=== PATIENT | female | born 1940 | race Caucasian/White ===

== ENCOUNTER 2018-05-17 20:31 | Outpatient (REF) | payer MEDICARE, MEDICAID, SELFPAY ==
[2018-05-17 22:55] LABS: Anion Gap 5.1 mmol/L (3-11); BUN 60 mg/dL (7-18); CO2 25.9 mmol/L (21.0-32.0); CREATININE 1.79 mg/dL (0.55-1.02); Calcium 8.5 mg/dL (8.5-10.1); Chloride 103 mmol/L (98-107); Estimated GFR 27.32 (mL/min/1.73m2); Glucose 255 mg/dL (70-100); Magnesium 1.8 mg/dL (1.8-2.4); NT-proBNP 283 pg/mL; Potassium 4.8 mmol/L (3.5-5.1); Sodium 134 mmol/L (136-145); TSH (W/Ref FT4) 53.73 uIU/mL (0.358-3.74)
[2018-05-17 23:05] LABS: Hemoglobin A1C 9.7 % (4.5-6.2)
[2018-05-17 23:10] LABS: HCT 35.6 % (36.0-46.0)
[2018-05-18] LABS: FREE T4 0.49 ng/dL (0.76-1.46)
== END 2018-05-17 20:51 ==
LOC: NCHCN 20:31
PROVIDERS: PCP Family Medicine; Visit Provider Nurse Practitioner Adult Health
DX: D50.0 Iron deficiency anemia secondary to blood loss (chronic) (principal); E11.9 Type 2 diabetes mellitus without complications; E83.42 Hypomagnesemia; E87.5 Hyperkalemia; I50.9 Heart failure, unspecified; E83.40 Disorders of magnesium metabolism, unspecified; I50.32 Chronic diastolic (congestive) heart failure; E03.9 Hypothyroidism, unspecified
CPT/HCPCS: 80048; 83036; 83735; 83880; 84439; 84443; 85014; 85018

== ENCOUNTER 2018-08-06 18:13 | Inpatient (IN) | payer MEDICARE, MEDICAID, SELFPAY ==
[2018-08-06] VITALS (25 sets, daily range): BP systolic 130–143; BP diastolic 65–71; PULSE 54–72; RESP 14–18; TEMP 36.3–36.9; O2SAT 93–99
--- NOTE | 2018-08-06 18:32 | DI.RAD_ITS ---
SYMPTOMS/DIAGNOSIS: WEAKNESS, BILATERAL KNEE PAIN AP AND LATERAL CHEST: The exam was performed in a semi-erect position. The AP view was quite limited due to technique and patient body habitus. There is stable cardiomegaly. The lung bases are not well seen on the AP view. There is mild right upper lobe linear atelectasis. No acute infiltrate or effusion is seen. There is no gross evidence of pulmonary edema. IMPRESSION: Limited exam. No acute abnormality. LEFT KNEE: The exam is limited by the patient's body habitus. There is narrowing of the medial femorotibial joint space. The bones appear osteoporotic. No fracture is visible. Severe degenerative changes at the patellofemoral joint are also present. IMPRESSION: Limited exam due to the patient's body habitus. If there is further concern of a fracture, CT could be performed. RIGHT KNEE: The exam is limited by the patient's body habitus. There are severe degenerative changes of the medial femorotibial joint and patellofemoral joint. There is no gross evidence of fracture or joint effusion. IMPRESSION: Severe degenerative changes. No gross evidence of an acute abnormality.
--- NOTE | 2018-08-06 18:44 | W.ED.GENAD ---
Discharge Plan Disposition Patient Disposition: [facility] INPATIENT Condition: Stable Discharge Details Chief Complaint: GenMedical Clinical Impression: UTI (urinary tract infection), Osteoarthritis of knees, bilateral, Generalized weakness Reason For Visit: UTI,GENERALIZED WEAKNESS,INABILITY TO AMBULATE Admit Date/Time: 08/08/18 12:20 Admit Provider: Tino Smith Attending Provider: Tino Smith Primary Care Provider: Brendan Mcintyre ED Provider: Stefan Sidhu Discharge Data Discharge Date/Time-TO BE ENTERED AT DEPARTURE: 08/06/18 23:02 Medical Decision Making Patient presenting to the emergency department for chief complaint of generalized weakness to lower extremities. She states throughout the day today it has been more difficult for her to walk with her walker and she continually feels like her legs are going to give out on her. Subjectively patient does smell of urine and has bilateral knee tenderness otherwise no other acute findings are noted. No specific neurological findings are noted. Concern for possible urinary tract infection or electrolyte abnormality noted in previous history of issues with magnesium. Plan to check labs, urinalysis, and chest Xray. Patient given some acetaminophen for knee pain. Review of labs show no significant leukocytosis, decreased GFR which seems close to baseline for patient, urinalysis that shows mild leukocyte esterase and moderate WBCs, and otherwise nondiagnostic findings. Review of chest x-ray showed moderate cardiomegaly a list stable moderate vascular congestion and atelectasis similar to previous study. There is concern for possible UTI causing generalized weakness so plan to give patient Rocephin, and nightly medications of gabapentin to see if patient is able to ambulate after receiving her normal nightly medication. senior staff consultant informed me after receiving medications the patient was not able to weight-bear with multiple personnel providing assistance so I do not feel the patient is able to be safely discharged home for outpatient treatment of urinary tract infection. Called and spoke with hospitalist who agreed to admit patient for generalized weakness and UTI. Patient was in agreement with this plan. Hospitalist agreed to admit patient. Lab Data Lab results reviewed: Yes I reviewed the patient's lab results. ECG Data Prior ECG tracings: available for review Interpretation: EKG reviewed with Dr. Weiss and shows sinus rhythm with a rate of 70, overall nondiagnostic and no significant change from previous EKG noted. HPI General Mode of arrival: EMS. Date/Time Provider Initiated Documentation: 08/06/18 18:17. Limitations to Documentation: no limitations. Information obtained by: patient, EMS and RN notes reviewed. History of Present Illness 78 year old F presents to the emergency department with the chief complaint of Weakness to lower legs, with intensity rated at 3. Quality is described as aching, and is localized to the lower extremity (Bilateral knee). Patient reports no radiation. Patient started experiencing this day(s) (1) and it has been constant. No relieving factors improve symptom(s), Movement worsens symptoms . Patient notes no other symptoms.. Patient did receive the following treatments prior to arrival, none Related Data Home Medications Medication Instructions Recorded Confirmed aspirin [Aspir-81] 81 mg PO DAILY tab 12/19/12 11/19/17 multivitamin [Daily Multi-Vitamin] 1 ea PO DAILY #90 03/01/16 08/06/18 nystatin 0 gm TOPICAL BID jar 01/13/17 11/19/17 pen needle, diabetic [BD #1 box 10/04/17 Ultra-Fine Skylar Pen Needle] levetiracetam [Keppra] 500 mg PO BID #60 tab-cap 10/10/17 amlodipine 2.5 mg PO DAILY #30 tab-cap 10/17/17 08/06/18 ranitidine HCl 150 mg PO BID #60 tab-cap 10/17/17 sucralfate 1 g PO QID PRN #120 tab 10/17/17 08/06/18 magnesium oxide 400 mg PO BID #60 tab 10/24/17 08/06/18 pen needle, diabetic [Pen Needle] #1 box 11/03/17 Mouthwash [Biotene Mouthwash] 5 ml MUCOUS MEMBRANE AC btl 11/29/17 acetaminophen [Tylenol] 650 mg PO Q6H PRN PRN #0 tab 11/29/17 08/06/18 insulin aspart U-100 [Novolog 0 units SUB-Q 0800,1200,1700 pen 11/29/17 08/06/18 Flexpen U-100 Insulin] cyanocobalamin (vitamin B-12) 1,000 mcg PO DAILY #100 tab 01/16/18 08/06/18 [Vitamin B-12] ferrous sulfate 325 mg PO BID #60 tab 01/16/18 08/06/18 pravastatin 40 mg PO DAILY #90 tab 01/16/18 08/06/18 torsemide 20 mg PO DAILY #30 tab 01/16/18 08/06/18 blood-glucose meter [Onetouch #1 kit 01/23/18 Ultra2] lancets [Bd Ultra-Fine] #60 ea 01/23/18 nystatin [Nyamyc] 2 gm TOPICAL BID #60 gm 02/21/18 gabapentin 400 mg capsule 400 mg PO TID #270 cap 05/19/18 08/06/18 levothyroxine 200 mcg tablet 200 mcg PO DAILY #90 tab 05/19/18 08/06/18 insulin detemir (U-100) 100 48 unit SC QPM #15 ml 07/12/18 08/06/18 unit/mL (3 mL) subcutaneous pen pramipexole 0.5 mg tablet 0.5 mg PO BID 90 Days #180 tab-cap 07/17/18 08/06/18 tramadol 50 mg tablet 25 - 50 mg PO BID PRN #60 tab 07/26/18 08/06/18 Previous Rx's Medication Instructions Recorded nystatin 0 gm TOPICAL BID jar 01/13/17 pen needle, diabetic [BD #1 box 10/04/17 Ultra-Fine Skylar Pen Needle] levetiracetam [Keppra] 500 mg PO BID #60 tab-cap 10/10/17 amlodipine 2.5 mg PO DAILY #30 tab-cap 10/17/17 ranitidine HCl 150 mg PO BID #60 tab-cap 10/17/17 magnesium oxide 400 mg PO BID #60 tab 10/24/17 pen needle, diabetic [Pen Needle] #1 box 11/03/17 Mouthwash [Biotene Mouthwash] 5 ml MUCOUS MEMBRANE AC btl 11/29/17 acetaminophen [Tylenol] 650 mg PO Q6H PRN PRN #0 tab 11/29/17 insulin aspart U-100 [Novolog 0 units SUB-Q 0800,1200,1700 pen 11/29/17 Flexpen U-100 Insulin] cyanocobalamin (vitamin B-12) 1,000 mcg PO DAILY #100 tab 01/16/18 [Vitamin B-12] ferrous sulfate 325 mg PO BID #60 tab 01/16/18 pravastatin 40 mg PO DAILY #90 tab 01/16/18 torsemide 20 mg PO DAILY #30 tab 01/16/18 blood-glucose meter [Onetouch #1 kit 01/23/18 Ultra2] lancets [Bd Ultra-Fine] #60 ea 01/23/18 nystatin [Nyamyc] 2 gm TOPICAL BID #60 gm 02/21/18 gabapentin 400 mg capsule 400 mg PO TID #270 cap 05/19/18 levothyroxine 200 mcg tablet 200 mcg PO DAILY #90 tab 05/19/18 insulin detemir (U-100) 100 48 unit SC QPM #15 ml 07/12/18 unit/mL (3 mL) subcutaneous pen pramipexole 0.5 mg tablet 0.5 mg PO BID 90 Days #180 tab-cap 07/17/18 tramadol 50 mg tablet 25 - 50 mg PO BID PRN #60 tab 07/26/18 Allergies Allergy/AdvReac Type Severity Reaction Status Date / Time lisinopril AdvReac Hyperkalemi Unverified 08/06/18 19:21 a General Stated Complaint: GenMedical LANA: 3 Review of Systems Constitutional Denies chills, Denies fever(s) and Denies malaise ENT Denies vertigo and Denies dizziness Cardiovascular Denies chest pain, Denies syncope, Denies irregular heart rhythm and Denies dyspnea Respiratory Denies cough and Denies dyspnea Gastrointestinal Denies diarrhea, Denies nausea and Denies vomiting Musculoskeletal Reports as per HPI, Reports abnormal gait (generalized weakness lower legs), Denies numbness and Denies tingling Neurologic Reports abnormal gait (generalized weakness lower legs), Denies vertigo, Denies dizziness, Denies syncope, Denies numbness and Denies tingling [facility], [facility] Medical History Microalbuminuria (Acute 07/11/15) Vitamin B12 deficiency (Chronic 04/09/16) Primary localized osteoarthrosis of left lower leg (Chronic 09/21/11) Palliative care patient (Chronic 10/26/17) Other hyperlipidemia (Chronic 09/21/11) Iron deficiency anemia due to chronic blood loss (Chronic 09/21/11) Herpes zoster without complication (Resolved 07/22/17) Generalized anxiety disorder (Chronic 09/21/11) Essential hypertension (Chronic 09/21/11) 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) Chronic diastolic heart failure (Chronic 01/16/18) Poorly controlled type 2 diabetes mellitus (Chronic) Morbid obesity with BMI of 70 and over, adult (Chronic) Social History adopted: No caregiver/support person: Yes foster care: No household members: children housing: house lives independently: No number of children: 4 half-way: No current occupational status: retired pets and animals: Yes leisure activities: other Hx Recent Travel: No diet: diabetic well-balanced diet: about half the time eating out: rarely or never reads food labels: sometimes Smoking/Tobacco Use Status: Never passive smoking exposure: Yes Surgical History Extraction of cataract (11/14/11) Exam Const General: cooperative, healthy appearing and no acute distress Orientation: alert, awake and oriented x3 Resp Effort & Inspection: normal respiratory effort and able to speak in complete sentences Auscultation: clear to auscultation bilaterally Cardio Rate: regular rate Rhythm: regular rhythm Heart Sounds: S1 normal, S2 normal, no click, no gallops, no murmurs and no rubs Neuro General: alert, awake, oriented x3, moves all extremities, no focal motor deficits and unable to assess gait Cognition: normal cognition Speech: speech normal Extrem Right lower extremity: knee Details: normal to inspection, tenderness (Diffuse) and swelling; no ecchymosis, no deformity and no unusual warmth and lower leg Details: non-pitting edema Details: 3+; no erythema, no tenderness, no ecchymosis and no unusual warmth Left lower extremity: knee Details: tenderness (Diffuse); no swelling, no ecchymosis and no deformity and lower leg Details: non-pitting edema Details: 3+; no tenderness, no ecchymosis and no deformity Course Vital Signs Temperature 36.4 C L 08/06/18 18:16 Pulse 72 08/06/18 18:16 Respiratory Rate 14 08/06/18 18:16 Blood Pressure 141/69 H 08/06/18 18:16 Pulse Oximetry 99 08/06/18 18:16 Temperature 36.4 C L 08/06/18 18:16 Temperature Source Temporal Artery Scan 08/06/18 18:16 Pulse 72 08/06/18 18:16 Respiratory Rate 14 08/06/18 18:16 Blood Pressure 141/69 H 08/06/18 18:16 Blood Pressure Position Sitting 08/06/18 18:16 Pulse Oximetry 99 08/06/18 18:16 Oxygen Delivery Method Nasal Cannula 08/06/18 18:16 Pain Level 5 08/06/18 18:16
--- NOTE | 2018-08-06 18:56 | ED.GENADUL_ITS ---
Discharge Plan Disposition Patient Disposition: [facility] INPATIENT Condition: Stable Discharge Details Chief Complaint: GenMedical Clinical Impression: UTI (urinary tract infection), Osteoarthritis of knees, bilateral, Generalized weakness Reason For Visit: UTI,GENERALIZED WEAKNESS,INABILITY TO AMBULATE Admit Date/Time: 08/08/18 12:20 Admit Provider: Tino Smith Attending Provider: Tino Smith Primary Care Provider: Brendan Mcintyre ED Provider: Stefan Sidhu Discharge Data Discharge Date/Time-TO BE ENTERED AT DEPARTURE: 08/06/18 23:02 Medical Decision Making Patient presenting to the emergency department for chief complaint of generalized weakness to lower extremities. She states throughout the day today it has been more difficult for her to walk with her walker and she continually feels like her legs are going to give out on her. Subjectively patient does smell of urine and has bilateral knee tenderness otherwise no other acute findings are noted. No specific neurological findings are noted. Concern for possible urinary tract infection or electrolyte abnormality noted in previous history of issues with magnesium. Plan to check labs, urinalysis, and chest Xray. Patient given some acetaminophen for knee pain. Review of labs show no significant leukocytosis, decreased GFR which seems close to baseline for patient, urinalysis that shows mild leukocyte esterase and moderate WBCs, and otherwise nondiagnostic findings. Review of chest x-ray showed moderate cardiomegaly a list stable moderate vascular congestion and atelectasis similar to previous study. There is concern for possible UTI causing generalized weakness so plan to give patient Rocephin, and nightly medications of gabapentin to see if patient is able to ambulate after receiving her normal nightly medication. staff registered nurse informed me after receiving medications the patient was not able to weight-bear with multiple personnel providing assistance so I do not feel the patient is able to be safely discharged home for outpatient treatment of urinary tract infection. Called and spoke with hospitalist who agreed to admit patient for generalized weakness and UTI. Patient was in agreement with this plan. Hospitalist agreed to admit patient. Lab Data Lab results reviewed: Yes I reviewed the patient's lab results. ECG Data Prior ECG tracings: available for review Interpretation: EKG reviewed with Dr. Weiss and shows sinus rhythm with a rate of 70, overall nondiagnostic and no significant change from previous EKG noted. HPI General Mode of arrival: EMS . Date/Time Provider Initiated Documentation: 08/06/18 18:17 . Limitations to Documentation: no limitations . Information obtained by: patient, EMS and RN notes reviewed . History of Present Illness 78 year old F presents to the emergency department with the chief complaint of Weakness to lower legs, with intensity rated at 3. Quality is described as aching, and is localized to the lower extremity (Bilateral knee). Patient reports no radiation. Patient started experiencing this day(s) (1) and it has been constant. No relieving factors improve symptom(s), Movement worsens symptoms . Patient notes no other symptoms.. Patient did receive the following treatments prior to arrival, none Related Data Home Medications Medication Instructions Recorded Confirmed aspirin [Aspir-81] 81 mg PO DAILY tab 12/19/12 11/19/17 multivitamin [Daily Multi-Vitamin] 1 ea PO DAILY #90 03/01/16 08/06/18 nystatin 0 gm TOPICAL BID jar 01/13/17 11/19/17 pen needle, diabetic [BD #1 box 10/04/17 Ultra-Fine Skylar Pen Needle] levetiracetam [Keppra] 500 mg PO BID #60 tab-cap 10/10/17 amlodipine 2.5 mg PO DAILY #30 tab-cap 10/17/17 08/06/18 ranitidine HCl 150 mg PO BID #60 tab-cap 10/17/17 sucralfate 1 g PO QID PRN #120 tab 10/17/17 08/06/18 magnesium oxide 400 mg PO BID #60 tab 10/24/17 08/06/18 pen needle, diabetic [Pen Needle] #1 box 11/03/17 Mouthwash [Biotene Mouthwash] 5 ml MUCOUS MEMBRANE AC btl 11/29/17 acetaminophen [Tylenol] 650 mg PO Q6H PRN PRN #0 tab 11/29/17 08/06/18 insulin aspart U-100 [Novolog 0 units SUB-Q 0800,1200,1700 pen 11/29/17 Flexpen U-100 Insulin] cyanocobalamin (vitamin B-12) 1,000 mcg PO DAILY #100 tab 01/16/18 08/06/18 [Vitamin B-12] ferrous sulfate 325 mg PO BID #60 tab 01/16/18 08/06/18 pravastatin 40 mg PO DAILY #90 tab 01/16/18 08/06/18 torsemide 20 mg PO DAILY #30 tab 01/16/18 08/06/18 blood-glucose meter [Onetouch #1 kit 01/23/18 Ultra2] lancets [Bd Ultra-Fine] #60 ea 01/23/18 nystatin [Nyamyc] 2 gm TOPICAL BID #60 gm 02/21/18 gabapentin 400 mg capsule 400 mg PO TID #270 cap 05/19/18 08/06/18 levothyroxine 200 mcg tablet 200 mcg PO DAILY #90 tab 05/19/18 08/06/18 insulin detemir (U-100) 100 48 unit SC QPM #15 ml 07/12/18 08/06/18 unit/mL (3 mL) subcutaneous pen pramipexole 0.5 mg tablet 0.5 mg PO BID 90 Days #180 tab-cap 07/17/18 08/06/18 tramadol 50 mg tablet 25 - 50 mg PO BID PRN #60 tab 07/26/18 08/06/18 Previous Rx's Medication Instructions Recorded nystatin 0 gm TOPICAL BID jar 01/13/17 pen needle, diabetic [BD #1 box 10/04/17 Ultra-Fine Skylar Pen Needle] levetiracetam [Keppra] 500 mg PO BID #60 tab-cap 10/10/17 amlodipine 2.5 mg PO DAILY #30 tab-cap 10/17/17 ranitidine HCl 150 mg PO BID #60 tab-cap 10/17/17 magnesium oxide 400 mg PO BID #60 tab 10/24/17 pen needle, diabetic [Pen Needle] #1 box 11/03/17 Mouthwash [Biotene Mouthwash] 5 ml MUCOUS MEMBRANE AC btl 11/29/17 acetaminophen [Tylenol] 650 mg PO Q6H PRN PRN #0 tab 11/29/17 insulin aspart U-100 [Novolog 0 units SUB-Q 0800,1200,1700 pen 11/29/17 Flexpen U-100 Insulin] cyanocobalamin (vitamin B-12) 1,000 mcg PO DAILY #100 tab 01/16/18 [Vitamin B-12] ferrous sulfate 325 mg PO BID #60 tab 01/16/18 pravastatin 40 mg PO DAILY #90 tab 01/16/18 torsemide 20 mg PO DAILY #30 tab 01/16/18 blood-glucose meter [Onetouch #1 kit 01/23/18 Ultra2] lancets [Bd Ultra-Fine] #60 ea 01/23/18 nystatin [Nyamyc] 2 gm TOPICAL BID #60 gm 02/21/18 gabapentin 400 mg capsule 400 mg PO TID #270 cap 05/19/18 levothyroxine 200 mcg tablet 200 mcg PO DAILY #90 tab 05/19/18 insulin detemir (U-100) 100 48 unit SC QPM #15 ml 07/12/18 unit/mL (3 mL) subcutaneous pen pramipexole 0.5 mg tablet 0.5 mg PO BID 90 Days #180 tab-cap 07/17/18 tramadol 50 mg tablet 25 - 50 mg PO BID PRN #60 tab 07/26/18 Allergies Allergy/AdvReac Type Severity Reaction Status Date / Time lisinopril AdvReac Hyperkalemi Unverified 08/06/18 19:21 a General Stated Complaint: GenMedical LANA: 3 Review of Systems Constitutional Denies chills, Denies fever(s) and Denies malaise ENT Denies vertigo and Denies dizziness Cardiovascular Denies chest pain, Denies syncope, Denies irregular heart rhythm and Denies dyspnea Respiratory Denies cough and Denies dyspnea Gastrointestinal Denies diarrhea, Denies nausea and Denies vomiting Musculoskeletal Reports as per HPI, Reports abnormal gait (generalized weakness lower legs), Denies numbness and Denies tingling Neurologic Reports abnormal gait (generalized weakness lower legs), Denies vertigo, Denies dizziness, Denies syncope, Denies numbness and Denies tingling [facility] Medical History Microalbuminuria (Acute 07/11/15) Vitamin B12 deficiency (Chronic 04/09/16) Primary localized osteoarthrosis of left lower leg (Chronic 09/21/11) Palliative care patient (Chronic 10/26/17) Other hyperlipidemia (Chronic 09/21/11) Iron deficiency anemia due to chronic blood loss (Chronic 09/21/11) Herpes zoster without complication (Resolved 07/22/17) Generalized anxiety disorder (Chronic 09/21/11) Essential hypertension (Chronic 09/21/11) 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) Chronic diastolic heart failure (Chronic 01/16/18) Poorly controlled type 2 diabetes mellitus (Chronic) Morbid obesity with BMI of 70 and over, adult (Chronic) Social History adopted: No caregiver/support person: Yes foster care: No household members: children housing: house lives independently: No number of children: 4 longterm: No current occupational status: retired pets and animals: Yes leisure activities: other Hx Recent Travel: No diet: diabetic well-balanced diet: about half the time eating out: rarely or never reads food labels: sometimes Smoking/Tobacco Use Status: Never passive smoking exposure: Yes Surgical History Extraction of cataract (11/14/11) Exam Const General: cooperative, healthy appearing and no acute distress Orientation: alert, awake and oriented x3 Resp Effort & Inspection: normal respiratory effort and able to speak in complete sentences Auscultation: clear to auscultation bilaterally Cardio Rate: regular rate Rhythm: regular rhythm Heart Sounds: S1 normal, S2 normal, no click, no gallops, no murmurs and no rubs Neuro General: alert, awake, oriented x3, moves all extremities, no focal motor deficits and unable to assess gait Cognition: normal cognition Speech: speech normal Extrem Right lower extremity: knee Details: normal to inspection, tenderness (Diffuse) and swelling; no ecchymosis, no deformity and no unusual warmth and lower leg Details: non-pitting edema Details: 3+; no erythema, no tenderness, no ecchymosis and no unusual warmth Left lower extremity: knee Details: tenderness (Diffuse); no swelling, no ecchymosis and no deformity and lower leg Details: non-pitting edema Details: 3+ ; no tenderness, no ecchymosis and no deformity Course Vital Signs Temperature 36.4 C L 08/06/18 18:16 Pulse 72 08/06/18 18:16 Respiratory Rate 14 08/06/18 18:16 Blood Pressure 141/69 H 08/06/18 18:16 Pulse Oximetry 99 08/06/18 18:16 Temperature 36.4 C L 08/06/18 18:16 Temperature Source Temporal Artery Scan 08/06/18 18:16 Pulse 72 08/06/18 18:16 Respiratory Rate 14 08/06/18 18:16 Blood Pressure 141/69 H 08/06/18 18:16 Blood Pressure Position Sitting 08/06/18 18:16 Pulse Oximetry 99 08/06/18 18:16 Oxygen Delivery Method Nasal Cannula 08/06/18 18:16 Pain Level 5 08/06/18 18:16
[2018-08-06 19:15] LABS: Bilirubin Negative (Negative); Blood Negative (Negative); Clarity Sl Cloudy; Glucose Negative (Negative); Ketones Negative (Negative); Leukocyte Esterase Trace (Negative); Nitrite Negative (Negative); Specific Gravity 1.015 (1.005-1.025); Urobilinogen 0.2 EU/dL (Up TO 0.2); pH 5.5 (5-8)
[2018-08-06] MEDS: Acetaminophen 325 MG TAB 650 MG PO (19:20)
[2018-08-06 19:26] LABS: Bacteria Many HPF (Negative); C & S Indicated? Yes; Casts Negative LPF (Negative); Crystals Moderate Amorphous HPF (Negative); Epithelial Cells Negative HPF (Negative); Mucus Negative (Negative); Other Cells Negative (Negative); RBC Negative (0-2)
[2018-08-06 19:47] LABS: ALT 12 U/L (12-78); AST 4 U/L (15-37); Alkaline Phosphatase 107 U/L (46-116); Anion Gap 7.7 mmol/L (3-11); BUN 53 mg/dL (7-18); Bilirubin, Total 0.3 mg/dL (0.2-1.0); CO2 27.3 mmol/L (21.0-32.0); CREATININE 2.07 mg/dL (0.55-1.02); Calcium 8.6 mg/dL (8.5-10.1); Chloride 103 mmol/L (98-107); Estimated GFR 23.04 (mL/min/1.73m2); Glucose 208 mg/dL (70-100); Potassium 4.7 mmol/L (3.5-5.1); Sodium 138 mmol/L (136-145); Total Protein 7.1 g/dL (6.4-8.2)
[2018-08-06 19:50] LABS: Abs Immature Grans 0.02 k/cumm (0.0-0.09); Absolute Basophil Count 0.04 k/cumm (0.0-0.2); Absolute Eosinophil Count 0.17 k/cumm (0.0-0.7); Absolute Monocyte Count 0.61 k/cumm (0.11-0.7); Absolute Neutrophil Count 7.39 k/cumm (1.2-6.7); Basophils % 0.4; Eosinophils % 1.8; HCT 37.5 % (36.0-46.0); HGB 11.8 g/dL (12.0-15.5); Immature Grans % 0.2; Lymphocytes % 10.8; Mean Corp. HGB Concentration 31.5 g/dL (32.0-36.0); Mean Corpuscular Hemoglobin 29.7 pg (27.0-33.0); Mean Corpuscular Volume 94.5 fL (80-95); Monocytes % 6.6; Neutrophils % 80.2; Platelet Count 246 x1000/uL (130-400); RBC 3.97 m/cumm (4.00-5.20); White Blood Cell Count 9.23 k/cumm (4.4-10.8)
[2018-08-06 19:59] LABS: Magnesium 2.1 mg/dL (1.8-2.4)
--- NOTE | 2018-08-06 20:02 | DI.VRAD_ITS ---
EXAM: XR Chest, 2 Views EXAM DATE/TIME: 08/06/2018 7:39 PM CLINICAL HISTORY: 78 years old, female; Signs and symptoms; Other: Weakness TECHNIQUE: XR of the chest, 2 views. COMPARISON: [place] CHEST ONE VIEW IN RAD DEPT 11/19/2017 6:51 AM FINDINGS: Lungs: Low lung volumes. Moderate cardiomegaly with stable moderate vascular congestion, probable very hilar interstitial edema. Subsegmental atelectasis in the midlung zones similar to the previous study. No juancarlos airspace consolidation. Pleural space: No significant effusion. No pneumothorax. Heart/Mediastinum: Cardiomegaly is stable. Bones/joints: No acute fracture. IMPRESSION: 1. Moderate cardiomegaly with stable moderate vascular congestion, probable very hilar interstitial edema. 2. Subsegmental atelectasis in the midlung zones similar to the previous study. Dictated and Authenticated by: Kaela Martinez MD. Ordering:GUMARO DEXTER MD
[2018-08-06 20:07] LABS: Troponin I 0.02 ng/mL (0.00-0.06)
[2018-08-06] MEDS: Sucralfate 1 GM TAB PO (20:24)
[2018-08-06] MEDS: Gabapentin 400 MG CAP PO (20:55)
--- NOTE | 2018-08-06 21:31 | DI.VRAD_ITS ---
EXAM: XR Left Knee, 3 Views EXAM DATE/TIME: 08/06/2018 8:55 PM CLINICAL HISTORY: 78 years old, female; Pain; Knee; Left; Patient HX: Pain. Unable to move leg - best views. Possible. PT morbidly obese TECHNIQUE: XR Left knee 3 views. COMPARISON: CR LEFT KNEE 3 VIEW COMPLETE 01/14/2016 9:44 AM FINDINGS: Bones/joints: No acute fracture or subluxation. Progression of severe medial, moderate lateral and severe patellofemoral compartment degenerative changes. The medial joint space appears nearly completely obliterated, worsened since the previous study. Extensive hypertrophic changes throughout the knee. Soft tissues: No gross effusion. Vasculature: Atherosclerosis. IMPRESSION: 1. No acute bony pathology. 2. Progression of severe medial, moderate lateral and severe patellofemoral compartment degenerative changes. Dictated and Authenticated by: Kaela Martinez MD. Ordering:GUMARO DEXTER MD
--- NOTE | 2018-08-06 21:32 | DI.VRAD_ITS ---
EXAM: XR Right Knee, 3 Views EXAM DATE/TIME: 08/06/2018 8:55 PM CLINICAL HISTORY: 78 years old, female; Pain; Knee; Right; Patient HX: Pain. Unable to move leg, best views possible - PT obese TECHNIQUE: XR Right knee 3 views. COMPARISON: No relevant prior studies available. FINDINGS: Bones/joints: No acute fracture or subluxation. Severe medial, moderate lateral and severe patellofemoral degenerative changes. Medial joint space appears narrowed. Probably some narrowing of the lateral joint space. No significant joint effusion. Soft tissues: No gross effusion. IMPRESSION: No acute bony pathology. Degenerative changes. Dictated and Authenticated by: Kaela Martinez MD. Ordering:GUMARO DEXTER MD
--- NOTE | 2018-08-06 22:01 | NUR.NOTE ---
Addendum entered by Marivel Vines 08/06/18 22:07: pt unable to stand with 2 person assist and walker. Extremely weak. Provider aware. Original Note: Nursing Note: pt resting comfortably in bed.
[2018-08-06] MEDS: Enoxaparin 30 MG/0.3 ML SYR SC (23:48)
--- NOTE | 2018-08-07 00:15 | W.PM.HP.N ---
Date of service: 08/07/18 Time of Service: 00:16 Assessment and Plan (1) Prerenal azotemia: Current visit: Yes Status: Acute Gentle IV fluid hydration overnight with a recheck of her BMP in the morning. Hold torsemide for now (2) Dehydration: Current visit: Yes Status: Acute As above (3) UTI (urinary tract infection): Current visit: Yes Status: Acute Continue Rocephin 1 g IV every 24 hours pending urinary culture results (4) Tinea cruris: Current visit: Yes Status: Acute Begin topical ketoconazole (5) Poorly controlled type 2 diabetes mellitus: Current visit: No Status: Chronic Continue current dose of Levemir and add moderate dose NovoLog sliding scale as well as mealtime coverage of carbohydrates with NovoLog at a 1-10 ratio (6) Generalized weakness: Current visit: Yes Status: Acute consult w/ P.T. to evaluate and treat, assess ambulatory status and to treat patient to try to improve ambulation/transfers, independent ADL performance History of Present Illness Chief Complaint: inability to walk Narrative: 78-year-old female with a past medical history of poorly controlled type 2 diabetes mellitus complicated by stage IV chronic renal insufficiency, essential hypertension, osteoarthritis of the knees, chronic anemia, hypothyroidism, morbid obesity, chronic congestive heart failure with preserved left ventricular ejection fraction presents to the emergency department with acute inability to ambulate beginning this morning. She normally gets out of bed with the help of a walker and can usually ambulate from her bedroom to the bathroom approximately 40 feet. Today she required the assistance of her daughter who lives with her just to get out of bed to a bedside commode. Patient's had chronic symptoms of orthostatic dizziness but denies any chest pain or acute dyspnea. She denies any fever or chills and has had no nausea or vomiting or diarrhea. Workup in the emergency room showed acute on chronic renal failure as well as evidence of a UTI. According the Stefan Sidhu N.P., she was unable to ambulate in the emergency room even with the assistance of three people and a walker. She was treated in the ER w/ Rocephin for her UTI and she was given Tylenol and her evening dose of gabapentin. She is admitted as an observation patient for treatment of her UTI and for treatment of dehydration and for P.T. evaluation and treatment of her generalized weakness and inability to ambulate. Review of Systems Constitutional Denies chills, Denies fever(s), Reports frequent falls and Reports weakness Eyes Reports system reviewed and no additional complaints, except as docu ENT Reports system reviewed and no additional complaints, except as docu Cardiovascular Reports system reviewed and no additional complaints, except as docu, Denies chest pain at rest, Denies chest pain with activity, Denies syncope, Reports lightheadedness and Reports dyspnea on exertion Respiratory Reports system reviewed and no additional complaints, except as docu, Denies chest congestion, Denies cough and Reports dyspnea on exertion Genitourinary Denies dysuria Musculoskeletal Denies back pain, Reports arthralgias, Reports numbness and Reports tingling Comments: Paresthesias in her legs and feet left being worse than the right Neurologic Reports system reviewed and no additional complaints, except as docu, Denies syncope, Reports frequent falls, Reports numbness, Reports tingling and Reports weakness Psychiatric Reports system reviewed and no additional complaints, except as docu Endocrine Reports system reviewed and no additional complaints, except as docu [facility] Medical History Microalbuminuria (Acute 07/11/15) Vitamin B12 deficiency (Chronic 04/09/16) Primary localized osteoarthrosis of left lower leg (Chronic 09/21/11) Palliative care patient (Chronic 10/26/17) Other hyperlipidemia (Chronic 09/21/11) Iron deficiency anemia due to chronic blood loss (Chronic 09/21/11) Herpes zoster without complication (Resolved 07/22/17) Generalized anxiety disorder (Chronic 09/21/11) Essential hypertension (Chronic 09/21/11) 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) Chronic diastolic heart failure (Chronic 01/16/18) Poorly controlled type 2 diabetes mellitus (Chronic) Morbid obesity with BMI of 70 and over, adult (Chronic) Social History adopted: No caregiver/support person: Yes foster care: No household members: children housing: house lives independently: No number of children: 4 shelter: No current occupational status: retired pets and animals: Yes leisure activities: other Hx Recent Travel: No diet: diabetic well-balanced diet: about half the time eating out: rarely or never reads food labels: sometimes Smoking/Tobacco Use Status: Never passive smoking exposure: Yes Surgical History Extraction of cataract (11/14/11) Meds Home Medications Medication Instructions Recorded Confirmed Type aspirin [Aspir-81] 81 mg PO DAILY tab 12/19/12 11/19/17 History multivitamin [Daily Multi-Vitamin] 1 ea PO DAILY #90 03/01/16 08/06/18 History nystatin 0 gm TOPICAL BID jar 01/13/17 11/19/17 Rx pen needle, diabetic [BD #1 box 10/04/17 Rx Ultra-Fine Skylar Pen Needle] levetiracetam [Keppra] 500 mg PO BID #60 tab-cap 10/10/17 Rx amlodipine 2.5 mg PO DAILY #30 tab-cap 10/17/17 08/06/18 Rx ranitidine HCl 150 mg PO BID #60 tab-cap 10/17/17 Rx sucralfate 1 g PO QID PRN #120 tab 10/17/17 08/06/18 History magnesium oxide 400 mg PO BID #60 tab 10/24/17 08/06/18 Rx pen needle, diabetic [Pen Needle] #1 box 11/03/17 Rx Mouthwash [Biotene Mouthwash] 5 ml MUCOUS MEMBRANE AC btl 11/29/17 Rx acetaminophen [Tylenol] 650 mg PO Q6H PRN PRN #0 tab 11/29/17 08/06/18 Rx insulin aspart U-100 [Novolog 0 units SUB-Q 0800,1200,1700 pen 11/29/17 08/06/18 Rx Flexpen U-100 Insulin] Hospital Bed ea MISCELLANEOUS ONCE #1 12/28/17 Clinic cyanocobalamin (vitamin B-12) 1,000 mcg PO DAILY #100 tab 01/16/18 08/06/18 Rx [Vitamin B-12] ferrous sulfate 325 mg PO BID #60 tab 01/16/18 08/06/18 Rx pravastatin 40 mg PO DAILY #90 tab 01/16/18 08/06/18 Rx torsemide 20 mg PO DAILY #30 tab 01/16/18 08/06/18 Rx Onetouch Ultra Test Strips 1 ea MISCELLANEOUS BID #60 strip 01/23/18 Clinic blood-glucose meter [Onetouch #1 kit 01/23/18 Rx Ultra2] lancets [Bd Ultra-Fine] #60 ea 01/23/18 Rx nystatin [Nyamyc] 2 gm TOPICAL BID #60 gm 02/21/18 Rx gabapentin 400 mg capsule 400 mg PO TID #270 cap 05/19/18 08/06/18 Rx levothyroxine 200 mcg tablet 200 mcg PO DAILY #90 tab 05/19/18 08/06/18 Rx insulin detemir (U-100) 100 48 unit SC QPM #15 ml 07/12/18 08/06/18 Rx unit/mL (3 mL) subcutaneous pen pramipexole 0.5 mg tablet 0.5 mg PO BID 90 Days #180 tab-cap 07/17/18 08/06/18 Rx tramadol 50 mg tablet 25 - 50 mg PO BID PRN #60 tab 07/26/18 08/06/18 Rx Allergies Allergy/AdvReac Type Severity Reaction Status Date / Time lisinopril AdvReac Hyperkalemi Unverified 08/06/18 19:21 a Exam Const General: cooperative and no acute distress Nutritional Appearance: obese morbidly obese Orientation: alert, awake and oriented x3 HENMT Head: normal to inspection, no palpable skull fracture, normocephalic and atraumatic General nose exam: external nose normal and nares normal Face and sinus: normal facial exam Mouth: moist mucous membranes abnormal (Dry mucous membranes) Eyes General: appearance normal, both eyes and all related structures Visual Frias: normal visual frias by confrontation Alignment and Position: alignment normal Periorbital: periorbital findings normal Eyelids: eyelids normal Conjunctivae: conjunctivae normal Sclera: sclerae normal Cornea: corneas normal Pupils: PERRL and normal by confrontation EOM: EOM intact bilaterally Neck Neck: normal visual inspection, full ROM, no lymphadenopathy, trachea midline and supple Carotids: normal carotid upstroke Lymphatic: no lymphadenopathy noted Resp Effort & Inspection: normal respiratory effort and able to speak in complete sentences Auscultation: clear to auscultation bilaterally Cardio Jugular venous pressure: no JVD Palpation: normal PMI Rate: regular rate Rhythm: regular rhythm Heart Sounds: S1 normal, S2 normal, normal, physiologic split S2, no gallops, no murmurs and no rubs Bruits: no abdominal aortic bruits, no carotid bruits and no renal bruits Pulses: normal peripheral pulses GI Inspection: large pannus and obesity Palpation: soft, no guarding and nontender Percussion: normal to percussion Auscultation: normal bowel sounds Skin Rashes: rashes noted (Tinea cruris bilaterally) groin and other (Stasis dermatitis over both pretibial surfaces) Neuro General: alert, awake and oriented x3 Cranial Nerves: CN's II-XI intact bilaterally Cognition: normal cognition Speech: speech normal Motor: strength abnormal (Decreased strength with right and left hip flexion and abduction however normal dorsiflexion plantarflexion of the right and left foot.) Sensory Exam: other (Sensory exam grossly intact to light touch in both lower extremities. Two-point discrimination was not tested and monofilament was not tested) Plantar Reflexes: Downgoing: bilateral Pupils: Normal pupillary reactivity/response: bilateral and Pinpoint: bilateral Extrem General: no clubbing, cyanosis or edema and no calf tenderness Psych Appearance: disheveled Mental Status: mental status grossly normal Speech and Movement: speech and movement normal Mood: congruent mood Affect: normal affect Attitude: cooperative Thought Process: normal Thought Content: normal Insight: insight good Judgment: judgment good Results Labs : 08/06/18 19:25 08/07/18 06:22 Laboratory Results - last 24 hr 08/06/18 08/06/18 08/06/18 19:10 19:25 19:25 WBC 9.23 RBC 3.97 L Hgb 11.8 L Hct 37.5 MCV 94.5 MCH 29.7 MCHC 31.5 L RDW 13.0 Plt Count 246 MPV 10.0 Immature Gran % 0.2 Neutrophils % 80.2 Lymphocytes % 10.8 Monocytes % 6.6 Eosinophils % 1.8 Basophils % 0.4 Absolute Neutrophils 7.39 H Absolute Lymphocytes 1.00 L Absolute Monocytes 0.61 Absolute Eosinophils 0.17 Absolute Basophils 0.04 Sodium 138 Potassium 4.7 Chloride 103 Carbon Dioxide 27.3 Anion Gap 7.7 BUN 53 H Creatinine 2.07 H Estimated GFR/1.73 m2 23.04 Glucose 208 H Calcium 8.6 Magnesium Total Bilirubin 0.3 AST 4 L ALT 12 Alkaline Phosphatase 107 Troponin I Total Protein 7.1 Albumin 3.0 L Urine Color Yellow Urine Clarity Sl cloudy Urine pH 5.5 Ur Specific [place] 1.015 Urine Protein 100 H Urine Ketones Negative Urine Blood Negative Urine Nitrite Negative Urine Bilirubin Negative Urine Urobilinogen 0.2 Ur Leukocyte Esterase Trace H Urine RBC Negative Urine WBC 10-20 Ur Epithelial Cells Negative Urine Crystals Moderate amorphous Urine Bacteria Many Urine Casts Negative Urine Mucus Negative Urine Other Negative Ur Culture Indicated? Yes Urine Glucose Negative 08/06/18 08/06/18 19:25 19:25 WBC RBC Hgb Hct MCV MCH MCHC RDW Plt Count MPV Immature Gran % Neutrophils % Lymphocytes % Monocytes % Eosinophils % Basophils % Absolute Neutrophils Absolute Lymphocytes Absolute Monocytes Absolute Eosinophils Absolute Basophils Sodium Potassium Chloride Carbon Dioxide Anion Gap BUN Creatinine Estimated GFR/1.73 m2 Glucose Calcium Magnesium 2.1 Total Bilirubin AST ALT Alkaline Phosphatase Troponin I 0.02 Total Protein Albumin Urine Color Urine Clarity Urine pH Ur Specific [place] Urine Protein Urine Ketones Urine Blood Urine Nitrite Urine Bilirubin Urine Urobilinogen Ur Leukocyte Esterase Urine RBC Urine WBC Ur Epithelial Cells Urine Crystals Urine Bacteria Urine Casts Urine Mucus Urine Other Ur Culture Indicated? Urine Glucose Last Vital Signs Temp 36.3 C L 08/06/18 23:23 Pulse 62 08/06/18 23:23 Resp 18 08/06/18 23:23 BP 143/71 H 08/06/18 23:23 Pulse Ox 97 08/06/18 23:23
[2018-08-07] MEDS: Lactated Ringers 1,000 ML 80 ML IV (01:39)
[2018-08-07] MEDS: Levothyroxine 100 MCG TAB 200 MCG PO (06:04)
[2018-08-07 07:40] VITALS: BP 102/64; PULSE 57; RESP 20; TEMP 36.4; O2SAT 95; O2SAT 98
[2018-08-07 07:43] LABS: Anion Gap 6.3 mmol/L (3-11); BUN 53 mg/dL (7-18); CO2 26.7 mmol/L (21.0-32.0); CREATININE 2.05 mg/dL (0.55-1.02); Calcium 8.4 mg/dL (8.5-10.1); Chloride 106 mmol/L (98-107); Glucose 117 mg/dL (70-100); Potassium 4.3 mmol/L (3.5-5.1); Sodium 139 mmol/L (136-145)
[2018-08-07 07:54] LABS: Hemoglobin A1C 10.3 % (4.5-6.2)
[2018-08-07] MEDS: amLODIPine 2.5 MG TAB PO (08:16)
[2018-08-07] MEDS: Pramipexole 0.5 MG TAB PO ×2 (08:16→20:37)
--- NOTE | 2018-08-07 08:16 | PDOC.CMIN ---
- If Service Date Differs Date of service: 08/07/18 Time of Service: 08:16 Care Management Initial Assess REASON FOR HOSPITALIZATION:: UTI, generalized weakness, inability to ambulate. PAST MEDICAL HISTORY/PAST SURGICAL HISTORY:: Chronic diastolic heart failure, magnesium metabolism, essential hypertension, anxiety, herpes zoster, microalbuminuria, morbid obesity, hyperlipidemia, diabetes type II, osteoarthritis left leg. Surgical hx: bilateral cataract. PREVIOUS FUNCTIONAL STATUS/SOCIAL/FAMILY SUPPORTS:: Bijal resides in [facility] with her daughter, Erin, who is her primary direct care staffer. She has a son, Doug, who resides nearby and is additionally supportive. Bijal spent several weeks at [facility] H& seven months ago and had home health services (RN/PT/OT) at that time. Bijal's home health services have since ceased. She requires assistance with her ADLs; she can reportedly dress independently and use the bathroom. Bijal utilizes a walker and wheel chair (most often) at home for ambulation. According to her daughter, Bijal is homebound as she, Erin, can not transport her. CURRENT FUNCTIONAL STATUS:: Bijal is sitting in her chair with her son, Doug, and daughter, Erin, at bedside when visits this morning. She is engaged in conversation and is talkative. Bijal reports that she is feeling ok but continues to feel week. Bijal was admitted with a UTI and is being medically managed for such and her diminished level of mobility. Bijal and her family would like the hospital to get her back to her baseline with mobility and then have her return home. Bijal is here on observation status so will not have a qualifying stay should she require a short term rehab stay at a SNF. Bijal and her family understand this and would like her to return home with services if possible following her discharge from [facility]. ADVANCE DIRECTIVES:: On file at [facility]. Health Care Agent: Erin Medley. . Has patient been provided with information about the portal?: Yes Did the patient sign up for the portal?: No CODE STATUS:: Full Code INSURANCE COVERAGE / FINANCIAL ISSUES:: Medicaid, Medicare. CURRENT HOME/COMMUNITY SERVICES/EQUIPMENT:: No current home or community services. Bijal refused offer of referrals to [facility], [facility], etc. Bijal uses a wheel chair and walker for ambulation. PRIMARY CARE PHYSICIAN:: Brendan Mcintyre DO. POTENTIAL DISCHARGE NEEDS:: Follow up appointment with PCP. Home health services (PT/OT(?). PATIENT/FAMILY EDUCATION NEEDS:: Discharge education, any limitations, and follow up plan of care. Ask Me Three discussion. ANTICIPATED BARRIERS TO DISCHARGE:: No anticipated barriers to discharge. TRANSPORTATION:: Bijal will transport home via private vehicle with her daughter, Erin. PLAN:: Bijal will discharge home when medically ready per MD. Anticipate patient will discharge with no services and follow up with PCP. CM will continue to offer support to patient and care team regarding discharge planning and disposition.
[2018-08-07] MEDS: Pravastatin 40 MG TAB PO (08:17)
[2018-08-07] MEDS: Multivitamin TAB 1 TAB PO (08:17)
[2018-08-07] MEDS: Ferrous Sulfate 325 MG TAB PO ×2 (08:17→20:37)
[2018-08-07] MEDS: Gabapentin 400 MG CAP PO ×3 (08:17→20:37)
[2018-08-07] MEDS: Cyanocobalamin 500 MCG TAB 1000 MCG PO (08:17)
[2018-08-07] MEDS: Magnesium Oxide 400 MG TAB PO ×2 (08:17→20:37)
[2018-08-07] MEDS: Insulin Aspart 300 UNITS/3 ML PEN SC ×5 (08:23→17:20)
--- NOTE | 2018-08-07 08:24 | INITIAL_ITS ---
- If Service Date Differs Date of service: 08/07/18 Time of Service: 08:16 Care Management Initial Assess REASON FOR HOSPITALIZATION:: UTI, generalized weakness, inability to ambulate. PAST MEDICAL HISTORY/PAST SURGICAL HISTORY:: Chronic diastolic heart failure, magnesium metabolism, essential hypertension, anxiety, herpes zoster, microalbuminuria, morbid obesity, hyperlipidemia, diabetes type II, osteoarthritis left leg. Surgical hx: bilateral cataract. PREVIOUS FUNCTIONAL STATUS/SOCIAL/FAMILY SUPPORTS:: Bijal resides in [facility] with her daughter, Erin, who is her primary home health care physician. She has a son , Doug, who resides nearby and is additionally supportive. Bijal spent several weeks at [facility] H& seven months ago and had home health services (RN/PT/ OT) at that time. Bijal's home health services have since ceased. She requires assistance with her ADLs; she can reportedly dress independently and use the bathroom. Bijal utilizes a walker and wheel chair (most often) at home for ambulation. According to her daughter, Bijal is homebound as she, Erin, can not transport her. CURRENT FUNCTIONAL STATUS:: Bijal is sitting in her chair with her son, Doug, and daughter, Erin, at bedside when visits this morning. She is engaged in conversation and is talkative. Bijal reports that she is feeling ok but continues to feel week. Bijal was admitted with a UTI and is being medically managed for such and her diminished level of mobility. Bijal and her family would like the hospital to get her back to her baseline with mobility and then have her return home. Bijal is here on observation status so will not have a qualifying stay should she require a short term rehab stay at a SNF. Bijal and her family understand this and would like her to return home with services if possible following her discharge from [facility]. ADVANCE DIRECTIVES:: On file at [facility]. Health Care Agent: Erin Medley. . Has patient been provided with information about the portal?: Yes Did the patient sign up for the portal?: No CODE STATUS:: Full Code INSURANCE COVERAGE / FINANCIAL ISSUES:: Medicaid, Medicare. CURRENT HOME/COMMUNITY SERVICES/EQUIPMENT:: No current home or community services. Bijal refused offer of referrals to [facility], [facility], etc. Bijal uses a wheel chair and walker for ambulation. PRIMARY CARE PHYSICIAN:: Brendan Mcintyre DO. POTENTIAL DISCHARGE NEEDS:: Follow up appointment with PCP. Home health services (PT/OT(?). PATIENT/FAMILY EDUCATION NEEDS:: Discharge education, any limitations, and follow up plan of care. Ask Me Three discussion. ANTICIPATED BARRIERS TO DISCHARGE:: No anticipated barriers to discharge. TRANSPORTATION:: Bijal will transport home via private vehicle with her daughter, Erin. PLAN:: Bijal will discharge home when medically ready per MD. Anticipate patient will discharge with no services and follow up with PCP. CM will continue to offer support to patient and care team regarding discharge planning and disposition.
[2018-08-07] MEDS: traMADol 50 MG TAB PO ×2 (08:31→20:37)
--- NOTE | 2018-08-07 09:23 | IN_ITS ---
Date of service: 08/07/18 Time of Service: 08:50 PT Notes Inpatient Physical Therapy Evaluation Date: 08/07/18 Referring Doctor: Dr. Tino Smith PT Orders: PT CONSULT: evaluate and treat for generalized weakness and inability to ambulate Precautions: fall, standard Patient Profile/Admitting Diagnosis: Patient admitted from ED after presenting due to weakness and inability to ambulate. She was found to have UTI and was admitted for medical management and due to level of immobility. PMHX: morbid obesity, osteoarthritis bilateral knees, chronic anemia, anxiety, depression, congestive heart failure, diabetes mellitus type II, restless leg syndrome, chronic pain, chronic kidney disease, erosive esophagitis, hyperlipidemia, hypothyroidism, hypertension, hyperkalemia, bilateral cataract extraction, hysterectomy, tubal ligation, gastroesophageal reflux disease, sleep apnea, B12 and magnesium deficiency Social History/Home Situation: Lives with daughter who assists with care, ramp to enter. Baseline mobility gait 20-30ft with PUW, assist with ADLS. [facility] Equipment owned/DME: Hospital bed, PUW, wheelchair, grab bars around toilet and shower, home 02 Subjective: Bijal states that she's having a great deal of pain in her legs from lying with them out straight. She is anxious to get up walking and be able to go home. Objective: General Observation: Morbidly obese female resting in bed. She has an IV in RUE , 1L supplemental O2. Mental Status: A&Ox3 Pain: bilateral knee pain Vital Signs: Resting BP 94/58, HR 63, SaO2 96% on 1L ROM: Right Upper Extremity: Shoulder flexion actively allows 90 degrees; AAROM allows 160 degrees. Left Upper Extremity: Shoulder flexion 160 degrees. Right Lower Extremity: Knee motion functionally allows 0-90 degrees Left Lower Extremity: Knee motion functionally allows 0-90 degrees Strength: Right Upper Extremity: Shoulder flexion 3-/5, biceps 3/5, triceps 4-/5 Left Upper Extremity: Shoulder flexion 3-/5, biceps 3/5, triceps 4-/5 Right Lower Extremity: Quads 3/5; functionally requires 75% assist for SLR. Ankle DF 3/5 Left Lower Extremity: Quads 3/5; functionally requires 75% assist for SLR. Ankle DF 3/5 Bed Mobility/Transfers: supine->sit: max A x 2 sit->stand: mod A x 2 stand->sit: mod A x 2 bed->chair: modAx2, WW Gait: unable to functionally ambulate. Patient performs stand-step transfer to chair with mod Ax2 and WW. Balance: Static Sitting: fair Dynamic Sitting: fair Static Standing: poor Dynamic Standing: poor Special Tests: Mobility Limitations Standardized Measure [facility] AM-PAC 6 clicks Basic Mobility Inpatient Short Form: Raw Score: 11 Standardized Score: 33.86 CMS Score: 73% CMS Modifier: CL Informed Consent/Education: Patient instructed in purpose of PT consult and plan of care. Assessment: Patient is a 78 year old female referred to physical therapy services with the diagnosis of decreased mobility related to acute UTI. Patient presents with clinical signs and symptoms consistent with diagnosis, as demonstrated by the following impairment level findings: 1. Decreased UE strength 2. Decreased LE strengh 3. Decreased activity tolerance 4. morbid obesity Impairments are contributing to the following functional limitations: 1. Unable to transfer independently 2. Unable to get in/out of bed independently 3. Unable to ambulate household distances 4. Unable to statically stand for meal prep/ self-care activities [facility] score 73% deficit Patient is assessed as a High [id number] complexity based on the following: History: 78 year old female admitted for weakness due to acute UTI, complicated by morbid obesity, baseline level of deconditioning, multiple medical comorbidities, including poorly controlled DM Examination: functional limitations as noted above Presentation: unstable Decision Making: high complexity Goals: Goals X1 week 1. Supine-Sit : min A 2. Sit-Supine : min A 3. Sit-Stand : min A 4. Stand-Sit : min A 5. Bed-Chair : min A with WW 6. Chair-Bed : min A with WW 7. Gait : min A with WW x 25' Plan of Care/Treatment Plan: 1-2x/day, 7 days/week x 1 week. Plan of care has been reviewed with the [employer] providing the service under Physical Therapy direction. Initiate Physical Therapy intervention for strengthening, bed mobility, transfers, gait, stairs, balance training, use of assistive device. DISCHARGE RECOMMENDATIONS: home versus SNF, depending on progression as she stabilizes medically TREATMENT CODE/TIME: 30 minutes (23244) G Codes in the area mobility of walking and moving around: current status [id number] CL; projected status GP [id number]. Discharge status (if discharging) GP [id number] CL.
[2018-08-07 12:10] VITALS: O2SAT 87
--- NOTE | 2018-08-07 13:28 | PGE_ITS ---
Date of Service Date of service: 08/07/18 Time of Service: 13:26 Assessment and Plan (1) Prerenal azotemia: Current visit: Yes Status: Acute Continue IVFs, and continue to hold torsemide. This morning's creatinine appears unchanged from last night. Avoid nephrotoxins, renally dose medications when appropriate, and monitor renal function closely. (2) Dehydration: Current visit: Yes Status: Acute As above (3) UTI (urinary tract infection): Current visit: Yes Status: Acute Continue Ceftriaxone, currently Day #2, and monitor urine and blood cultures. (4) Tinea cruris: Current visit: Yes Status: Acute Continue topical ketoconazole (5) Poorly controlled type 2 diabetes mellitus: Current visit: No Status: Chronic Continue current dose of Levemir. Also on moderate dose NovoLog sliding scale as well as mealtime coverage of carbohydrates with NovoLog at a 1-10 ratio. Maintain on ADA diet (6) Chronic diastolic heart failure: Current visit: Yes Status: Chronic With preserved LVEF. Holding Torsemide in setting of dehydration. (7) 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 diabetes mellitus: Current visit: Yes Status: Chronic With superimposed JUAN as above. (8) Hypothyroidism: Current visit: Yes Status: Chronic Continue replacement therapy. (9) DVT prophylaxis: Current visit: No Status: Acute SC Lovenox, renally dosed. Subjective Interval history since last seen: 78-year-old woman with a past medical history of poorly controlled type 2 diabetes mellitus complicated by stage IV chronic renal insufficiency, essential hypertension, osteoarthritis of the knees, chronic anemia, hypothyroidism, morbid obesity, and CHF with a preserved LVEF, admitted from [facility] emergency department on 08/06 with a diagnosis of weakness secondary to a UTI. Mrs. Zapata reported an acute inability to ambulate beginning on the morning of admission. She normally gets out of bed with the help of a walker and can usually ambulate from her bedroom to the bathroom which is approximately 40 feet. On the day of her presentation to the hospital she apparently required the assistance of her daughter who lives with her in order to get out of bed to a bedside commode. Workup in the emergency room showed acute on chronic renal failure as well as evidence of a UTI. She was also unable to ambulate in the emergency room even with the assistance of three people and a walker. She was treated in the ER w/ Toddephin for her UTI and she was given Tylenol and her evening dose of gabapentin. She was referred for admission for treatment of her UTI, as well as for treatment of dehydration and P.T. evaluation for her weakness with inability to ambulate. This morning Mrs. Zapata reports marginal improvement in her symptoms. No overnight events were reported. She remains afebrile. Exam Narrative Exam Narrative: General: Patient appears comfortable, sitting out of bed in chair, AAOX3, NAD. Morbidly obese. Neck: Supple CV: Regular, nontachycardic, S1S2. 3/6 LLSB murmur appreciated. Pulmonary: Clear to auscultation bilaterally, no crackles, wheezing, or rhonchi Abdomen: + Bowel Sounds, soft, nontender, nondistended. Obese in contour. Vascular: Bilateral nonpitting lower extremity edema with hyperpigmentation of the skin noted Objective Objective Clinical Data: Abnormal lab results 08/06/18 08/06/18 08/06/18 Range/Units 19:10 19:25 19:25 RBC 3.97 L (4.00-5.20) m/cumm Hgb 11.8 L (12.0-15.5) g/dL MCHC 31.5 L (32.0-36.0) g/dL Absolute Neutrophils 7.39 H (1.2-6.7) k/cumm Absolute Lymphocytes 1.00 L (1.2-3.4) k/cumm BUN 53 H (7-18) mg/dL Creatinine 2.07 H (0.55-1.02) mg/dL Glucose 208 H (70-100) mg/dL Hemoglobin A1c (4.5-6.2) % Calcium (8.5-10.1) mg/dL AST 4 L (15-37) U/L Albumin 3.0 L (3.4-5.0) g/dL Urine Protein 100 H (Negative) mg/dL Ur Leukocyte Esterase Trace H (Negative) 08/07/18 08/07/18 Range/Units 06:22 06:22 RBC (4.00-5.20) m/cumm Hgb (12.0-15.5) g/dL MCHC (32.0-36.0) g/dL Absolute Neutrophils (1.2-6.7) k/cumm Absolute Lymphocytes (1.2-3.4) k/cumm BUN 53 H (7-18) mg/dL Creatinine 2.05 H (0.55-1.02) mg/dL Glucose 117 H D (70-100) mg/dL Hemoglobin A1c 10.3 H (4.5-6.2) % Calcium 8.4 L (8.5-10.1) mg/dL AST (15-37) U/L Albumin (3.4-5.0) g/dL Urine Protein (Negative) mg/dL Ur Leukocyte Esterase (Negative) Vital Signs Temperature 36.4 C L 08/07/18 07:40 Temperature Source Tympanic 08/07/18 07:40 Pulse 57 L 08/07/18 07:40 Pulse Rhythm Regular 08/07/18 08:10 Pulse 56 L 08/06/18 22:50 Respiratory Rate 20 08/07/18 07:40 Respiratory Effort 08/07/18 08:10 Respiratory Depth Normal 08/07/18 08:10 Respiratory Pattern Normal 08/07/18 08:10 Blood Pressure 102/64 08/07/18 07:40 Blood Pressure Position Sitting 08/06/18 18:16 Pulse Oximetry 95 08/07/18 07:40 Oxygen Delivery Method Nasal Cannula 08/07/18 07:40 Oxygen Flow Rate 1 08/07/18 07:40 Pain Level 9 08/07/18 08:31 Comment 08/06/18 22:30 Intake & Output 08/06/18 08/07/18 08/07/18 23:59 11:59 23:59 Intake Total 510 / 510 250 / 250 Output Total 650 / 650 Balance -640 / -640 510 / 510 250 / 250 Weight 151.7 kg 151.5 kg Intake: IV Oral 500 / 500 250 / 250 Output: Urine 650 / 650 Other: Urine Color Pale Urine Appearance Clear Comment pt changed by ED staff and CC Kim. Paitent was changed and reposhitioned. Voiding Methods Incontinent Diaper Incontinent Laboratory Results WBC 9.23 k/cumm (4.4-10.8) 08/06/18 19:25 RBC 3.97 m/cumm (4.00-5.20) L 08/06/18 19:25 Hgb 11.8 g/dL (12.0-15.5) L 08/06/18 19:25 Hct 37.5 % (36.0-46.0) 08/06/18 19:25 MCV 94.5 fL (80-95) 08/06/18 19:25 MCH 29.7 pg (27.0-33.0) 08/06/18 19:25 MCHC 31.5 g/dL (32.0-36.0) L 08/06/18 19:25 RDW 13.0 % (11.7-14.6) 08/06/18 19:25 Plt Count 246 x1000/uL (130-400) 08/06/18 19:25 MPV 10.0 fL (8.0-11.0) 08/06/18: Immature Gran % 0.2 08/06/18 19:25 Neutrophils % 80.2 08/06/18 19:25 Lymphocytes % 10.8 08/06/18 19:25 Monocytes % 6.6 08/06/18 19: Eosinophils % 1.8 08/06/18 19: Basophils % 0.4 08/06/18 19:25 Absolute Neutrophils 7.39 k/cumm (1.2-6.7) H 08/06/18 19:25 Absolute Lymphocytes 1.00 k/cumm (1.2-3.4) L 08/06/18 19:25 Absolute Monocytes 0.61 k/cumm (0.11-0.7) 08/06/18 19:25 Absolute Eosinophils 0.17 k/cumm (0.0-0.7) 08/06/18 19:25 Absolute Basophils 0.04 k/cumm (0.0-0.2) 08/06/18 19:25 Sodium 139 mmol/L (136-145) 08/07/18 06:22 Potassium 4.3 mmol/L (3.5-5.1) 08/07/18 06:22 Chloride 106 mmol/L (98-107) 08/07/18 06:22 Carbon Dioxide 26.7 mmol/L (21.0-32.0) 08/07/18 06:22 Anion Gap 6.3 mmol/L (3-11) 08/07/18 06:22 BUN 53 mg/dL (7-18) H 08/07/18 06:22 Creatinine 2.05 mg/dL (0.55-1.02) H 08/07/18 06:22 Estimated GFR/1.73 m2 23.30 (mL/min/1.73m2) 08/07/18 06:22 Glucose 117 mg/dL (70-100) H D 08/07/18 06:22 Hemoglobin A1c 10.3 % (4.5-6.2) H 08/07/18 06:22 Calcium 8.4 mg/dL (8.5-10.1) L 08/07/18 06:22 Magnesium 2.1 mg/dL (1.8-2.4) 08/06/18 19:25 Total Bilirubin 0.3 mg/dL (0.2-1.0) 08/06/18 19:25 AST 4 U/L (15-37) L 08/06/18 19:25 ALT 12 U/L (12-78) 08/06/18 19:25 Alkaline Phosphatase 107 U/L (46-116) 08/06/18 19:25 Troponin I 0.02 ng/mL (0.00-0.06) 08/06/18 19:25 Total Protein 7.1 g/dL (6.4-8.2) 08/06/18 19:25 Albumin 3.0 g/dL (3.4-5.0) L 08/06/18 19:25 Urine Color Yellow (Yellow) 08/06/18 19:10 Urine Clarity Sl cloudy 08/06/18 19:10 Urine pH 5.5 (5-8) 08/06/18 19:10 Ur Specific [place] 1.015 (1.005-1.025) 08/06/18 19:10 Urine Protein 100 mg/dL (Negative) H 08/06/18 19:10 Urine Ketones Negative mg/dL (Negative) 08/06/18 19:10 Urine Blood Negative (Negative) 08/06/18 19:10 Urine Nitrite Negative (Negative) 08/06/18 19:10 Urine Bilirubin Negative (Negative) 08/06/18 19:10 Urine Urobilinogen 0.2 EU/dL (Up TO 0.2) 08/06/18 19:10 Ur Leukocyte Esterase Trace (Negative) H 08/06/18 19:10 Urine RBC Negative (0-2) 11/25/18 19:10 Urine WBC 10-20 HPF (0-5) 08/06/18 19:10 Ur Epithelial Cells Negative HPF (Negative) 08/06/18 19:10 Urine Crystals Moderate amorphous HPF (Negative) 08/06/18 19:10 Urine Bacteria Many HPF (Negative) 08/06/18 19:10 Urine Casts Negative LPF (Negative) 08/06/18 19:10 Urine Mucus Negative (Negative) 08/06/18 19:10 Urine Other Negative (Negative) 08/06/18 19:10 Ur Culture Indicated? Yes 08/06/18 19:10 Urine Glucose Negative mg/dL (Negative) 08/06/18 19:10
[2018-08-07] MEDS: Acetaminophen 325 MG TAB 650 MG PO ×2 (14:13→20:37)
--- NOTE | 2018-08-07 15:18 | CHAPLAIN ---
Bijal and I remembered each other from her previous admissions. She said she is feeling better than yesterday and is comfortable. I will continue to visit.
--- NOTE | 2018-08-07 15:56 | PTTR_ITS ---
Date of service: 08/07/18 Time of Service: 02:35 PT Notes Inpatient Physical Therapy Treatment Note Date: 08/07/18 PRECAUTIONS:fall, standard SUBJECTIVE: Maryjane states that her knees are extremely painful in bed, but feel better when she's up in the chair. She is very anxious to return home, and states that she's happy to work with PT today. OBJECTIVE: PAIN: severe knee pain, left>right BED MOBILITY/TRANSFERS Supine-sit: mod A x 2 Sit-stand: mod A x 2 Stand-sit: mod A x 2 Bed-Chair: mod A x 2 with WW GAIT Assistive Device: WW Weight bearing: AT Assist: mod A x 2 Distance: 4' Deviation: cues for WW management. Marked crepitus in bilat knees with ambulation. VITALS: Resting SaO2 on 1L supplemental O2 is 98%. She remains at 98% in seated position with removal of O2. Post-transfer, SaO2 drops to 90%. Patient was returned to 1L via nasal cannula at that time. BP was 167/54. THEREX: Patient was instructed in seated exercise program. She requires assistance to RUE for all overhead activities. She was instructed in chair exercises to complete between PT sessions (LAQ, ankle pumps and seated hip AB/AD ), and demonstrated good independence with these activities. ASSESSMENT: Tolerated minor progression in walking distance today, although with significant LE weakness and bilat knee pain. She's very anxious to return home, and willing to work with PT to do so. Unfortunately, she continues to require significant assistance for even short distance ambulation due to her levels of pain and weakness. PLAN: Continue PT intervention to maximize safety and mobility. TREATMENT CODE/TIME: 35 minutes (FRANSISCO,RUBINA)
[2018-08-07 16:14] VITALS: BP 144/78; PULSE 73; RESP 20; TEMP 36.6; O2SAT 98
[2018-08-07] MEDS: Normal Saline Flush 10 ML SYR IVP (20:39)
[2018-08-07] MEDS: Enoxaparin 30 MG/0.3 ML SYR SC (21:32)
[2018-08-07 22:07] VITALS: O2SAT 98
[2018-08-07 23:53] VITALS: BP 102/61; PULSE 62; RESP 20; TEMP 36.4; O2SAT 94
[2018-08-08] MEDS: Levothyroxine 100 MCG TAB 200 MCG PO (06:25)
[2018-08-08 07:17] VITALS: BP 153/79; PULSE 66; RESP 19; TEMP 36.2; O2SAT 96
[2018-08-08 07:25] VITALS: O2SAT 94
[2018-08-08 07:26] LABS: Abs Immature Grans 0.01 k/cumm (0.0-0.09); Absolute Basophil Count 0.05 k/cumm (0.0-0.2); Absolute Eosinophil Count 0.32 k/cumm (0.0-0.7); Absolute Lymphocyte Count 1.33 k/cumm (1.2-3.4); Absolute Monocyte Count 0.41 k/cumm (0.11-0.7); Absolute Neutrophil Count 3.36 k/cumm (1.2-6.7); Basophils % 0.9; Eosinophils % 5.8; HCT 34.5 % (36.0-46.0); HGB 10.6 g/dL (12.0-15.5); Immature Grans % 0.2; Lymphocytes % 24.3; Mean Corp. HGB Concentration 30.7 g/dL (32.0-36.0); Mean Corpuscular Hemoglobin 29.7 pg (27.0-33.0); Mean Corpuscular Volume 96.6 fL (80-95); Monocytes % 7.5; Neutrophils % 61.3; Platelet Count 234 x1000/uL (130-400); RBC 3.57 m/cumm (4.00-5.20); White Blood Cell Count 5.48 k/cumm (4.4-10.8)
[2018-08-08 07:33] LABS: Anion Gap 7.4 mmol/L (3-11); BUN 55 mg/dL (7-18); CO2 26.6 mmol/L (21.0-32.0); CREATININE 2.03 mg/dL (0.55-1.02); Calcium 8.8 mg/dL (8.5-10.1); Chloride 106 mmol/L (98-107); Estimated GFR 23.56 (mL/min/1.73m2); Glucose 97 mg/dL (70-100); Potassium 4.8 mmol/L (3.5-5.1); Sodium 140 mmol/L (136-145)
[2018-08-08] MEDS: Pramipexole 0.5 MG TAB PO ×2 (08:35→19:50)
[2018-08-08] MEDS: Multivitamin TAB 1 TAB PO (08:36)
[2018-08-08] MEDS: Magnesium Oxide 400 MG TAB PO ×2 (08:36→19:50)
[2018-08-08] MEDS: Pravastatin 40 MG TAB PO (08:36)
[2018-08-08] MEDS: Ferrous Sulfate 325 MG TAB PO ×2 (08:36→19:50)
[2018-08-08] MEDS: Gabapentin 400 MG CAP PO ×3 (08:36→19:51)
[2018-08-08] MEDS: amLODIPine 2.5 MG TAB PO (08:36)
[2018-08-08] MEDS: Cyanocobalamin 500 MCG TAB 1000 MCG PO (08:36)
[2018-08-08 08:37] VITALS: TEMP 36.2
[2018-08-08] MEDS: traMADol 50 MG TAB PO ×2 (08:37→19:51)
[2018-08-08] MEDS: Normal Saline Flush 10 ML SYR IVP ×2 (08:37→17:41)
[2018-08-08] MEDS: Insulin Aspart 300 UNITS/3 ML PEN SC ×3 (08:38→17:47)
--- NOTE | 2018-08-08 08:38 | DI.US_ITS ---
SYMPTOMS/DIAGNOSIS: ACUTE KIDNEY INJURY, URINARY TACT INFECTION RENAL ULTRASOUND: Both kidneys show increased parenchymal echogenicity relative to the liver, consistent with medical renal disease. Several small cysts are noted bilaterally. There is a small hypoechoic focus at the upper pole of the right kidney, which could represent a small stone versus vascular calcification or artifact. The kidneys are normal in size and show normal parenchymal thickness. The prevoid bladder volume measures 66 cc. The patient could not void. The ureteral jets were not visualized. No mass or perinephric collections are seen. A cyst is incidentally noted in the right lobe of the liver. This was seen on previous CT in 2015. IMPRESSION: Normal-sized kidneys with increased parenchymal echogenicity, consistent with medical renal disease. There is no evidence of obstruction.
--- NOTE | 2018-08-08 11:14 | PDOC.CMPRO ---
- If Service Date Differs Date of service: 08/08/18 Time of Service: 11:14 Care Management Progress Note S/O: Bijal is sitting in her chair when CM visits this morning. She is engaged in conversation, makes good eye contact, and is talkative. Bijal reports that she is feeling better and has less pain in her legs when they are not elevated. MD has ordered a post-void bladder scan for Bijal and she continues to need supplemental O2 and IV antibiotics. A: 78 year old female admitted with a UTI, generalized weakness and inability to ambulate. P: Bijal will discharge home when medically ready per MD. Anticipate patient will discharge with new home health services and follow up with his PCP. Bijal will transport via private vehicle with her daughter, Erin. CM will continue to offer support to patient, family, and care team regarding discharge planning and disposition.
--- NOTE | 2018-08-08 11:44 | PT.INTREAT ---
Date of service: 08/08/18 Time of Service: 11:44 PT Notes Inpatient Physical Therapy Treatment Note Date: 08/08/18 PRECAUTIONS: Fall SUBJECTIVE: Maryjane states that she is having significant pain in her knees and would like to sit up in the chair. OBJECTIVE: PAIN: See subjective portion of this note. BED MOBILITY/TRANSFERS Supine-sit: Min A x2 Sit-stand: Min A Stand-sit: CGA Bed-Chair: CGA GAIT Assistive Device: FWW Weight bearing: WBAT Assist: CGA Distance: 3' Deviation: C/o dizziness THEREX: Patient completed a upper extremity and lower extremity strengthening program, in a seated position, as per flow sheet. Patient was able to tolerate a slight progression in her program, modifications made 2 repetitions are noted on flow sheet. ASSESSMENT: Patient tolerated session with c/o dizziness with gait training. She was able to tolerate a progression in her ther ex today. She would benefit from continued gait and transfer training as well as strengthening for improved mobility. PLAN: Continue with PT's POC TREATMENT CODE/TIME: 25 minutes; TA/TP
--- NOTE | 2018-08-08 12:16 | PHARADMIT ---
Addendum entered by Sravani Rodriguez 08/09/18 16:30: Pharmacy Note Subjective probable discharge in 1-2 days Objective vs ok, FS 116, Scr improving Assessment transitioned from Iv ceftriaxone to PO cipro, day #4 abx, Plan Original Note: Admission Pharmacy Clinical Review UTI, Generalized weakness, inability to ambulate Code Status Full Code Current Weight Wgt-151.5 kg Renally Cleared and Narrow Therapeutic Index Meds CrCl~ 18.2 mL/min Meds-OK QTc Value / Action Taken QTc-449 NA BP Control, Fever BP- 153/79 TMax- 36.3C Electrolytes reviewed Na-140 K+4.8 DVT Prophylaxis Lovenox 30mg Opiate Usage / Scheduled Bowel Regimen Ordered Yes Yes Plt/SCr for Heparin / Enoxaparin Plts-34 SCr-2.03 INR for Warfarin na H/H stable, WBC/Bands H&H- 10.6/34.5 WBC- 5.48 Antibiotic appropriateness Rocephin. Cultures and Sensitivities Lothr-B-yaly pansensitive Surgical ABX d/c within 24 hr na DM control / Insulin Dosing BG- 97 HgA1c- 10.3% Aspart, Detemir Heart Failure (Check EF%) (AJAY's, B-Block, Diuretics) Norvasc, IV to PO Switch No Home Meds Reviewed Yes Home Meds Not Ordered Torsemide, Biotene, Keppra, MagOx, Nystatin Pwdr, Comments
--- NOTE | 2018-08-08 14:27 | PGE_ITS ---
Date of Service Date of service: 08/08/18 Time of Service: 14:10 Assessment and Plan (1) Prerenal azotemia: Current visit: Yes Status: Acute She received one bag of Lactated ringers without improvement in her creatinine. Her torsemide remains on hold. Will give another bag of LR overnight and reassess renal function in the morning. (2) Dehydration: Current visit: Yes Status: Acute As above. (3) UTI (urinary tract infection): Current visit: Yes Status: Acute Currently on Ceftriaxone day #3. Post-void residual zero. Renal ultrasound pending. Plan to transition to oral antibiotics as the culture results revealed pansensitive E-coli. (4) Tinea cruris: Current visit: Yes Status: Acute Continue Ketoconzaole. (5) Poorly controlled type 2 diabetes mellitus: Current visit: No Status: Chronic Hgb A1c 10.3. Blood sugars in the low 100s. Continue current dose of Levemir. Also on moderate dose NovoLog sliding scale as well as mealtime coverage of carbohydrates with NovoLog at a 1-10 ratio. Maintain on ADA diet (6) Chronic diastolic heart failure: Current visit: Yes Status: Chronic With preserved LVEF. Continue to hold Torsemide in setting of dehydration. (7) 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 diabetes mellitus: Current visit: Yes Status: Chronic With superimposed JUAN as above. (8) DVT prophylaxis: Current visit: No Status: Acute Renally dosed subcutaneous lovenox. (9) Discharge planning issues: Current visit: No Status: Acute She is a full code. She lives at home with her daughter who cares for her. She will likely be able to return home. She will need ongoing PT and OT. Subjective Interval history since last seen: 78-year-old woman with a past medical history of poorly controlled type 2 diabetes mellitus complicated by stage IV chronic renal insufficiency, essential hypertension, osteoarthritis of the knees, chronic anemia, hypothyroidism, morbid obesity, and CHF with a preserved LVEF, admitted from [facility] emergency department on 08/06 with a diagnosis of weakness secondary to a UTI. She reported an acute inability to ambulate beginning on the morning of admission. Workup in the emergency room showed acute on chronic renal failure as well as evidence of a UTI. She was started on Ceftriaxone for her UTI. She was referred for admission for treatment of her UTI, as well as for treatment of dehydration and P.T. evaluation for her weakness with inability to ambulate. She notes that she has been experiencing bilateral leg pain, this is her biggest complaint. She is requesting more frequent pain medication for her leg pain. She did not sleep well last night due to pain. She has been working with PT, she feels that she is getting stronger. Her urine grew pansensitive e-coli. She denies dysuria, hematuria, frequency, urgency, or any other urinary complaints. She denies chest pain/pressure, palpitations, shortness of breath, coughing, wheezing. She is eating and drinking well, no abdominal pain, nausea, or vomiting. Her torsemide has been on hold in the setting of acute kidney injury, her kidney function does not appear to be improving. She had a renal ultrasound earlier today, the report is pending. She had a post-void bladder scan which revealed no residual. Exam Narrative Exam Narrative: General: She appears comfortable, sitting up in the chair. She is alert and oriented x3, in no acute distress. Morbidly obese. Neck: Supple CV: Regular, nontachycardic, normal S1 and S2. 2/6 murmur appreciated at the LSB. Pulmonary: Respirations even and unlabored. Lung sounds are clear to auscultation bilaterally, no rales, wheezing, or rhonchi Abdomen: normoactive bowel sounds throughout. Abdomen is soft, nontender, nondistended. Extremities: Bilateral nonpitting lower extremity edema with hyperpigmentation of the skin noted, pedal pulses palpable. Objective Objective Clinical Data: Abnormal lab results 08/08/18 08/08/18 Range/Units 06:35 06:35 RBC 3.57 L (4.00-5.20) m/cumm Hgb 10.6 L (12.0-15.5) g/dL Hct 34.5 L (36.0-46.0) % MCV 96.6 H (80-95) fL MCHC 30.7 L (32.0-36.0) g/dL BUN 55 H (7-18) mg/dL Creatinine 2.03 H (0.55-1.02) mg/dL Vital Signs Temperature 36.2 C L 08/08/18 08:37 Temperature Source Tympanic 08/08/18 07:17 Pulse 66 08/08/18 07:17 Pulse Rhythm Regular 08/08/18 08:15 Pulse 56 L 08/06/18 22:50 Respiratory Rate 19 08/08/18 07:17 Respiratory Effort 08/08/18 08:15 Respiratory Depth Normal 08/08/18 08:15 Respiratory Pattern Normal 08/08/18 08:15 Blood Pressure 153/79 H 08/08/18 07:17 Blood Pressure Position Sitting 08/06/18 18:16 Pulse Oximetry 96 08/08/18 07:17 Oxygen Delivery Method Nasal Cannula 08/08/18 07:17 Oxygen Flow Rate 1 08/08/18 07:17 Pain Level 2 08/08/18 08:37 Comment 08/06/18 22:30 Intake & Output 08/07/18 08/08/18 08/08/18 23:59 11:59 23:59 Intake Total 1560 / 1560 460 / 460 480 / 480 Output Total 1450 / 1450 Balance 1560 / 1560 -990 / -990 480 / 480 Intake: IV 1070 / 1070 Oral 490 / 490 460 / 460 480 / 480 Output: Urine 1450 / 1450 Other: Urine Color Yellow Pale Yellow Urine Appearance Clear Clear Urine Odor None Normal Comment passed urine into the commode. voided large amount mixed w stool. See PVR=zero. Stool Size Large Stool Characteristics Formed Hard Brown Voiding Methods Bedside Commode Bedside Commode Laboratory Results WBC 5.48 k/cumm (4.4-10.8) 08/08/18 06:35 RBC 3.57 m/cumm (4.00-5.20) L 08/08/18 06:35 Hgb 10.6 g/dL (12.0-15.5) L 08/08/18 06:35 Hct 34.5 % (36.0-46.0) L 08/08/18 06:35 MCV 96.6 fL (80-95) H 08/08/18 06:35 MCH 29.7 pg (27.0-33.0) 08/08/18 06:35 MCHC 30.7 g/dL (32.0-36.0) L 08/08/18 06:35 RDW 13.0 % (11.7-14.6) 08/08/18 06:35 Plt Count 234 x1000/uL (130-400) 08/08/18 06:35 MPV 10.0 fL (8.0-11.0) 08/08/18 06:35 Immature Gran % 0.2 08/08/18 06:35 Neutrophils % 61.3 08/08/18 06:35 Lymphocytes % 24.3 08/08/18 06:35 Monocytes % 7.5 08/08/18 06:35 Eosinophils % 5.8 08/08/18 06:35 Basophils % 0.9 08/08/18 06:35 Absolute Neutrophils 3.36 k/cumm (1.2-6.7) 08/08/18 06:35 Absolute Lymphocytes 1.33 k/cumm (1.2-3.4) 08/08/18 06:35 Absolute Monocytes 0.41 k/cumm (0.11-0.7) 08/08/18 06:35 Absolute Eosinophils 0.32 k/cumm (0.0-0.7) 08/08/18 06:35 Absolute Basophils 0.05 k/cumm (0.0-0.2) 08/08/18 06:35 Sodium 140 mmol/L (136-145) 08/08/18 06:35 Potassium 4.8 mmol/L (3.5-5.1) 08/08/18 06:35 Chloride 106 mmol/L (98-107) 08/08/18 06:35 Carbon Dioxide 26.6 mmol/L (21.0-32.0) 08/08/18 06:35 Anion Gap 7.4 mmol/L (3-11) 08/08/18 06:35 BUN 55 mg/dL (7-18) H 08/08/18 06:35 Creatinine 2.03 mg/dL (0.55-1.02) H 08/08/18 06:35 Estimated GFR/1.73 m2 23.56 (mL/min/1.73m2) 08/08/18 06:35 Glucose 97 mg/dL (70-100) 08/08/18 06:35 Hemoglobin A1c 10.3 % (4.5-6.2) H 08/07/18 06:22 Calcium 8.8 mg/dL (8.5-10.1) 08/08/18 06:35 Magnesium 2.1 mg/dL (1.8-2.4) 08/06/18 19:25 Total Bilirubin 0.3 mg/dL (0.2-1.0) 08/06/18 19:25 AST 4 U/L (15-37) L 08/06/18 19:25 ALT 12 U/L (12-78) 08/06/18 19:25 Alkaline Phosphatase 107 U/L (46-116) 08/06/18 19:25 Troponin I 0.02 ng/mL (0.00-0.06) 08/06/18 19:25 Total Protein 7.1 g/dL (6.4-8.2) 08/06/18 19:25 Albumin 3.0 g/dL (3.4-5.0) L 08/06/18 19:25 Urine Color Yellow (Yellow) 08/06/18 19:10 Urine Clarity Sl cloudy 08/06/18 19:10 Urine pH 5.5 (5-8) 08/06/18 19:10 Ur Specific [place] 1.015 (1.005-1.025) 08/06/18 19:10 Urine Protein 100 mg/dL (Negative) H 08/06/18 19:10 Urine Ketones Negative mg/dL (Negative) 08/06/18 19:10 Urine Blood Negative (Negative) 08/06/18 19:10 Urine Nitrite Negative (Negative) 08/06/18 19:10 Urine Bilirubin Negative (Negative) 08/06/18 19:10 Urine Urobilinogen 0.2 EU/dL (Up TO 0.2) 08/06/18 19:10 Ur Leukocyte Esterase Trace (Negative) H 08/06/18 19:10 Urine RBC Negative (0-2) 08/06/18 19:10 Urine WBC 10-20 HPF (0-5) 08/06/18 19:10 Ur Epithelial Cells Negative HPF (Negative) 08/06/18 19:10 Urine Crystals Moderate amorphous HPF (Negative) 08/06/18 19:10 Urine Bacteria Many HPF (Negative) 08/06/18 19:10 Urine Casts Negative LPF (Negative) 08/06/18 19:10 Urine Mucus Negative (Negative) 08/06/18 19:10 Urine Other Negative (Negative) 08/06/18 19:10 Ur Culture Indicated? Yes 08/06/18 19:10 Urine Glucose Negative mg/dL (Negative) 08/06/18 19:10
--- NOTE | 2018-08-08 15:21 | NT_ITS ---
Date of service: 08/08/18 Time of Service: 15:20 PT Notes 08/08/18 Defer PT this afternoon due to extreme fatigue and not feeling well. Pt already back in bed. See her 2x tomorrow if tolerated. Chandrika Tapia, [employer] MACHINE OPERATOR
[2018-08-08 15:45] VITALS: BP 125/71; PULSE 55; RESP 18; TEMP 35.7; O2SAT 95
[2018-08-08] MEDS: Lactated Ringers 1,000 ML 80 ML IV (17:41)
[2018-08-08] MEDS: Ciprofloxacin 500 MG TAB PO (19:50)
[2018-08-08] MEDS: Enoxaparin 30 MG/0.3 ML SYR SC (21:30)
[2018-08-09] VITALS: BP 115/72; PULSE 64; RESP 16; TEMP 36.3; O2SAT 95
[2018-08-09] MEDS: Lactated Ringers 1,000 ML 80 ML IV (06:31)
[2018-08-09] MEDS: Levothyroxine 100 MCG TAB 200 MCG PO (06:31)
[2018-08-09 07:29] LABS: Anion Gap 8.2 mmol/L (3-11); BUN 54 mg/dL (7-18); CO2 25.8 mmol/L (21.0-32.0); Calcium 8.7 mg/dL (8.5-10.1); Chloride 104 mmol/L (98-107); Estimated GFR 27.07 (mL/min/1.73m2); Glucose 111 mg/dL (70-100); Potassium 5.1 mmol/L (3.5-5.1); Sodium 138 mmol/L (136-145)
[2018-08-09 07:35] VITALS: O2SAT 93
[2018-08-09 07:40] VITALS: BP 155/90; PULSE 60; RESP 20; TEMP 36.7; O2SAT 93
[2018-08-09] MEDS: Ferrous Sulfate 325 MG TAB PO ×2 (08:27→20:40)
[2018-08-09] MEDS: Pramipexole 0.5 MG TAB PO ×2 (08:27→20:40)
[2018-08-09] MEDS: Normal Saline Flush 10 ML SYR IVP ×2 (08:27→17:43)
[2018-08-09] MEDS: amLODIPine 2.5 MG TAB PO (08:27)
[2018-08-09] MEDS: Cyanocobalamin 500 MCG TAB 1000 MCG PO (08:27)
[2018-08-09] MEDS: Ciprofloxacin 500 MG TAB PO ×2 (08:27→20:40)
[2018-08-09] MEDS: Magnesium Oxide 400 MG TAB PO ×2 (08:28→20:40)
[2018-08-09] MEDS: traMADol 50 MG TAB PO ×2 (08:28→20:40)
[2018-08-09] MEDS: Pravastatin 40 MG TAB PO (08:28)
[2018-08-09] MEDS: Docusate Sodium 100 MG CAP PO (08:28)
[2018-08-09] MEDS: Multivitamin TAB 1 TAB PO (08:28)
[2018-08-09] MEDS: Gabapentin 400 MG CAP PO ×3 (08:28→20:40)
[2018-08-09] MEDS: Insulin Aspart 300 UNITS/3 ML PEN SC ×3 (08:30→17:21)
--- NOTE | 2018-08-09 11:00 | PT.INTREAT ---
Date of service: 08/09/18 Time of Service: 11:00 PT Notes Inpatient Physical Therapy Treatment Note Date: 08/09/18 PRECAUTIONS: Fall SUBJECTIVE: Maryjane reports that she has been performing her exercises independently this morning. OBJECTIVE: PAIN: No c/o pain BED MOBILITY/TRANSFERS Sit-stand: Min A (performed x3) Stand-sit: CGA (performed x3) GAIT Assistive Device: FWW Weight bearing: WBAT Assist: CGA x2 Distance: 5' + 3'x2 Deviation: Feels weak, fatigues easily. THEREX: Patient completed several LE strengthening exercises in a seated position, as per flow sheet. TOILETING: Patient toileted with total assist. ASSESSMENT: Patient tolerated session well with c/o increased fatigue and feeling weak in B LEs with gait training. Patient would benefit from continued gait and transfer training as well as strengthening for improved mobility. PLAN: Continue with PT's POC TREATMENT CODE/TIME: 25 minutes; [id number]
--- NOTE | 2018-08-09 12:07 | PGE_ITS ---
Date of Service Date of service: 08/09/18 Time of Service: 12:07 Assessment and Plan (1) Prerenal azotemia: Current visit: Yes Status: Acute Renal ultrasound yesterday revealed normal-sized kidneys with increased parenchymal echogenicity, consistent with medical renal disease. Her post-void residuals have been less than 10. She transitioned from IV ceftriaxone to oral Cipro yesterday. She received Lactated ringers overnight with improvement in her creatinine, which is approaching her baseline. Her torsemide remains on hold. Will continue IV fluids overnight and reassess renal function in the morning. (2) Dehydration: Current visit: Yes Status: Acute As above. (3) UTI (urinary tract infection): Current visit: Yes Status: Acute Currently day #4 of antibiotics. She transitioned to oral Cipro yesterday. Urine culture revealed pansensitive E-coli. IV fluids as above, BMP in the morning. (4) Tinea cruris: Current visit: Yes Status: Acute Continue Ketoconzaole. (5) Poorly controlled type 2 diabetes mellitus: Current visit: No Status: Chronic Hgb A1c 10.3. Blood sugars in the low 100s. Continue current dose of Levemir. Also on moderate dose NovoLog sliding scale as well as mealtime coverage of carbohydrates with NovoLog at a 1-10 ratio. Maintain on ADA diet (6) Chronic diastolic heart failure: Current visit: Yes Status: Chronic With preserved LVEF. Continue to hold Torsemide in setting of dehydration. IV fluids as above. (7) 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 diabetes mellitus: Current visit: Yes Status: Chronic With superimposed JUAN as above. (8) DVT prophylaxis: Current visit: No Status: Acute Renally dosed subcutaneous lovenox. (9) Discharge planning issues: Current visit: No Status: Acute She is a full code. She lives at home with her daughter who cares for her. She will likely be able to return home. She will need ongoing PT and OT. Subjective Interval history since last seen: 78-year-old woman with a past medical history of poorly controlled type 2 diabetes mellitus complicated by stage IV chronic renal insufficiency, essential hypertension, osteoarthritis of the knees, chronic anemia, hypothyroidism, morbid obesity, and CHF with a preserved LVEF, admitted from [facility] emergency department on 08/06 with a diagnosis of weakness secondary to a UTI. She reported an acute inability to ambulate beginning on the morning of admission. Workup in the emergency room showed acute on chronic renal failure as well as evidence of a UTI. She was started on Ceftriaxone for her UTI. She was referred for admission for treatment of her UTI, as well as for treatment of dehydration and P.T. evaluation for her weakness with inability to ambulate. She reports improvement in her leg pain, she slept well last night, she denies any urinary symptoms, no dysuria, hematuria, frequency or urgency. She has been working with PT, she feels that she is gaining strength. She denies chest pain/ pressure, palpitations, shortness of breath, coughing, wheezing. She is eating and drinking well, no abdominal pain, nausea, or vomiting. She had a bowel movement today. Her torsemide remains on hold, she received IV fluids overnight with improvement in her creatinine. Renal ultrasound yesterday revealed normal-sized kidneys with increased parenchymal echogenicity, consistent with medical renal disease. No evidence of obstruction. Her post-void residuals have been less than 10. She transitioned from IV ceftriaxone to oral Cipro yesterday. Exam Narrative Exam Narrative: General: She appears comfortable, sitting up in the chair. She is alert and oriented x3, in no acute distress. Morbidly obese. She makes good eye contact. HEENT: normocephalic, atraumatic. Mucous membranes moist. Neck: Supple CV: Regular, nontachycardic, normal S1 and S2. Pulmonary: Respirations even and unlabored. Lung sounds are clear to auscultation bilaterally, no rales, wheezing, or rhonchi. Abdomen: normoactive bowel sounds throughout. Abdomen is soft, nontender, nondistended. Extremities: Bilateral nonpitting lower extremity edema with hyperpigmentation of the skin noted, pedal pulses palpable. Objective Objective Clinical Data: Abnormal lab results 08/09/18 Range/Units 06:50 BUN 54 H (7-18) mg/dL Creatinine 1.80 H (0.55-1.02) mg/dL Glucose 111 H (70-100) mg/dL Vital Signs Temperature 36.7 C 08/09/18 07:40 Temperature Source Tympanic 08/09/18 07:40 Pulse 60 08/09/18 07:40 Pulse Rhythm Regular 08/09/18 08:10 Pulse 56 L 08/06/18 22:50 Respiratory Rate 20 08/09/18 07:40 Respiratory Effort 08/09/18 08:10 Respiratory Depth Normal 08/09/18 08:10 Respiratory Pattern Normal 08/09/18 08:10 Blood Pressure 155/90 H 08/09/18 07:40 Blood Pressure Position Sitting 08/06/18 18:16 Pulse Oximetry 93 L 08/09/18 07:40 Oxygen Delivery Method Room Air 08/09/18 07:40 Oxygen Flow Rate 0 08/09/18 07:40 Pain Level 8 08/09/18 08:28 Comment 08/09/18 00:00 Intake & Output 08/08/18 08/09/18 08/09/18 23:59 11:59 23:59 Intake Total 740 / 740 1828.667 / 1828.667 Output Total 850 / 850 625 / 625 Balance -110 / -110 1203.667 / 1203.667 Intake: IV 1138.667 / 1138.667 Oral 720 / 720 690 / 690 Output: Urine 850 / 850 625 / 625 Other: Urine Color Yellow Yellow Urine Appearance Clear Clear Urine Odor Normal Normal Comment voided large amount mixed w stool. See PVR=zero. bit of urine also on brandi pad. Stool Size Large Stool Characteristics Formed Hard Brown Voiding Methods Bedside Commode Bedside Commode Laboratory Results WBC 5.48 k/cumm (4.4-10.8) 08/08/18 06:35 RBC 3.57 m/cumm (4.00-5.20) L 08/08/18 06:35 Hgb 10.6 g/dL (12.0-15.5) L 08/08/18 06:35 Hct 34.5 % (36.0-46.0) L 08/08/18 06:35 MCV 96.6 fL (80-95) H 08/08/18 06:35 MCH 29.7 pg (27.0-33.0) 08/08/18 06:35 MCHC 30.7 g/dL (32.0-36.0) L 08/08/18 06:35 RDW 13.0 % (11.7-14.6) 08/08/18 06:35 Plt Count 234 x1000/uL (130-400) 08/08/18 06:35 MPV 10.0 fL (8.0-11.0) 08/08/18 06:35 Immature Gran % 0.2 08/08/18 06:35 Neutrophils % 61.3 08/08/18 06:35 Lymphocytes % 24.3 08/08/18 06:35 Monocytes % 7.5 08/08/18 06:35 Eosinophils % 5.8 08/08/18 06:35 Basophils % 0.9 08/08/18 06:35 Absolute Neutrophils 3.36 k/cumm (1.2-6.7) 08/08/18 06:35 Absolute Lymphocytes 1.33 k/cumm (1.2-3.4) 08/08/18 06:35 Absolute Monocytes 0.41 k/cumm (0.11-0.7) 08/08/18 06:35 Absolute Eosinophils 0.32 k/cumm (0.0-0.7) 08/08/18 06:35 Absolute Basophils 0.05 k/cumm (0.0-0.2) 08/08/18 06:35 Sodium 138 mmol/L (136-145) 08/09/18 06:50 Potassium 5.1 mmol/L (3.5-5.1) 08/09/18 06:50 Chloride 104 mmol/L (98-107) 08/09/18 06:50 Carbon Dioxide 25.8 mmol/L (21.0-32.0) 08/09/18 06:50 Anion Gap 8.2 mmol/L (3-11) 08/09/18 06:50 BUN 54 mg/dL (7-18) H 08/09/18 06:50 Creatinine 1.80 mg/dL (0.55-1.02) H 08/09/18 06:50 Estimated GFR/1.73 m2 27.07 (mL/min/1.73m2) 08/09/18 06:50 Glucose 111 mg/dL (70-100) H 08/09/18 06:50 Hemoglobin A1c 10.3 % (4.5-6.2) H 08/07/18 06:22 Calcium 8.7 mg/dL (8.5-10.1) 08/09/18 06:50 Magnesium 2.1 mg/dL (1.8-2.4) 08/06/18 19:25 Total Bilirubin 0.3 mg/dL (0.2-1.0) 08/06/18 19:25 AST 4 U/L (15-37) L 08/06/18 19:25 ALT 12 U/L (12-78) 08/06/18 19:25 Alkaline Phosphatase 107 U/L (46-116) 08/06/18 19:25 Troponin I 0.02 ng/mL (0.00-0.06) 08/06/18 19:25 Total Protein 7.1 g/dL (6.4-8.2) 08/06/18 19:25 Albumin 3.0 g/dL (3.4-5.0) L 08/06/18 19:25 Urine Color Yellow (Yellow) 08/06/18 19:10 Urine Clarity Sl cloudy 08/06/18 19:10 Urine pH 5.5 (5-8) 08/06/18 19:10 Ur Specific Novinger 1.015 (1.005-1.025) 08/06/18 19:10 Urine Protein 100 mg/dL (Negative) H 08/06/18 19:10 Urine Ketones Negative mg/dL (Negative) 08/06/18 19:10 Urine Blood Negative (Negative) 08/06/18 19:10 Urine Nitrite Negative (Negative) 08/06/18 19:10 Urine Bilirubin Negative (Negative) 08/06/18 19:10 Urine Urobilinogen 0.2 EU/dL (Up TO 0.2) 08/06/18 19:10 Ur Leukocyte Esterase Trace (Negative) H 08/06/18 19:10 Urine RBC Negative (0-2) 08/06/18 19:10 Urine WBC 10-20 HPF (0-5) 08/06/18 19:10 Ur Epithelial Cells Negative HPF (Negative) 08/06/18 19:10 Urine Crystals Moderate amorphous HPF (Negative) 08/06/18 19:10 Urine Bacteria Many HPF (Negative) 08/06/18 19:10 Urine Casts Negative LPF (Negative) 08/06/18 19:10 Urine Mucus Negative (Negative) 08/06/18 19:10 Urine Other Negative (Negative) 08/06/18 19:10 Ur Culture Indicated? Yes 08/06/18 19:10 Urine Glucose Negative mg/dL (Negative) 08/06/18 19:10
--- NOTE | 2018-08-09 12:20 | PDOC.CMPRO ---
- If Service Date Differs Date of service: 08/09/18 Time of Service: 12:21 Care Management Progress Note S/O: Bijal is sitting in her chair when CM visits this morning. She is engaged in conversation and is talkative. Bijal reports that she is feeling better and has less pain in her legs than in prior days. She does report pain in her knees but feels much improved. She has been working 2/day with PT and reports that she has been doing exercises in her room on her own as well. A: 78 year old female admitted with a UTI, generalized weakness and inability to ambulate. P: Bijal will discharge home when medically ready per MD. Anticipate patient will discharge with new home health services (PT/OT/RN(?) and follow up with her PCP. Bijal will transport via [facility] w/c van. CM will continue to offer support to patient, family, and care team regarding discharge planning and disposition.
--- NOTE | 2018-08-09 12:59 | PT.INTREAT ---
Date of service: 08/09/18 Time of Service: 12:59 PT Notes Inpatient Physical Therapy Treatment Note Date: 08/09/18 PRECAUTIONS: Fall SUBJECTIVE: Maryjane states that she is tired. She would like to get back into bed after lunch, as she has been sitting up all morning. OBJECTIVE: PAIN: No c/o pain BED MOBILITY/TRANSFERS Sit-stand: CGA Stand-sit: CGA GAIT Assistive Device: FWW Weight bearing: WBAT Assist: CGA Distance: 3'x2 THEREX: Patient completed an UE and LE strengthening program, as per flow sheet. She was able to tolerate a slight progression in her program today, modifications made to reps are noted on flow sheet. TOILETING: Patient toileted with assist. ASSESSMENT: Patient tolerated session well without complaint. She was able to tolerate a progression in ther ex program this afternoon, and was able to demonstrate sit<>stand transfers with CGA only. Patient would benefit from continued gait and transfer training as well as strengthening for improved mobility and activty tolerance. PLAN: Continue with PT's POC TREATMENT CODE/TIME: 25 minutes; TA/TP
--- NOTE | 2018-08-09 13:39 | DM INPTCON_ITS ---
DESCRIPTION/ASSESSMENT: Appreciate diabetes consult for Bijal Zapata who is hospitalized with azotemia and renal impairment with GFR 27. BMI 59 A1c 10.3 this month. Bijal manages diabetes with 48u Detemir and here has a 1 unit covers 10grams carbohydrate and moderate insulin correction. Blood sugars 106-211, mostly less than 180mg/dl. At home she takes the same basal insulin with an insulin correction only. Met with Bijal who states she has been having difficulty with her glucometer. She states it often takes 5 strips to get a reading. She states she eats about the same as here, but blood sugars are generally higher at home confirmed by A1c. She is motivated to keep her blood sugars down. INTERVENTION: Discussed glucose testing and I agree to follow up as an outpatient for glucometer support and diabetes management in general. No suggested intervention at this time. PLAN: Will follow blood sugars and f/u with Bijal at home.
[2018-08-09 14:15] VITALS: O2SAT 93
[2018-08-09 15:52] VITALS: BP 143/71; PULSE 63; RESP 18; TEMP 35.4; O2SAT 98
[2018-08-09 16:00] VITALS: O2SAT 93
[2018-08-09] MEDS: Enoxaparin 30 MG/0.3 ML SYR SC (21:39)
[2018-08-10 00:40] VITALS: BP 172/86; PULSE 67; RESP 20; TEMP 36.2; O2SAT 94
[2018-08-10 00:50] VITALS: BP 125/68; PULSE 71
[2018-08-10] MEDS: Acetaminophen 325 MG TAB 650 MG PO (00:56)
[2018-08-10] MEDS: Normal Saline Flush 10 ML SYR IVP (02:49)
[2018-08-10] MEDS: Lactated Ringers 1,000 ML 75 ML IV (02:49)
[2018-08-10] MEDS: Levothyroxine 100 MCG TAB 200 MCG PO (06:47)
[2018-08-10 07:21] LABS: HCT 34.1 % (36.0-46.0); HGB 10.7 g/dL (12.0-15.5); Mean Corp. HGB Concentration 31.4 g/dL (32.0-36.0); Mean Corpuscular Hemoglobin 30.3 pg (27.0-33.0); Mean Corpuscular Volume 96.6 fL (80-95); Mean Platelet Volume 9.9 fL (8.0-11.0); Platelet Count 217 x1000/uL (130-400); RBC 3.53 m/cumm (4.00-5.20); White Blood Cell Count 4.74 k/cumm (4.4-10.8)
[2018-08-10 07:34] LABS: Anion Gap 6.4 mmol/L (3-11); BUN 49 mg/dL (7-18); CO2 26.6 mmol/L (21.0-32.0); CREATININE 1.63 mg/dL (0.55-1.02); Calcium 8.7 mg/dL (8.5-10.1); Chloride 105 mmol/L (98-107); Estimated GFR 30.36 (mL/min/1.73m2); Glucose 126 mg/dL (70-100); Potassium 5.2 mmol/L (3.5-5.1); Sodium 138 mmol/L (136-145)
[2018-08-10 07:40] VITALS: O2SAT 88
[2018-08-10 07:41] VITALS: O2SAT 96
[2018-08-10] MEDS: traMADol 50 MG TAB PO (08:34)
[2018-08-10] MEDS: Multivitamin TAB 1 TAB PO (08:34)
[2018-08-10] MEDS: Magnesium Oxide 400 MG TAB PO (08:34)
[2018-08-10] MEDS: Ciprofloxacin 500 MG TAB PO (08:34)
[2018-08-10] MEDS: Gabapentin 400 MG CAP PO ×2 (08:35→13:52)
[2018-08-10] MEDS: Docusate Sodium 100 MG CAP PO (08:35)
[2018-08-10] MEDS: Pravastatin 40 MG TAB PO (08:35)
[2018-08-10] MEDS: Pramipexole 0.5 MG TAB PO (08:35)
[2018-08-10] MEDS: Cyanocobalamin 500 MCG TAB 1000 MCG PO (08:35)
[2018-08-10] MEDS: amLODIPine 2.5 MG TAB PO (08:35)
[2018-08-10] MEDS: Ferrous Sulfate 325 MG TAB PO (08:35)
[2018-08-10] MEDS: Insulin Aspart 300 UNITS/3 ML PEN SC ×2 (08:36→12:56)
[2018-08-10 09:20] VITALS: BP 181/79; PULSE 71; RESP 17; TEMP 36; O2SAT 96
--- NOTE | 2018-08-10 09:29 | PT.INTREAT ---
Date of service: 08/10/18 Time of Service: 09:29 PT Notes Inpatient Physical Therapy Treatment Note Date: 08/10/18 PRECAUTIONS: Fall SUBJECTIVE: Maryjane states that she is feeling much better today, and stronger today. OBJECTIVE: PAIN: No c/o pain BED MOBILITY/TRANSFERS Supine-sit: Min A Sit-stand: CGA Stand-sit: CGA Bed-Chair: CGA GAIT Assistive Device: FWW Weight bearing: WBAT Assist: CGA Distance: 10' THEREX: Patient completed a seated UE and LE strengthening program, as per flow sheet. She tolerated a progression in her program, modifications made to reps are noted on flow sheet. ASSESSMENT: Patient tolerated session well, without complaint. She appeared more confident and comfortable to gait training this morning, progressing her gait distance. She was able to tolerate a progression in her ther ex program today. Patient would benefit from continued gait and transfer training as well as strengthening for improved mobility. PLAN: Continued with PT's POC TREATMENT CODE/TIME: 25 minutes; TA/TP
[2018-08-10] MEDS: Torsemide 20 MG TAB PO (10:32)
--- NOTE | 2018-08-10 11:33 | PDOC.CMDIS ---
Care Management Discharge Reason for Hospitalization: UTI, generalized weakness, inability to ambulate.
--- NOTE | 2018-08-10 11:34 | W.PM.DS.N ---
Date of service: 08/10/18 Time of Service: 11:35 DS: Diagnosis Discharge Diagnosis (1) Prerenal azotemia: Status: Acute (2) Dehydration: Status: Acute (3) UTI (urinary tract infection): Status: Acute (4) Tinea cruris: Status: Acute (5) Poorly controlled type 2 diabetes mellitus: Status: Chronic (6) Chronic diastolic heart failure: Status: Chronic (7) 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 diabetes mellitus: Status: Chronic Discharge Plan Disposition Patient Disposition: HOME W/HOME HEALTH SERVICE Condition: Stable Discharge Details Reason For Visit: UTI,GENERALIZED WEAKNESS,INABILITY TO AMBULATE Admit Date/Time: 08/08/18 12:20 Admit Provider: Tino Smith Attending Provider: Tino Smith Primary Care Provider: Brendan Mcintyre [facility] Hospital Course: Bijal Zapata is an 78-year-old woman with a past medical history of poorly controlled type 2 diabetes mellitus complicated by stage IV chronic renal insufficiency, essential hypertension, osteoarthritis of the knees, chronic anemia, hypothyroidism, morbid obesity, and CHF with a preserved LVEF, admitted from [facility] emergency department on 08/06 with a diagnosis of weakness secondary to a UTI. She reported an acute inability to ambulate beginning on the morning of admission. Workup in the emergency room showed acute on chronic renal failure as well as evidence of a UTI. She was started on Ceftriaxone for her UTI. She was referred for admission for treatment of her UTI, as well as for treatment of dehydration and PT evaluation for her weakness with inability to ambulate. She had a renal ultrasound that revealed normal-sized kidneys with increased parenchymal echogenicity, consistent with medical renal disease. Her post-void residuals were been less than 10. Her urine culture grew pansensitive E-coli. Her antibiotics were changed from IV ceftriaxone to oral ciprofloxacin. Her Torsemide was placed on hold and she was given IV fluids with improvement in her kidney function. Her acute kidney injury resolved by the day of discharge, her creatinine was back to her baseline and her torsemide was restarted. Her weakness improved. She worked with PT and did markedly better with ambulation by the day of discharge. She has poorly controlled diabetes, her Hgb A1c was 10.3. Her blood sugars were in the low 100s with her home dose of Detemir and short acting mealtime and sliding scale coverage. She will be discharged home on both long acting per home regimen and short acting aspart per moderate sliding scale. She will need continued monitoring of blood sugars. She would benefit from outpatient follow up for glucometer support and diabetes management as recommended by the starting sheet tank operator, Myranda Monet. She is discharged home with new home health PT/OT/RN. She lives with her daughter who cares for her. She will complete a full course of antibiotics. She will follow up with her PCP as scheduled. Home Meds and New Rx's Prescriptions: New ciprofloxacin HCl 500 mg Tablet 500 mg PO BID Qty: 5 RF: 0 ketoconazole 2 % Cream Topical BID Qty: 0 RF: 0 Continue aspirin [Aspir-81] 81 MG tablet,delayed release (DR/EC) 81 mg PO DAILY RF: 0 multivitamin [Daily Multi-Vitamin] 1 EACH tablet 1 ea PO DAILY Qty: 90 RF: 3 pen needle, diabetic [BD Ultra-Fine Skylar Pen Needle] 1 EACH needle 1 ea Miscellaneous HS 999 Days Qty: 1 RF: 6 levetiracetam [Keppra] 500 MG tablet 500 mg PO BID Qty: 60 RF: 11 sucralfate 1 GM tablet 1 g PO QID PRNQty: 120 RF: 11 amlodipine 2.5 MG tablet 2.5 mg PO DAILY Qty: 30 RF: 11 ranitidine HCl 150 MG tablet 150 mg PO BID Qty: 60 RF: 11 magnesium oxide 400 MG tablet 400 mg PO BID Qty: 60 RF: 11 pen needle, diabetic [Pen Needle] 1 EACH needle 1 ea Miscellaneous QID 50 Days Qty: 1 RF: 11 Hospital Bed EACH Miscellaneous ONCE Qty: 1 RF: 0 torsemide 20 MG tablet 20 mg PO DAILY Qty: 30 RF: 11 pravastatin 40 MG tablet 40 mg PO DAILY Qty: 90 RF: 3 cyanocobalamin (vitamin B-12) [Vitamin B-12] 500 MCG tablet 1,000 mcg PO DAILY Qty: 100 RF: 3 ferrous sulfate 325 MG tablet 325 mg PO BID Qty: 60 RF: 6 blood-glucose meter [OneTouch Ultra2] 1 EACH kit 1 ea Miscellaneous ONCE Qty: 1 RF: 0 lancets [BD Ultra Fine Lancets] 1 EACH misc 1 ea Miscellaneous BID Qty: 60 RF: 11 ONETOUCH ULTRA TEST STRIPS 1 EACH strip 1 ea Miscellaneous BID Qty: 60 RF: 11 nystatin [Nyamyc] 60 GM powder 2 gm Topical BID Qty: 60 RF: 3 gabapentin 400 mg capsule 400 mg PO TID Qty: 270 RF: 3 levothyroxine 200 mcg tablet 200 mcg PO DAILY Qty: 90 RF: 3 insulin detemir U-100 [Levemir FlexTouch U-100 Insuln] 100 unit/mL (3 mL) insulin pen 48 unit SC QPM Qty: 15 RF: 3 pramipexole 0.5 mg tablet 0.5 mg PO BID 90 Days Qty: 180 RF: 3 tramadol 50 mg tablet 25 - 50 mg PO BID PRN Qty: 60 RF: 0 nystatin 60 GM powder Topical BID RF: 0 insulin aspart U-100 [Novolog Flexpen U-100 Insulin] 300 UNITS/3 ML insulin pen Sub-Q 0800,1200,1700 RF: 0 Mouthwash [Biotene Mouthwash] 59 ML Btl 5 ml Mucous Membrane AC RF: 0 acetaminophen [Tylenol] 325 MG tablet 650 mg PO Q6H PRN PRNQty: 0 RF: 0 Discharge Instructions Instructions: Acute Kidney Injury (DC), Urinary Tract Infection in Women (DC) Additional Instructions: Take your antibiotics as directed until they are gone. Take your other medications as usual. Continue to monitor your blood sugar before meals and cover with insulin per sliding scale. You will need to have labs drawn on Tuesday08/14/18. Home health will visit you at home for PT, OT and nursing. Continue to drink plenty of fluids. Follow up with your PCP as scheduled. Stand Alone Forms: Nursing Discharge Form Referrals: Brendan Mcintyre DO [Primary Care Provider] - Activity:: Activity as Tolerated Equipment/Supplies:: No Equipment Needed Diet:: Carb Counting Discharge Orders Discharge Orders: Discharge Order (Routine); Ordered 08/10/18 Ordered By: Nelida Kumar Other Ambulatory Orders: Basic Metabolic Panel (Routine) Timeframe: [id number] Location: Determined by Patient Ordered By: Nelida Kumar Exam Narrative Exam Narrative: General: She appears comfortable, sitting up in the chair. She is alert and oriented x3, in no acute distress. Morbidly obese. She makes good eye contact. HEENT: normocephalic, atraumatic. Mucous membranes moist. Neck: Supple CV: Regular, nontachycardic, normal S1 and S2. Pulmonary: Respirations even and unlabored. Lung sounds are clear to auscultation bilaterally, no rales, wheezing, or rhonchi. Abdomen: normoactive bowel sounds throughout. Abdomen is soft, nontender, nondistended. Extremities: Bilateral nonpitting lower extremity edema with hyperpigmentation of the skin noted, pedal pulses palpable. DS: Data Vitals/I&O Vitals and I&O: Vital Signs Temperature 36.0 C L 08/10/18 09:20 Temperature Source Tympanic 08/10/18 09:20 Pulse 71 08/10/18 09:20 Pulse Rhythm Regular 08/10/18 08:20 Pulse 56 L 08/06/18 22:50 Respiratory Rate 17 08/10/18 09:20 Respiratory Effort Non-Labored 08/10/18 08:20 Respiratory Depth Normal 08/10/18 08:20 Respiratory Pattern Normal 08/10/18 08:20 Blood Pressure 181/79 H 08/10/18 09:20 Blood Pressure Position Sitting 08/06/18 18:16 Pulse Oximetry 96 08/10/18 09:20 Oxygen Delivery Method Room Air 08/10/18 09:20 Oxygen Flow Rate 0 08/10/18 09:20 Pain Level 1 08/09/18 09:28 Comment 08/10/18 00:50 Intake & Output 08/09/18 08/09/18 08/10/18 11:59 23:59 11:59 Intake Total 1828.667 / 1828.667 490 / 490 300 / 300 Output Total 1425 / 1425 1000 / 1000 1600 / 1600 Balance 403.667 / 403.667 -510 / -510 -1300 / -1300 Weight 155.2 kg Intake: IV 1138.667 / 1138.667 10 Oral 690 / 690 480 / 480 300 / 300 Output: Urine 1425 / 1425 1000 / 1000 1600 / 1600 Other: Urine Color Yellow Yellow Yellow Urine Appearance Clear Clear Clear Urine Odor Normal Normal Normal Comment bit of urine also on brandi pad. Stool Occult Blood Negative Stool Size Moderate Moderate Stool Characteristics Soft Formed Formed Hard Black Green Voiding Methods Bedside Commode Bedside Commode Bedside Commode Completed studies during hospitalization [Text1]: 08/06/18: AP AND LATERAL CHEST: The exam was performed in a semi-erect position. The AP view was quite limited due to technique and patient body habitus. There is stable cardiomegaly. The lung bases are not well seen on the AP view. There is mild right upper lobe linear atelectasis. No acute infiltrate or effusion is seen. There is no gross evidence of pulmonary edema. IMPRESSION: Limited exam. No acute abnormality. LEFT KNEE: The exam is limited by the patient's body habitus. There is narrowing of the medial femorotibial joint space. The bones appear osteoporotic. No fracture is visible. Severe degenerative changes at the patellofemoral joint are also present. IMPRESSION: Limited exam due to the patient's body habitus. If there is further concern of a fracture, CT could be performed. RIGHT KNEE: The exam is limited by the patient's body habitus. There are severe degenerative changes of the medial femorotibial joint and patellofemoral joint. There is no gross evidence of fracture or joint effusion. IMPRESSION: Severe degenerative changes. No gross evidence of an acute abnormality. 08/08/18 RENAL ULTRASOUND: Both kidneys show increased parenchymal echogenicity relative to the liver, consistent with medical renal disease. Several small cysts are noted bilaterally. There is a small hypoechoic focus at the upper pole of the right kidney, which could represent a small stone versus vascular calcification or artifact. The kidneys are normal in size and show normal parenchymal thickness. The prevoid bladder volume measures 66 cc. The patient could not void. The ureteral jets were not visualized. No mass or perinephric collections are seen. A cyst is incidentally noted in the right lobe of the liver. This was seen on previous CT in 2015. IMPRESSION: Normal-sized kidneys with increased parenchymal echogenicity, consistent with medical renal disease. There is no evidence of obstruction Labs on day of discharge: Labs from last 24 hours 08/10/18 08/10/18 06:38 06:38 WBC 4.74 RBC 3.53 L Hgb 10.7 L Hct 34.1 L MCV 96.6 H MCH 30.3 MCHC 31.4 L RDW 13.0 Plt Count 217 MPV 9.9 Sodium 138 Potassium 5.2 H Chloride 105 Carbon Dioxide 26.6 Anion Gap 6.4 BUN 49 H Creatinine 1.63 H Estimated GFR/1.73 m2 30.36 Glucose 126 H Calcium 8.7 PFSH Medical History Microalbuminuria (Acute 07/11/15) Vitamin B12 deficiency (Chronic 04/09/16) Primary localized osteoarthrosis of left lower leg (Chronic 09/21/11) Palliative care patient (Chronic 10/26/17) Other hyperlipidemia (Chronic 09/21/11) Iron deficiency anemia due to chronic blood loss (Chronic 09/21/11) Herpes zoster without complication (Resolved 07/22/17) Generalized anxiety disorder (Chronic 09/21/11) Essential hypertension (Chronic 09/21/11) 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) Chronic diastolic heart failure (Chronic 01/16/18) Poorly controlled type 2 diabetes mellitus (Chronic) Morbid obesity with BMI of 70 and over, adult (Chronic) Social History adopted: No caregiver/support person: Yes foster care: No household members: children housing: house lives independently: No number of children: 4 prison: No current occupational status: retired pets and animals: Yes leisure activities: other Hx Recent Travel: No diet: diabetic well-balanced diet: about half the time eating out: rarely or never reads food labels: sometimes Smoking/Tobacco Use Status: Never passive smoking exposure: Yes Surgical History Extraction of cataract (11/14/11)
--- NOTE | 2018-08-10 11:47 | PT.INTREAT ---
Date of service: 08/10/18 Time of Service: 11:47 PT Notes Inpatient Physical Therapy Treatment Note Date: 08/10/19 PRECAUTIONS:Fall SUBJECTIVE: Maryjane stating that she is tired, as she has been sitting up in the chair since before breakfast this morning. OBJECTIVE: PAIN: No c/o pain BED MOBILITY/TRANSFERS Sit-supine: Mod A Sit-stand: CGA Stand-sit: CGA Chair-bed: SBA GAIT Assistive Device: FWW Weight bearing: WBAT Assist: SBA Distance: 3' + 10' TOILETING: Patient toileted with assist. ASSESSMENT: Patient tolerated session well without complaint. She tolerated gait training well without c/o LE weakness. She demonstrates a slow steady pace. She requires Mod A for [id number] transfer, although reportedly has a routine at home that allows her to do it independently. PLAN: Continue with PT's POC TREATMENT CODE/TIME: 15 minutes; TA
--- NOTE | 2018-08-10 11:52 | PTTR_ITS ---
Date of service: 08/10/18 Time of Service: 11:47 PT Notes Inpatient Physical Therapy Treatment Note Date: 08/10/19 PRECAUTIONS:Fall SUBJECTIVE: Maryjane stating that she is tired, as she has been sitting up in the chair since before breakfast this morning. OBJECTIVE: PAIN: No c/o pain BED MOBILITY/TRANSFERS Sit-supine: Mod A Sit-stand: CGA Stand-sit: CGA Chair-bed: SBA GAIT Assistive Device: FWW Weight bearing: WBAT Assist: SBA Distance: 3' + 10' TOILETING: Patient toileted with assist. ASSESSMENT: Patient tolerated session well without complaint. She tolerated gait training well without c/o LE weakness. She demonstrates a slow steady pace. She requires Mod A for [id number] transfer, although reportedly has a routine at home that allows her to do it independently. PLAN: Continue with PT's POC TREATMENT CODE/TIME: 15 minutes; TA
--- NOTE | 2018-08-10 12:22 | PDOC.HHF2F ---
1. Encounter Date and Reason I certify that MARLENE JACOBS was seen by Nelida Kumar on 08/10/18 and that I had a [id number]-[id number]-[id number] encounter with this patient that meets the physician face to face encounter requirements. 2. Clinical Findings Supporting Skilled Need and Homebound Status I certify that home health services are medically necessary, include either intermittent [facility] and/or physical/speech therapy, and that this patient is homebound in that absences from the home require considerable and taxing effort and are infrequent or of short duration, or are attributable to the need to receive medical care. [X] (a) Attached documentation from encounter provides clinical findings supporting skilled need and homebound status (including what assistance patient requires to leave the home). The encounter with the patient was in whole, or in part, for the following medical condition, which is the primary reason for home health care: UTI,GENERALIZED WEAKNESS,INABILITY TO AMBULATE Assisted: Needed to monitor medical conditions, instruct on daily weights, monitor fluid status, medication management, diabetes education and monitoring. Please draw BMP on 08/14/18, results to PCP. Physical Therapy: Needed for continued strengthening, bed mobility, transfers, gait, stairs, balance training, use of assistive device. OT: Needed for evaluation of home setting and make recommendations as needed. Speech Therapy: Homebound: Unable to leave home without assistance. 3. Certification and Authentication I certify that I composed the above information based on my clinical judgement relating to this patient's medical condition and, if applicable, clinical findings communicated to me by the NPP or inpatient physician who performed the Home Health Referral. All further orders will be obtained through ____Dr. Mcintyre (Community Based Physician - PCP)
--- NOTE | 2018-08-10 12:27 | HHF2F_ITS ---
1. Encounter Date and Reason I certify that MARLENE JACOBS was seen by Nelida Kumar on 08/10/18 and that I had a [id number] encounter with this patient that meets the physician face to face encounter requirements. 2. Clinical Findings Supporting Skilled Need and Homebound Status I certify that home health services are medically necessary, include either intermittent [facility] and/or physical/speech therapy, and that this patient is homebound in that absences from the home require considerable and taxing effort and are infrequent or of short duration, or are attributable to the need to receive medical care. [X] (a) Attached documentation from encounter provides clinical findings supporting skilled need and homebound status (including what assistance patient requires to leave the home). The encounter with the patient was in whole, or in part, for the following medical condition, which is the primary reason for home health care: UTI,GENERALIZED WEAKNESS,INABILITY TO AMBULATE Mcc: Needed to monitor medical conditions, instruct on daily weights , monitor fluid status, medication management, diabetes education and monitoring. Please draw BMP on 08/14/18, results to PCP. Physical Therapy: Needed for continued strengthening, bed mobility, transfers, gait, stairs, balance training, use of assistive device. OT: Needed for evaluation of home setting and make recommendations as needed. Speech Therapy: Homebound: Unable to leave home without assistance. 3. Certification and Authentication I certify that I composed the above information based on my clinical judgement relating to this patient's medical condition and, if applicable, clinical findings communicated to me by the NPP or inpatient physician who performed the Home Health Referral. All further orders will be obtained through ____Dr. Mcintyre ( Community Based Physician - PCP)
--- NOTE | 2018-08-10 12:29 | PDOC.CMDIS ---
- If Service Date Differs Date of service: 08/10/18 Time of Service: 12:29 Care Management Discharge Reason for Hospitalization: UTI, generalized weakness, inability to ambulate. Discharge Plan: Bijal will discharge home when medically ready per MD. Anticipate patient will discharge with new home health services (PT/OT/RN) and follow up with her PCP. Bijal will transport via [facility] wheel chair van at 1400. Patient/Family Education Needs: Discharge education, any limitations, and follow up plan of care. Ask Me Three discussion. Services Needed at Discharge: Home Health Care Services (PT/OT/RN [facility]. ), Occupational Therapy, Physical Therapy
--- NOTE | 2018-08-10 12:42 | PT.DS ---
Date of service 08/10/18 Time of Service 12:42 PT Notes Inpatient Physical Therapy Discharge Summary Date: 08/10/18 Dates of Service: 08/07/18-08/10/18 SUBJECTIVE: NT OBJECTIVE: 08/07/18-08/10/18 BED MOBILITY/TRANSFERS: Supine-sit : minAx1 Sit-supine : modAx1 Sit-stand : CGA with FWW Stand-sit : CGA Bed-Chair : SBA with FWW Chair-bed : SBA with FWW GAIT: SBA with FWW 10ft BALANCE: Static sitting: normal Dynamic sitting: normal Static standing: fair Dynamic standing: poor ASSESSMENT: Pt was seen for 7 PT visits. Progressed from maxAx2 bed transfers to minAx1, from modAx2 standing trasnfers to CGA, from modAx2 bed to chair transfers to CGA with FWW, from modAx2 with FWW 3ft gait to SBA with FWW 10ft. Pt is being discharged to home today, continued home PT recommended for strengthening and progressive mobility training. GOALS Goals X1 week 1. Supine-Sit : min A 2. Sit-Supine : min A 3. Sit-Stand : min A 4. Stand-Sit : min A 5. Bed-Chair : min A with WW 6. Chair-Bed : min A with WW 7. Gait : min A with WW x 25' Pt met goals # 1, 3, 4, 5, 6 DISCHARGE RECOMMENDATIONS: home with home PT G Codes in the area mobility of walking and moving around: projected status GP [id number]. Discharge status (if discharging) GP [id number] TAINA. Mabel Perez PT
== END 2018-08-10 14:06 | disposition home health service (06) | DRG 690 ==
LOC: ER 22:50 → MS 08-07 07:43
PROVIDERS: Nurse Practitioner; Admitting Provider Internal Medicine; Emergency Provider Nurse Practitioner Family; PCP Family Medicine; Visit Provider Internal Medicine
DX: I13.0 Hypertensive heart and chronic kidney disease with heart failure and stage 1 through stage 4 chronic kidney disease, or unspecified chronic kidney disease; N39.0 Urinary tract infection, site not specified; I50.32 Chronic diastolic (congestive) heart failure; N18.4 Chronic kidney disease, stage 4 (severe); Z68.44 Body mass index [BMI] 60.0-69.9, adult; N17.9 Acute kidney failure, unspecified; E86.0 Dehydration; R53.1 Weakness; R39.2 Extrarenal uremia; B35.6 Tinea cruris; E11.65 Type 2 diabetes mellitus with hyperglycemia; E11.22 Type 2 diabetes mellitus with diabetic chronic kidney disease; E03.9 Hypothyroidism, unspecified; E66.01 Morbid (severe) obesity due to excess calories; B96.20 Unspecified Escherichia coli [E. coli] as the cause of diseases classified elsewhere; Z79.4 Long term (current) use of insulin; M17.0 Bilateral primary osteoarthritis of knee; Z71.3 Dietary counseling and surveillance
CPT/HCPCS: 36415; 51701; 73562; 76770; 80048; 80053; 85027; 87077; 93005; 96365; 97110; 97163; 97530; 99219; 99232; 99233; 99239; 99285; 71046; 81003; 81015; 83036; 83735; 84484; 85025; 87086; 87186; 93010; 99226; 99284; G0378; G8978; J0696; J1650; J3490

== ENCOUNTER 2018-08-14 07:46 | Observation (INO) | payer MEDICARE, MEDICAID, SELFPAY ==
[2018-08-14] VITALS (7 sets, daily range): BP systolic 132–183; BP diastolic 63–94; PULSE 59–97; RESP 16–22; TEMP 36.3–37.2; O2SAT 93–100
--- NOTE | 2018-08-14 08:08 | W.ED.GENAD ---
Discharge Plan Discharge Details Chief Complaint: Orthopedic Reason For Visit: AMBULATORY DYSFUNCTION, LLE PAIN Admit Date/Time: 08/14/18 11:54 Admit Provider: Alley Naidu Attending Provider: Alley Naidu Primary Care Provider: Brendan Mcintyre ED Provider: Loretta Bernabe Discharge Data Discharge Date/Time-TO BE ENTERED AT DEPARTURE: 08/14/18 12:58 Medical Decision Making Bijal Zapata an 78-year-old woman with history of insulin dependent diabetes, chronic kidney disease, heart failure, morbid obesity, hyperlipidemia apnea, hypertension presenting to the emergency department with left leg pain worse over the past week, but apparently chronic for 3 years. Patient is acutely nontoxic appearing on exam. There is mild erythema over bilateral anterior lower legs with some chronic skin changes. Patient ranging bilateral hips and knees equally. Knee is nontender to palpation. There is tenderness palpation over the anterior and posterior lower leg. Exam/history not consistent with septic joint, sepsis, hip pathology, CVA. Low suspicion for cellulitis given skin changes appear symmetric, also chronicity of symptoms. Concern for DVT versus possible acute bony pathology versus other. Plan for ultrasound, x-rays, screening labs. X-rays and ultrasound negative for acute process. Labs nondiagnostic. Patient reporting that she is unable to walk secondary to the pain. She typically walks from bed to the bathroom, although she tried to use a commode last night next to the bed and had difficulty secondary to pain. Unclear etiology of pain at this time, will hold on antibiotics. Plan for admission for further eval and treatment, possible outpt placement given her nonambulatory status and chronicity of pain. Clinical impression: Leg pain Disposition: [facility] inpatient Medical Records Medical records reviewed: Yes I reviewed the patient's medical records. Imaging Data Radiologic Study: Attestation: I personally reviewed and interpreted this imaging study as follows: Radiologist's impression: LEFT LOWER EXTREMITY ULTRASOUND: The common femoral, proximal and mid femoral veins and the popliteal vein show normal compression, augmentation and color flow. The distal femoral vein was not well visualized, but color flow, compression and augmentation are seen both proximally and distally. There is a 3.3 x 2.1 x 0.5 cm fluid collection in the popliteal fossa, most suggestive of a Thompson's cyst. The study is technically limited due to the patient's body habitus. IMPRESSION: 1. Limited examination due to the patient's body habitus. 2. No definite evidence of a left lower extremity deep venous thrombus. 3. 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 The findings were discussed with the Emergency Department on the date of the examination. LEFT KNEE AND LEFT TIB-FIB: Multiple views were obtained. The study is limited due to patient's body habitus. No definite acute fracture or dislocation is seen. Marked degenerative changes are seen in the knee with tri compartment joint space narrowing and spurring present. No radiopaque foreign bodies are seen in the soft tissues. IMPRESSION: 1. No acute fracture or dislocation. 2. Limited examination due to patient body habitus. 3. Severe osteoarthritis of the left knee. Lab Data Lab results reviewed: Yes I reviewed the patient's lab results. HPI General Mode of arrival: EMS. Date/Time Provider Initiated Documentation: 08/14/18 08:08. Limitations to Documentation: no limitations. Information obtained by: patient, RN notes reviewed and old records reviewed. HPI Narrative: Bijal Zapata is an 78-year-old woman with history of chronic kidney disease, CHF, morbid obesity, insulin-dependent diabetes, obstructive sleep apnea, hypertension, hyperlipidemia, hypothyroidism presenting to the emergency department with left leg pain. Patient reports that she was admitted here recently, discharge a few days ago. Record review shows the patient was discharged 08/10 from this hospital for UTI, acute on chronic renal failure. Patient now presenting to emergency department with left leg pain, stating that her left leg has been hurting her for several weeks. She reports that she has been in physical therapy in the past for bilateral leg pain, but this seems much worse. No inciting event that she can recall. Patient reports that pain has been unchanged over time. She reports that she is not sure if she was admitted here for left leg pain during her last admission for pain control, because her leg was hurting the same then as it is now. She denies any other pain. She denies fevers, cough, shortness of breath, rash, tingling. She does report that the left leg feels somewhat numb. She reports weakness in both legs that has been ongoing and is unchanged. She uses a walker and also a wheelchair at times for mobility. Has been eating and drinking normally. Related Data Home Medications Medication Instructions Recorded Confirmed aspirin [Aspir-81] 81 mg PO DAILY tab 12/19/12 08/14/18 multivitamin [Daily Multi-Vitamin] 1 ea PO DAILY #90 03/01/16 08/14/18 nystatin 0 gm TOPICAL BID jar 01/13/17 08/14/18 pen needle, diabetic [BD #1 box 10/04/17 Ultra-Fine Skylar Pen Needle] levetiracetam [Keppra] 500 mg PO BID #60 tab-cap 10/10/17 08/14/18 amlodipine 2.5 mg PO DAILY #30 tab-cap 10/17/17 08/14/18 ranitidine HCl 150 mg PO BID #60 tab-cap 10/17/17 08/14/18 sucralfate 1 g PO QID PRN #120 tab 10/17/17 08/14/18 magnesium oxide 400 mg PO BID #60 tab 10/24/17 08/14/18 pen needle, diabetic [Pen Needle] #1 box 11/03/17 Mouthwash [Biotene Mouthwash] 5 ml MUCOUS MEMBRANE AC btl 11/29/17 08/14/18 acetaminophen [Tylenol] 650 mg PO Q6H PRN PRN #0 tab 11/29/17 08/14/18 insulin aspart U-100 [Novolog 0 units SUB-Q 0800,1200,1700 pen 11/29/17 08/14/18 Flexpen U-100 Insulin] cyanocobalamin (vitamin B-12) 1,000 mcg PO DAILY #100 tab 01/16/18 08/14/18 [Vitamin B-12] ferrous sulfate 325 mg PO BID #60 tab 01/16/18 08/14/18 pravastatin 40 mg PO DAILY #90 tab 01/16/18 08/14/18 torsemide 20 mg PO DAILY #30 tab 01/16/18 08/14/18 blood-glucose meter [OneTouch #1 kit 01/23/18 Ultra2] lancets [BD Ultra Fine Lancets] #60 ea 01/23/18 nystatin [Nyamyc] 2 gm TOPICAL BID #60 gm 02/21/18 08/14/18 gabapentin 400 mg capsule 400 mg PO TID #270 cap 05/19/18 08/14/18 levothyroxine 200 mcg tablet 200 mcg PO DAILY #90 tab 05/19/18 08/14/18 insulin detemir (U-100) 100 48 unit SC QPM #15 ml 07/12/18 08/14/18 unit/mL (3 mL) subcutaneous pen pramipexole 0.5 mg tablet 0.5 mg PO BID 90 Days #180 tab-cap 07/17/18 08/14/18 tramadol 50 mg tablet 25 - 50 mg PO BID PRN #60 tab 07/26/18 08/14/18 ciprofloxacin HCl 500 mg PO BID #5 tab 08/10/18 08/14/18 ketoconazole 0 g TOPICAL BID #0 g 08/10/18 08/14/18 Previous Rx's Medication Instructions Recorded nystatin 0 gm TOPICAL BID jar 01/13/17 pen needle, diabetic [BD #1 box 10/04/17 Ultra-Fine Skylar Pen Needle] levetiracetam [Keppra] 500 mg PO BID #60 tab-cap 10/10/17 amlodipine 2.5 mg PO DAILY #30 tab-cap 10/17/17 ranitidine HCl 150 mg PO BID #60 tab-cap 10/17/17 magnesium oxide 400 mg PO BID #60 tab 10/24/17 pen needle, diabetic [Pen Needle] #1 box 11/03/17 Mouthwash [Biotene Mouthwash] 5 ml MUCOUS MEMBRANE AC btl 11/29/17 acetaminophen [Tylenol] 650 mg PO Q6H PRN PRN #0 tab 11/29/17 insulin aspart U-100 [Novolog 0 units SUB-Q 0800,1200,1700 pen 11/29/17 Flexpen U-100 Insulin] cyanocobalamin (vitamin B-12) 1,000 mcg PO DAILY #100 tab 01/16/18 [Vitamin B-12] ferrous sulfate 325 mg PO BID #60 tab 01/16/18 pravastatin 40 mg PO DAILY #90 tab 01/16/18 torsemide 20 mg PO DAILY #30 tab 01/16/18 blood-glucose meter [OneTouch #1 kit 01/23/18 Ultra2] lancets [BD Ultra Fine Lancets] #60 ea 01/23/18 nystatin [Nyamyc] 2 gm TOPICAL BID #60 gm 02/21/18 gabapentin 400 mg capsule 400 mg PO TID #270 cap 05/19/18 levothyroxine 200 mcg tablet 200 mcg PO DAILY #90 tab 05/19/18 insulin detemir (U-100) 100 48 unit SC QPM #15 ml 07/12/18 unit/mL (3 mL) subcutaneous pen pramipexole 0.5 mg tablet 0.5 mg PO BID 90 Days #180 tab-cap 07/17/18 tramadol 50 mg tablet 25 - 50 mg PO BID PRN #60 tab 07/26/18 ciprofloxacin HCl 500 mg PO BID #5 tab 08/10/18 ketoconazole 0 g TOPICAL BID #0 g 08/10/18 Allergies Allergy/AdvReac Type Severity Reaction Status Date / Time lisinopril AdvReac Hyperkalemi Unverified 08/14/18 07:53 a General Stated Complaint: Orthopedic LANA: 4 Review of Systems Review of Systems Constitutional: denies fevers Eyes: denies eye pain ENT: denies facial pain, dental pain, sore throat Cardiovascular: denies chest pain, edema Respiratory: denies SOB, cough GI: denies abdominal pain, vomiting, diarrhea : denies flank pain MSK: denies back pain, neck pain, reports left knee and lower leg pain Skin: denies rash Neuro: denies headaches, lightheadedness, weakness PFSH Extraction of cataract (11/14/11) Social History adopted: No caregiver/support person: Yes foster care: No household members: children housing: house lives independently: No number of children: 4 penitentiary: No current occupational status: retired pets and animals: Yes leisure activities: other Hx Recent Travel: No diet: diabetic well-balanced diet: about half the time eating out: rarely or never reads food labels: sometimes Smoking/Tobacco Use Status: Never passive smoking exposure: Yes Exam Narrative Exam Narrative: Constitutional: [id number], pleasant, conversing normally, morbidly obese HENT: head atraumatic, normocephalic normal inspection, mucous membranes moist Eyes: conjunctiva normal, sclera normal, pupils 3mm b/l Neck: no stridor, normal ROM, trachea midline Chest: normal inspection Resp: normal work of breathing, LCTAB Cardio: normal rate, normal rhythm, no murmur appreciated. GI: abdomen soft, non-tender, non-distended Back: normal inspection, no rash Skin: warm, dry, normal color, mild erythema and chronic skin changes bilateral anterior lower leg Neuro: alert, not altered, grossly non-focal, normal tone, patient moving bilateral legs equally Ext: Significant amount of adipose tissue bilateral lower legs. No apparent edema. Left anterior lower leg tender to palpation with light touch. Mild posterior calf tenderness on the left. Left knee nontender to palpation. Left hip nontender to palpation. DP pulses intact and symmetric Psych: normal mood, normal affect, normal behavior Course Vital Signs Temperature 37.1 C 08/14/18 07:46 Pulse 64 08/14/18 07:46 Respiratory Rate 22 08/14/18 07:46 Blood Pressure 183/94 H 08/14/18 07:46 Pulse Oximetry 94 L 08/14/18 07:46 Temperature 37.1 C 08/14/18 07:46 Temperature Source Temporal Artery Scan 08/14/18 07:46 Pulse 64 08/14/18 07:46 Respiratory Rate 22 08/14/18 07:46 Respiratory Effort Non-Labored 08/14/18 07:51 Blood Pressure 183/94 H 08/14/18 07:46 Pulse Oximetry 94 L 08/14/18 07:46 Oxygen Delivery Method Room Air 08/14/18 07:46 Oxygen Flow Rate 0 08/14/18 07:46 Pain Level 10 08/14/18 07:46
[2018-08-14] MEDS: traMADol 50 MG TAB PO ×2 (08:39→17:12)
[2018-08-14 09:23] LABS: Abs Immature Grans 0.02 k/cumm (0.0-0.09); Absolute Basophil Count 0.04 k/cumm (0.0-0.2); Absolute Eosinophil Count 0.31 k/cumm (0.0-0.7); Absolute Monocyte Count 0.59 k/cumm (0.11-0.7); Absolute Neutrophil Count 4.92 k/cumm (1.2-6.7); Basophils % 0.6; Eosinophils % 4.4; HCT 35.9 % (36.0-46.0); HGB 11.2 g/dL (12.0-15.5); Immature Grans % 0.3; Lymphocytes % 15.8; Mean Corp. HGB Concentration 31.2 g/dL (32.0-36.0); Mean Corpuscular Hemoglobin 29.9 pg (27.0-33.0); Mean Corpuscular Volume 95.7 fL (80-95); Mean Platelet Volume 9.7 fL (8.0-11.0); Monocytes % 8.5; Neutrophils % 70.4; Platelet Count 262 x1000/uL (130-400); RBC 3.75 m/cumm (4.00-5.20); White Blood Cell Count 6.98 k/cumm (4.4-10.8)
--- NOTE | 2018-08-14 09:23 | DI.US_ITS ---
SYMPTOMS/DIAGNOSIS: LEFT LEG PAIN LEFT LOWER EXTREMITY ULTRASOUND: The common femoral, proximal and mid femoral veins and the popliteal vein show normal compression, augmentation and color flow. The distal femoral vein was not well visualized, but color flow, compression and augmentation are seen both proximally and distally. There is a 3.3 x 2.1 x 0.5 cm fluid collection in the popliteal fossa, most suggestive of a Thompson's cyst. The study is technically limited due to the patient's body habitus. IMPRESSION: 1. Limited examination due to the patient's body habitus. 2. No definite evidence of a left lower extremity deep venous thrombus. 3. 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 The findings were discussed with the Emergency Department on the date of the examination.
[2018-08-14 09:35] LABS: ALT 19 U/L (12-78); AST 17 U/L (15-37); Alkaline Phosphatase 86 U/L (46-116); Anion Gap 7.5 mmol/L (3-11); BUN 33 mg/dL (7-18); Bilirubin, Total 0.3 mg/dL (0.2-1.0); C-Reactive Protein 0.97 mg/dL (0.0-0.3); CO2 28.5 mmol/L (21.0-32.0); CREATININE 1.46 mg/dL (0.55-1.02); Calcium 8.9 mg/dL (8.5-10.1); Chloride 105 mmol/L (98-107); Estimated GFR 34.47 (mL/min/1.73m2); Glucose 167 mg/dL (70-100); Potassium 4.7 mmol/L (3.5-5.1); Sodium 141 mmol/L (136-145); Total Protein 6.6 g/dL (6.4-8.2)
[2018-08-14 09:57] LABS: ESR 50 MM/HR (0-30)
--- NOTE | 2018-08-14 10:23 | DI.RAD_ITS ---
SYMPTOM/DIAGNOSIS: LT KNEE AND LEG PAIN LEFT KNEE AND LEFT TIB-FIB: Multiple views were obtained. The study is limited due to patient's body habitus. No definite acute fracture or dislocation is seen. Marked degenerative changes are seen in the knee with tri compartment joint space narrowing and spurring present. No radiopaque foreign bodies are seen in the soft tissues. IMPRESSION: 1. No acute fracture or dislocation. 2. Limited examination due to patient body habitus. 3. Severe osteoarthritis of the left knee.
--- NOTE | 2018-08-14 11:50 | NUR.NOTE ---
MD Bernabe is at the bedside.
--- NOTE | 2018-08-14 16:41 | W.PM.HP.N ---
Date of service: 08/14/18 Time of Service: 16:42 Assessment and Plan (1) Left leg pain: Current visit: Yes Status: Acute Likely due to neuropathy, by description. At this time, already seems to be resolving. The patient is already on gabapentin, which we could titrate up if needed. She is also on B12. Will have the patient work with PT/OT and assess mobility. Will increase frequency of ultram for pain control; continue gabapentin. (2) Ambulatory dysfunction: Current visit: Yes Status: Acute PT/OT consulted. (3) Generalized weakness: Current visit: No Status: Acute PT/OT consult. Repeat UA to document clearance of UTI. (4) Hypothyroidism: Current visit: No Status: Chronic Continue home dose of synthroid. Check TSH. (5) Primary localized osteoarthrosis of left lower leg: Current visit: No Status: Chronic Read discussion of LLE pain above, though I feel that the current pain is more likely neuropathic. (6) Insulin dependent diabetes mellitus: Current visit: Yes Status: Chronic Continue home doses of basal bolus insulin with a sliding scale. (7) Chronic diastolic heart failure: Current visit: No Status: Chronic Euvolemic - continue home torsemide. (8) 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 diabetes mellitus: Current visit: No Status: Chronic Creatinine better than baseline today. No change in tx. (9) Obstructive sleep apnea: Current visit: No Status: Chronic Does not use CPAP/BiPAP. (10) DVT prophylaxis: Current visit: Yes Status: Acute As patient has a history of chronic blood loss and her expected hospitalization is less than 48 hours, I feel it is safe to hold off on chemical DVT ppx for now. (11) Discharge planning issues: Current visit: Yes Status: Acute PT/OT consulted. Depending on patient's ability to ambulate, rehab may have to be considered. 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 She also had numbness, and the pain was so severe she could not get out of bed. Now the pain is already much better and numbness is gone. Review of Systems Review of Systems 12 systems reviewed. Pertinent positives and negatives are as per HPI. 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) Diabetes mellitus type 2 in nonobese (Chronic 03/12/98) Chronic diastolic heart failure (Chronic 01/16/18) 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) Obstructive sleep apnea (Chronic) Poorly controlled type 2 diabetes mellitus (Chronic) Morbid obesity with BMI of 70 and over, adult (Chronic) H/O: hysterectomy (Chronic) Extraction of cataract (11/14/11) History of colonoscopy (Chronic) History of esophagogastroduodenoscopy (EGD) (Chronic) H/O oral surgery (Resolved) Medical History Hypothyroidism (Chronic) Microalbuminuria (Chronic 07/11/15) Vitamin B12 deficiency (Chronic 04/09/16) Primary localized osteoarthrosis of left lower leg (Chronic 09/21/11) Palliative care patient (Chronic 10/26/17) Other hyperlipidemia (Chronic 09/21/11) Iron deficiency anemia due to chronic blood loss (Chronic 09/21/11) Herpes zoster without complication (Resolved 07/22/17) Generalized anxiety disorder (Chronic 09/21/11) Essential hypertension (Chronic 09/21/11) 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) Diabetes mellitus type 2 in nonobese (Chronic 03/12/98) Chronic diastolic heart failure (Chronic 01/16/18) 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) Obstructive sleep apnea (Chronic) Poorly controlled type 2 diabetes mellitus (Chronic) Morbid obesity with BMI of 70 and over, adult (Chronic) H/O: hysterectomy (Chronic) Social History adopted: No caregiver/support person: Yes foster care: No household members: children housing: house lives independently: No number of children: 4 jail: No current occupational status: retired pets and animals: Yes leisure activities: other Hx Recent Travel: No diet: diabetic well-balanced diet: about half the time eating out: rarely or never reads food labels: sometimes Smoking/Tobacco Use Status: Never passive smoking exposure: Yes Surgical History Extraction of cataract (11/14/11) History of colonoscopy (Chronic) History of esophagogastroduodenoscopy (EGD) (Chronic) H/O oral surgery (Resolved) Social History adopted: No caregiver/support person: Yes foster care: No household members: children housing: house lives independently: No number of children: 4 jail: No current occupational status: retired pets and animals: Yes leisure activities: other Hx Recent Travel: No diet: diabetic well-balanced diet: about half the time eating out: rarely or never reads food labels: sometimes Smoking/Tobacco Use Status: Never passive smoking exposure: Yes Meds Home Medications Medication Instructions Recorded Confirmed Type aspirin [Aspir-81] 81 mg PO DAILY tab 12/19/12 08/14/18 History multivitamin [Daily Multi-Vitamin] 1 ea PO DAILY #90 03/01/16 08/14/18 History nystatin 0 gm TOPICAL BID jar 01/13/17 08/14/18 Rx pen needle, diabetic [BD #1 box 10/04/17 Rx Ultra-Fine Skylar Pen Needle] levetiracetam [Keppra] 500 mg PO BID #60 tab-cap 10/10/17 08/14/18 Rx amlodipine 2.5 mg PO DAILY #30 tab-cap 10/17/17 08/14/18 Rx ranitidine HCl 150 mg PO BID #60 tab-cap 10/17/17 08/14/18 Rx sucralfate 1 g PO QID PRN #120 tab 10/17/17 08/14/18 History magnesium oxide 400 mg PO BID #60 tab 10/24/17 08/14/18 Rx pen needle, diabetic [Pen Needle] #1 box 11/03/17 Rx Mouthwash [Biotene Mouthwash] 5 ml MUCOUS MEMBRANE AC btl 11/29/17 08/14/18 Rx acetaminophen [Tylenol] 650 mg PO Q6H PRN PRN #0 tab 11/29/17 08/14/18 Rx insulin aspart U-100 [Novolog 0 units SUB-Q 0800,1200,1700 pen 11/29/17 08/14/18 Rx Flexpen U-100 Insulin] Hospital Bed ea MISCELLANEOUS ONCE #1 12/28/17 Clinic cyanocobalamin (vitamin B-12) 1,000 mcg PO DAILY #100 tab 01/16/18 08/14/18 Rx [Vitamin B-12] ferrous sulfate 325 mg PO BID #60 tab 01/16/18 08/14/18 Rx pravastatin 40 mg PO DAILY #90 tab 01/16/18 08/14/18 Rx torsemide 20 mg PO DAILY #30 tab 01/16/18 08/14/18 Rx Onetouch Ultra Test Strips 1 ea MISCELLANEOUS TID #90 strip 01/23/18 08/14/18 Clinic blood-glucose meter [OneTouch #1 kit 01/23/18 Rx Ultra2] lancets [BD Ultra Fine Lancets] #60 ea 01/23/18 Rx nystatin [Nyamyc] 2 gm TOPICAL BID #60 gm 02/21/18 08/14/18 Rx gabapentin 400 mg capsule 400 mg PO TID #270 cap 05/19/18 08/14/18 Rx levothyroxine 200 mcg tablet 200 mcg PO DAILY #90 tab 05/19/18 08/14/18 Rx insulin detemir (U-100) 100 48 unit SC QPM #15 ml 07/12/18 08/14/18 Rx unit/mL (3 mL) subcutaneous pen pramipexole 0.5 mg tablet 0.5 mg PO BID 90 Days #180 tab-cap 07/17/18 08/14/18 Rx tramadol 50 mg tablet 25 - 50 mg PO BID PRN #60 tab 07/26/18 08/14/18 Rx ciprofloxacin HCl 500 mg PO BID #5 tab 08/10/18 08/14/18 Rx ketoconazole 0 g TOPICAL BID #0 g 08/10/18 08/14/18 Rx Allergies Allergy/AdvReac Type Severity Reaction Status Date / Time lisinopril AdvReac Hyperkalemi Unverified 08/14/18 07:53 a Exam Narrative Exam Narrative: General: Very pleasant obese female, laying comfortably in bed, not in acute distress Neurological: A&Ox3, no focal deficits, able to feel me touch her LLE Psychiatric: Appropriate speech pattern and content Skin: very mild erythema in bilateral lower legs, which is chronic and does not look cellulitis HEENT: EOMI, moist mucuous membranes with whitish discoloration of the tongue (chronic, per patient). No JVD. Hirsutism. Cardiovascular: RRR, no m/r/g Lungs: Clear diminished breath sounds B Gastrointestinal: obese abdomen, nontender, nondistended Extremities: BLE lymphedema; mild edema in B feet/ankles; feet warm and well perfused. +1 pedal pulses bilaterally. Results Labs : 08/14/18 09:05 08/14/18 09:05 Laboratory Results - last 24 hr 08/14/18 08/14/18 08/14/18 09:05 09:05 09:05 WBC 6.98 RBC 3.75 L Hgb 11.2 L Hct 35.9 L MCV 95.7 H MCH 29.9 MCHC 31.2 L RDW 13.0 Plt Count 262 MPV 9.7 Immature Gran % 0.3 Neutrophils % 70.4 Lymphocytes % 15.8 Monocytes % 8.5 Eosinophils % 4.4 Basophils % 0.6 Absolute Neutrophils 4.92 Absolute Lymphocytes 1.10 L Absolute Monocytes 0.59 Absolute Eosinophils 0.31 Absolute Basophils 0.04 ESR 50 H Sodium 141 Potassium 4.7 Chloride 105 Carbon Dioxide 28.5 Anion Gap 7.5 BUN 33 H Creatinine 1.46 H Estimated GFR/1.73 m2 34.47 Glucose 167 H Calcium 8.9 Magnesium 2.0 Total Bilirubin 0.3 AST 17 ALT 19 Alkaline Phosphatase 86 C-Reactive Protein 0.97 H Total Protein 6.6 Albumin 3.0 L US venous LLE: 1. Limited examination due to the patient's body habitus. 2. No definite evidence of a left lower extremity deep venous thrombus. 3. 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 XR L knee: No acute fracture or dislocation. 2. Limited examination due to patient body habitus. 3. Severe osteoarthritis of the left knee. XR L tib/fib: 1. No acute fracture or dislocation. 2. Limited examination due to patient body habitus. 3. Severe osteoarthritis of the left knee. Last Vital Signs Temp 36.8 C 08/14/18 15:36 Pulse 61 08/14/18 15:36 Resp 20 08/14/18 15:36 BP 132/63 08/14/18 15:36 Pulse Ox 97 08/14/18 15:36
[2018-08-14] MEDS: Acetaminophen 325 MG TAB 650 MG PO (17:12)
[2018-08-14] MEDS: Insulin Aspart 300 UNITS/3 ML PEN SC (17:47)
[2018-08-14] MEDS: Insulin Aspart 300 UNITS/3 ML PEN 15 UNITS SC (17:47)
[2018-08-14] MEDS: Nystatin POWDER 60 GM JAR TP (20:17)
[2018-08-14] MEDS: Gabapentin 400 MG CAP PO (20:17)
[2018-08-14] MEDS: Ferrous Sulfate 325 MG TAB PO (20:18)
[2018-08-14] MEDS: oxyCODONE 5 mg/Acetaminophen 325 mg TAB 1 TAB PO (20:18)
[2018-08-14] MEDS: Pravastatin 40 MG TAB PO (20:18)
[2018-08-14] MEDS: Pramipexole 0.5 MG TAB PO (20:19)
[2018-08-14] MEDS: Magnesium Oxide 400 MG TAB PO (21:24)
[2018-08-14] MEDS: Sucralfate 1 GM TAB PO (21:25)
[2018-08-14 22:07] LABS: Bilirubin Negative (Negative); Blood Negative (Negative); Clarity Clear; Glucose Negative (Negative); Ketones Negative (Negative); Leukocyte Esterase Negative (Negative); Nitrite Negative (Negative); Specific Gravity 1.025 (1.005-1.025); Urobilinogen 0.2 EU/dL (Up TO 0.2); pH 5.5 (5-8)
[2018-08-14 22:31] LABS: Bacteria Negative HPF (Negative); C & S Indicated? No; Casts Negative LPF (Negative); Crystals Negative HPF (Negative); Epithelial Cells Moderate HPF (Negative); Mucus Negative (Negative); Other Cells Negative (Negative); RBC Negative (0-2)
[2018-08-15] MEDS: Acetaminophen 325 MG TAB 650 MG PO ×3 (00:06→14:11)
[2018-08-15] MEDS: traMADol 50 MG TAB PO ×3 (00:06→14:11)
[2018-08-15 03:50] VITALS: BP 140/68; PULSE 70; RESP 20; TEMP 36.4; O2SAT 97
[2018-08-15] MEDS: Levothyroxine 200 MCG TAB PO (06:30)
[2018-08-15 06:44] LABS: Abs Immature Grans 0.02 k/cumm (0.0-0.09); Absolute Basophil Count 0.05 k/cumm (0.0-0.2); Absolute Eosinophil Count 0.36 k/cumm (0.0-0.7); Absolute Lymphocyte Count 1.12 k/cumm (1.2-3.4); Absolute Monocyte Count 0.54 k/cumm (0.11-0.7); Absolute Neutrophil Count 3.18 k/cumm (1.2-6.7); Basophils % 0.9; Eosinophils % 6.8; HCT 35.5 % (36.0-46.0); Immature Grans % 0.4; Lymphocytes % 21.3; Mean Corpuscular Hemoglobin 30.6 pg (27.0-33.0); Mean Corpuscular Volume 98.9 fL (80-95); Mean Platelet Volume 9.6 fL (8.0-11.0); Monocytes % 10.2; Neutrophils % 60.4; Platelet Count 236 x1000/uL (130-400); RBC 3.59 m/cumm (4.00-5.20); White Blood Cell Count 5.27 k/cumm (4.4-10.8)
[2018-08-15 06:52] LABS: Anion Gap 5.6 mmol/L (3-11); BUN 34 mg/dL (7-18); CO2 29.4 mmol/L (21.0-32.0); Calcium 8.5 mg/dL (8.5-10.1); Chloride 106 mmol/L (98-107); Estimated GFR 28.92 (mL/min/1.73m2); Glucose 124 mg/dL (70-100); Potassium 4.9 mmol/L (3.5-5.1); Sodium 141 mmol/L (136-145)
[2018-08-15 07:09] LABS: C-Reactive Protein 1.19 mg/dL (0.0-0.3); TSH (W/Ref FT4) 7.66 uIU/mL (0.358-3.74)
[2018-08-15 07:26] LABS: FREE T4 0.95 ng/dL (0.76-1.46)
--- NOTE | 2018-08-15 07:37 | PDOC.CMIN ---
- If Service Date Differs Date of service: 08/15/18 Time of Service: 07:37 Care Management Initial Assess REASON FOR HOSPITALIZATION:: Ambulatory dysfunction, LLE pain. PAST MEDICAL HISTORY/PAST SURGICAL HISTORY:: Chronic diastolic heart failure, magnesium metabolism, essential hypertension, anxiety, herpes zoster, microalbuminuria, morbid obesity, hyperlipidemia, hypothyroidism, diabetes type II, osteoarthritis left leg, depression, anemia, GERD, CHF, SERAFIN. Surgical hx: bilateral cataract, oral surgery (resection of tongue lesion, colonoscopy, EGD). PREVIOUS FUNCTIONAL STATUS/SOCIAL/FAMILY SUPPORTS:: Bijal resides in [facility] with her daughter, Erin, who is her primary personal care home administrator. She has a son, Doug, who resides nearby and is additionally supportive. Bijal spent several weeks at [facility] seven months ago and had an admission at [facility] on 08/07 for UTI, generalized weakness, and inability to walk. Bijal was discharged from [facility] with home health services (PT/OT/RN). She requires assistance with her ADLs; she can reportedly dress independently and use the bathroom. Bijal utilizes a walker and wheel chair (most often) at home for ambulation. CURRENT FUNCTIONAL STATUS:: Bijal is sitting in her chair with her son, Doug at bedside when CM visits. She is engaged in conversation and is talkative. Bijal has been talking with Doug and NEMESIO Krause regarding short term rehab following discharge from [facility]. Bijal agrees that she could benefit from a rehab stay and requests that a referral be sent to [facility]. Referral sent; Bijal apparently owes money for her last stay there so not likely she will have a bed available to her. FRANCE spoke with daughter, Erin, who reports she will take care of the bill today. FRANCE will follow up with &R tomorrow. FRANCE phoned son, Doug and spoke with his , Rosalba, about other referrals. Daughter Erin requested that a referral be sent to the [facility]. Bijal reported that the SCDs she wore last evening helped with her pain a great deal. CM provided Bijal with information for purchasing machine; [employer] has multiple options as do other sites. ADVANCE DIRECTIVES:: On file at [facility]. Health Care Agents: Oksana Shannon, Doug Zapata. Has patient been provided with information about the portal?: Yes Did the patient sign up for the portal?: No CODE STATUS:: Full Code INSURANCE COVERAGE / FINANCIAL ISSUES:: Medicaid, Medicare. CURRENT HOME/COMMUNITY SERVICES/EQUIPMENT:: Wheel chair and walker for ambulation. PRIMARY CARE PHYSICIAN:: Brendan Mcintyre DO. POTENTIAL DISCHARGE NEEDS:: Follow up appointment with PCP. Short-term SNF placement vs. HH Services (RN/PT/OT). PATIENT/FAMILY EDUCATION NEEDS:: Discharge education, any limitations, and follow up plan of care. Ask Me Three discussion. ANTICIPATED BARRIERS TO DISCHARGE:: No anticipated barriers to discharge. TRANSPORTATION:: Transportation to be determined; anticipate with family or via [facility] w/c van. PLAN:: Bijal will discharge when medically ready per MD. Anticipate patient will discharge to SNF for s/t rehab vs. home with HH services (PT/OT/RN) and follow up with PCP. CM will continue to offer support to patient and care team regarding discharge planning and disposition.
[2018-08-15 07:45] VITALS: BP 142/75; PULSE 60; RESP 17; TEMP 36.5; O2SAT 96
[2018-08-15] MEDS: Gabapentin 400 MG CAP PO ×3 (08:06→19:51)
[2018-08-15] MEDS: Ferrous Sulfate 325 MG TAB PO ×2 (08:06→19:51)
[2018-08-15] MEDS: amLODIPine 2.5 MG TAB PO (08:06)
[2018-08-15] MEDS: Multivitamin TAB 1 TAB PO (08:06)
[2018-08-15] MEDS: Aspirin E.C. 81 MG TABEC PO (08:06)
[2018-08-15] MEDS: Pramipexole 0.5 MG TAB PO ×2 (08:07→19:51)
[2018-08-15] MEDS: Torsemide 20 MG TAB PO (08:07)
[2018-08-15] MEDS: Insulin Aspart 300 UNITS/3 ML PEN 15 UNITS SC (08:07)
[2018-08-15] MEDS: Cyanocobalamin 500 MCG TAB 1000 MCG PO (08:07)
[2018-08-15] MEDS: Nystatin POWDER 60 GM JAR TP ×2 (08:12→19:51)
[2018-08-15] MEDS: Magnesium Oxide 400 MG TAB PO ×2 (09:52→20:58)
--- NOTE | 2018-08-15 09:54 | OT.INIE ---
Occupational Therapy Notes Inpatient Occupational Therapy Evaluation Date: 08/15/18 Referring Doctor:Alley Naidu MD OT Orders: Eval and Treat PATIENT PROFILE/ADMITTING DIAGNOSIS: Pt is a 78 year old female who came to the ER on 08/14/18 for increased (L) leg pain. She was seen for OT consult for assessment of ADL routine and functional activities. Past Medical History: morbid obesity, osteoarthritis bilateral knees, chronic anemia, anxiety, depression, congestive heart failure, diabetes mellitus type II, restless leg syndrome, chronic pain, chronic kidney disease, erosive esophagitis, hyperlipidemia, hypothyroidism, hypertension, hyperkalemia, bilateral cataract extraction, hysterectomy, tubal ligation, gastroesophageal reflux disease, sleep apnea, B12 and magnesium deficiency Social History/Home Situation: Pt report that she lives in a private home with her daughter. She reports that she has one step to enter with no railings. She states that her baseline ADLs are (I) with dressing UE, eating, toileting. Her daughter assists with cooking, grocery shopping, bathing routine, dressing LE. Equipment owned/DME: Hospital bed, wheelchair, grab bars around toilet and shower, home oxygen, bedside commode SUBJECTIVE: Pt was sitting in chair when OT arrived. She reports that she is agreeable to OT session. OBJECTIVE: General Observation: Pt is obese sitting in chair, pleasant and responds appropriately when answering questions. Mental Status: A&Ox3 Pain: c/o pain in (L) leg. Pt is unable to quantify pain. ROM: RUE AROM ~80*, AAROM 150* L UE AROM~90*, AAROM 160* STRENGTH: RUE Cierra flexion 3-/5, elbow 4/5, appointment coordinator 4/5 LUE cierra flexion 3-/5, elbow 4/5, appointment coordinator 4/5 SENSATION: Pt intact to light touch and sensation through (B) UE. FUNCTIONAL MOBILITY/ADLS: Sit-Stand Mod (A) x2 Stand-sit CGA BATHING Sitting in chair which pt reports is her baseline. Bathing UE (I), max (A) for back (pts baseline), min (A) for washing under abdomen skin (pt reports this is baseline and her daughter does this) Bathing LE (I) except for feet which was max (A) (pt's baseline). DRESSING Dressing UE (I) donning and doffing her dress which she reports is all she wears and rotates them for each day. Dressing LE Max (A) for donning and doffing socks. Pt reports that this is her baseline. Denies education for sock aid stating that she has tried this before and it didn't work for her. GROOMING Pt denies brushing teeth stating that she only performs this at night. She denies brushing hair. TOILETING NT. Pt reports that she has a bedside commode at home where she urinates and a toilet where she performs bowel movements. EATING (I) able to perform food to mouth movements and open and close packaging. BALANCE: Static sitting Normal Dynamic Sitting Normal Static Standing Fair SPECIAL TESTS: Daily Activity Limitations Standardized Measure [facility] AM PAC ?6 clicks? Daily Activity Inpatient Short Form: Raw score: 20 Standardized score: 42.03 CMS score: 38.32% CMS modifier: CJ INFORMED CONSENT/EDUCATION: Pt instructed in purpose of OT Consult and plan of care. ASSESSMENT: Patient is a 78-year-old female referred to occupational therapy services with diagnosis of increased (L) leg pain which she was seen in the ER on 08/14/18 in setting of morbid obesity, osteoarthritis bilateral knees, chronic anemia, anxiety, depression, congestive heart failure, diabetes mellitus type II, restless leg syndrome, chronic pain, chronic kidney disease, erosive esophagitis, hyperlipidemia, hypothyroidism, hypertension, hyperkalemia, bilateral cataract extraction, hysterectomy, tubal ligation, gastroesophageal reflux disease, sleep apnea, B12 and magnesium deficiency. Pt was recently admitted to [facility] with a discharge date of 08/10/18. Pt is functioning at her baseline ADLs per pt report and assessment noted as above. OT would recommend that pt return home when medically cleared with Home Health OT consult. Due to pt performing her ADLs at baseline OT will d/c pt from skilled OT services. AMPAC score 20, CMS score 38.32% Patient is assessed as a Moderate 64156 complexity based on the following: History: See Above Examination: See Above Presentation: Evolving Decision Making: AMPAC score 20, CMS score 38.32% GOALS N/A PLAN OF CARE/TREATMENT PLAN: OT consult only. DISCHARGE RECOMMENDATIONS Home when medically cleared with OT Home Health Pt has all DME. TREATMENT TIME/MINUTES/CODES 55 min IE, Self carex3 (08:30) G Codes in the area of self- : washing oneself, toileting, dressing, eating and drinking, current status GO [id number] CJ projected status GO [id number]. Discharge status GO [id number]. Based on AMPAC score 20, CMS score 38.32%. Latha Clay OTR/L
--- NOTE | 2018-08-15 09:57 | PT.INIE ---
Date of service: 08/15/18 Time of Service: 10:00 PT Notes Date: 08/15/18 Referring Doctor: Alley Naidu P.T Orders: PT CONSULT: evaluate/treat Precautions: fall, standard Patient Profile/Admitting Diagnosis: Patient admitted from ED with non specific leg pain. PMHX: morbid obesity, osteoarthritis bilateral knees, chronic anemia, anxiety, depression, congestive heart failure, diabetes mellitus type II, restless leg syndrome, chronic pain, chronic kidney disease, erosive esophagitis, hyperlipidemia, hypothyroidism, hypertension, hyperkalemia, bilateral cataract extraction, hysterectomy, tubal ligation, gastroesophageal reflux disease, sleep apnea, B12 and magnesium deficiency Social History/Home Situation: Lives with daughter who assists with care, ramp to enter. Baseline mobility gait 20-30ft with PUW, assist with ADLS. Equipment owned/DME: Hospital bed, PUW, wheelchair, grab bars around toilet and shower, home 02 Subjective: Pt sitting in chair, states her leg pain is better after using SCD's last night, asking if there is an SCD machine she can take home with her, I think that would really help me. Pt states she does not want to go to a rehab facility and wants to return home with home PT. Objective: Mental Status: A&Ox3 Pain: bilateral knee pain with weight bearing Bed Mobility/Transfers: Sit-stand from recliner: CGA with FWW Recliner to commode: CGA with FWW Commode to bed: CGA with FWW Sit-supine: Claudia for legs into bed, pt usually puts her legs on her wheelchair at home to lift her legs into bed at home, pt does have a hospital bed at home Gait: CGA with FWW 3ft in room. Pt moves slowly with flexed posture, cues provided to improve trunk extension and utilize upper body support for gait to unload LE's. Pt reports knee pain with gait mobility, this was present on previous admissions as well and resolves with unloading LEs indicating it is most likely her osteoarthritis causing the pain, she has no knee pain in supine positions. Therex: pt has home exercise program she was issued at prior admission and instructed to perform independently. Balance: Static Sitting: normal Dynamic Sitting: normal Static Standing: fair Dynamic Standing: fair Special Tests: Mobility Limitations Standardized Measure [facility]-PAC 6 clicks Basic Mobility Inpatient Short Form: Raw Score: 17 Standardized Score: 42.13 CMS Score: 50.57% CMS Modifier: CK Informed Consent/Education: Patient instructed in purpose of PT consult and plan of care. Assessment: Patient is a 78 year old female referred to physical therapy services with non specific leg pain. Upon assessment it appears leg pain has improved since admission with use of SCD's overnight, indicating her leg pain is muscular in nature that can be resolved with compression/massage type devices, rest and elevation. Patient presents with obesity and overall deconditioning at baseline, combined with bilateral knee osteoarthritis making it difficult for her to move her body and lift her legs into and out of bed. She is able to perform transfers and perform gait mobility with CGA/SBA, requiring FWW for assist and stability due to decreased static and dynamic standing balance and increased time to complete tasks due to OA pain and obesity, deconditioning. Pt appears at same level of function she was when discharged on prior admission. She would benefit from a stay in a rehab facility for strengthening and progressive mobility training, however she insists on returning to home setting in care of her daughter and would prefer home PT services. Impairment level [facility] CMS Score: 50.57% Patient is assessed as a High 32908 complexity based on the following: History: see above Examination: functional limitations as noted above Presentation: stable Decision Making: [facility] CMS Score: 50.57% Goals: Goals X1 week 1. Supine-Sit : SBA 2. Sit-Supine : min A 3. Sit-Stand : SBA with FWW 4. Stand-Sit : SBA with FWW 5. Bed-Chair : SBA with FWW 6. Chair-Bed : SBA with FWW 7. Gait : SBA with FWW x 25' Plan of Care/Treatment Plan: 1-2x/day, 7 days/week x 1 week. Plan of care has been reviewed with the REMOTE SENSING TECHNICIAN providing the service under Physical Therapy direction. Initiate Physical Therapy intervention for strengthening, bed mobility, transfers, gait, stairs, balance training, use of assistive device. DISCHARGE RECOMMENDATIONS: Home with home PT, pt refusing SNF. Has all DME TREATMENT CODE/TIME: 25 minutes IE 10:00am G Codes in the area mobility of walking and moving around: current status [id number] CK; projected status GP [id number]. Discharge status (if discharging) GP G8980 CK based on [facility] scores Mabel Perez PT.
--- NOTE | 2018-08-15 10:04 | IN_ITS ---
Date of service: 08/15/18 Time of Service: 10:00 PT Notes Date: 08/15/18 Referring Doctor: Alley Naidu P.T Orders: PT CONSULT: evaluate/treat Precautions: fall, standard Patient Profile/Admitting Diagnosis: Patient admitted from ED with non specific leg pain. PMHX: morbid obesity, osteoarthritis bilateral knees, chronic anemia, anxiety, depression, congestive heart failure, diabetes mellitus type II, restless leg syndrome, chronic pain, chronic kidney disease, erosive esophagitis, hyperlipidemia, hypothyroidism, hypertension, hyperkalemia, bilateral cataract extraction, hysterectomy, tubal ligation, gastroesophageal reflux disease, sleep apnea, B12 and magnesium deficiency Social History/Home Situation: Lives with daughter who assists with care, ramp to enter. Baseline mobility gait 20-30ft with PUW, assist with ADLS. Equipment owned/DME: Hospital bed, PUW, wheelchair, grab bars around toilet and shower, home 02 Subjective: Pt sitting in chair, states her leg pain is better after using SCD' s last night, asking if there is an SCD machine she can take home with her, I think that would really help me. Pt states she does not want to go to a rehab facility and wants to return home with home PT. Objective: Mental Status: A&Ox3 Pain: bilateral knee pain with weight bearing Bed Mobility/Transfers: Sit-stand from recliner: CGA with FWW Recliner to commode: CGA with FWW Commode to bed: CGA with FWW Sit-supine: Claudia for legs into bed, pt usually puts her legs on her wheelchair at home to lift her legs into bed at home, pt does have a hospital bed at home Gait: CGA with FWW 3ft in room. Pt moves slowly with flexed posture, cues provided to improve trunk extension and utilize upper body support for gait to unload LE's. Pt reports knee pain with gait mobility, this was present on previous admissions as well and resolves with unloading LEs indicating it is most likely her osteoarthritis causing the pain, she has no knee pain in supine positions. Therex: pt has home exercise program she was issued at prior admission and instructed to perform independently. Balance: Static Sitting: normal Dynamic Sitting: normal Static Standing: fair Dynamic Standing: fair Special Tests: Mobility Limitations Standardized Measure [facility]-PAC 6 clicks Basic Mobility Inpatient Short Form: Raw Score: 17 Standardized Score: 42.13 CMS Score: 50.57% CMS Modifier: CK Informed Consent/Education: Patient instructed in purpose of PT consult and plan of care. Assessment: Patient is a 78 year old female referred to physical therapy services with non specific leg pain. Upon assessment it appears leg pain has improved since admission with use of SCD's overnight, indicating her leg pain is muscular in nature that can be resolved with compression/massage type devices , rest and elevation. Patient presents with obesity and overall deconditioning at baseline, combined with bilateral knee osteoarthritis making it difficult for her to move her body and lift her legs into and out of bed. She is able to perform transfers and perform gait mobility with CGA/SBA, requiring FWW for assist and stability due to decreased static and dynamic standing balance and increased time to complete tasks due to OA pain and obesity, deconditioning. Pt appears at same level of function she was when discharged on prior admission. She would benefit from a stay in a rehab facility for strengthening and progressive mobility training, however she insists on returning to home setting in care of her daughter and would prefer home PT services. Impairment level [facility] CMS Score: 50.57% Patient is assessed as a High [id number] complexity based on the following: History: see above Examination: functional limitations as noted above Presentation: stable Decision Making: [facility] CMS Score: 50.57% Goals: Goals X1 week 1. Supine-Sit : SBA 2. Sit-Supine : min A 3. Sit-Stand : SBA with FWW 4. Stand-Sit : SBA with FWW 5. Bed-Chair : SBA with FWW 6. Chair-Bed : SBA with FWW 7. Gait : SBA with FWW x 25' Plan of Care/Treatment Plan: 1-2x/day, 7 days/week x 1 week. Plan of care has been reviewed with the ACID ETCH OPERATOR providing the service under Physical Therapy direction. Initiate Physical Therapy intervention for strengthening, bed mobility, transfers, gait, stairs, balance training, use of assistive device. DISCHARGE RECOMMENDATIONS: Home with home PT, pt refusing SNF. Has all DME TREATMENT CODE/TIME: 25 minutes IE 10:00am G Codes in the area mobility of walking and moving around: current status [id number] CK; projected status GP [id number]. Discharge status (if discharging) GP [id number] CK based on [facility] scores Mable Perez PT.
--- NOTE | 2018-08-15 11:02 | INITIAL_ITS ---
- If Service Date Differs Date of service: 08/15/18 Time of Service: 07:37 Care Management Initial Assess REASON FOR HOSPITALIZATION:: Ambulatory dysfunction, LLE pain. PAST MEDICAL HISTORY/PAST SURGICAL HISTORY:: Chronic diastolic heart failure, magnesium metabolism, essential hypertension, anxiety, herpes zoster, microalbuminuria, morbid obesity, hyperlipidemia, hypothyroidism, diabetes type II, osteoarthritis left leg, depression, anemia, GERD, CHF, SERAFIN. Surgical hx: bilateral cataract, oral surgery (resection of tongue lesion, colonoscopy, EGD). PREVIOUS FUNCTIONAL STATUS/SOCIAL/FAMILY SUPPORTS:: Bijal resides in [facility] with her daughter, Erin, who is her primary health care liaison. She has a son , Doug, who resides nearby and is additionally supportive. Bijal spent several weeks at [facility] seven months ago and had an admission at [facility] on for UTI, generalized weakness, and inability to walk. Bijal was discharged from [facility] with home health services (PT/OT/RN). She requires assistance with her ADLs; she can reportedly dress independently and use the bathroom. Bijal utilizes a walker and wheel chair (most often) at home for ambulation. CURRENT FUNCTIONAL STATUS:: Bijal is sitting in her chair with her son, Doug at bedside when CM visits. She is engaged in conversation and is talkative. Bijal has been talking with Doug and NEMESIO Krause regarding short term rehab following discharge from [facility]. Bijal agrees that she could benefit from a rehab stay and requests that a referral be sent to [facility]. Referral sent; Bijal apparently owes money for her last stay there so not likely she will have a bed available to her. [place] spoke with daughter, Erin, who reports she will take care of the bill today. [place]ANCE will follow up with [facility] tomorrow. [place] phoned son, Doug and spoke with his , Rosalba, about other referrals. Daughter Erin requested that a referral be sent to the [facility]. Bijal reported that the SCDs she wore last evening helped with her pain a great deal. CM provided Bijal with information for purchasing machine; [employer] has multiple options as do other sites. ADVANCE DIRECTIVES:: On file at [facility]. Health Care Agents: Oksana Shannon, Doug Zapata. Has patient been provided with information about the portal?: Yes Did the patient sign up for the portal?: No CODE STATUS:: Full Code INSURANCE COVERAGE / FINANCIAL ISSUES:: Medicaid, Medicare. CURRENT HOME/COMMUNITY SERVICES/EQUIPMENT:: Wheel chair and walker for ambulation. PRIMARY CARE PHYSICIAN:: Brendan Mcintyre DO. POTENTIAL DISCHARGE NEEDS:: Follow up appointment with PCP. Short-term SNF placement vs. HH Services (RN/PT/OT). PATIENT/FAMILY EDUCATION NEEDS:: Discharge education, any limitations, and follow up plan of care. Ask Me Three discussion. ANTICIPATED BARRIERS TO DISCHARGE:: No anticipated barriers to discharge. TRANSPORTATION:: Transportation to be determined; anticipate with family or via [facility] w/c van. PLAN:: Bijal will discharge when medically ready per MD. Anticipate patient will discharge to SNF for s/t rehab vs. home with HH services (PT/OT/RN) and follow up with PCP. CM will continue to offer support to patient and care team regarding discharge planning and disposition.
--- NOTE | 2018-08-15 11:34 | PT.INTREAT ---
Date of service: 08/15/18 Time of Service: 11:34 PT Notes Inpatient Physical Therapy Treatment Note Date: 08/15/18 PRECAUTIONS: Fall precautions SUBJECTIVE: Pt visiting with son in room, agreeable to get out of bed to chair. OBJECTIVE: PAIN: reports no pain in leg at this time after resting in bed for last hour. my leg doesn't hurt right now. BED MOBILITY/TRANSFERS Supine-sit: HOB 30 degrees, independent Sit-stand: SBA with FWW Stand-sit: SBA Bed-Chair: SBA with FWW GAIT Assistive Device: FWW Weight bearing: as tolerated Assist: SBA Distance: 3ft in room Deviation: slow step to gait bed to chair, pt did not require assist for mobility. Pt positioned in recliner chair with legs on foot stool for support. ASSESSMENT: Pt mobilizing well with SBA assistance and use of FWW, pt with anxiety regarding her pain, crying during session, difficulty focusing on task due to emotional state even though she states she reports not having pain during this session. Pt's anxiety appears to be limiting her ability to see what she is capable of, son stating mom you are moving better than you have in a long time!, he is pleased with her mobility. PLAN: Progress transfers Progress gait TREATMENT CODE/TIME: 15min TAx1 11:30 Mabel Perez PT
[2018-08-15 11:35] VITALS: BP 166/69; PULSE 70; RESP 20; TEMP 36.7; O2SAT 95
--- NOTE | 2018-08-15 15:19 | CHAPLAIN ---
Bijal and I know each other from her previous admissions. She said her daughter, who cares for Bijal, is ill, so when Bijal had pain for a long period of time she decided to come to [facility] because her daughter wasn't able to help her. Bijal has massage stockings placed on her legs last night and said that it took care of her pain. She said she is hoping to go to [facility] to get stronger before going home, but if that's not possible she said she can have PT come into her house. Wherever she goes, she hopes to be able to have the massage stockings. Someone gave her the information about ordering them online.
[2018-08-15 15:52] VITALS: BP 119/74; PULSE 63; RESP 18; TEMP 36.6; O2SAT 97
--- NOTE | 2018-08-15 16:23 | W.PM.PROGNOT ---
Date of Service Date of service: 08/15/18 Time of Service: 12:30 Assessment and Plan (1) Left leg pain: Current visit: Yes Status: Acute Improved. Continue Gabapentin and PRN Tramadol. Continue PT. (2) Ambulatory dysfunction: Current visit: Yes Status: Acute Continue PT. She is agreeable to Rehab at a custodial facility, referrals have been sent by Care Management. (3) Insulin dependent diabetes mellitus: Current visit: Yes Status: Chronic Her blood sugars have been low-normal. Decrease scheduled aspart insulin dose to 10 units. Continue long acting insulin and ADA diet. Continue to monitor blood sugars AC and HS. (4) Hypothyroidism: Current visit: No Status: Chronic Her TSH was elevated at 7.66, Free T4 was normal. Continue Levothyroxine. (5) Chronic diastolic heart failure: Current visit: No Status: Chronic She appears euvolemic. Her creatinine is at baseline. Continue torsemide at home dose. (6) 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 diabetes mellitus: Current visit: No Status: Chronic As above, creatinine at baseline. (7) DVT prophylaxis: Current visit: Yes Status: Acute Hold chemical DVT prophylaxis in the setting of chronic blood loss and expected hospitalization of less than 48 hours. Encourage oral hydration and ambulation. (8) Discharge planning issues: Current visit: Yes Status: Acute She is a FULL CODE. She will likely benefit from a rehab stay at a custodial facility. Care management is working on the referral process. This case was discussed with Dr. Naidu who is in agreement. Subjective Interval history since last seen: Ms Zapata is an 78 year old female with PMHx of recently treated UTI, recently treated at [facility] (discharged on 08/10), as well as insulin dependent diabetes mellitus type 2 with likely neuropathy, restless leg syndrome, arthritis of Bilateral knees who was admitted on observation for worsening LLE pain and ambulatory dysfunction. By the time she was admitted to the floor, the pain was markedly better. Today, she denies any pain in her legs. She reports that her leg pain worsens when she is laying in bed, however, she had SCD's on last night and felt that they helped her pain tremendously. She would like an SCD machine for home. Bijal recognizes that she is somewhat deconditioned and that she would benefit from a rehab stay at a custodial facility prior to returning home and she is agreeable to this. She denies any other concerns, no chest pain/pressure, palpitations, shortness of breath, coughing, wheezing, abdominal pain, nausea, vomiting, diarrhea. Exam Narrative Exam Narrative: General: Very pleasant, obese female, sitting up in the chair with feet on stool, in no acute distress Neurological: Alert and oriented x3, no focal deficits, sensation intact in BLE's, speech clear and articulate. Skin: mild erythema to BLE's, appears to be chronic skin changes, nothing that resembles active cellulitis. HEENT: Pupils equal and round, EOMI, moist mucuous membranes. Neck: No JVD. Cardiovascular: Regular rate and rhythm, no murmur, click, gallop or rub. Lungs: Respirations even and unlabored, lung sounds clear throughout. Gastrointestinal: obese abdomen, nontender on palpation, nondistended Extremities: BLE lymphedema; mild non-pitting edema in Bilateral feet/ankles; feet warm and well perfused. +1 pedal pulses bilaterally. Objective Objective Clinical Data: Abnormal lab results 08/14/18 08/15/18 08/15/18 Range/Units 20:25 06:15 06:15 RBC (4.00-5.20) m/cumm Hgb (12.0-15.5) g/dL Hct (36.0-46.0) % MCV (80-95) fL MCHC (32.0-36.0) g/dL Absolute Lymphocytes (1.2-3.4) k/cumm BUN 34 H (7-18) mg/dL Creatinine 1.70 H (0.55-1.02) mg/dL Glucose 124 H (70-100) mg/dL C-Reactive Protein 1.19 H (0.0-0.3) mg/dL TSH 7.66 H (0.358-3.74) uIU/mL Urine Protein >=300 H (Negative) mg/dL 08/15/18 Range/Units 06:15 RBC 3.59 L (4.00-5.20) m/cumm Hgb 11.0 L (12.0-15.5) g/dL Hct 35.5 L (36.0-46.0) % MCV 98.9 H D (80-95) fL MCHC 31.0 L (32.0-36.0) g/dL Absolute Lymphocytes 1.12 L (1.2-3.4) k/cumm BUN (7-18) mg/dL Creatinine (0.55-1.02) mg/dL Glucose (70-100) mg/dL C-Reactive Protein (0.0-0.3) mg/dL TSH (0.358-3.74) uIU/mL Urine Protein (Negative) mg/dL Vital Signs Temperature 36.6 C 08/15/18 15:52 Temperature Source Tympanic 08/15/18 15:52 Pulse 63 08/15/18 15:52 Pulse Rhythm Regular 08/15/18 08:05 Respiratory Rate 18 08/15/18 15:52 Respiratory Effort Non-Labored 08/15/18 08:05 Respiratory Depth Normal 08/15/18 08:05 Respiratory Pattern Normal 08/15/18 08:05 Blood Pressure 119/74 08/15/18 15:52 Pulse Oximetry 97 08/15/18 15:52 Oxygen Delivery Method Nasal Cannula 08/15/18 15:52 Oxygen Flow Rate 1 08/15/18 15:52 Pain Level 3 08/15/18 15:52 Intake & Output 08/14/18 08/15/18 08/15/18 23:59 11:59 23:59 Intake Total 240 / 240 300 / 300 240 / 240 Output Total 500 / 500 850 / 850 Balance -260 / -260 -550 / -550 240 / 240 Weight 150.5 kg Intake: Oral 240 / 240 300 / 300 240 / 240 Output: Urine 500 / 500 850 / 850 Other: Urine Color Straw Yellow Yellow Urine Appearance Clear Clear Clear Urine Odor Normal None Strong Voiding Methods Bedside Commode Bedside Commode Bedside Commode Laboratory Results WBC 5.27 k/cumm (4.4-10.8) 08/15/18 06:15 RBC 3.59 m/cumm (4.00-5.20) L 08/15/18 06:15 Hgb 11.0 g/dL (12.0-15.5) L 08/15/18 06:15 Hct 35.5 % (36.0-46.0) L 08/15/18 06:15 MCV 98.9 fL (80-95) H D 08/15/18 06:15 MCH 30.6 pg (27.0-33.0) 08/15/18 06:15 MCHC 31.0 g/dL (32.0-36.0) L 08/15/18 06:15 RDW 13.0 % (11.7-14.6) 08/15/18 06:15 Plt Count 236 x1000/uL (130-400) 08/15/18 06:15 MPV 9.6 fL (8.0-11.0) 08/15/18 06:15 Immature Gran % 0.4 08/15/18 06:15 Neutrophils % 60.4 08/15/18 06:15 Lymphocytes % 21.3 08/15/18 06:15 Monocytes % 10.2 08/15/18 06:15 Eosinophils % 6.8 08/15/18 06:15 Basophils % 0.9 08/15/18 06:15 Absolute Neutrophils 3.18 k/cumm (1.2-6.7) 08/15/18 06:15 Absolute Lymphocytes 1.12 k/cumm (1.2-3.4) L 08/15/18 06:15 Absolute Monocytes 0.54 k/cumm (0.11-0.7) 08/15/18 06:15 Absolute Eosinophils 0.36 k/cumm (0.0-0.7) 08/15/18 06:15 Absolute Basophils 0.05 k/cumm (0.0-0.2) 08/15/18 06:15 ESR 50 MM/HR (0-30) H 08/14/18 09:05 Sodium 141 mmol/L (136-145) 08/15/18 06:15 Potassium 4.9 mmol/L (3.5-5.1) 08/15/18 06:15 Chloride 106 mmol/L (98-107) 08/15/18 06:15 Carbon Dioxide 29.4 mmol/L (21.0-32.0) 08/15/18 06:15 Anion Gap 5.6 mmol/L (3-11) 08/15/18 06:15 BUN 34 mg/dL (7-18) H 08/15/18 06:15 Creatinine 1.70 mg/dL (0.55-1.02) H 08/15/18 06:15 Estimated GFR/1.73 m2 28.92 (mL/min/1.73m2) 08/15/18 06:15 Glucose 124 mg/dL (70-100) H 08/15/18 06:15 Calcium 8.5 mg/dL (8.5-10.1) 08/15/18 06:15 Magnesium 2.0 mg/dL (1.8-2.4) 08/15/18 06:15 Total Bilirubin 0.3 mg/dL (0.2-1.0) 08/14/18 09:05 AST 17 U/L (15-37) 08/14/18 09:05 ALT 19 U/L (12-78) 08/14/18 09:05 Alkaline Phosphatase 86 U/L (46-116) 08/14/18 09:05 C-Reactive Protein 1.19 mg/dL (0.0-0.3) H 08/15/18 06:15 Total Protein 6.6 g/dL (6.4-8.2) 08/14/18 09:05 Albumin 3.0 g/dL (3.4-5.0) L 08/14/18 09:05 TSH 7.66 uIU/mL (0.358-3.74) H 08/15/18 06:15 Free T4 0.95 ng/dL (0.76-1.46) 08/15/18 06:15 Urine Color Yellow (Yellow) 08/14/18 20:25 Urine Clarity Clear 08/14/18 20:25 Urine pH 5.5 (5-8) 08/14/18 20:25 Ur Specific [place] 1.025 (1.005-1.025) 08/14/18 20:25 Urine Protein >=300 mg/dL (Negative) H 08/14/18 20:25 Urine Ketones Negative mg/dL (Negative) 08/14/18 20:25 Urine Blood Negative (Negative) 08/14/18 20:25 Urine Nitrite Negative (Negative) 08/14/18 20:25 Urine Bilirubin Negative (Negative) 08/14/18 20:25 Urine Urobilinogen 0.2 EU/dL (Up TO 0.2) 08/14/18 20:25 Ur Leukocyte Esterase Negative (Negative) 08/14/18 20:25 Urine RBC Negative (0-2) 08/14/18 20:25 Urine WBC 3-5 HPF (0-5) 08/14/18 20:25 Ur Epithelial Cells Moderate HPF (Negative) 08/14/18 20:25 Urine Crystals Negative HPF (Negative) 08/14/18 20:25 Urine Bacteria Negative HPF (Negative) 08/14/18 20:25 Urine Casts Negative LPF (Negative) 08/14/18 20:25 Urine Mucus Negative (Negative) 08/14/18 20:25 Urine Other Negative (Negative) 08/14/18 20:25 Ur Culture Indicated? No 08/14/18 20:25 Urine Glucose Negative mg/dL (Negative) 08/14/18 20:25
--- NOTE | 2018-08-15 16:28 | PHARADMIT ---
Admission Pharmacy Clinical Review AMBULATORY DYSFUNCTION, LLE PAIN Code Status Full Code Current Weight Wgt- 150.5 kg Renally Cleared and Narrow Therapeutic Index Meds CrCl~20.8 mL/min Meds-OK QTc Value / Action Taken QTc-449 na BP Control, Fever BP- 119/74 Tmax- 37C Electrolytes reviewed Na- 141 K+4.9 Mag-2.0 DVT Prophylaxis ASA, TEDS, SCDs Opiate Usage / Scheduled Bowel Regimen Ordered Yes Yes Plt/SCr for Heparin / Enoxaparin Plts-236 SCr-1.70 INR for Warfarin NA H/H stable, WBC/Bands H&H- 11.0/35.5 WBC- 5.27 Antibiotic appropriateness none Cultures and Sensitivities none Surgical ABX d/c within 24 hr NA DM control / Insulin Dosing BG- 124 Aspart, Detemir, Heart Failure (Check EF%) (AJAY's, B-Block, Diuretics) Norvasc, Torsemide, IV to PO Switch No Home Meds Reviewed Yes Home Meds Not Ordered Cipro, Ketoconazole Comments
--- NOTE | 2018-08-15 16:31 | PGE_ITS ---
Date of Service Date of service: 08/15/18 Time of Service: 12:30 Assessment and Plan (1) Left leg pain: Current visit: Yes Status: Acute Improved. Continue Gabapentin and PRN Tramadol. Continue PT. (2) Ambulatory dysfunction: Current visit: Yes Status: Acute Continue PT. She is agreeable to Rehab at a correction facility, referrals have been sent by Care Management. (3) Insulin dependent diabetes mellitus: Current visit: Yes Status: Chronic Her blood sugars have been low-normal. Decrease scheduled aspart insulin dose to 10 units. Continue long acting insulin and ADA diet. Continue to monitor blood sugars AC and HS. (4) Hypothyroidism: Current visit: No Status: Chronic Her TSH was elevated at 7.66, Free T4 was normal. Continue Levothyroxine. (5) Chronic diastolic heart failure: Current visit: No Status: Chronic She appears euvolemic. Her creatinine is at baseline. Continue torsemide at home dose. (6) 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 diabetes mellitus: Current visit: No Status: Chronic As above, creatinine at baseline. (7) DVT prophylaxis: Current visit: Yes Status: Acute Hold chemical DVT prophylaxis in the setting of chronic blood loss and expected hospitalization of less than 48 hours. Encourage oral hydration and ambulation. (8) Discharge planning issues: Current visit: Yes Status: Acute She is a FULL CODE. She will likely benefit from a rehab stay at a correction facility. Care management is working on the referral process. This case was discussed with Dr. Naidu who is in agreement. 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 By the time she was admitted to the floor, the pain was markedly better. Today, she denies any pain in her legs. She reports that her leg pain worsens when she is laying in bed, however, she had SCD's on last night and felt that they helped her pain tremendously. She would like an SCD machine for home. Bijal recognizes that she is somewhat deconditioned and that she would benefit from a rehab stay at a correction facility prior to returning home and she is agreeable to this. She denies any other concerns, no chest pain/ pressure, palpitations, shortness of breath, coughing, wheezing, abdominal pain , nausea, vomiting, diarrhea. Exam Narrative Exam Narrative: General: Very pleasant, obese female, sitting up in the chair with feet on stool, in no acute distress Neurological: Alert and oriented x3, no focal deficits, sensation intact in BLE 's, speech clear and articulate. Skin: mild erythema to BLE's, appears to be chronic skin changes, nothing that resembles active cellulitis. HEENT: Pupils equal and round, EOMI, moist mucuous membranes. Neck: No JVD. Cardiovascular: Regular rate and rhythm, no murmur, click, gallop or rub. Lungs: Respirations even and unlabored, lung sounds clear throughout. Gastrointestinal: obese abdomen, nontender on palpation, nondistended Extremities: BLE lymphedema; mild non-pitting edema in Bilateral feet/ankles; feet warm and well perfused. +1 pedal pulses bilaterally. Objective Objective Clinical Data: Abnormal lab results 08/14/18 08/15/18 08/15/18 Range/Units 20:25 06:15 06:15 RBC (4.00-5.20) m/cumm Hgb (12.0-15.5) g/dL Hct (36.0-46.0) % MCV (80-95) fL MCHC (32.0-36.0) g/dL Absolute Lymphocytes (1.2-3.4) k/cumm BUN 34 H (7-18) mg/dL Creatinine 1.70 H (0.55-1.02) mg/dL Glucose 124 H (70-100) mg/dL C-Reactive Protein 1.19 H (0.0-0.3) mg/dL TSH 7.66 H (0.358-3.74) uIU/mL Urine Protein >=300 H (Negative) mg/dL 08/15/18 Range/Units 06:15 RBC 3.59 L (4.00-5.20) m/cumm Hgb 11.0 L (12.0-15.5) g/dL Hct 35.5 L (36.0-46.0) % MCV 98.9 H D (80-95) fL MCHC 31.0 L (32.0-36.0) g/dL Absolute Lymphocytes 1.12 L (1.2-3.4) k/cumm BUN (7-18) mg/dL Creatinine (0.55-1.02) mg/dL Glucose (70-100) mg/dL C-Reactive Protein (0.0-0.3) mg/dL TSH (0.358-3.74) uIU/mL Urine Protein (Negative) mg/dL Vital Signs Temperature 36.6 C 08/15/18 15:52 Temperature Source Tympanic 08/15/18 15:52 Pulse 63 08/15/18 15:52 Pulse Rhythm Regular 08/15/18 08:05 Respiratory Rate 18 08/15/18 15:52 Respiratory Effort Non-Labored 08/15/18 08:05 Respiratory Depth Normal 08/15/18 08:05 Respiratory Pattern Normal 08/15/18 08:05 Blood Pressure 119/74 08/15/18 15:52 Pulse Oximetry 97 08/15/18 15:52 Oxygen Delivery Method Nasal Cannula 08/15/18 15:52 Oxygen Flow Rate 1 08/15/18 15:52 Pain Level 3 08/15/18 15:52 Intake & Output 08/14/18 08/15/18 08/15/18 23:59 11:59 23:59 Intake Total 240 / 240 300 / 300 240 / 240 Output Total 500 / 500 850 / 850 Balance -260 / -260 -550 / -550 240 / 240 Weight 150.5 kg Intake: Oral 240 / 240 300 / 300 240 / 240 Output: Urine 500 / 500 850 / 850 Other: Urine Color Straw Yellow Yellow Urine Appearance Clear Clear Clear Urine Odor Normal None Strong Voiding Methods Bedside Commode Bedside Commode Bedside Commode Laboratory Results WBC 5.27 k/cumm (4.4-10.8) 08/15/18 06:15 RBC 3.59 m/cumm (4.00-5.20) L 08/15/18 06:15 Hgb 11.0 g/dL (12.0-15.5) L 08/15/18 06:15 Hct 35.5 % (36.0-46.0) L 08/15/18 06:15 MCV 98.9 fL (80-95) H D 08/15/18 06:15 MCH 30.6 pg (27.0-33.0) 08/15/18 06:15 MCHC 31.0 g/dL (32.0-36.0) L 08/15/18 06:15 RDW 13.0 % (11.7-14.6) 08/15/18 06:15 Plt Count 236 x1000/uL (130-400) 08/15/18 06:15 MPV 9.6 fL (8.0-11.0) 08/15/18 06:15 Immature Gran % 0.4 08/15/18 06:15 Neutrophils % 60.4 08/15/18 06:15 Lymphocytes % 21.3 08/15/18 06:15 Monocytes % 10.2 08/15/18 06:15 Eosinophils % 6.8 08/15/18 06:15 Basophils % 0.9 08/15/18 06:15 Absolute Neutrophils 3.18 k/cumm (1.2-6.7) 08/15/18 06:15 Absolute Lymphocytes 1.12 k/cumm (1.2-3.4) L 08/15/18 06:15 Absolute Monocytes 0.54 k/cumm (0.11-0.7) 08/15/18 06:15 Absolute Eosinophils 0.36 k/cumm (0.0-0.7) 08/15/18 06:15 Absolute Basophils 0.05 k/cumm (0.0-0.2) 08/15/18 06:15 ESR 50 MM/HR (0-30) H 08/14/18 09:05 Sodium 141 mmol/L (136-145) 08/15/18 06:15 Potassium 4.9 mmol/L (3.5-5.1) 08/15/18 06:15 Chloride 106 mmol/L (98-107) 08/15/18 06:15 Carbon Dioxide 29.4 mmol/L (21.0-32.0) 08/15/18 06:15 Anion Gap 5.6 mmol/L (3-11) 08/15/18 06:15 BUN 34 mg/dL (7-18) H 08/15/18 06:15 Creatinine 1.70 mg/dL (0.55-1.02) H 08/15/18 06:15 Estimated GFR/1.73 m2 28.92 (mL/min/1.73m2) 08/15/18 06:15 Glucose 124 mg/dL (70-100) H 08/15/18 06:15 Calcium 8.5 mg/dL (8.5-10.1) 08/15/18 06:15 Magnesium 2.0 mg/dL (1.8-2.4) 08/15/18 06:15 Total Bilirubin 0.3 mg/dL (0.2-1.0) 08/14/18 09:05 AST 17 U/L (15-37) 08/14/18 09:05 ALT 19 U/L (12-78) 08/14/18 09:05 Alkaline Phosphatase 86 U/L (46-116) 08/14/18 09:05 C-Reactive Protein 1.19 mg/dL (0.0-0.3) H 08/15/18 06:15 Total Protein 6.6 g/dL (6.4-8.2) 08/14/18 09:05 Albumin 3.0 g/dL (3.4-5.0) L 08/14/18 09:05 TSH 7.66 uIU/mL (0.358-3.74) H 08/15/18 06:15 Free T4 0.95 ng/dL (0.76-1.46) 08/15/18 06:15 Urine Color Yellow (Yellow) 08/14/18 20:25 Urine Clarity Clear 08/14/18 20:25 Urine pH 5.5 (5-8) 08/14/18 20:25 Ur Specific Harris 1.025 (1.005-1.025) 08/14/18 20:25 Urine Protein >=300 mg/dL (Negative) H 08/14/18 20:25 Urine Ketones Negative mg/dL (Negative) 08/14/18 20:25 Urine Blood Negative (Negative) 08/14/18 20:25 Urine Nitrite Negative (Negative) 08/14/18 20:25 Urine Bilirubin Negative (Negative) 08/14/18 20:25 Urine Urobilinogen 0.2 EU/dL (Up TO 0.2) 08/14/18 20:25 Ur Leukocyte Esterase Negative (Negative) 08/14/18 20:25 Urine RBC Negative (0-2) 08/14/18 20:25 Urine WBC 3-5 HPF (0-5) 08/14/18 20:25 Ur Epithelial Cells Moderate HPF (Negative) 08/14/18 20:25 Urine Crystals Negative HPF (Negative) 08/14/18 20:25 Urine Bacteria Negative HPF (Negative) 08/14/18 20:25 Urine Casts Negative LPF (Negative) 08/14/18 20:25 Urine Mucus Negative (Negative) 08/14/18 20:25 Urine Other Negative (Negative) 08/14/18 20:25 Ur Culture Indicated? No 08/14/18 20:25 Urine Glucose Negative mg/dL (Negative) 08/14/18 20:25
[2018-08-15] MEDS: Insulin Aspart 300 UNITS/3 ML PEN 10 UNITS SC (17:02)
[2018-08-15] MEDS: Pravastatin 40 MG TAB PO (19:51)
[2018-08-15 20:08] VITALS: BP 112/68; PULSE 62; RESP 19; TEMP 36.8; O2SAT 94
[2018-08-16 02:42] VITALS: BP 144/86; PULSE 77; RESP 20; TEMP 36.5; O2SAT 96
[2018-08-16] MEDS: Acetaminophen 325 MG TAB 650 MG PO ×2 (03:00→11:22)
[2018-08-16] MEDS: traMADol 50 MG TAB PO ×2 (03:00→11:23)
[2018-08-16] MEDS: Levothyroxine 200 MCG TAB PO (05:46)
[2018-08-16] MEDS: oxyCODONE 5 mg/Acetaminophen 325 mg TAB 1 TAB PO (05:46)
[2018-08-16 07:15] VITALS: BP 139/81; PULSE 72; RESP 18; TEMP 37.1; O2SAT 94
[2018-08-16 07:45] VITALS: O2SAT 95
[2018-08-16] MEDS: Insulin Aspart 300 UNITS/3 ML PEN 10 UNITS SC ×2 (08:14→11:58)
[2018-08-16] MEDS: Multivitamin TAB 1 TAB PO (08:16)
[2018-08-16] MEDS: amLODIPine 2.5 MG TAB PO (08:16)
[2018-08-16] MEDS: Torsemide 20 MG TAB PO (08:16)
[2018-08-16] MEDS: Pramipexole 0.5 MG TAB PO (08:16)
[2018-08-16] MEDS: Cyanocobalamin 500 MCG TAB 1000 MCG PO (08:17)
[2018-08-16] MEDS: Gabapentin 400 MG CAP PO ×2 (08:17→13:39)
[2018-08-16] MEDS: Ferrous Sulfate 325 MG TAB PO (08:17)
[2018-08-16] MEDS: Aspirin E.C. 81 MG TABEC PO (08:17)
[2018-08-16] MEDS: Nystatin POWDER 60 GM JAR TP (08:19)
--- NOTE | 2018-08-16 09:34 | PDOC.CMPRO ---
- If Service Date Differs Date of service: 08/16/18 Time of Service: 09:34 Care Management Progress Note S/O: Bijal is sitting in her recliner when CM visits this morning. She reports that she is feeling better though did have an episode of lots of pain overnight but is feeling better at present. Maryjane feels that the SCDs help with her pain. CM reviewed the plan for short term placement at a SNF following discharge from [facility], likely today. Maryjane informed the CM that she did not want to go to a SNF (even though she had agreed to placement yesterday) and that she just wanted to go home and spend time with her daughter, Erin. Maryjane lives with Erin and feels that Erin provides good care to her and wants her to come home. CM reiterated with Maryjane that PT/OT/RN home health services can be reinstated for her at discharge, but PT through home health is only a couple of days a week as opposed to BID at a SNF. Maryjane states that she understands this but still wants to go home. A: 78 year old female admitted for ambulatory dysfunction and LLE pain. P: Bijal will discharge when medically ready per MD. Anticipate patient will discharge home with PT/OT/RN vs. s/t rehab at a SNF. Maryjane will transport via RCT van at discharge. CM will continue to offer support to patient, family, and care team regarding discharge planning and disposition.
--- NOTE | 2018-08-16 09:44 | CMPROGNOTE_ITS ---
- If Service Date Differs Date of service: 08/16/18 Time of Service: 09:34 Care Management Progress Note S/O: Bijal is sitting in her recliner when CM visits this morning. She reports that she is feeling better though did have an episode of lots of pain overnight but is feeling better at present. Maryjane feels that the SCDs help with her pain. CM reviewed the plan for short term placement at a SNF following discharge from [facility], likely today. Maryjane informed the CM that she did not want to go to a SNF (even though she had agreed to placement yesterday) and that she just wanted to go home and spend time with her daughter, Erin. Maryjane lives with Erin and feels that Erin provides good care to her and wants her to come home. CM reiterated with Maryjane that PT/OT/RN home health services can be reinstated for her at discharge, but PT through home health is only a couple of days a week as opposed to BID at a SNF. Maryjane states that she understands this but still wants to go home. A: 78 year old female admitted for ambulatory dysfunction and LLE pain. P: Bijal will discharge when medically ready per MD. Anticipate patient will discharge home with PT/OT/RN vs. s/t rehab at a SNF. Maryjane will transport via RCT van at discharge. CM will continue to offer support to patient, family, and care team regarding discharge planning and disposition.
[2018-08-16] MEDS: Magnesium Oxide 400 MG TAB PO (09:55)
--- NOTE | 2018-08-16 10:48 | PDOC.CMDIS ---
- If Service Date Differs Date of service: 08/16/18 Time of Service: 10:48 LACE Index Scoring Tool - Questions: Length of Stay (in days): 3 Acuity (Admit via E.D.?): Yes Comorbidities: Diabetes w/o Complication, Chronic Pulmonary Disease, Liver or Renal Disease E.D. Visits: 2 - Answers: Total Score: 13 Risk of Readmission: High Risk Care Management Discharge Reason for Hospitalization: Ambulatory dysfunction, LLE pain. Discharge Plan: Bijal will discharge when medically ready per MD. Anticipate patient will discharge to H&R at 1300 on 08/16. Bijal will transport via RCT w/c van. Patient/Family Education Needs: Discharge education, any limitations, and follow up plan of care. Ask Me Three discussion. Services Needed at Discharge: Senior Living Facility ([facility]. )
--- NOTE | 2018-08-16 10:53 | DSE_ITS ---
Date of service: 08/16/18 Time of Service: 10:51 DS: Diagnosis Discharge Diagnosis (1) Left leg pain: Status: Acute (2) Ambulatory dysfunction: Status: Acute (3) Insulin dependent diabetes mellitus: Status: Chronic (4) Hypothyroidism: Status: Chronic (5) Chronic diastolic heart failure: Status: Chronic (6) 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 diabetes mellitus: Status: Chronic Discharge Plan Disposition Patient Disposition: SNF (LEVEL 1) [facility] Condition: Improving Discharge Details Reason For Visit: AMBULATORY DYSFUNCTION, LLE PAIN Admit Date/Time: 08/14/18 11:54 Admit Provider: Alley Naidu Attending Provider: Alley Naidu Primary Care Provider: Brendan Mcintyre [facility] Course Hospital Course: Bijal Zapata is an 78 year old female with a past medical history of poorly controlled type 2 diabetes mellitus complicated by stage IV chronic renal insufficiency, and likely neuropathy, restless leg syndrome, essential hypertension, osteoarthritis of the knees, chronic anemia, hypothyroidism, morbid obesity, and CHF with a preserved LVEF, who was recently treated UTI, recently treated at [facility] (discharged on 08/10). At the time of her previous admission, it was recommended that she have short-term rehab prior to discharge home, however, she insisted on discharge home. She presented back to the ED on 08/14/18 with reports of worsening LLE pain and ambulatory dysfunction that began the night prior to her arrival. The pain was so severe that she could not get out of bed. 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 Left knee and left tib-fib X-ray made note of severe osteoarthritis of the Left knee, no acute fracture or dislocation was identified. Urinalysis was not suspicious for infection. Her labs revealed baseline creatinine. Her blood sugar was well controlled while she was a patient. By the time she was admitted to the floor her pain was already markedly better. Her blood sugars remained in an acceptable range on her chronic long acting insulin as well as scheduled meal-time doses of short acting in addition to the aspart sliding scale. She will be discharged on the current regimen. She worked with Physical Therapy, PT notes that she would benefit from a stay in a rehab facility for strengthening and progressive mobility training. The patient and her son are in agreement with a short-term rehab stay. She is discharged today to [facility] where she will continue to work with PT and OT on strengthening prior to returning home. Home Meds and New Rx's Prescriptions: New polyethylene glycol 3350 17 gram Powder In Packet 17 g PO DAILY PRN PRN (Reason: Constipation) Qty: 0 RF: 0 insulin aspart U-100 [Novolog Flexpen U-100 Insulin] 100 unit/mL Insulin Pen subcut 0800,1200,1700 Qty: 0 RF: 0 Continue aspirin [Aspir-81] 81 MG tablet,delayed release (DR/EC) 81 mg PO DAILY RF: 0 multivitamin [Daily Multi-Vitamin] 1 EACH tablet 1 ea PO DAILY Qty: 90 RF: 3 pen needle, diabetic [BD Ultra-Fine Skylar Pen Needle] 1 EACH needle 1 ea Miscellaneous HS 999 Days Qty: 1 RF: 6 levetiracetam [Keppra] 500 MG tablet 500 mg PO BID Qty: 60 RF: 11 sucralfate 1 GM tablet 1 g PO QID PRNQty: 120 RF: 11 amlodipine 2.5 MG tablet 2.5 mg PO DAILY Qty: 30 RF: 11 ranitidine HCl 150 MG tablet 150 mg PO BID Qty: 60 RF: 11 magnesium oxide 400 MG tablet 400 mg PO BID Qty: 60 RF: 11 pen needle, diabetic [Pen Needle] 1 EACH needle 1 ea Miscellaneous QID 50 Days Qty: 1 RF: 11 Hospital Bed EACH Miscellaneous ONCE Qty: 1 RF: 0 torsemide 20 MG tablet 20 mg PO DAILY Qty: 30 RF: 11 pravastatin 40 MG tablet 40 mg PO DAILY Qty: 90 RF: 3 cyanocobalamin (vitamin B-12) [Vitamin B-12] 500 MCG tablet 1,000 mcg PO DAILY Qty: 100 RF: 3 ferrous sulfate 325 MG tablet 325 mg PO BID Qty: 60 RF: 6 blood-glucose meter [OneTouch Ultra2] 1 EACH kit 1 ea Miscellaneous ONCE Qty: 1 RF: 0 lancets [BD Ultra Fine Lancets] 1 EACH misc 1 ea Miscellaneous BID Qty: 60 RF: 11 ONETOUCH ULTRA TEST STRIPS 1 EACH strip 1 ea Miscellaneous TID Qty: 90 RF: 11 nystatin [Nyamyc] 60 GM powder 2 gm Topical BID Qty: 60 RF: 3 gabapentin 400 mg capsule 400 mg PO TID Qty: 270 RF: 3 levothyroxine 200 mcg tablet 200 mcg PO DAILY Qty: 90 RF: 3 insulin detemir U-100 [Levemir FlexTouch U-100 Insuln] 100 unit/mL (3 mL) insulin pen 48 unit SC QPM Qty: 15 RF: 3 pramipexole 0.5 mg tablet 0.5 mg PO BID 90 Days Qty: 180 RF: 3 ketoconazole 2 % Cream Topical BID Qty: 0 RF: 0 nystatin 60 GM powder Topical BID RF: 0 Mouthwash [Biotene Mouthwash] 59 ML Btl 5 ml Mucous Membrane AC RF: 0 acetaminophen [Tylenol] 325 MG tablet 650 mg PO Q6H PRN PRNQty: 0 RF: 0 Changed tramadol 50 mg tablet 25 - 50 mg PO TID PRN PRNQty: 60 RF: 0 insulin aspart U-100 [Novolog Flexpen U-100 Insulin] 300 UNITS/3 ML insulin pen 10 unit Sub-Q 0800,1200,1700 Qty: 0 RF: 0 Discontinued ciprofloxacin HCl 500 mg Tablet 500 mg PO BID Qty: 5 RF: 0 Discharge Instructions Instructions: Fall Prevention for Older Adults (GEN) Stand Alone Forms: Nursing Discharge Form Referrals: Brendan Mcintyre DO [Primary Care Provider] - 08/21/18 9:00 am Activity:: Activity as Tolerated Equipment/Supplies:: No Equipment Needed Diet:: Carb Counting Exam Narrative Exam Narrative: General: Very pleasant, obese female, resting in bed, in no acute distress Neurological: Alert and oriented x3, no focal deficits, sensation intact in BLE 's, speech clear and articulate. Skin: mild erythema to BLE's, appears to be chronic skin changes, nothing that resembles active cellulitis. HEENT: Pupils equal and round, EOMI, moist mucuous membranes. Neck: No JVD. Cardiovascular: Regular rate and rhythm, no murmur, click, gallop or rub. Lungs: Respirations even and unlabored, lung sounds clear throughout. Gastrointestinal: obese abdomen, nontender on palpation, nondistended Extremities: BLE lymphedema; mild non-pitting edema in Bilateral feet/ankles; feet warm and well perfused. +1 pedal pulses bilaterally. DS: Data Vitals/I&O Vitals and I&O: Vital Signs Temperature 37.1 C 08/16/18 07:15 Temperature Source Tympanic 08/16/18 07:15 Pulse 72 08/16/18 07:15 Pulse Rhythm Regular 08/16/18 08:15 Respiratory Rate 18 08/16/18 07:15 Respiratory Effort Non-Labored 08/16/18 08:15 Respiratory Depth Normal 08/16/18 08:15 Respiratory Pattern Normal 08/16/18 08:15 Blood Pressure 139/81 08/16/18 07:15 Pulse Oximetry 94 L 08/16/18 07:15 Oxygen Delivery Method Nasal Cannula 08/16/18 07:15 Oxygen Flow Rate 2 08/16/18 07:15 Pain Level 0 08/16/18 07:15 Intake & Output 08/15/18 08/15/18 08/16/18 11:59 23:59 11:59 Intake Total 300 / 300 720 / 720 560 / 560 Output Total 850 / 850 300 / 300 600 / 600 Balance -550 / -550 420 / 420 -40 / -40 Intake: Oral 300 / 300 720 / 720 560 / 560 Output: Urine 850 / 850 300 / 300 600 / 600 Other: Urine Color Yellow Yellow Yellow Urine Appearance Clear Clear Clear Urine Odor None Strong None Voiding Methods Bedside Commode Bedside Commode Bedside Commode Completed studies during hospitalization [Text1]: 08/14/18: LEFT LOWER EXTREMITY ULTRASOUND: The common femoral, proximal and mid femoral veins and the popliteal vein show normal compression, augmentation and color flow. The distal femoral vein was not well visualized, but color flow, compression and augmentation are seen both proximally and distally. There is a 3.3 x 2.1 x 0.5 cm fluid collection in the popliteal fossa, most suggestive of a Thompson's cyst. The study is technically limited due to the patient's body habitus. IMPRESSION: 1. Limited examination due to the patient's body habitus. 2. No definite evidence of a left lower extremity deep venous thrombus. 3. 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 The study is limited due to patient's body habitus. No definite acute fracture or dislocation is seen. Marked degenerative changes are seen in the knee with tri compartment joint space narrowing and spurring present. No radiopaque foreign bodies are seen in the soft tissues. IMPRESSION: 1. No acute fracture or dislocation. 2. Limited examination due to patient body habitus. 3. Severe osteoarthritis of the left knee. 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) Diabetes mellitus type 2 in nonobese (Chronic 03/12/98) Chronic diastolic heart failure (Chronic 01/16/18) 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) Obstructive sleep apnea (Chronic) Poorly controlled type 2 diabetes mellitus (Chronic) Morbid obesity with BMI of 70 and over, adult (Chronic) H/O: hysterectomy (Chronic) Extraction of cataract (11/14/11) History of colonoscopy (Chronic) History of esophagogastroduodenoscopy (EGD) (Chronic) H/O oral surgery (Resolved) Medical History Hypothyroidism (Chronic) Microalbuminuria (Chronic 07/11/15) Vitamin B12 deficiency (Chronic 04/09/16) Primary localized osteoarthrosis of left lower leg (Chronic 09/21/11) Palliative care patient (Chronic 10/26/17) Other hyperlipidemia (Chronic 09/21/11) Iron deficiency anemia due to chronic blood loss (Chronic 09/21/11) Herpes zoster without complication (Resolved 07/22/17) Generalized anxiety disorder (Chronic 09/21/11) Essential hypertension (Chronic 09/21/11) 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) Diabetes mellitus type 2 in nonobese (Chronic 03/12/98) Chronic diastolic heart failure (Chronic 01/16/18) 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) Obstructive sleep apnea (Chronic) Poorly controlled type 2 diabetes mellitus (Chronic) Morbid obesity with BMI of 70 and over, adult (Chronic) H/O: hysterectomy (Chronic) Social History adopted: No caregiver/support person: Yes foster care: No household members: children housing: house lives independently: No number of children: 4 senior care: No current occupational status: retired pets and animals: Yes leisure activities: other Hx Recent Travel: No diet: diabetic well-balanced diet: about half the time eating out: rarely or never reads food labels: sometimes Smoking/Tobacco Use Status: Never passive smoking exposure: Yes Surgical History Extraction of cataract (11/14/11) History of colonoscopy (Chronic) History of esophagogastroduodenoscopy (EGD) (Chronic) H/O oral surgery (Resolved) Social History adopted: No caregiver/support person: Yes foster care: No household members: children housing: house lives independently: No number of children: 4 senior care: No current occupational status: retired pets and animals: Yes leisure activities: other Hx Recent Travel: No diet: diabetic well-balanced diet: about half the time eating out: rarely or never reads food labels: sometimes Smoking/Tobacco Use Status: Never passive smoking exposure: Yes
--- NOTE | 2018-08-16 10:56 | CMDISCH_ITS ---
- If Service Date Differs Date of service: 08/16/18 Time of Service: 10:48 LACE Index Scoring Tool - Questions: Length of Stay (in days): 3 Acuity (Admit via E.D.?): Yes Comorbidities: Diabetes w/o Complication, Chronic Pulmonary Disease, Liver or Renal Disease E.D. Visits: 2 - Answers: Total Score: 13 Risk of Readmission: High Risk Care Management Discharge Reason for Hospitalization: Ambulatory dysfunction, LLE pain. Discharge Plan: Bijal will discharge when medically ready per MD. Anticipate patient will discharge to H&R at 1300 on 08/16. Bijal will transport via RCT w/ c van. Patient/Family Education Needs: Discharge education, any limitations, and follow up plan of care. Ask Me Three discussion. Services Needed at Discharge: Correction Facility ([facility] )
--- NOTE | 2018-08-16 11:05 | PT.INTREAT ---
Date of service: 08/16/18 Time of Service: 11:05 PT Notes Inpatient Physical Therapy Treatment Note Date: 08/16/18 PRECAUTIONS: Fall SUBJECTIVE: Maryjane states that she is feeling pretty good, and is not experiencing any leg pain currently. OBJECTIVE: PAIN: No c/o pain BED MOBILITY/TRANSFERS Sit-stand: SBA (performed x2) Stand-sit: SBA (performed x2) GAIT Assistive Device: FWW Weight bearing: WBAT Assist: SBA Distance: 20' x2 Deviation: Seated rest x1, due to fatigue THEREX: Patient completed LAQ and punch up exercises, but is otherwise performing UE and LE strengthening program independently at this time. ASSESSMENT: Patient tolerated session well without complaint of pain. She was able to tolerate a progression in gait distance with FWW support and SBA only. Patient would benefit from continued gait and trans vanessa training for improved mobility and gait duration tolerance. PLAN: Continue with PT's POC TREATMENT CODE/TIME: 25 minutes; TAx2
--- NOTE | 2018-08-16 11:29 | PT.INDS ---
Date of service: 08/16/18 Time of Service: 11:29 PT Notes Inpatient Physical Therapy Discharge Summary Date: 08/16/18 Dates of Service: 08/15/18-08/16/18 SUBJECTIVE: NT OBJECTIVE: 08/15/18-08/16/18 Bed Mobility/Transfers: supine-sit: independent Sit-stand SBA with FWW Stand-sit: SBA Sit-supine: Claudia for legs Gait: SBA with FWW 20ftx2 Therex: pt has home exercise program she was issued at prior admission and instructed to perform independently. Balance: Static Sitting: normal Dynamic Sitting: normal Static Standing: fair Dynamic Standing: fair Assessment: Patient is a 78 year old female referred to physical therapy services with non specific leg pain. Upon assessment it appears leg pain has improved since admission with use of SCD's overnight, indicating her leg pain is muscular in nature that can be resolved with compression/massage type devices, rest and elevation. Patient was seen for 3 PT visits. Progressed from CGA standing transfers to SBA, from CGA gait with FWW 3ft to SBA gait with FWW 20ftx2. Pt is being transferred to residential care facility today for continued rehab. Goals: Goals X1 week 1. Supine-Sit : SBA 2. Sit-Supine : min A 3. Sit-Stand : SBA with FWW 4. Stand-Sit : SBA with FWW 5. Bed-Chair : SBA with FWW 6. Chair-Bed : SBA with FWW 7. Gait : SBA with FWW x 25' Pt met goals # 2, 3, 4, 6, 7 DISCHARGE RECOMMENDATIONS: [facility] G Codes in the area mobility of walking and moving around; projected status GP [id number]. Discharge status (if discharging) CHRISTINA Perez PT..
--- NOTE | 2018-08-16 11:33 | INDS_ITS ---
Date of service: 08/16/18 Time of Service: 11:29 PT Notes Inpatient Physical Therapy Discharge Summary Date: 08/16/18 Dates of Service: 08/15/18-08/16/18 SUBJECTIVE: NT OBJECTIVE: 08/15/18-08/16/18 Bed Mobility/Transfers: supine-sit: independent Sit-stand SBA with FWW Stand-sit: SBA Sit-supine: Claudia for legs Gait: SBA with FWW 20ftx2 Therex: pt has home exercise program she was issued at prior admission and instructed to perform independently. Balance: Static Sitting: normal Dynamic Sitting: normal Static Standing: fair Dynamic Standing: fair Assessment: Patient is a 78 year old female referred to physical therapy services with non specific leg pain. Upon assessment it appears leg pain has improved since admission with use of SCD's overnight, indicating her leg pain is muscular in nature that can be resolved with compression/massage type devices , rest and elevation. Patient was seen for 3 PT visits. Progressed from CGA standing transfers to SBA , from CGA gait with FWW 3ft to SBA gait with FWW 20ftx2. Pt is being [facility] today for continued rehab. Goals: Goals X1 week 1. Supine-Sit : SBA 2. Sit-Supine : min A 3. Sit-Stand : SBA with FWW 4. Stand-Sit : SBA with FWW 5. Bed-Chair : SBA with FWW 6. Chair-Bed : SBA with FWW 7. Gait : SBA with FWW x 25' Pt met goals # 2, 3, 4, 6, 7 DISCHARGE RECOMMENDATIONS: [facility] G Codes in the area mobility of walking and moving around; projected status GP [id number]. Discharge status (if discharging) CHRISTINA Perez PT..
[2018-08-16 11:40] VITALS: BP 137/64; PULSE 67; RESP 17; TEMP 36.5; O2SAT 95
== END 2018-08-16 13:41 | disposition skilled nursing facility (03) ==
LOC: ER 12:46 → MS 13:01
PROVIDERS: Admitting Provider Internal Medicine; Emergency Provider Student in an Organized Health Care Education/Training Program; PCP Family Medicine; Visit Provider Internal Medicine
DX: R26.2 Difficulty in walking, not elsewhere classified (principal); M79.605 Pain in left leg; R53.1 Weakness; E11.22 Type 2 diabetes mellitus with diabetic chronic kidney disease; E03.9 Hypothyroidism, unspecified; I50.32 Chronic diastolic (congestive) heart failure; N18.4 Chronic kidney disease, stage 4 (severe); G25.81 Restless legs syndrome; I12.9 Hypertensive chronic kidney disease with stage 1 through stage 4 chronic kidney disease, or unspecified chronic kidney disease; E66.01 Morbid (severe) obesity due to excess calories; Z68.44 Body mass index [BMI] 60.0-69.9, adult; Z79.4 Long term (current) use of insulin; D64.9 Anemia, unspecified; M17.12 Unilateral primary osteoarthritis, left knee
CPT/HCPCS: 36415; 73562; 80048; 80053; 85652; 97163; 97166; 97530; 99220; 99225; 99239; 99285; 73590; 81003; 81015; 83735; 84439; 84443; 85025; 86140; 93971; 99284; G0378; G8978; J3490

== ENCOUNTER 2018-09-30 22:01 | Inpatient (IN) | payer MEDICARE, MEDICAID, SELFPAY ==
[2018-09-30 22:04] VITALS: BP 108/58; PULSE 81; RESP 20; TEMP 36.8; O2SAT 96
--- NOTE | 2018-09-30 22:09 | DI.RAD_ITS ---
SYMPTOM/DIAGNOSIS: FELL, RT KNEE PAIN RIGHT KNEE: Four views. The study is limited due to patient body habitus. No acute fracture or dislocation is seen. Marked osteoarthritic changes are seen in the knee with marked joint space narrowing and brandi-articular spurring involving all three joint compartments. The soft tissues are grossly unremarkable. IMPRESSION: No acute abnormality.
--- NOTE | 2018-09-30 22:10 | W.ED.GENAD ---
Discharge Plan Disposition Patient Disposition: [facility] INPATIENT Condition: Stable Discharge Details Chief Complaint: Orthopedic Clinical Impression: Osteoarthritis of knees, bilateral, Morbid obesity with BMI of 70 and over, adult, Poorly controlled type 2 diabetes mellitus, Acute dehydration Reason For Visit: LINK Primary Care Provider: Yvonne Staples ED Provider: Miguel Weiss Home Meds and New Rx's Prescriptions: No Action paroxetine HCl 20 mg tablet 20 mg PO DAILY Qty: 90 RF: 3 aspirin [Aspir-81] 81 MG tablet,delayed release (DR/EC) 81 mg PO DAILY RF: 0 multivitamin [Daily Multi-Vitamin] 1 EACH tablet 1 ea PO DAILY Qty: 90 RF: 3 pen needle, diabetic [BD Ultra-Fine Skylar Pen Needle] 1 EACH needle 1 ea Miscellaneous HS 999 Days Qty: 1 RF: 6 levetiracetam [Keppra] 500 MG tablet 500 mg PO BID Qty: 60 RF: 11 sucralfate 1 GM tablet 1 g PO QID PRNQty: 120 RF: 11 amlodipine 2.5 MG tablet 2.5 mg PO DAILY Qty: 30 RF: 11 ranitidine HCl 150 MG tablet 150 mg PO BID Qty: 60 RF: 11 magnesium oxide 400 MG tablet 400 mg PO BID Qty: 60 RF: 11 pen needle, diabetic [Pen Needle] 1 EACH needle 1 ea Miscellaneous QID 50 Days Qty: 1 RF: 11 Hospital Bed EACH Miscellaneous ONCE Qty: 1 RF: 0 torsemide 20 MG tablet 20 mg PO DAILY Qty: 30 RF: 11 pravastatin 40 MG tablet 40 mg PO DAILY Qty: 90 RF: 3 cyanocobalamin (vitamin B-12) [Vitamin B-12] 500 MCG tablet 1,000 mcg PO DAILY Qty: 100 RF: 3 ferrous sulfate 325 MG tablet 325 mg PO BID Qty: 60 RF: 6 blood-glucose meter [Roomtaguch Ultra2] 1 EACH kit 1 ea Miscellaneous ONCE Qty: 1 RF: 0 lancets [BD Ultra Fine Lancets] 1 EACH misc 1 ea Miscellaneous BID Qty: 60 RF: 11 Immune System TherapeuticsUCH ULTRA TEST STRIPS 1 EACH strip 1 ea Miscellaneous TID Qty: 90 RF: 11 gabapentin 400 mg capsule 400 mg PO TID Qty: 270 RF: 3 levothyroxine 200 mcg tablet 200 mcg PO DAILY Qty: 90 RF: 3 Levemir FlexTouch U-100 Insuln 100 unit/mL (3 mL) insulin pen 48 unit SC QPM Qty: 15 RF: 3 pramipexole 0.5 mg tablet 0.5 mg PO BID 90 Days Qty: 180 RF: 3 tramadol 50 mg tablet 50 mg PO Q8H PRN (Reason: pain) Qty: 90 RF: 0 ketoconazole 2 % Cream Topical BID Qty: 0 RF: 0 polyethylene glycol 3350 17 gram Powder In Packet 17 g PO DAILY PRN PRN (Reason: Constipation) Qty: 0 RF: 0 Novolog Flexpen U-100 Insulin 300 UNITS/3 ML insulin pen 10 unit Sub-Q 0800,1200,1700 Qty: 0 RF: 0 Mouthwash [Biotene Mouthwash] 59 ML Btl 5 ml Mucous Membrane AC RF: 0 acetaminophen [Tylenol] 325 MG tablet 650 mg PO Q6H PRN PRNQty: 0 RF: 0 Medical Decision Making 78-year-old female presents from home via EMS after slip and fall with contusion to flex right anterior knee while transferring. She does have a history of ambulatory dysfunction and is on palliative care at home where she lives with her daughter. She arrives with unremarkable vital signs, mild anterior knee tenderness. She was somewhat short of breath at home but does have chronic oxygen dependence and now feels improved and saturating normally on supplemental oxygen at baseline. Referred for XRay which reveals moderate to severe joint space narrowing, most prominent in the medial compartment. Marked degenerative change of the patellofemoral joint. No acute fracture. Labs reveal mild dehydration with a BUN of 44, creatinine 2.0 both of which are elevated over her recent baseline. CBC unremarkable Pt has a history of ambulatory dysfunction and recently was admitted to [facility] and rehab. She is currently unable to transfer with 2 person assist and wheeled walker due to pain in the knee. This is somewhat similar to previous admissions for knee pain and ambulatory dysfunction. Will mildly hydrate with normal saline. Discussed with Dr Diaz and patient to be admitted. Lab Data Lab results reviewed: Yes I reviewed the patient's lab results. Laboratory Results - last 24 hr 09/30/18 09/30/18 22:50 22:50 WBC 9.07 RBC 3.76 L Hgb 11.2 L Hct 34.6 L MCV 92.0 MCH 29.8 MCHC 32.4 RDW 13.3 Plt Count 243 MPV 10.3 Immature Gran % 0.7 Neutrophils % 83.9 Lymphocytes % 7.3 Monocytes % 5.8 Eosinophils % 2.1 Basophils % 0.2 Absolute Neutrophils 7.61 H Absolute Lymphocytes 0.66 L Absolute Monocytes 0.53 Absolute Eosinophils 0.19 Absolute Basophils 0.02 Sodium 140 Potassium 3.8 Chloride 106 Carbon Dioxide 21.3 Anion Gap 12.7 H BUN 44 H Creatinine 2.09 H Estimated GFR/1.73 m2 22.79 Glucose 277 H Calcium 8.6 Total Bilirubin 0.1 L AST 13 L ALT 19 Alkaline Phosphatase 104 Total Protein 6.1 L Albumin 2.9 L HPI General Mode of arrival: EMS. Date/Time Provider Initiated Documentation: 09/30/18 22:39. Limitations to Documentation: no limitations. Information obtained by: patient and EMS. History of Present Illness described as moderate, Quality is described as aching, and is localized to the right and lower extremity. Patient reports no radiation. Patient started experiencing this minute(s) and it has been constant. No relieving factors improve symptom(s), No exacerbating factors reported . Patient notes denies weakness. Patient did receive the following treatments prior to arrival, none Related Data Home Medications Medication Instructions Recorded Confirmed aspirin [Aspir-81] 81 mg PO DAILY tab 12/19/12 09/30/18 multivitamin [Daily Multi-Vitamin] 1 ea PO DAILY #90 03/01/16 09/30/18 pen needle, diabetic [BD #1 box 10/04/17 09/30/18 Ultra-Fine Skylar Pen Needle] levetiracetam [Keppra] 500 mg PO BID #60 tab-cap 10/10/17 09/30/18 amlodipine 2.5 mg PO DAILY #30 tab-cap 10/17/17 09/30/18 ranitidine HCl 150 mg PO BID #60 tab-cap 10/17/17 09/30/18 sucralfate 1 g PO QID PRN #120 tab 10/17/17 09/30/18 magnesium oxide 400 mg PO BID #60 tab 10/24/17 09/30/18 pen needle, diabetic [Pen Needle] #1 box 11/03/17 09/30/18 Mouthwash [Biotene Mouthwash] 5 ml MUCOUS MEMBRANE AC btl 11/29/17 09/25/18 acetaminophen [Tylenol] 650 mg PO Q6H PRN PRN #0 tab 11/29/17 09/30/18 cyanocobalamin (vitamin B-12) 1,000 mcg PO DAILY #100 tab 01/16/18 09/30/18 [Vitamin B-12] ferrous sulfate 325 mg PO BID #60 tab 01/16/18 09/30/18 pravastatin 40 mg PO DAILY #90 tab 01/16/18 09/30/18 torsemide 20 mg PO DAILY #30 tab 01/16/18 09/30/18 blood-glucose meter [CrossLoopTouch #1 kit 01/23/18 09/30/18 Ultra2] lancets [BD Ultra Fine Lancets] #60 ea 01/23/18 09/30/18 gabapentin 400 mg capsule 400 mg PO TID #270 cap 05/19/18 09/30/18 levothyroxine 200 mcg tablet 200 mcg PO DAILY #90 tab 05/19/18 09/30/18 insulin detemir (U-100) 100 48 unit SC QPM #15 ml 07/12/18 09/30/18 unit/mL (3 mL) subcutaneous pen pramipexole 0.5 mg tablet 0.5 mg PO BID 90 Days #180 tab-cap 07/17/18 09/30/18 ketoconazole 0 g TOPICAL BID #0 g 08/10/18 09/30/18 Novolog Flexpen U-100 Insulin 10 unit SUB-Q 0800,1200,1700 #0 pen 08/16/18 09/30/18 polyethylene glycol 3350 17 g PO DAILY PRN PRN #0 ea 08/16/18 09/30/18 tramadol 50 mg tablet 50 mg PO Q8H PRN #90 tab 09/08/18 09/30/18 paroxetine 20 mg tablet 20 mg PO DAILY #90 tab 09/25/18 09/30/18 Previous Rx's Medication Instructions Recorded pen needle, diabetic [BD #1 box 10/04/17 Ultra-Fine Skylar Pen Needle] levetiracetam [Keppra] 500 mg PO BID #60 tab-cap 10/10/17 amlodipine 2.5 mg PO DAILY #30 tab-cap 10/17/17 ranitidine HCl 150 mg PO BID #60 tab-cap 02/05/18 magnesium oxide 400 mg PO BID #60 tab 10/24/17 pen needle, diabetic [Pen Needle] #1 box 11/03/17 Mouthwash [Biotene Mouthwash] 5 ml MUCOUS MEMBRANE AC btl 11/29/17 acetaminophen [Tylenol] 650 mg PO Q6H PRN PRN #0 tab 11/29/17 cyanocobalamin (vitamin B-12) 1,000 mcg PO DAILY #100 tab 01/16/18 [Vitamin B-12] ferrous sulfate 325 mg PO BID #60 tab 01/16/18 pravastatin 40 mg PO DAILY #90 tab 01/16/18 torsemide 20 mg PO DAILY #30 tab 01/16/18 blood-glucose meter [OneTouch #1 kit 01/23/18 Ultra2] lancets [BD Ultra Fine Lancets] #60 ea 01/23/18 gabapentin 400 mg capsule 400 mg PO TID #270 cap 05/19/18 levothyroxine 200 mcg tablet 200 mcg PO DAILY #90 tab 05/19/18 insulin detemir (U-100) 100 48 unit SC QPM #15 ml 07/12/18 unit/mL (3 mL) subcutaneous pen pramipexole 0.5 mg tablet 0.5 mg PO BID 90 Days #180 tab-cap 07/17/18 ketoconazole 0 g TOPICAL BID #0 g 08/10/18 Novolog Flexpen U-100 Insulin 10 unit SUB-Q 0800,1200,1700 #0 pen 08/16/18 polyethylene glycol 3350 17 g PO DAILY PRN PRN #0 ea 08/16/18 tramadol 50 mg tablet 50 mg PO Q8H PRN #90 tab 09/08/18 paroxetine 20 mg tablet 20 mg PO DAILY #90 tab 09/25/18 Allergies Allergy/AdvReac Type Severity Reaction Status Date / Time lisinopril AdvReac Hyperkalemi Unverified 09/30/18 22:07 a General Stated Complaint: Orthopedic LANA: 3 Review of Systems Review of Systems Positive loose stool, some malaise over days time.6 systems reviewed and otherwise negative [facility] Medical History Left leg pain (Acute) Insulin dependent diabetes mellitus (Chronic) Ambulatory dysfunction (Chronic) Hypothyroidism (Chronic) Microalbuminuria (Chronic 07/11/15) Vitamin B12 deficiency (Chronic 04/09/16) Primary localized osteoarthrosis of left lower leg (Chronic 09/21/11) Palliative care patient (Chronic 10/26/17) Other hyperlipidemia (Chronic 09/21/11) Iron deficiency anemia due to chronic blood loss (Chronic 09/21/11) Herpes zoster without complication (Resolved 07/22/17) Generalized anxiety disorder (Chronic 09/21/11) 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) Diabetes mellitus type 2 in nonobese (Chronic 03/12/98) Chronic diastolic heart failure (Chronic 01/16/18) 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) Obstructive sleep apnea (Chronic) 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 (Chronic) Hypoxemia (Chronic) Poorly controlled type 2 diabetes mellitus (Chronic) Morbid obesity with BMI of 70 and over, adult (Chronic) Depression (Chronic) H/O: hysterectomy (Chronic) Surgical History Extraction of cataract (11/14/11) History of colonoscopy (Chronic) History of esophagogastroduodenoscopy (EGD) (Chronic) H/O oral surgery (Resolved) Social History adopted: No caregiver/support person: Yes foster care: No household members: children housing: house lives independently: No number of children: 4 long term: No current occupational status: retired pets and animals: Yes leisure activities: other Hx Recent Travel: No diet: diabetic well-balanced diet: about half the time eating out: rarely or never reads food labels: sometimes Smoking/Tobacco Use Status: Never passive smoking exposure: Yes additional social history: Marital Status: (Hernan suddenly 03/06/2001) 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 Exam Narrative Exam Narrative: GEN: awake, alert, oriented 3. Pleasant, well groomed, interactive. HEAD: Normocephalic, atraumatic ENT: Mucous membranes moist, oropharynx unremarkable, External ear exam unremarkable EYES: PERRL, EOMI NECK: Full ROM, no JESUS, no menigismus CHEST/RESP: Nontender, clear to auscultation bilateral, no wheeze/rhonchi/rales CARDIOVASCULAR: RRR, no murmur, rub lonny. 2+ Rad pulse bilateral ABDOMEN: Soft, nontender, no mass. +Bowel sounds EXT: Able to lift both legs off the bed. Tender at the right anterior knee. No tenderness with movement of the hips. Symmetric 2-3+ edema, no rash Neuro: Grossly normal neurologic exam, conversant, interactive. Psych: Speech fluent, thoughts congruent, affect normal Course Vital Signs Temperature 36.8 C 09/30/18 22:04 Pulse 81 09/30/18 22:04 Respiratory Rate 20 09/30/18 22:04 Blood Pressure 108/58 L 09/30/18 22:04 Pulse Oximetry 96 09/30/18 22:04 Temperature 36.8 C 09/30/18 22:04 Temperature Source Temporal Artery Scan 09/30/18 22:04 Pulse 81 09/30/18 22:04 Respiratory Rate 20 09/30/18 22:04 Respiratory Effort Non-Labored 09/30/18 22:04 Blood Pressure 108/58 L 09/30/18 22:04 Blood Pressure Position Sitting 09/30/18 22:04 Pulse Oximetry 96 09/30/18 22:04 Oxygen Delivery Method Nasal Cannula 09/30/18 22:04 Oxygen Flow Rate 3 09/30/18 22:04
--- NOTE | 2018-09-30 22:40 | DI.VRAD_ITS ---
EXAM: XR Right Knee, 3 Views EXAM DATE/TIME: 09/30/2018 10:10 PM CLINICAL HISTORY: 78 years old, female; Injury or trauma; Fall; Initial encounter; Blunt trauma; Knee; Right; Patient HX: Fall, r knee pain anterior TECHNIQUE: XR Right knee 3 views. COMPARISON: CR XR knee RT 3V AP,lat,alexandria 08/06/2018 8:31 PM FINDINGS: Bones/joints: Moderate to severe joint space narrowing, most prominent in the medial compartment. Marked degenerative change of the patellofemoral joint. Osteopenia. Soft tissues: Non-contributory. IMPRESSION: No acute findings. Dictated and Authenticated by: Brendan Meade MD. Ordering:JUANI Rivera MD
[2018-09-30 23:06] LABS: Abs Immature Grans 0.06 k/cumm (0.0-0.09); Absolute Basophil Count 0.02 k/cumm (0.0-0.2); Absolute Eosinophil Count 0.19 k/cumm (0.0-0.7); Absolute Lymphocyte Count 0.66 k/cumm (1.2-3.4); Absolute Monocyte Count 0.53 k/cumm (0.11-0.7); Absolute Neutrophil Count 7.61 k/cumm (1.2-6.7); Basophils % 0.2; Eosinophils % 2.1; HCT 34.6 % (36.0-46.0); HGB 11.2 g/dL (12.0-15.5); Immature Grans % 0.7; Lymphocytes % 7.3; Mean Corp. HGB Concentration 32.4 g/dL (32.0-36.0); Mean Corpuscular Hemoglobin 29.8 pg (27.0-33.0); Mean Platelet Volume 10.3 fL (8.0-11.0); Monocytes % 5.8; Neutrophils % 83.9; Platelet Count 243 x1000/uL (130-400); RBC 3.76 m/cumm (4.00-5.20); RBC Distribution Width 13.3 % (11.7-14.6); White Blood Cell Count 9.07 k/cumm (4.4-10.8)
[2018-09-30 23:21] LABS: ALT 19 U/L (12-78); AST 13 U/L (15-37); Albumin 2.9 g/dL (3.4-5.0); Alkaline Phosphatase 104 U/L (46-116); Anion Gap 12.7 mmol/L (3-11); BUN 44 mg/dL (7-18); Bilirubin, Total 0.1 mg/dL (0.2-1.0); CO2 21.3 mmol/L (21.0-32.0); CREATININE 2.09 mg/dL (0.55-1.02); Calcium 8.6 mg/dL (8.5-10.1); Chloride 106 mmol/L (98-107); Estimated GFR 22.79 (mL/min/1.73m2); Glucose 277 mg/dL (70-100); Potassium 3.8 mmol/L (3.5-5.1); Sodium 140 mmol/L (136-145); Total Protein 6.1 g/dL (6.4-8.2)
[2018-09-30] MEDS: Normal Saline Flush 10 ML SYR IVP (23:52)
[2018-09-30] MEDS: Normal Saline 1,000 ML 75 ML IV (23:52)
[2018-10-01 01:04] VITALS: BP 159/54; PULSE 63; RESP 22; TEMP 36.9; O2SAT 98
[2018-10-01 01:09] LABS: Bilirubin Negative (Negative); Blood Negative (Negative); Clarity Sl Cloudy; Glucose Negative (Negative); Ketones Negative (Negative); Leukocyte Esterase Negative (Negative); Nitrite Negative (Negative); Urobilinogen 0.2 EU/dL (Up TO 0.2); pH 5.5 (5-8)
[2018-10-01 01:15] LABS: Bacteria Moderate HPF (Negative); C & S Indicated? No/Sq. Contamination; Casts Negative LPF (Negative); Crystals Negative HPF (Negative); Epithelial Cells Many HPF (Negative); Mucus Negative (Negative); RBC 0-2 (0-2)
[2018-10-01 01:19] VITALS: BP 159/54; PULSE 63; RESP 22; TEMP 36.9; O2SAT 98
--- NOTE | 2018-10-01 01:19 | NUR.NOTE ---
Nursing Note: Attempted to stand patient to assess weight bearing status. Patient required extensive assist to sit on side of bed and unable to weight bear, extreme difficulty attempting to try to stand from sitting position. C/o pain in R knee from fall earlier this evening and it is evident that patient is very frightened about falling and appears fearful with the transfer. Attempted with 2 RN's and MD but unsuccessful. States usually at home she uses a wheelchair at home and is able to take a couple steps from doorway of bathroom to toilet and back.
--- NOTE | 2018-10-01 01:20 | HPE_ITS ---
Date of service: 10/01/18 Time of Service: 01:08 Assessment and Plan (1) Right knee pain: Current visit: Yes Status: Acute Acute injury on what is certainly a chronic problem of osteoarthritis of her knee. No evidence of fracture on x-ray. Symptom treatment with acetaminophen, tramadol and I am increasing the frequency to every 6 hours from her home schedule of every 8 hours) home visit notes suggest this was in the plans anyway). PT consultation. (2) Osteoarthritis of knees, bilateral: Current visit: Yes Status: Chronic Management as above. She has chronic pain in the left lower extremity for which gabapentin had been prescribed and up titrated. Continue current outpa tient dose. (3) Ambulatory dysfunction: Current visit: Yes Status: Chronic Chronic problem, had been independent, by her report, with transfers and using her walker. We will have to see how well she does with this new injury in terms of her ability to transfer to determine whether or not it will be safe to return home with home health services or if she will require readmission to [facility] and rehab (which she is not opposed to if it is necessary). (4) Insulin dependent diabetes mellitus: Current visit: Yes Status: Chronic Home glucose is running high. She has been trying to cut back on calorie intake. We will continue 48 units of detemir, moderate sensitivity meal associated short acting insulin and adjust doses depending upon blood sugar results. I will also check her hemoglobin A1c. (5) Hypothyroidism: Current visit: Yes Status: Chronic Her admission last month had elevated TSH but normal free T4. Recheck TSH and free T4. Her polypharmacy makes it possible that medication absorption may be variable. At this point no change in dose pending TSH and free T4. (6) Chronic diastolic heart failure: Current visit: Yes Status: Chronic This appears to be compensated with current medications. No change in diuretic dose. Amlodipine on hold because of low blood pressure. (7) Acute kidney injury superimposed on chronic kidney disease: Current visit: Yes Status: Acute History does not suggest any acute GI fluid loss, oral intake by history seems to be adequate and yet appears with a prerenal picture on labs. Will IV hydrate gently overnight, recheck labs in the morning and likely can discontinue IV fluids at that point. (8) Depression: Current visit: Yes Status: Chronic Paroxetine recently restarted based on outpatient note. Continue current meds. (9) Restless leg syndrome: Current visit: Yes Status: Chronic Reports good response to pramipexole which she takes at 5 AM and 5 PM, will continue that schedule. (10) Essential hypertension: Current visit: Yes Status: Chronic Blood pressure here is soft. Hold amlodipine. (11) GERD (gastroesophageal reflux disease): Current visit: Yes Status: Chronic She reports best response to Carafate taken after meals. Unclear if ranitidine essential but I am not making any changes to her outpatient dose at this point. (12) Obstructive sleep apnea: Current visit: No Status: Chronic Absolutely no desire to consider CPAP. Continue oxygen at home flow rate of 2 L/min. (13) Hypoxemia: Current visit: No Status: Chronic Suspect due to hypoventilation/obesity syndrome. Continue outpatient 2 L/min flow rate. (14) Anemia, chronic renal failure: Current visit: No Status: Chronic Hemoglobin hematocrit at baseline. Unclear if iron is of any benefit. Recheck iron levels. (15) DVT prophylaxis: Current visit: Yes Status: Acute Lovenox renally dosed for DVT prophylaxis. History of Present Illness Chief Complaint: Right knee pain status post hyperflexion injury Narrative: Mrs. Zapata is an 78-year-old woman residing at home with her daughter who presented to the emergency room by ambulance because of a mechanical fall at home resulting in hyperflexion of her right knee, pain in the knee and inability to get up by herself. She has a history of morbid obesity, poorly controlled type 2 diabetes, chronic kidney disease and neuropathy, restless leg syndrome, hypertension, osteoarthritis of the knees, chronic anemia, hypothyroidism, morbid obesity and suspected obstructive sleep apnea with no desire for treatment, diastolic dysfunction. She was hospitalized here in early August 2018 for increasing pain in her left leg attributed to worsening neuropathy and for which gabapentin dose was uptitrated. She went to [facility] and rehab where she improved sufficiently to be discharged back to home on September 08. This afternoon she was ambulating with her walker to get to her wheelchair when her right leg gave out. She does not recall having pain before this but did when she fell to the ground, hardwood floor, hyperflexing her right knee. She was unable to get up and ambulance was called and required assistance of 2 people to get her up from the floor. She reports she had significant increase in right knee pain with attempted weightbearing at home. She denies feeling lightheaded, dizzy, having any chest pain or palpitations nausea vomiting d iaphoresis or focal weakness. She has had no recent fevers. She denies any increased or decreased frequency of urination and no dysuria. There has been no recent change in appetite, no vomiting or diarrhea. She does have somewhat loose stools despite her 3 times daily dosing of tramadol for her chronic pains. In the emergency room she did not have any right knee pain at rest but did with passive or active extension of the right knee. There is no obvious effusion although exam difficult because of her leg size. X-ray did not show any fracture but does show advanced tricompartmental osteoarthritis of the knee. She was also found to have an increase in BUN and creatinine above her baseline. She is being admitted for pain management, PT evaluation and IV hydration. Review of Systems Review of Systems No recent fevers. No cough or wheeze. No anginal chest pains or pleuritic chest pain. No abdominal pain. Chronic sensitivity and some increased discomfort left lower extremity adequately controlled, by her report, on her outpatient medications. No focal weakness. No headache. All systems reviewed & are unremarkable except as noted in HPI and below PFSH Medical History Left leg pain (Acute) Insulin dependent diabetes mellitus (Chronic) Ambulatory dysfunction (Chronic) Hypothyroidism (Chronic) Microalbuminuria (Chronic 07/11/15) Vitamin B12 deficiency (Chronic 04/09/16) Primary localized osteoarthrosis of left lower leg (Chronic 09/21/11) Palliative care patient (Chronic 10/26/17) Other hyperlipidemia (Chronic 09/21/11) Iron deficiency anemia due to chronic blood loss (Chronic 09/21/11) Herpes zoster without complication (Resolved 07/22/17) Generalized anxiety disorder (Chronic 09/21/11) 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) Diabetes mellitus type 2 in nonobese (Chronic 03/12/98) Chronic diastolic heart failure (Chronic 01/16/18) 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) Obstructive sleep apnea (Chronic) 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 (Chronic) Hypoxemia (Chronic) Poorly controlled type 2 diabetes mellitus (Chronic) Morbid obesity with BMI of 70 and over, adult (Chronic) Depression (Chronic) H/O: hysterectomy (Chronic) Surgical History Extraction of cataract (11/14/11) History of colonoscopy (Chronic) History of esophagogastroduodenoscopy (EGD) (Chronic) H/O oral surgery (Resolved) Social History adopted: No caregiver/support person: Yes foster care: No household members: children housing: house lives independently: No number of children: 4 shelter: No current occupational status: retired pets and animals: Yes leisure activities: other Hx Recent Travel: No diet: diabetic well-balanced diet: about half the time eating out: rarely or never reads food labels: sometimes Smoking/Tobacco Use Status: Never passive smoking exposure: Yes additional social history: Marital Status: (Hernan suddenly 03/06/2001) 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 Meds Home Medications Medication Instructions Recorded Confirmed Type aspirin [Aspir-81] 81 mg PO DAILY tab 12/19/12 09/30/18 History multivitamin [Daily Multi-Vitamin] 1 ea PO DAILY #90 03/01/16 09/30/18 History pen needle, diabetic [BD #1 box 10/04/17 09/30/18 Rx Ultra-Fine Skylar Pen Needle] levetiracetam [Keppra] 500 mg PO BID #60 tab-cap 10/10/17 09/30/18 Rx amlodipine 2.5 mg PO DAILY #30 tab-cap 10/17/17 09/30/18 Rx ranitidine HCl 150 mg PO BID #60 tab-cap 10/17/17 09/30/18 Rx sucralfate 1 g PO QID PRN #120 tab 10/17/17 09/30/18 History magnesium oxide 400 mg PO BID #60 tab 10/24/17 09/30/18 Rx pen needle, diabetic [Pen Needle] #1 box 11/03/17 09/30/18 Rx Mouthwash [Biotene Mouthwash] 5 ml MUCOUS MEMBRANE AC btl 11/29/17 09/25/18 Rx acetaminophen [Tylenol] 650 mg PO Q6H PRN PRN #0 tab 11/29/17 09/30/18 Rx Hospital Bed ea MISCELLANEOUS ONCE #1 12/28/17 09/25/18 Clinic cyanocobalamin (vitamin B-12) 1,000 mcg PO DAILY #100 tab 01/16/18 09/30/18 Rx [Vitamin B-12] ferrous sulfate 325 mg PO BID #60 tab 01/16/18 09/30/18 Rx pravastatin 40 mg PO DAILY #90 tab 01/16/18 09/30/18 Rx torsemide 20 mg PO DAILY #30 tab 01/16/18 09/30/18 Rx Onetouch Ultra Test Strips 1 ea MISCELLANEOUS TID #90 strip 01/23/18 09/25/18 Clinic blood-glucose meter [OneTouch #1 kit 01/23/18 09/30/18 Rx Ultra2] lancets [BD Ultra Fine Lancets] #60 ea 01/23/18 09/30/18 Rx gabapentin 400 mg capsule 400 mg PO TID #270 cap 05/19/18 09/30/18 Rx levothyroxine 200 mcg tablet 200 mcg PO DAILY #90 tab 05/19/18 09/30/18 Rx insulin detemir (U-100) 100 48 unit SC QPM #15 ml 07/12/18 09/30/18 Rx unit/mL (3 mL) subcutaneous pen pramipexole 0.5 mg tablet 0.5 mg PO BID 90 Days #180 tab-cap 07/17/18 09/30/18 Rx ketoconazole 0 g TOPICAL BID #0 g 08/10/18 09/30/18 Rx Novolog Flexpen U-100 Insulin 10 unit SUB-Q 0800,1200,1700 #0 pen 08/16/18 09/30/18 Rx polyethylene glycol 3350 17 g PO DAILY PRN PRN #0 ea 08/16/18 09/30/18 Rx tramadol 50 mg tablet 50 mg PO Q8H PRN #90 tab 09/08/18 09/30/18 Rx paroxetine 20 mg tablet 20 mg PO DAILY #90 tab 09/25/18 09/30/18 Rx Allergies Allergy/AdvReac Type Severity Reaction Status Date / Time lisinopril AdvReac Hyperkalemi Unverified 09/30/18 22:07 a Exam Narrative Exam Narrative: Obese elderly woman awake alert able to give coherent history in good detail. No evidence of facial asymmetry. Extraocular movements are normal. Pupils 2 mm equal and reactive. No oral lesions, fair dentition. Cannot see neck veins because of neck size. Lungs clear in all frias. Mostly regular heart rhythm, occasional ectopic beat. No S3-S4 or murmur. Abdomen is obese no tenderness. Cannot appreciate any organomegaly given obesity. and rectal exams were not done. Extremity exam with very large legs, no bruising over the right knee, slightly dry skin but no abrasion. Cannot tell if there is an effusion. She does not have joint line tenderness but has some symmetric tenderness to palpation about 10 cm below the knee on the anterior shins. She can cautiously flex right knee to about 90 degrees, pain with attempted passive or active full extension. She does not have pain with internal or external rotation of her right hip. There is no pitting edema at the ankles with 2+ pulses in both feet. Skin is a little dry and faintly erythematous just above the ankles bilaterally with no open ulcers. No DTRs at the knees or ankles 1+ at the elbows. She does move all extremities and has antigravity power in the right and left lower legs. I did not attempt to have her sit up or walk. X-ray of the right knee shows advanced tricompartmental degenerative changes Results Labs : 09/30/18 22:50 09/30/18 22:50 Laboratory Results - last 24 hr 09/30/18 09/30/18 22:50 22:50 WBC 9.07 RBC 3.76 L Hgb 11.2 L Hct 34.6 L MCV 92.0 MCH 29.8 MCHC 32.4 RDW 13.3 Plt Count 243 MPV 10.3 Immature Gran % 0.7 Neutrophils % 83.9 Lymphocytes % 7.3 Monocytes % 5.8 Eosinophils % 2.1 Basophils % 0.2 Absolute Neutrophils 7.61 H Absolute Lymphocytes 0.66 L Absolute Monocytes 0.53 Absolute Eosinophils 0.19 Absolute Basophils 0.02 Sodium 140 Potassium 3.8 Chloride 106 Carbon Dioxide 21.3 Anion Gap 12.7 H BUN 44 H Creatinine 2.09 H Estimated GFR/1.73 m2 22.79 Glucose 277 H Calcium 8.6 Total Bilirubin 0.1 L AST 13 L ALT 19 Alkaline Phosphatase 104 Total Protein 6.1 L Albumin 2.9 L Last Vital Signs Temp 36.8 C 09/30/18 22:04 Pulse 81 09/30/18 22:04 Resp 20 09/30/18 22:04 BP 108/58 L 09/30/18 22:04 Pulse Ox 96 09/30/18 22:04
[2018-10-01 01:43] VITALS: BP 102/63; PULSE 64; RESP 16; TEMP 36; O2SAT 99
[2018-10-01] MEDS: Normal Saline Flush 10 ML SYR IVP (01:51)
[2018-10-01] MEDS: Normal Saline 1,000 ML 75 ML IV (01:51)
[2018-10-01] MEDS: Pramipexole 0.5 MG TAB PO ×2 (05:47→17:14)
[2018-10-01] MEDS: Levothyroxine 100 MCG TAB 200 MCG PO (05:47)
[2018-10-01] MEDS: Enoxaparin 30 MG/0.3 ML SYR SC (05:48)
[2018-10-01] MEDS: Acetaminophen 325 MG TAB 650 MG PO (05:50)
[2018-10-01 07:44] LABS: Platelet Count 222 x1000/uL (130-400)
[2018-10-01 08:04] LABS: Iron 37 ug/dL (50-175); Total Iron Binding Capacity 197 ug/dL (250-450); Transferrin Sat 19 % (15-50)
[2018-10-01 08:05] VITALS: BP 110/67; PULSE 57; RESP 20; TEMP 36.3; O2SAT 97
[2018-10-01 08:11] LABS: Hemoglobin A1C 8.9 % (4.5-6.2)
[2018-10-01 08:14] LABS: Anion Gap 8.5 mmol/L (3-11); BUN 41 mg/dL (7-18); CO2 24.5 mmol/L (21.0-32.0); CREATININE 1.83 mg/dL (0.55-1.02); Calcium 8.4 mg/dL (8.5-10.1); Chloride 110 mmol/L (98-107); Estimated GFR 26.56 (mL/min/1.73m2); Sodium 143 mmol/L (136-145); TSH (W/Ref FT4) 2.02 uIU/mL (0.358-3.74)
[2018-10-01 08:22] LABS: Glucose 164 mg/dL (70-100)
[2018-10-01] MEDS: Insulin Aspart 300 UNITS/3 ML PEN SC ×3 (08:34→17:12)
[2018-10-01] MEDS: Aspirin E.C. 81 MG TABEC PO (08:35)
[2018-10-01] MEDS: Magnesium Oxide 400 MG TAB PO ×2 (08:35→20:28)
[2018-10-01] MEDS: PARoxetine 20 MG TAB PO (08:35)
[2018-10-01] MEDS: Pravastatin 40 MG TAB PO (08:35)
[2018-10-01] MEDS: Cyanocobalamin 500 MCG TAB 1000 MCG PO (08:35)
[2018-10-01] MEDS: Torsemide 20 MG TAB PO (08:35)
[2018-10-01] MEDS: Ferrous Sulfate 325 MG TAB PO ×2 (08:35→20:29)
[2018-10-01] MEDS: Gabapentin 400 MG CAP PO ×3 (08:35→20:28)
[2018-10-01] MEDS: Multivitamin TAB 1 TAB PO (08:35)
[2018-10-01] MEDS: traMADol 50 MG TAB PO ×2 (08:40→20:32)
--- NOTE | 2018-10-01 11:23 | IN_ITS ---
Date of service: 10/01/18 Time of Service: 09:35 PT Notes Date: 10/01/18 Referring Doctor: Dr. Joe Hardy Orders: PT CONSULT: Osteoarthritis, hyperflexion injury right knee, general debility, assess and treat for safe transfers, independent ambulation goal Precautions: fall, standard Patient Profile/Admitting Diagnosis: Patient admitted from ED after a fall at home, resulting in a hyperflexion injury of the right knee. X-rays in the emergency room showed no acute changes although severe underlying DJD. PMHX: morbid obesity, osteoarthritis bilateral knees, chronic anemia, anxiety, depression, congestive heart failure, diabetes mellitus type II, restless leg syndrome, chronic pain, chronic kidney disease, erosive esophagitis, hyperlipidemia, hypothyroidism, hypertension, hyperkalemia, bilateral cataract extraction, hysterectomy, tubal ligation, gastroesophageal reflux disease, sleep apnea, B12 and magnesium deficiency Social History/Home Situation: Lives with daughter who assists with care, ramp to enter. Baseline mobility gait ~10ft with standard walker, assist with ADLS. Patient reports that she had a recent hospitalization in August, after which she stayed for approximately 2 weeks at [facility] and rehab. She returned home . Equipment owned/DME: Hospital bed, standard walker, wheelchair, grab bars around toilet and shower, home 02 Subjective: Patient resting in bed at initiation of session. She states that she is having continued pain in her right knee, which bothers her primarily when she tries to straighten out. She states that after her fall, she was unable to walk at home. She is very concerned that she may have to stay at [facility] and rehab again, and she greatly desires to return directly home from her acute care stay. Objective: Mental Status: A&Ox3 Pain: Right knee, 6/10 Bed Mobility/Transfers: Supine to sit: Mod assist Sit to supine: Moderate assist of 2 Sit-stand : mod A And a sit: Mod assist Bed to chair: Unable Gait: Patient tolerate static standing for 30 seconds x3 repetitions, with bilateral upper port to wheeled walker and mod assist of 1. She is able to attempt weight shifting and slide her right foot laterally with a great deal of effort, although is unable to take any formal steps. Therex: Patient was instructed in both supine and seated lower extremity exercises, as noted on flowsheet. She is encouraged to complete straight leg raises and quad sets independently between PT sessions, which she is agreeable to. Balance: Static Sitting: Fair Dynamic Sitting: Fair Static Standing: poor Dynamic Standing: unable Special Tests: Mobility Limitations Standardized Measure [facility] AM-PAC 6 clicks Basic Mobility Inpatient Short Form: Raw Score: 10 Standardized Score: 32.29 CMS Score: 76.75% CMS Modifier: CL Informed Consent/Education: Patient instructed in purpose of PT consult and plan of care. Assessment: Patient is a 78 year old female referred to physical therapy services with right knee pain status post fall at home, in the presence of severe right knee osteoarthritis and limited mobility at baseline. Patient has a complicated medical history, including morbid obesity and poorly controlled diabetes, with multiple hospitalizations in the past few years. On evaluation today, patient is unable to demonstrate assisted transfers or ambulation, and requires significant assistance for bed mobility. She requires skilled PT intervention to maximize mobility and independence, although I suspect she will require a short-term rehab stay prior to return to independent living. Impairment level [facility] CMS Score: 76.75% Patient is assessed as moderate (80364)complexity based on the following: History: 78-year-old female admitted with acute knee pain after fall at home. She has mobility deficits at baseline, and has complicated medical history including uncontrolled diabetes, morbid obesity and multiple hospitalizations. Examination: functional limitations as noted above Presentation: evolving Decision Making: [facility] CMS Score: 76.75% Goals: Goals X1 week 1. Supine-Sit : SBA 2. Sit-Supine : min A 3. Sit-Stand : SBA with FWW 4. Stand-Sit : SBA with FWW 5. Bed-Chair : SBA with FWW 6. Chair-Bed : SBA with FWW 7. Gait : SBA with FWW x 10' Plan of Care/Treatment Plan: 1-2x/day, 7 days/week x 1 week. Plan of care has been reviewed with the APPRAISER AUDITOR providing the service under Physical Therapy direction. Initiate Physical Therapy intervention for strengthening, bed mobility, transfers, gait, stairs, balance training, use of assistive device. DISCHARGE RECOMMENDATIONS: Will likely require brief rehab stay prior to return home with assistance from daughter TREATMENT CODE/TIME: 30 minutes ([id number], [id number]) G Codes in the area mobility of walking and moving around: current status [id number] CL; projected status GP [id number]. Discharge status (if discharging) GP [id number] CL based on [facility] scores
--- NOTE | 2018-10-01 13:03 | PHARADMIT ---
Addendum entered by Rosalina Mendieta 10/03/18 16:16: Pharmacy Note Subjective Objective BP-169/82 HR-51 other VS okay SCr-1.89(down) BG-308 K+5.1(up) Assessment insulin detemir dose increased from 48 to 60 units HS amlodipine restarted yesterday, miralax changed from daily PRN to BID scheduled depomedrol knee injection in both knees yesterday Plan continue to watch VS, labs and for med changes Original Note: Admission Pharmacy Clinical Review right knee pain,mechanical fall,acute on chronic kidney injury Code Status DNI Current Weight 146.1 kg Renally Cleared and Narrow Therapeutic Index Meds crcl ~20ml/min QTc Value / Action Taken na BP Control, Fever 110/67 afebrile Electrolytes reviewed ok DVT Prophylaxis enoxaparin Opiate Usage / Scheduled Bowel Regimen Ordered na/PRN Plt/SCr for Heparin / Enoxaparin 222/1.83 INR for Warfarin na H/H stable, WBC/Bands 11.2/34.6 wbc 9.07 Antibiotic appropriateness na Cultures and Sensitivities na Surgical ABX d/c within 24 hr na DM control / Insulin Dosing insulin aspart and glargine, FS 150 Heart Failure (Check EF%) (AJAY's, B-Block, Diuretics) torsemide, amlodipine(on hold) IV to PO Switch Meds PO Home Meds Reviewed Home Meds Not Ordered amlodipine 2.5 mg PO DAILY #30 tab-cap 10/17/17 [Rx Confirmed 09/30/18] Mouthwash [Biotene Mouthwash] 5 ml MUCOUS MEMBRANE AC ketoconazole 0 g TOPICAL BID #0 g 08/10/18 [Rx Confirmed 09/30/18] Comments
[2018-10-01 15:58] VITALS: BP 142/71; PULSE 59; RESP 22; TEMP 37; O2SAT 98
--- NOTE | 2018-10-01 19:50 | W.PM.PROGNOT ---
Date of Service Date of service: 10/01/18 Time of Service: 16:50 Subjective Interval history since last seen: Patient worked with PT today, but still unable to bear weight. She complains of 5-6/10 pain in her R knee. She will be getting an orthopedic consult tomorrow. Meanwhile, we will work on pain control. Objective Objective Clinical Data: Abnormal lab results 09/30/18 09/30/18 10/01/18 Range/Units 22:50 22:50 01:05 RBC 3.76 L (4.00-5.20) m/cumm Hgb 11.2 L (12.0-15.5) g/dL Hct 34.6 L (36.0-46.0) % Absolute Neutrophils 7.61 H (1.2-6.7) k/cumm Absolute Lymphocytes 0.66 L (1.2-3.4) k/cumm Chloride (98-107) mmol/L Anion Gap 12.7 H (3-11) mmol/L BUN 44 H (7-18) mg/dL Creatinine 2.09 H (0.55-1.02) mg/dL Glucose 277 H (70-100) mg/dL Hemoglobin A1c (4.5-6.2) % Calcium (8.5-10.1) mg/dL Iron (50-175) ug/dL TIBC (250-450) ug/dL Total Bilirubin 0.1 L (0.2-1.0) mg/dL AST 13 L (15-37) U/L Total Protein 6.1 L (6.4-8.2) g/dL Albumin 2.9 L (3.4-5.0) g/dL Urine Protein >=300 H (Negative) mg/dL 10/01/18 10/01/18 10/01/18 Range/Units 07:20 07:20 07:20 RBC (4.00-5.20) m/cumm Hgb (12.0-15.5) g/dL Hct (36.0-46.0) % Absolute Neutrophils (1.2-6.7) k/cumm Absolute Lymphocytes (1.2-3.4) k/cumm Chloride 110 H (98-107) mmol/L Anion Gap (3-11) mmol/L BUN 41 H (7-18) mg/dL Creatinine 1.83 H (0.55-1.02) mg/dL Glucose 164 H D (70-100) mg/dL Hemoglobin A1c 8.9 H (4.5-6.2) % Calcium 8.4 L (8.5-10.1) mg/dL Iron 37 L (50-175) ug/dL TIBC 197 L (250-450) ug/dL Total Bilirubin (0.2-1.0) mg/dL AST (15-37) U/L Total Protein (6.4-8.2) g/dL Albumin (3.4-5.0) g/dL Urine Protein (Negative) mg/dL Vital Signs Temperature 37.0 C 10/01/18 15:58 Temperature Source Tympanic 10/01/18 15:58 Pulse 59 L 10/01/18 15:58 Pulse Rhythm Regular 10/01/18 09:11 Respiratory Rate 22 10/01/18 15:58 Respiratory Effort 10/01/18 09:11 Respiratory Depth Normal 10/01/18 09:11 Respiratory Pattern Normal 10/01/18 09:11 Blood Pressure 142/71 H 10/01/18 15:58 Blood Pressure Position Sitting 09/30/18 22:04 Pulse Oximetry 98 10/01/18 15:58 Oxygen Delivery Method Nasal Cannula 10/01/18 15:58 Oxygen Flow Rate 3 10/01/18 15:58 Pain Level 2 10/01/18 09:40 Intake & Output 09/30/18 10/01/18 10/01/18 23:59 11:59 23:59 Intake Total 2211.25 / 2701.25 490 / 2701.25 Output Total 300 / 500 200 / 500 Balance 1911.25 / 2201.25 290 / 2201.25 Weight 146.1 kg 146.1 kg Intake: IV 1851.25 / 185.25 Oral 360 / 850 490 / 850 Output: Urine 300 / 500 200 / 500 Other: Urine Color Yellow Urine Appearance Clear Clear Voiding Methods Bedpan Laboratory Results WBC 9.07 k/cumm (4.4-10.8) 09/30/18 22:50 RBC 3.76 m/cumm (4.00-5.20) L 09/30/18 22:50 Hgb 11.2 g/dL (12.0-15.5) L 09/30/18 22:50 Hct 34.6 % (36.0-46.0) L 09/30/18 22:50 MCV 92.0 fL (80-95) 09/30/18 22:50 MCH 29.8 pg (27.0-33.0) 09/30/18 22:50 MCHC 32.4 g/dL (32.0-36.0) 09/30/18 22:50 RDW 13.3 % (11.7-14.6) 09/30/18 22:50 Plt Count 222 x1000/uL (130-400) 10/01/18 07:20 MPV 10.3 fL (8.0-11.0) 09/30/18 22:50 Immature Gran % 0.7 09/30/18 22:50 Neutrophils % 83.9 09/30/18 22:50 Lymphocytes % 7.3 09/30/18 22:50 Monocytes % 5.8 09/30/18 22:50 Eosinophils % 2.1 09/30/18 22:50 Basophils % 0.2 09/30/18 22:50 Absolute Neutrophils 7.61 k/cumm (1.2-6.7) H 09/30/18 22:50 Absolute Lymphocytes 0.66 k/cumm (1.2-3.4) L 09/30/18 22:50 Absolute Monocytes 0.53 k/cumm (0.11-0.7) 09/30/18 22:50 Absolute Eosinophils 0.19 k/cumm (0.0-0.7) 09/30/18 22:50 Absolute Basophils 0.02 k/cumm (0.0-0.2) 09/30/18 22:50 Sodium 143 mmol/L (136-145) 10/01/18 07:20 Potassium 4.0 mmol/L (3.5-5.1) 10/01/18 07:20 Chloride 110 mmol/L (98-107) H 10/01/18 07:20 Carbon Dioxide 24.5 mmol/L (21.0-32.0) 10/01/18 07:20 Anion Gap 8.5 mmol/L (3-11) 10/01/18 07:20 BUN 41 mg/dL (7-18) H 10/01/18 07:20 Creatinine 1.83 mg/dL (0.55-1.02) H 10/01/18 07:20 Estimated GFR/1.73 m2 26.56 (mL/min/1.73m2) 10/01/18 07:20 Glucose 164 mg/dL (70-100) H D 10/01/18 07:20 Hemoglobin A1c 8.9 % (4.5-6.2) H 10/01/18 07:20 Calcium 8.4 mg/dL (8.5-10.1) L 10/01/18 07:20 Iron 37 ug/dL (50-175) L 10/01/18 07:20 TIBC 197 ug/dL (250-450) L 10/01/18 07:20 Transferrin % Sat 19 % (15-50) 10/01/18 07:20 Total Bilirubin 0.1 mg/dL (0.2-1.0) L 09/30/18 22:50 AST 13 U/L (15-37) L 09/30/18 22:50 ALT 19 U/L (12-78) 09/30/18 22:50 Alkaline Phosphatase 104 U/L (46-116) 09/30/18 22:50 Total Protein 6.1 g/dL (6.4-8.2) L 09/30/18 22:50 Albumin 2.9 g/dL (3.4-5.0) L 09/30/18 22:50 TSH 2.02 uIU/mL (0.358-3.74) 10/01/18 07:20 Urine Color Yellow (Yellow) 10/01/18 01:05 Urine Clarity Sl cloudy 10/01/18 01:05 Urine pH 5.5 (5-8) 10/01/18 01:05 Ur Specific [place] 1.020 (1.005-1.025) 10/01/18 01:05 Urine Protein >=300 mg/dL (Negative) H 10/01/18 01:05 Urine Ketones Negative mg/dL (Negative) 10/01/18 01:05 Urine Blood Negative (Negative) 10/01/18 01:05 Urine Nitrite Negative (Negative) 10/01/18 01:05 Urine Bilirubin Negative (Negative) 10/01/18 01:05 Urine Urobilinogen 0.2 EU/dL (Up TO 0.2) 10/01/18 01:05 Ur Leukocyte Esterase Negative (Negative) 10/01/18 01:05 Urine RBC 0-2 (0-2) 10/01/18 01:05 Urine WBC 3-5 HPF (0-5) 10/01/18 01:05 Ur Epithelial Cells Many HPF (Negative) 10/01/18 01:05 Urine Crystals Negative HPF (Negative) 10/01/18 01:05 Urine Bacteria Moderate HPF (Negative) 10/01/18 01:05 Urine Casts Negative LPF (Negative) 10/01/18 01:05 Urine Mucus Negative (Negative) 10/01/18 01:05 Ur Culture Indicated? No/sq. contamination 10/01/18 01:05 Urine Glucose Negative mg/dL (Negative) 10/01/18 01:05
[2018-10-01] MEDS: Lidocaine 5% Patch 1 PATCH TP (20:28)
[2018-10-01 21:05] VITALS: BP 121/66; PULSE 66; RESP 20; TEMP 36.4; O2SAT 98
[2018-10-02 02:19] VITALS: BP 144/69; PULSE 73; RESP 20; TEMP 36.5; O2SAT 95
[2018-10-02] MEDS: Levothyroxine 100 MCG TAB 200 MCG PO (05:30)
[2018-10-02] MEDS: Enoxaparin 30 MG/0.3 ML SYR SC (05:30)
[2018-10-02] MEDS: Pramipexole 0.5 MG TAB PO ×2 (05:31→17:08)
[2018-10-02 07:26] LABS: Abs Immature Grans 0.05 k/cumm (0.0-0.09); Absolute Basophil Count 0.02 k/cumm (0.0-0.2); Absolute Lymphocyte Count 1.23 k/cumm (1.2-3.4); Absolute Monocyte Count 0.51 k/cumm (0.11-0.7); Absolute Neutrophil Count 4.27 k/cumm (1.2-6.7); Basophils % 0.3; Eosinophils % 4.7; HCT 33.4 % (36.0-46.0); HGB 10.5 g/dL (12.0-15.5); Immature Grans % 0.8; Lymphocytes % 19.3; Mean Corp. HGB Concentration 31.4 g/dL (32.0-36.0); Mean Corpuscular Hemoglobin 29.5 pg (27.0-33.0); Mean Corpuscular Volume 93.8 fL (80-95); Mean Platelet Volume 10.2 fL (8.0-11.0); Neutrophils % 66.9; Platelet Count 216 x1000/uL (130-400); RBC 3.56 m/cumm (4.00-5.20); RBC Distribution Width 13.6 % (11.7-14.6); White Blood Cell Count 6.38 k/cumm (4.4-10.8)
[2018-10-02 07:41] LABS: Anion Gap 7.5 mmol/L (3-11); BUN 42 mg/dL (7-18); CO2 24.5 mmol/L (21.0-32.0); CREATININE 1.99 mg/dL (0.55-1.02); Calcium 8.5 mg/dL (8.5-10.1); Chloride 109 mmol/L (98-107); Estimated GFR 24.11 (mL/min/1.73m2); Glucose 125 mg/dL (70-100); Magnesium 1.9 mg/dL (1.8-2.4); Sodium 141 mmol/L (136-145)
[2018-10-02 08:47] VITALS: BP 152/72; PULSE 51; RESP 20; TEMP 36; O2SAT 97
[2018-10-02] MEDS: Aspirin E.C. 81 MG TABEC PO (09:02)
[2018-10-02] MEDS: Cyanocobalamin 500 MCG TAB 1000 MCG PO (09:03)
[2018-10-02] MEDS: Magnesium Oxide 400 MG TAB PO ×2 (09:03→21:00)
[2018-10-02] MEDS: Ferrous Sulfate 325 MG TAB PO ×2 (09:03→21:01)
[2018-10-02] MEDS: Gabapentin 400 MG CAP PO ×3 (09:03→21:01)
[2018-10-02] MEDS: Patch Removal 1 EACH TP (09:03)
[2018-10-02] MEDS: Multivitamin TAB 1 TAB PO (09:03)
[2018-10-02] MEDS: Torsemide 20 MG TAB PO (09:03)
[2018-10-02] MEDS: Pravastatin 40 MG TAB PO (09:03)
[2018-10-02] MEDS: PARoxetine 20 MG TAB PO (09:03)
[2018-10-02 09:35] VITALS: O2SAT 93
--- NOTE | 2018-10-02 11:59 | W.ORTHOCONSU ---
Date of service: 10/02/18 Time of Service: 12:00 History of Present Illness Chief Complaint: bilateral knee pain, right greater than left Narrative: Patient reports acute right knee pain while getting back into a chair. No specific history of trauma or fall. She is failed to improve from this injury. She has been at the hospital several days for pain control and physical therapy. Radiographs were unremarkable other than showing end-stage osteoarthritis of both knees [facility] Medical History Acute kidney injury superimposed on chronic kidney disease (Acute) Left leg pain (Acute) Insulin dependent diabetes mellitus (Chronic) Ambulatory dysfunction (Chronic) Hypothyroidism (Chronic) Microalbuminuria (Chronic 07/11/15) Vitamin B12 deficiency (Chronic 04/09/16) Primary localized osteoarthrosis of left lower leg (Chronic 09/21/11) Palliative care patient (Chronic 10/26/17) Other hyperlipidemia (Chronic 09/21/11) Iron deficiency anemia due to chronic blood loss (Chronic 09/21/11) Herpes zoster without complication (Resolved 07/22/17) Generalized anxiety disorder (Chronic 09/21/11) 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) Diabetes mellitus type 2 in nonobese (Chronic 03/12/98) Chronic diastolic heart failure (Chronic 01/16/18) 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) Obstructive sleep apnea (Chronic) 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 (Chronic) Hypoxemia (Chronic) Poorly controlled type 2 diabetes mellitus (Chronic) Morbid obesity with BMI of 70 and over, adult (Chronic) Depression (Chronic) Osteoarthritis of knees, bilateral (Chronic) H/O: hysterectomy (Chronic) Surgical History Extraction of cataract (11/14/11) History of colonoscopy (Chronic) History of esophagogastroduodenoscopy (EGD) (Chronic) H/O oral surgery (Resolved) Social History adopted: No caregiver/support person: Yes foster care: No household members: children housing: house lives independently: No number of children: 4 half-way: No current occupational status: retired pets and animals: Yes leisure activities: other Hx Recent Travel: No diet: diabetic well-balanced diet: about half the time eating out: rarely or never reads food labels: sometimes Smoking/Tobacco Use Status: Never passive smoking exposure: Yes additional social history: Marital Status: (Hernan suddenly 03/06/2001) 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 Exam Extrem Other: No obvious effusion of either knee with a BMI 70 is impossible to tell whether or not she does have any swelling. It is difficult even to be able to find her kneecaps. Moving her right knee from flexion to extension causes her pain but there is no gross instability. Results Last Vital Signs Temp 96.8 F L 10/02/18 08:47 Pulse 51 L 10/02/18 08:47 Resp 20 10/02/18 08:47 BP 152/72 H 10/02/18 08:47 Pulse Ox 97 10/02/18 08:47 Labs : 10/02/18 06:52 10/02/18 06:52 Laboratory Results - last 24 hr 10/02/18 10/02/18 06:52 06:52 WBC 6.38 RBC 3.56 L Hgb 10.5 L Hct 33.4 L MCV 93.8 MCH 29.5 MCHC 31.4 L RDW 13.6 Plt Count 216 MPV 10.2 Immature Gran % 0.8 Neutrophils % 66.9 Lymphocytes % 19.3 Monocytes % 8.0 Eosinophils % 4.7 Basophils % 0.3 Absolute Neutrophils 4.27 Absolute Lymphocytes 1.23 Absolute Monocytes 0.51 Absolute Eosinophils 0.30 Absolute Basophils 0.02 Sodium 141 Potassium 4.0 Chloride 109 H Carbon Dioxide 24.5 Anion Gap 7.5 BUN 42 H Creatinine 1.99 H Estimated GFR/1.73 m2 24.11 Glucose 125 H Calcium 8.5 Magnesium 1.9 Procedures Joint Aspiration/Injection Joint Asp./Inject. 1: Joint aspirated: knee Skin prep: other Local anesthesia used: lidocaine 1% Amount of anesthesia used (ml): 10 Needle size used: 22G Total fluid obtained (ml): 0 Medication injected, if any: Methylprednisolone Amount of medication injected (ml): 80 Patient tolerated procedure: well Complications: none Additional comments: Both knees are injected with 80 mg of Depo-Medrol and 5 cc of 0.5% Marcaine.
[2018-10-02] MEDS: Insulin Aspart 300 UNITS/3 ML PEN SC ×2 (12:02→17:08)
--- NOTE | 2018-10-02 12:12 | PGE_ITS ---
Documented by User: Yvonne Villa NP 10/02/18 12:36 Date of Service Date of service: 10/02/18 Time of Service: 12:19 Assessment and Plan (1) Right arm pain: Start date: 10/02/18 Start time: 12:00 Current visit: Yes Status: Acute C/o right arm pain worsening in last 24 hours. shoulder Xray ordered to r/o fx, lidoderm patch for pain and ice for pain. (2) Right arm weakness: Start date: 10/02/18 Start time: 12:01 Current visit: Yes Status: Chronic Chronic with worsening pain (3) Obstructive sleep apnea: Start date: 10/02/18 Start time: 12:01 Current visit: No Status: Chronic wears only 2 L oxygen at HS and does not want any CPAP or BIPAP. (4) Right knee pain: Start date: 10/02/18 Start time: 12:03 Current visit: Yes Status: Acute knee pain after fall, xray was negative for injury, ice to the knee improves pain and lidoderm patch for comfort. PT to work with patient, recommends rehab. (5) Osteoarthritis of knees, bilateral: Start date: 10/02/18 Start time: 12:05 Current visit: Yes Status: Chronic Gabapentin for chronic lower extremity pain, treat sx with tylenol, tramadol q 6 hours. Continue working with PT (6) Insulin dependent diabetes mellitus: Start date: 10/02/18 Start time: 12:06 Current visit: Yes Status: Chronic BGL this am 125 continue, insulin regimen and AC, HS bgl. (7) Hypothyroidism: Start date: 10/02/18 Start time: 12:07 Current visit: Yes Status: Chronic TSH level last month elevated, this visit 2.02, will continue on current home dose. (8) Acute kidney injury superimposed on chronic kidney disease: Start date: 10/02/18 Start time: 12:09 Current visit: Yes Status: Acute BUN creatinine at baseline when compared to previous labs, pt appears to be hydrated, IVF dcd at this time. Will continue to monitor daily labs. (9) Restless leg syndrome: Start date: 10/02/18 Start time: 12:10 Current visit: Yes Status: Chronic takes pramipexole BID with good results (10) Essential hypertension: Start date: 01/21/19 Start time: 12:11 Current visit: Yes Status: Chronic BP has been in 140-150's systolicaly will restart amlodipine and continue to monitor. (11) GERD (gastroesophageal reflux disease): Start date: 10/02/18 Start time: 12:15 Current visit: Yes Status: Chronic carafate taken after meals and zantac for home meds. will continue home meds. (12) Hypoxemia: Start date: 10/02/18 Start time: 12:17 Current visit: No Status: Chronic chronic, suspect due to hypoventilation from obesity, continue with 2 l oxygen (13) Anemia, chronic renal failure: Start date: 10/02/18 Start time: 12:15 Current visit: No Status: Chronic H&H at baseline, continue with iron supplement (14) DVT prophylaxis: Start date: 10/02/18 Start time: 12:16 Current visit: Yes Status: Acute enoxaprin, OOB with PT Subjective Patient reports: still having pain Interval history since last seen: Chief Complaint: Right knee pain status post hyperflexion injury Narrative: Mrs. Zapata is an 78-year-old woman residing at home with her daughter who presented to the emergency room 10/01/2018 by ambulance because of a mechanical fall at home resulting in hyperflexion of her right knee, pain in the knee and inability to get up by herself. She has a history of morbid obesity, poorly controlled type 2 diabetes, chronic kidney disease and neuropathy, restless leg syndrome, hypertension, osteoarthritis of the knees, chronic anemia, hypothyroidism, morbid obesity and suspected obstructive sleep apnea with no desire for treatment, diastolic dysfunction. She was hospitalized here in early August 2018 for increasing pain in her left leg attributed to worsening neuropathy and for which gabapentin dose was uptitrated. She went to [facility] and rehab where she improved sufficiently to be discharged back to home on September 08. Yesterday she was ambulating with her walker to get to her wheelchair when her right leg gave out. She does not recall having pain before this but did when she fell to the ground, hardwood floor, hyperflexing her right knee. She was unable to get up and ambulance was called and required assistance of 2 people to get her up from the floor. She reports she had significant increase in right knee pain with attempted weightbearing at home. She denies feeling lightheaded, dizzy, having any chest pain or palpitations nausea vomiting diaphoresis or focal weakness. She has had no recent fevers. She denies any increased or decreased frequency of urination and no dysuria. There has been no recent change in appetite, no vomiting or diarrhea. She does have somewhat loose stools despite her 3 times daily dosing of tramadol for her chronic pains. Today she c/o pain to her right upper arm with less use. Exam reveals unable to raise above shoulder level and straighten out but when asked if this is new patient states no, yet complains of not having same ROM before fall. I ordered an xray of right shoulder to r/o any fx. Lidoderm to arm for pain as well and ICE, left knee pain was relieved by ICE, stating that it is feeling better. She appears comfortable sitting up in a chair. Worked with PT/OT and they feel she could benefit from rehab for strength, I agree with this and the patient does as well. Will work with CM to set up rehab. Exam Const General: cooperative and no acute distress Nutritional Appearance: obese morbidly obese Orientation: alert, awake and oriented x3 HENMT Head: normal to inspection General nose exam: external nose normal Face and sinus: normal facial exam Mouth: oral mucosae normal Eyes General: appearance normal, both eyes and all related structures Eyelids: eyelids normal Conjunctivae: conjunctivae normal Neck Neck: normal visual inspection Thyroid: thyroid normal Lymphatic: no lymphadenopathy noted and no lymphedema noted Chest Chest: normal inspection of the chest Resp Effort & Inspection: normal respiratory effort Auscultation: clear to auscultation bilaterally Percussion: percussion normal Cardio Jugular venous pressure: no JVD Rhythm: regular rhythm Heart Sounds: S1 normal and S2 normal GI Palpation: soft Other: Abdomen is obese no tenderness. Cannot appreciate any organomegaly given obesity. Back/Spine/Pelvis Back: no CVA tenderness Skin General skin exam: no rashes or lesions noted Rashes: no rashes Wounds: no wounds Neuro General: alert, awake and oriented x3 Cognition: normal cognition Speech: speech normal Extrem Other: Extremity exam with very large legs, no bruising over the right knee, slightly dry skin but no abrasion Psych Appearance: grossly normal Affect: normal affect Documented by User: Alley Naidu MD 10/02/18 19:48
--- NOTE | 2018-10-02 12:13 | PT.INTREAT ---
Date of service: 10/02/18 Time of Service: 12:14 PT Notes Inpatient Physical Therapy Treatment Note [facility] Date: 10/02/18 PRECAUTIONS: Fall, WBAT SUBJECTIVE: Maryjane states that she is having significant pain in her right knee with standing and weight bearing OBJECTIVE: PAIN: Patient complains of right knee pain with standing and weight bearing BED MOBILITY/TRANSFERS Sit-stand: Mod A Stand-sit: CGA GAIT Assistive Device: FWW Weight bearing: WBAT Assist: Mod A in a.m.; Min A in p.m. Distance: Static standing times 30 seconds in a.m.; 5 sidesteps x2 in p.m. Deviation: Pain THEREX: Patient completed a lower extremity and resisted upper extremity strengthening program, as per flow sheet. Patient requires assist with right upper extremity exercises, due to right shoulder weakness. ASSESSMENT: Patient tolerated sessions with complaints of increased pain in right knee with standing and weight bearing. Patient would benefit from continued transfer and gait training as well as strengthening for improved mobility as well as for improved activity tolerance. PLAN: Continue with PTs POC TREATMENT CODE/TIME: Session 1: 30 minutes (9711 0 x 1, 9753 0 x 1) Session 2: 30 minutes (9711 0 x 1, 9753 0 x 1)
--- NOTE | 2018-10-02 13:12 | DI.RAD_ITS ---
SYMPTOMS/DIAGNOSIS: TRAUMA, WORSENING PAIN AFTER FALL RIGHT SHOULDER: Multiple views. No acute fracture or dislocation is seen. There are moderate degenerative changes seen at the acromioclavicular joint. There does appear to be superior subluxation of the humeral head with narrowing of the acromiohumeral interval. This may reflect chronic rotator cuff tear. The bones appear osteopenic. The soft tissues are unremarkable. IMPRESSION: 1. No acute fracture or dislocation. 2. Osteoarthritis of the right shoulder.
[2018-10-02] MEDS: traMADol 50 MG TAB PO (13:25)
[2018-10-02] MEDS: amLODIPine 2.5 MG TAB PO (13:26)
[2018-10-02] MEDS: methylPREDNISolone ACETATE 80 MG/ML VIAL 160 MG IJ (13:29)
--- NOTE | 2018-10-02 14:20 | OT.INIE ---
Occupational Therapy Notes Date:10/02/18 Referring Doctor:lAley Naidu MD OT Orders: Eval and Treat PATIENT PROFILE/ADMITTING DIAGNOSIS: Pt is a 78 year old female who ED after a fall at home, resulting in a hyperflexion injury of the right knee. X-rays in the emergency room showed no acute changes. She was seen for OT consult for assessment of ADL routine and functional activities. Past Medical History: morbid obesity, osteoarthritis bilateral knees, chronic anemia, anxiety, depression, congestive heart failure, diabetes mellitus type II, restless leg syndrome, chronic pain, chronic kidney disease, erosive esophagitis, hyperlipidemia, hypothyroidism, hypertension, hyperkalemia, bilateral cataract extraction, hysterectomy, tubal ligation, gastroesophageal reflux disease, sleep apnea, B12 and magnesium deficiency Social History/Home Situation: Pt report that she lives in a private home with her daughter. She reports that she has one step to enter with no railings. She states that her baseline ADLs are (I) with dressing UE, eating, toileting. Her daughter assists with cooking, grocery shopping, bathing routine, dressing LE. Pt does not drive. Equipment owned/DME: Hospital bed, wheelchair, grab bars around toilet and shower, home oxygen, bedside commode SUBJECTIVE: Pt was sitting in chair when OT arrived. She reports that she is agreeable to OT session. OBJECTIVE: General Observation: Pt is sitting in chair, she is pleasant and responds appropriately when answering questions. IV (R) UE Mental Status: A&Ox3 Pain: no c/o pain ROM: RUE AROM to 130* shoulder flexion L UE AROM to about 130* shoulder flexion STRENGTH: RUE Mohamud flexion 4/5, elbow 4/5, cottage parent 4/5 LUE mohamud flexion 4/5, elbow 4/5, cottage parent 4/5 Pt denies ADL performance during todays consult reporting that she is too tired. She reports that she does not feel that she is at baseline (I) for ADLs/IADLs at this time. BALANCE: Static sitting Normal Dynamic Sitting Normal SPECIAL TESTS: Daily Activity Limitations Standardized Measure [facility] AM -PAC ?6 clicks? Daily Activity Inpatient Short Form: Raw score: 20 Standardized score: 42.03 CMS score: 38.32% CMS modifier: CJ INFORMED CONSENT/EDUCATION: Pt instructed in purpose of OT Consult and plan of care. ASSESSMENT: Patient is a 78-year-old female referred to occupational therapy services with diagnosis a fall at home, resulting in a hyperflexion injury of the right knee in setting of morbid obesity, osteoarthritis bilateral knees, chronic anemia, anxiety, depression, congestive heart failure, diabetes mellitus type II, restless leg syndrome, chronic pain, chronic kidney disease, erosive esophagitis, hyperlipidemia, hypothyroidism, hypertension, hyperkalemia, bilateral cataract extraction, hysterectomy, tubal ligation, gastroesophageal reflux disease, sleep apnea, B12 and magnesium deficiency. Pt is not currently functioning at her baseline ADLs per pt report and assessment noted as above. OT would recommend that pt go to SNF when medically cleared per MD. AMPAC score 19, CMS score 42.80%38.32% Patient is assessed as a Moderate 88153 complexity based on the following: History: See Above Examination: See Above Presentation: Evolving Decision Making: AMPAC score 19, CMS score 42.80% GOALS in hospital setting 1. Pt will be able to don UE dress (I) in sitting position. 2. Pt will be able to perform bathing routine sitting in chair (I) with max (A) for feet and back 3. Pt will be able to perform toileting routine on toilet with min (A) for hygiene 4. Pt will be able to perform teeth brushing standing at sink with min (A) PLAN OF CARE/TREATMENT PLAN: OT will plan to see 1x/day 5 days/week with increased activity demands for ADLs/IADLs including bathing, grooming, dressing routines. DISCHARGE RECOMMENDATIONS OT recommends that pt got to SNF when medically cleared per MD. Pt has all DME. TREATMENT TIME/[place]UTES/[place] [address] 15 minutes (10:15) G Codes in the area of self- : washing oneself, toileting, dressing, eating and drinking, current status GO G8987 CK projected status GO [id number]. Discharge status GO [id number]. Based on AMPAC score 19, CMS score 42.80%. Latha Clay OTR/[facility]
--- NOTE | 2018-10-02 14:31 | OTIE_ITS ---
Occupational Therapy Notes Date:10/02/18 Referring Doctor:Alley Naidu MD OT Orders: Eval and Treat PATIENT PROFILE/ADMITTING DIAGNOSIS: Pt is a 78 year old female who ED after a fall at home, resulting in a hyperflexion injury of the right knee. X-rays in the emergency room showed no acute changes. She was seen for OT consult for assessment of ADL routine and functional activities. Past Medical History: morbid obesity, osteoarthritis bilateral knees, chronic anemia, anxiety, depression, congestive heart failure, diabetes mellitus type II, restless leg syndrome, chronic pain, chronic kidney disease, erosive esophagitis, hyperlipidemia, hypothyroidism, hypertension, hyperkalemia, bilateral cataract extraction, hysterectomy, tubal ligation, gastroesophageal reflux disease, sleep apnea, B12 and magnesium deficiency Social History/Home Situation: Pt report that she lives in a private home with her daughter. She reports that she has one step to enter with no railings. She states that her baseline ADLs are (I) with dressing UE, eating, toileting. Her daughter assists with cooking, grocery shopping, bathing routine, dressing LE. Pt does not drive. Equipment owned/DME: Hospital bed, wheelchair, grab bars around toilet and shower, home oxygen, bedside commode SUBJECTIVE: Pt was sitting in chair when OT arrived. She reports that she is agreeable to OT session. OBJECTIVE: General Observation: Pt is sitting in chair, she is pleasant and responds appropriately when answering questions. IV (R) UE Mental Status: A&Ox3 Pain: no c/o pain ROM: RUE AROM to 130* shoulder flexion L UE AROM to about 130* shoulder flexion STRENGTH: RUE Mohamud flexion 4/5, elbow 4/5, claim processor 4/5 LUE mohamud flexion 4/5, elbow 4/5, claim processor 4/5 Pt denies ADL performance during todays consult reporting that she is too tired. She reports that she does not feel that she is at baseline (I) for ADLs/IADLs at this time. BALANCE: Static sitting Normal Dynamic Sitting Normal SPECIAL TESTS: Daily Activity Limitations Standardized Measure [facility] AM -PAC ?6 clicks? Daily Activity Inpatient Short Form: Raw score: 20 Standardized score: 42.03 CMS score: 38.32% CMS modifier: CJ INFORMED CONSENT/EDUCATION: Pt instructed in purpose of OT Consult and plan of care. ASSESSMENT: Patient is a 78-year-old female referred to occupational therapy services with diagnosis a fall at home, resulting in a hyperflexion injury of the right knee in setting of morbid obesity, osteoarthritis bilateral knees, c hronic anemia, anxiety, depression, congestive heart failure, diabetes mellitus type II, restless leg syndrome, chronic pain, chronic kidney disease, erosive esophagitis, hyperlipidemia, hypothyroidism, hypertension, hyperkalemia, bilateral cataract extraction, hysterectomy, tubal ligation, gastroesophageal reflux disease, sleep apnea, B12 and magnesium deficiency. Pt is not currently functioning at her baseline ADLs per pt report and assessment noted as above. OT would recommend that pt go to SNF when medically cleared per MD. AMPAC score 19, CMS score 42.80%38.32% Patient is assessed as a Moderate [id number] complexity based on the following: History: See Above Examination: See Above Presentation: Evolving Decision Making: AMPAC score 19, CMS score 42.80% GOALS in hospital setting 1. Pt will be able to don UE dress (I) in sitting position. 2. Pt will be able to perform bathing routine sitting in chair (I) with max (A) for feet and back 3. Pt will be able to perform toileting routine on toilet with min (A) for hygiene 4. Pt will be able to perform teeth brushing standing at sink with min (A) PLAN OF CARE/TREATMENT PLAN: OT will plan to see 1x/day 5 days/week with increased activity demands for ADLs/IADLs including bathing, grooming, dressing routines. DISCHARGE RECOMMENDATIONS OT recommends that pt got to SNF when medically cleared per MD. Pt has all DME. TREATMENT TIME/[place] [address] 15 minutes (10:15) G Codes in the area of self- : washing oneself, toileting, dressing, eating and drinking, current status GO G8987 CK projected status GO [id number]. Discharge status GO [id number]. Based on AMPAC score 19, CMS score 42.80%. Latha Clay OTR/[facility]
[2018-10-02 17:26] VITALS: BP 159/81; PULSE 70; RESP 20; TEMP 36.2; O2SAT 98
--- NOTE | 2018-10-02 18:29 | PDOC.CMIN ---
Care Management Initial Assess REASON FOR HOSPITALIZATION:: Right knee pain, mechanical fall, acute on chronic K PAST MEDICAL HISTORY/PAST SURGICAL HISTORY:: Chronic diastolic heart failure, magnesium metabolism, essential hypertension, anxiety, herpes zoster, microalbuminuria, morbid obesity, hyperlipidemia, hypothyroidism, diabetes type II, osteoarthritis left leg, depression, anemia, GERD, CHF, SERAFIN. Surgical hx: bilateral cataract, oral surgery (resection of tongue lesion, colonoscopy, EGD). PREVIOUS FUNCTIONAL STATUS/SOCIAL/FAMILY SUPPORTS:: Bijal resides in [facility] with her daughter, Erin, who is her primary child care attendant school. She has a son, Doug, who resides nearby and is additionally supportive. Bijal in the last few years has had rehab stays, admissions at [facility], and home health supports. She is unable to ambulate at this time due to knee pain. CURRENT FUNCTIONAL STATUS:: Bijal is lying in bed. She is requesting a rehab stay upon discharge if deemed appropriate. She is unable to ambulate at this time due to pain and increased weakness. ADVANCE DIRECTIVES:: On file at [facility]. Health Care Agents: Oksana Shannon, Doug Zapata. Has patient been provided with information about the portal?: Yes Did the patient sign up for the portal?: No CODE STATUS:: DNI INSURANCE COVERAGE / FINANCIAL ISSUES:: Medicaid, Medicare. CURRENT HOME/COMMUNITY SERVICES/EQUIPMENT:: Wheel chair and walker for ambulation, nightime O2. PRIMARY CARE PHYSICIAN:: Yvonne Staples POTENTIAL DISCHARGE NEEDS:: Evaluations for discharge needs, possible coordination of SNF. PATIENT/FAMILY EDUCATION NEEDS:: Review of discharge instructions, insurance limitations; etc. Discussion of self care needs upon discharge-ongoing self management; patient goals and wishes. ANTICIPATED BARRIERS TO DISCHARGE:: Bed availability, patient readiness. TRANSPORTATION:: Dependent on disposition and clinical status. PLAN:: Bijal will continue to be treated, she will have ortho, PT, and OT consults. CM will fax referral to [facility] at [facility]'s request. Transport dependent on disposition and ability.
--- NOTE | 2018-10-02 18:37 | INITIAL_ITS ---
Care Management Initial Assess REASON FOR HOSPITALIZATION:: Right knee pain, mechanical fall, acute on chronic K PAST MEDICAL HISTORY/PAST SURGICAL HISTORY:: Chronic diastolic heart failure, magnesium metabolism, essential hypertension, anxiety, herpes zoster, microalbuminuria, morbid obesity, hyperlipidemia, hypothyroidism, diabetes type II, osteoarthritis left leg, depression, anemia, GERD, CHF, SERAFIN. Surgical hx: bilateral cataract, oral surgery (resection of tongue lesion, colonoscopy, EGD). PREVIOUS FUNCTIONAL STATUS/SOCIAL/FAMILY SUPPORTS:: Bijal resides in [facility] with her daughter, Erin, who is her primary client care consultant. She has a son, Doug, who resides nearby and is additionally supportive. Bijal in the last few years has had rehab stays, admissions at [facility], and home health supports. She is unable to ambulate at this time due to knee pain. CURRENT FUNCTIONAL STATUS:: Bijal is lying in bed. She is requesting a rehab stay upon discharge if deemed appropriate. She is unable to ambulate at this time due to pain and increased weakness. ADVANCE DIRECTIVES:: On file at [facility]. Health Care Agents: Oksana Shannon, Doug Zapata. Has patient been provided with information about the portal?: Yes Did the patient sign up for the portal?: No CODE STATUS:: DNI INSURANCE COVERAGE / FINANCIAL ISSUES:: Medicaid, Medicare. CURRENT HOME/COMMUNITY SERVICES/EQUIPMENT:: Wheel chair and walker for ambulation, nightime O2. PRIMARY CARE PHYSICIAN:: Yvonne Staples POTENTIAL DISCHARGE NEEDS:: Evaluations for discharge needs, possible coordination of SNF. PATIENT/FAMILY EDUCATION NEEDS:: Review of discharge instructions, insurance aceves itations; etc. Discussion of self care needs upon discharge-ongoing self management; patient goals and wishes. ANTICIPATED BARRIERS TO DISCHARGE:: Bed availability, patient readiness. TRANSPORTATION:: Dependent on disposition and clinical status. PLAN:: Bijal will continue to be treated, she will have ortho, PT, and OT co nsults. CM will fax referral to [facility] at [facility]'s request. Transport dependent on disposition and ability.
[2018-10-02] MEDS: Polyethylene Glycol 3350 17 GM PACKET PO (21:01)
[2018-10-02] MEDS: Lidocaine 5% Patch 1 PATCH TP (21:02)
[2018-10-02 21:25] VITALS: BP 173/79; PULSE 61; RESP 19; TEMP 36.5; O2SAT 96
[2018-10-02] MEDS: Acetaminophen 325 MG TAB 650 MG PO (23:00)
[2018-10-03] MEDS: traMADol 50 MG TAB PO ×2 (00:24→07:22)
[2018-10-03 00:37] VITALS: BP 171/75; PULSE 61; RESP 18; TEMP 36.5; O2SAT 96
[2018-10-03] MEDS: Pramipexole 0.5 MG TAB PO ×2 (05:26→16:58)
[2018-10-03] MEDS: Enoxaparin 30 MG/0.3 ML SYR SC (05:26)
[2018-10-03] MEDS: Levothyroxine 100 MCG TAB 200 MCG PO (05:26)
[2018-10-03 07:12] LABS: Mean Corp. HGB Concentration 32.4 g/dL (32.0-36.0); Mean Corpuscular Hemoglobin 29.8 pg (27.0-33.0); Mean Corpuscular Volume 91.8 fL (80-95); Mean Platelet Volume 10.2 fL (8.0-11.0); Platelet Count 247 x1000/uL (130-400); RBC 4.03 m/cumm (4.00-5.20); RBC Distribution Width 13.2 % (11.7-14.6)
[2018-10-03 07:22] LABS: Anion Gap 7.9 mmol/L (3-11); BUN 45 mg/dL (7-18); CO2 24.1 mmol/L (21.0-32.0); CREATININE 1.89 mg/dL (0.55-1.02); Calcium 9.1 mg/dL (8.5-10.1); Chloride 104 mmol/L (98-107); Estimated GFR 25.59 (mL/min/1.73m2); Glucose 308 mg/dL (70-100); Magnesium 1.9 mg/dL (1.8-2.4); Potassium 5.1 mmol/L (3.5-5.1); Sodium 136 mmol/L (136-145)
[2018-10-03 07:45] VITALS: BP 169/82; PULSE 51; RESP 22; TEMP 36.5; O2SAT 97
--- NOTE | 2018-10-03 07:51 | W.PM.PROGNOT ---
Date of Service Date of service: 10/03/18 Time of Service: 07:51 Assessment and Plan (1) Right knee pain: Current visit: Yes Status: Acute Right should feel better over the next 24-36 hours. FBS this am is 300. Probably secondary to the steroid effects. Subjective Interval history since last seen: Right knee sore despite corticosteroid injection. Left knee is much improved but was the lesser symptomatic knee prior to the injections. Exam Extrem Other: No obvious change in knees but impossible to obtain an accurate exam due to BMI 70. Objective Objective Clinical Data: Abnormal lab results 10/03/18 Range/Units 06:45 BUN 45 H (7-18) mg/dL Creatinine 1.89 H (0.55-1.02) mg/dL Glucose 308 H D (70-100) mg/dL Vital Signs Temperature 97.7 F 10/03/18 00:37 Temperature Source Tympanic 10/03/18 00:37 Pulse 61 10/03/18 00:37 Pulse Rhythm Regular 10/02/18 21:26 Respiratory Rate 18 10/03/18 00:37 Respiratory Effort 10/02/18 21:26 Respiratory Depth Normal 10/02/18 21:26 Respiratory Pattern Normal 10/02/18 21:26 Blood Pressure 171/75 H 10/03/18 00:37 Blood Pressure Position Sitting 09/30/18 22:04 Pulse Oximetry 96 10/03/18 00:37 Oxygen Delivery Method Nasal Cannula 10/03/18 00:37 Oxygen Flow Rate 2 10/03/18 00:37 Pain Level 6 10/03/18 07:22 Intake & Output 10/02/18 10/02/18 10/03/18 11:59 23:59 11:59 Intake Total 550 / 1650 1100 / 1650 400 / 400 Output Total 400 / 1750 1350 / 1750 1250 / 1250 Balance 150 / -100 -250 / -100 -850 / -850 Intake: Oral 550 / 1650 1100 / 1650 400 / 400 Output: Urine 400 / 1750 1350 / 1750 1250 / 1250 Other: Urine Color Yellow Yellow Yellow Urine Appearance Clear Clear Clear Urine Odor Normal Voiding Methods Bedside Commode Bedside Commode Bedside Commode Laboratory Results WBC 9.00 k/cumm (4.4-10.8) D 10/03/18 06:45 RBC 4.03 m/cumm (4.00-5.20) 10/03/18 06:45 Hgb 12.0 g/dL (12.0-15.5) 10/03/18 06:45 Hct 37.0 % (36.0-46.0) 10/03/18 06:45 MCV 91.8 fL (80-95) 10/03/18 06:45 MCH 29.8 pg (27.0-33.0) 10/03/18 06:45 MCHC 32.4 g/dL (32.0-36.0) 10/03/18 06:45 RDW 13.2 % (11.7-14.6) 10/03/18 06:45 Plt Count 247 x1000/uL (130-400) 10/03/18 06:45 MPV 10.2 fL (8.0-11.0) 10/03/18 06:45 Immature Gran % 0.8 10/02/18 06:52 Neutrophils % 66.9 10/02/18 06:52 Lymphocytes % 19.3 10/02/18 06:52 Monocytes % 8.0 10/02/18 06:52 Eosinophils % 4.7 10/02/18 06:52 Basophils % 0.3 10/02/18 06:52 Absolute Neutrophils 4.27 k/cumm (1.2-6.7) 10/02/18 06:52 Absolute Lymphocytes 1.23 k/cumm (1.2-3.4) 10/02/18 06:52 Absolute Monocytes 0.51 k/cumm (0.11-0.7) 10/02/18 06:52 Absolute Eosinophils 0.30 k/cumm (0.0-0.7) 10/02/18 06:52 Absolute Basophils 0.02 k/cumm (0.0-0.2) 10/02/18 06:52 Sodium 136 mmol/L (136-145) 10/03/18 06:45 Potassium 5.1 mmol/L (3.5-5.1) D 10/03/18 06:45 Chloride 104 mmol/L (98-107) 10/03/18 06:45 Carbon Dioxide 24.1 mmol/L (21.0-32.0) 10/03/18 06:45 Anion Gap 7.9 mmol/L (3-11) 10/03/18 06:45 BUN 45 mg/dL (7-18) H 10/03/18 06:45 Creatinine 1.89 mg/dL (0.55-1.02) H 10/03/18 06:45 Estimated GFR/1.73 m2 25.59 (mL/min/1.73m2) 10/03/18 06:45 Glucose 308 mg/dL (70-100) H D 10/03/18 06:45 Hemoglobin A1c 8.9 % (4.5-6.2) H 10/01/18 07:20 Calcium 9.1 mg/dL (8.5-10.1) 10/03/18 06:45 Magnesium 1.9 mg/dL (1.8-2.4) 10/03/18 06:45 Iron 37 ug/dL (50-175) L 10/01/18 07:20 TIBC 197 ug/dL (250-450) L 10/01/18 07:20 Transferrin % Sat 19 % (15-50) 10/01/18 07:20 Total Bilirubin 0.1 mg/dL (0.2-1.0) L 09/30/18 22:50 AST 13 U/L (15-37) L 09/30/18 22:50 ALT 19 U/L (12-78) 09/30/18 22:50 Alkaline Phosphatase 104 U/L (46-116) 09/30/18 22:50 Total Protein 6.1 g/dL (6.4-8.2) L 09/30/18 22:50 Albumin 2.9 g/dL (3.4-5.0) L 09/30/18 22:50 TSH 2.02 uIU/mL (0.358-3.74) 10/01/18 07:20 Urine Color Yellow (Yellow) 10/01/18 01:05 Urine Clarity Sl cloudy 10/01/18 01:05 Urine pH 5.5 (5-8) 10/01/18 01:05 Ur Specific [place] 1.020 (1.005-1.025) 10/01/18 01:05 Urine Protein >=300 mg/dL (Negative) H 10/01/18 01:05 Urine Ketones Negative mg/dL (Negative) 10/01/18 01:05 Urine Blood Negative (Negative) 10/01/18 01:05 Urine Nitrite Negative (Negative) 10/01/18 01:05 Urine Bilirubin Negative (Negative) 10/01/18 01:05 Urine Urobilinogen 0.2 EU/dL (Up TO 0.2) 10/01/18 01:05 Ur Leukocyte Esterase Negative (Negative) 10/01/18 01:05 Urine RBC 0-2 (0-2) 10/01/18 01:05 Urine WBC 3-5 HPF (0-5) 10/01/18 01:05 Ur Epithelial Cells Many HPF (Negative) 10/01/18 01:05 Urine Crystals Negative HPF (Negative) 10/01/18 01:05 Urine Bacteria Moderate HPF (Negative) 10/01/18 01:05 Urine Casts Negative LPF (Negative) 10/01/18 01:05 Urine Mucus Negative (Negative) 10/01/18 01:05 Ur Culture Indicated? No/sq. contamination 10/01/18 01:05 Urine Glucose Negative mg/dL (Negative) 10/01/18 01:05
[2018-10-03] MEDS: Polyethylene Glycol 3350 17 GM PACKET PO ×2 (08:35→21:02)
[2018-10-03] MEDS: Insulin Aspart 300 UNITS/3 ML PEN SC ×3 (08:35→16:59)
[2018-10-03] MEDS: Torsemide 20 MG TAB PO (08:36)
[2018-10-03] MEDS: Gabapentin 400 MG CAP PO ×3 (08:36→21:01)
[2018-10-03] MEDS: Magnesium Oxide 400 MG TAB PO ×2 (08:36→21:01)
[2018-10-03] MEDS: Pravastatin 40 MG TAB PO (08:36)
[2018-10-03] MEDS: Aspirin E.C. 81 MG TABEC PO (08:36)
[2018-10-03] MEDS: Ferrous Sulfate 325 MG TAB PO ×2 (08:36→21:01)
[2018-10-03] MEDS: Multivitamin TAB 1 TAB PO (08:36)
[2018-10-03] MEDS: PARoxetine 20 MG TAB PO (08:36)
[2018-10-03] MEDS: Cyanocobalamin 500 MCG TAB 1000 MCG PO (08:36)
[2018-10-03] MEDS: Patch Removal 1 EACH TP (08:37)
[2018-10-03 09:25] VITALS: O2SAT 94
--- NOTE | 2018-10-03 10:40 | OT.INTREAT ---
Date of service: 10/03/18 Time of Service: 09:01 Occupational Therapy Notes Occupational Therapy Inpatient Treatment Note Date: 10/03/18 SUBJECTIVE: Pt was sitting in chair when OT arrived. She reports that she would love to get cleaned up and start her day. OBJECTIVE: PAIN:no c/o pain. BATHING: Sitting in chair with max set up (A) Upper Body: (I) face, (B) UE, abdomen, under arms, max (A) with back and under belly skin Lower Body: Max (A) (B) feet and lower legs. DRESSING: Upper Extremity: (I) [facility] gown Lower Extremity: max (A) with donning and doffing (B) socks. ASSESSMENT: Pt demonstrated increased (I) for bathing and dressing routines she required min vc for LE bathing. She is currently able to perform UE bathing at her baseline level of function. Pt would benefit from continued skilled OT services for progression of LE bathing and increased (B) UE strengthening. PLAN: Progression of UE strengthening Education for increased (I) in LE bathing TREATMENT CODES/TIME: [id number], 24 minutes (09:01) Latha Clay OTR/[facility]
--- NOTE | 2018-10-03 10:47 | OTTR_ITS ---
Date of service: 10/03/18 Time of Service: 09:01 Occupational Therapy Notes Occupational Therapy Inpatient Treatment Note Date: 10/03/18 SUBJECTIVE: Pt was sitting in chair when OT arrived. She reports that she would love to get cleaned up and start her day. OBJECTIVE: PAIN:no c/o pain. BATHING: Sitting in chair with max set up (A) Upper Body: (I) face, (B) UE, abdomen, under arms, max (A) with back and under belly skin Lower Body: Max (A) (B) feet and lower legs. DRESSING: Upper Extremity: (I) [facility] gown Lower Extremity: max (A) with donning and doffing (B) socks. ASSESSMENT: Pt demonstrated increased (I) for bathing and dressing routines she required min vc for LE bathing. She is currently able to perform UE bathing at her baseline level of function. Pt would benefit from continued skilled OT services for progression of LE bathing and increased (B) UE strengthening. PLAN: Progression of UE strengthening Education for increased (I) in LE bathing TREATMENT CODES/TIME: [id number], 24 minutes (09:01) Latha Clay OTR/[facility]
--- NOTE | 2018-10-03 11:13 | PDOC.CMPRO ---
Care Management Progress Note S/O: Maryjane was sitting up in her chair when CM met with her. She reported feeling ready to re-enter [facility] and [facility] tomorrow; if medically cleared per MD. Maryjane remains pleasant in interaction and reported much relief after Dr. Martinez provided her knee injection. She reported being up to the commode and feeling much better. CM will continue to follow. A: P: 78 year old female admitted to [facility] 10/01/18 P: Bijal will transition to [facility] for continued rehabilitation when ready per MD. Transport via [facility]'s W/C Van.
--- NOTE | 2018-10-03 11:39 | PT.INTREAT ---
Date of service: 10/03/18 Time of Service: 11:39 PT Notes Inpatient Physical Therapy Treatment Note [facility] Date: 10/03/18 PRECAUTIONS: Fall SUBJECTIVE: Maryjane states that she is having some pain in her right knee this morning while laying in bed. OBJECTIVE: PAIN: Patient c/o R knee pain BED MOBILITY/TRANSFERS Supine-sit: S with HOB at 50 degrees Sit-stand: SBA Stand-sit: SBA Bed-Chair: SBA GAIT Assistive Device: FWW Weight bearing: WBAT on R Assist: SBA Distance: 5 side steps to R THEREX: Patient completed a LE strengthening program, as per flow sheet. She was also able to tolerate standing marching exercise x10 each, and functional [id number] exercise x5 with SBA. ASSESSMENT: Patient tolerate session well with some c/o pain in R knee. Patient demonstrates improvements in her transfers and bed mobility at this time. She would benefit from continued gait and transfer training as well as strengthening for improved mobility. PLAN: Continue with PT's POC TREATMENT CODE/TIME: 30 minutes; ([id number], [id number])
--- NOTE | 2018-10-03 11:42 | PTTR_ITS ---
Date of service: 10/03/18 Time of Service: 11:39 PT Notes Inpatient Physical Therapy Treatment Note [facility] Date: 10/03/18 PRECAUTIONS: Fall SUBJECTIVE: Maryjane states that she is having some pain in her right knee this morning while laying in bed. OBJECTIVE: PAIN: Patient c/o R knee pain BED MOBILITY/TRANSFERS Supine-sit: S with HOB at 50 degrees Sit-stand: SBA Stand-sit: SBA Bed-Chair: SBA GAIT Assistive Device: FWW Weight bearing: WBAT on R Assist: SBA Distance: 5 side steps to R THEREX: Patient completed a LE strengthening program, as per flow sheet. She was also able to tolerate standing marching exercise x10 each, and functional [id number] exercise x5 with SBA. ASSESSMENT: Patient tolerate session well with some c/o pain in R knee. Patient demonstrates improvements in her transfers and bed mobility at this time. She would benefit from continued gait and transfer training as well as strengthening for improved mobility. PLAN: Continue with PT's POC TREATMENT CODE/TIME: 30 minutes; ([id number], [id number])
--- NOTE | 2018-10-03 15:24 | PT.INTREAT ---
Date of service: 10/03/18 Time of Service: 15:24 PT Notes [facility] Date: 10/03/18 PRECAUTIONS: Fall SUBJECTIVE: Maryjane reports that she is feeling tired this afternoon and requests to get back to bed. OBJECTIVE: PAIN: Patient c/o R knee pain BED MOBILITY/TRANSFERS Sit-supine: Max A with HOB at flat Sit-stand: Min A Stand-sit: CGA Chair-bed: CGA GAIT Assistive Device: FWW Weight bearing: WBAT on R Assist: CGA Distance: 3 side steps to R + 6' THER EX: Refused due to fatigue. TOILETING: Patient toileted with assist. ASSESSMENT: Patient tolerate session with c/o pain in R knee and increased fatigue. She would benefit from continued gait and transfer training as well as strengthening for improved mobility. PLAN: Continue with PT's POC TREATMENT CODE/TIME: 15 minutes; ([id number])
[2018-10-03 16:50] VITALS: BP 142/65; PULSE 59; RESP 18; TEMP 36.1; O2SAT 97
[2018-10-03] MEDS: amLODIPine 2.5 MG TAB PO (16:59)
--- NOTE | 2018-10-03 17:06 | CMPROGNOTE_ITS ---
Care Management Progress Note S/O: Maryjane was sitting up in her chair when CM met with her. She reported feeling ready to re-enter [facility] and [facility] tomorrow; if medically cleared per MD. Maryjane remains pleasant in interaction and reported much relief after Dr. Martinez provided her knee injection. She reported being up to the commode and feeling much better. CM will continue to follow. A: P: 78 year old female admitted to [facility] 10/01/18 P: Bijal will transition to [facility] for continued rehabilitation when ready per MD. Transport via [facility]'s W/C [facility].
--- NOTE | 2018-10-03 18:17 | PGE_ITS ---
Date of Service Date of service: 10/03/18 Time of Service: 14:30 Assessment and Plan (1) Right knee pain: Current visit: Yes Status: Acute Post fall - likely due to osteoarthritis, now improved. Continue PT/OT. Could likely still benefit from rehab. (2) Right arm pain: Current visit: Yes Status: Acute ?Biceps tendenitis. PT/OT - for now, rest. Continue lidoderm patches. (3) Insulin dependent diabetes mellitus: Current visit: Yes Status: Chronic Some steroid induced hyperglycemia noted. Increase basal insulin. (4) Ambulatory dysfunction: Current visit: Yes Status: Chronic PT/OT (5) 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 diabetes mellitus: Current visit: Yes Status: Chronic Cr near baseline . (6) Obstructive sleep apnea: Current visit: No Status: Chronic Continue night time O2. (7) Discharge planning issues: Current visit: Yes Status: Acute DNI Will need rehab placement (8) DVT prophylaxis: Current visit: Yes Status: Acute Lovenox Subjective Interval history since last seen: States her R knee is doing much better since the injection, and she is now able to bear weight on it. Her R arm is still hurting. Denies dizziness, chest pain, shortness of breath, nausea, vomiting. Exam Narrative Exam Narrative: General: obese female, laying comfortably in bed HEENT: EOMI, MMM Heart: RRR, no m/r/g Lungs: CTAB GI: abdomen is soft, nontender, nondistended Extremities: BLE lymphedema. No TTP R knee. RUE with what appears to be biceps tendon tenderness. Objective Objective Clinical Data: Abnormal lab results 10/03/18 Range/Units 06:45 BUN 45 H (7-18) mg/dL Creatinine 1.89 H (0.55-1.02) mg/dL Glucose 308 H D (70-100) mg/dL Vital Signs Temperature 36.1 C L 10/03/18 16:50 Temperature Source Tympanic 10/03/18 16:50 Pulse 59 L 10/03/18 16:50 Pulse Rhythm Regular 10/03/18 09:29 Respiratory Rate 18 10/03/18 16:50 Respiratory Effort 10/03/18 09:29 Respiratory Depth Normal 10/03/18 09:29 Respiratory Pattern Normal 10/03/18 09:29 Blood Pressure 142/65 H 10/03/18 16:50 Blood Pressure Position Sitting 09/30/18 22:04 Pulse Oximetry 97 10/03/18 16:50 Oxygen Delivery Method Room Air 10/03/18 16:50 Oxygen Flow Rate 0 10/03/18 16:50 Pain Level 0 10/03/18 16:50 Intake & Output 10/02/18 10/03/18 10/03/18 23:59 11:59 23:59 Intake Total 1100 / 1650 890 / 1370 480 / 1370 Output Total 1350 / 1750 2200 / 2950 750 / 2950 Balance -250 / -100 -1310 / -1580 -270 / -1580 Intake: Oral 1100 / 1650 890 / 1370 480 / 1370 Output: Urine 1350 / 1750 2200 / 2950 750 / 2950 Other: Urine Color Yellow Yellow Yellow Urine Appearance Clear Clear Clear Urine Odor Normal Normal Voiding Methods Bedside Commode Bedside Commode Bedside Commode Laboratory Results WBC 9.00 k/cumm (4.4-10.8) D 10/03/18 06:45 RBC 4.03 m/cumm (4.00-5.20) 10/03/18 06:45 Hgb 12.0 g/dL (12.0-15.5) 10/03/18 06:45 Hct 37.0 % (36.0-46.0) 10/03/18 06:45 MCV 91.8 fL (80-95) 10/03/18 06:45 MCH 29.8 pg (27.0-33.0) 10/03/18 06:45 MCHC 32.4 g/dL (32.0-36.0) 10/03/18 06:45 RDW 13.2 % (11.7-14.6) 10/03/18 06:45 Plt Count 247 x1000/uL (130-400) 10/03/18 06:45 MPV 10.2 fL (8.0-11.0) 10/03/18 06:45 Immature Gran % 0.8 10/02/18 06:52 Neutrophils % 66.9 10/02/18 06:52 Lymphocytes % 19.3 10/02/18 06:52 Monocytes % 8.0 10/02/18 06:52 Eosinophils % 4.7 10/02/18 06:52 Basophils % 0.3 10/02/18 06:52 Absolute Neutrophils 4.27 k/cumm (1.2-6.7) 10/02/18 06:52 Absolute Lymphocytes 1.23 k/cumm (1.2-3.4) 10/02/18 06:52 Absolute Monocytes 0.51 k/cumm (0.11-0.7) 10/02/18 06:52 Absolute Eosinophils 0.30 k/cumm (0.0-0.7) 10/02/18 06:52 Absolute Basophils 0.02 k/cumm (0.0-0.2) 10/02/18 06:52 Sodium 136 mmol/L (136-145) 10/03/18 06:45 Potassium 5.1 mmol/L (3.5-5.1) D 10/03/18 06:45 Chloride 104 mmol/L (98-107) 10/03/18 06:45 Carbon Dioxide 24.1 mmol/L (21.0-32.0) 10/03/18 06:45 Anion Gap 7.9 mmol/L (3-11) 10/03/18 06:45 BUN 45 mg/dL (7-18) H 10/03/18 06:45 Creatinine 1.89 mg/dL (0.55-1.02) H 10/03/18 06:45 Estimated GFR/1.73 m2 25.59 (mL/min/1.73m2) 10/03/18 06:45 Glucose 308 mg/dL (70-100) H D 10/03/18 06:45 Hemoglobin A1c 8.9 % (4.5-6.2) H 10/01/18 07:20 Calcium 9.1 mg/dL (8.5-10.1) 10/03/18 06:45 Magnesium 1.9 mg/dL (1.8-2.4) 10/03/18 06:45 Iron 37 ug/dL (50-175) L 10/01/18 07:20 TIBC 197 ug/dL (250-450) L 10/01/18 07:20 Transferrin % Sat 19 % (15-50) 10/01/18 07:20 Total Bilirubin 0.1 mg/dL (0.2-1.0) L 09/30/18 22:50 AST 13 U/L (15-37) L 09/30/18 22:50 ALT 19 U/L (12-78) 09/30/18 22:50 Alkaline Phosphatase 104 U/L (46-116) 09/30/18 22:50 Total Protein 6.1 g/dL (6.4-8.2) L 09/30/18 22:50 Albumin 2.9 g/dL (3.4-5.0) L 09/30/18 22:50 TSH 2.02 uIU/mL (0.358-3.74) 10/01/18 07:20 Urine Color Yellow (Yellow) 10/01/18 01:05 Urine Clarity Sl cloudy 10/01/18 01:05 Urine pH 5.5 (5-8) 10/01/18 01:05 Ur Specific [place] 1.020 (1.005-1.025) 10/01/18 01:05 Urine Protein >=300 mg/dL (Negative) H 10/01/18 01:05 Urine Ketones Negative mg/dL (Negative) 10/01/18 01:05 Urine Blood Negative (Negative) 10/01/18 01:05 Urine Nitrite Negative (Negative) 10/01/18 01:05 Urine Bilirubin Negative (Negative) 10/01/18 01:05 Urine Urobilinogen 0.2 EU/dL (Up TO 0.2) 10/01/18 01:05 Ur Leukocyte Esterase Negative (Negative) 10/01/18 01:05 Urine RBC 0-2 (0-2) 10/01/18 01:05 Urine WBC 3-5 HPF (0-5) 10/01/18 01:05 Ur Epithelial Cells Many HPF (Negative) 10/01/18 01:05 Urine Crystals Negative HPF (Negative) 10/01/18 01:05 Urine Bacteria Moderate HPF (Negative) 10/01/18 01:05 Urine Casts Negative LPF (Negative) 10/01/18 01:05 Urine Mucus Negative (Negative) 10/01/18 01:05 Ur Culture Indicated? No/sq. contamination 10/01/18 01:05 Urine Glucose Negative mg/dL (Negative) 10/01/18 01:05
[2018-10-03 19:53] VITALS: BP 135/71; PULSE 60; RESP 17; TEMP 36.2; O2SAT 98
[2018-10-03] MEDS: Lidocaine 5% Patch 1 PATCH TP ×2 (21:01→21:02)
[2018-10-04] MEDS: Acetaminophen 325 MG TAB 650 MG PO (00:14)
[2018-10-04] MEDS: Pramipexole 0.5 MG TAB PO ×2 (02:14→05:44)
[2018-10-04 05:00] VITALS: BP 140/68; PULSE 60; RESP 18; TEMP 36.4; O2SAT 98
[2018-10-04] MEDS: Levothyroxine 100 MCG TAB 200 MCG PO (05:44)
[2018-10-04] MEDS: Enoxaparin 30 MG/0.3 ML SYR SC (05:44)
[2018-10-04 07:22] LABS: Abs Immature Grans 0.09 k/cumm (0.0-0.09); Absolute Basophil Count 0.02 k/cumm (0.0-0.2); Absolute Eosinophil Count 0.09 k/cumm (0.0-0.7); Absolute Lymphocyte Count 1.28 k/cumm (1.2-3.4); Absolute Monocyte Count 0.67 k/cumm (0.11-0.7); Absolute Neutrophil Count 6.24 k/cumm (1.2-6.7); Basophils % 0.2; Eosinophils % 1.1; HCT 34.3 % (36.0-46.0); Immature Grans % 1.1; Lymphocytes % 15.3; Mean Corp. HGB Concentration 32.1 g/dL (32.0-36.0); Mean Corpuscular Hemoglobin 29.7 pg (27.0-33.0); Mean Corpuscular Volume 92.7 fL (80-95); Mean Platelet Volume 10.2 fL (8.0-11.0); Neutrophils % 74.3; Platelet Count 233 x1000/uL (130-400); RBC Distribution Width 13.3 % (11.7-14.6); White Blood Cell Count 8.39 k/cumm (4.4-10.8)
[2018-10-04 07:27] LABS: Anion Gap 7.3 mmol/L (3-11); BUN 60 mg/dL (7-18); CO2 26.7 mmol/L (21.0-32.0); Calcium 8.8 mg/dL (8.5-10.1); Chloride 105 mmol/L (98-107); Estimated GFR 23.97 (mL/min/1.73m2); Glucose 145 mg/dL (70-100); Potassium 4.7 mmol/L (3.5-5.1); Sodium 139 mmol/L (136-145)
[2018-10-04 07:45] VITALS: BP 120/72; PULSE 60; RESP 20; TEMP 36.6; O2SAT 99
--- NOTE | 2018-10-04 08:19 | PT.INDS ---
Date of service: 10/04/18 Time of Service: 07:40 PT Notes Date: 10/04/18 Referring Doctor: Dr. Joe Hardy Orders: PT CONSULT: Osteoarthritis, hyperflexion injury right knee, general debility, assess and treat for safe transfers, independent ambulation goal Precautions: fall, standard Treatment Dates: 10/01/18 - 10/04/18 Patient Profile/Admitting Diagnosis: Patient admitted from ED after a fall at home, resulting in a hyperflexion injury of the right knee. X-rays in the emergency room showed no acute changes although severe underlying DJD. She received steroid injections to both knees 2 days ago, and reports moderately improved pain symptoms. She's participated in skilled PT intervention 1-2x/day for the past 4 days, with steadily improving mobility. PMHX: morbid obesity, osteoarthritis bilateral knees, chronic anemia, anxiety, depression, congestive heart failure, diabetes mellitus type II, restless leg syndrome, chronic pain, chronic kidney disease, erosive esophagitis, hyperlipidemia, hypothyroidism, hypertension, hyperkalemia, bilateral cataract extraction, hysterectomy, tubal ligation, gastroesophageal reflux disease, sleep apnea, B12 and magnesium deficiency Social History/Home Situation: Lives with daughter who assists with care, ramp to enter. Baseline mobility gait ~10ft with standard walker, assist with ADLS. Patient reports that she had a recent hospitalization in August, after which she stayed for approximately 2 weeks at [facility]. She returned home . Equipment owned/DME: Hospital bed, standard walker, wheelchair, grab bars around toilet and shower, home 02 Subjective: Patient resting in bed at initiation of session. She states that she had a difficult night due to her restless legs. She plans to transition to . H&R later today, with the hope of getting back home with her daughter as soon as possible. Objective: Mental Status: A&Ox3 Pain: Right knee Bed Mobility/Transfers: Supine to sit: supervision, with HOB at 30 degrees Sit to supine: mod A x 2 Sit-stand : min A Stand- sit: CG Gait: Patient ambulates 6' with WW and CGA. Balance: Static Sitting: good Dynamic Sitting: Fair Static Standing: fair Dynamic Standing: fair Treatment: Today's session consisted of re-evaluation, followed by gait training and instruction in a therex program, as noted on flowsheet. Patient tolerated UE and LE strengthening activities in seated position. She continues to struggle with extension based exercises for the LEs (SLR, quad sets) due to severe knee pain. These were modified throughout. Assessment: Patient is a 78 year old female referred to physical therapy services with right knee pain status post fall at home, in the presence of severe right knee osteoarthritis and limited mobility at baseline. Patient has a complicated medical history, including morbid obesity and poorly controlled diabetes, with multiple hospitalizations in the past few years. She received an injection to each knee during her course of care, and tolerated progression to short distance ambulation. Despite her gains, she continues to have significant strength and mobility deficits, and will require continued rehabilitation in a SNF setting to gain independence and reduce fall risk prior to returning home. Goals: Goals X1 week 1. Supine-Sit : SBA (MET with HOB at 30) 2. Sit-Supine : min A (progressing toward) 3. Sit-Stand : SBA with FWW (progressing toward) 4. Stand-Sit : SBA with FWW(progressing toward) 5. Bed-Chair : SBA with FWW(progressing toward) 6. Chair-Bed : SBA with FWW(progressing toward) 7. Gait : SBA with FWW x 10'(progressing toward) Plan of Care/Treatment Plan: D/C from PT in acute care setting DISCHARGE RECOMMENDATIONS: Recommend rehab stay prior to return home with assistance from daughter TREATMENT CODE/TIME: 25 minutes ([id number], [id number])
[2018-10-04] MEDS: amLODIPine 2.5 MG TAB PO (09:01)
[2018-10-04] MEDS: Pravastatin 40 MG TAB PO (09:01)
[2018-10-04] MEDS: Polyethylene Glycol 3350 17 GM PACKET PO (09:01)
[2018-10-04] MEDS: Gabapentin 400 MG CAP PO (09:01)
[2018-10-04] MEDS: Ferrous Sulfate 325 MG TAB PO (09:01)
[2018-10-04] MEDS: Magnesium Oxide 400 MG TAB PO (09:02)
[2018-10-04] MEDS: Torsemide 20 MG TAB PO (09:02)
[2018-10-04] MEDS: Cyanocobalamin 500 MCG TAB 1000 MCG PO (09:02)
[2018-10-04] MEDS: Aspirin E.C. 81 MG TABEC PO (09:02)
[2018-10-04] MEDS: PARoxetine 20 MG TAB PO (09:02)
[2018-10-04] MEDS: Multivitamin TAB 1 TAB PO (09:02)
[2018-10-04] MEDS: Patch Removal 1 EACH TP (09:03)
--- NOTE | 2018-10-04 09:17 | OT.INDS ---
Date of service: 10/04/18 Time of Service: 08:15 Occupational Therapy Notes Occupational Therapy Inpatient Discharge Summary Date:10/04/18 Referring Doctor:Alley Naidu MD OT Orders: Eval and Treat Dates of Service: 10/02/18-10/04/18 PATIENT PROFILE/ADMITTING DIAGNOSIS: Pt is a 78 year old female who ED after a fall at home, resulting in a hyperflexion injury of the right knee. X-rays in the emergency room showed no acute changes. Past Medical History: morbid obesity, osteoarthritis bilateral knees, chronic anemia, anxiety, depression, congestive heart failure, diabetes mellitus type II, restless leg syndrome, chronic pain, chronic kidney disease, erosive esophagitis, hyperlipidemia, hypothyroidism, hypertension, hyperkalemia, bilateral cataract extraction, hysterectomy, tubal ligation, gastroesophageal reflux disease, sleep apnea, B12 and magnesium deficiency Social History/Home Situation: Pt report that she lives in a private home with her daughter. She reports that she has one step to enter with no railings. She states that her baseline ADLs are (I) with dressing UE, eating, toileting. Her daughter assists with cooking, grocery shopping, bathing routine, dressing LE. Pt does not drive. Equipment owned/DME: Hospital bed, wheelchair, grab bars around toilet and shower, home oxygen, bedside commode SUBJECTIVE: Pt was sitting in chair when OT arrived. She reports that she is agreeable to OT session. She states that she is going to [facility] today. OBJECTIVE: General Observation: Pt is sitting in chair, she is pleasant and responds appropriately when answering questions. IV (R) UE not connected Mental Status: A&Ox3 Pain: c/o pain in (R) shoulder, lidocain patch on bicep ROM: RUE AROM to 130* shoulder flexion L UE AROM to about 130* shoulder flexion STRENGTH: RUE Mohamud flexion 4/5, elbow 4/5, refurbish technician 4/5 LUE mohamud flexion 4/5, elbow 4/5, refurbish technician 4/5 Dressing: Upper Body: (I) able to don dress (street clothes) Lower Body: Max (A) (B) socks, pt denies wearing pants or underwear Hair- (I) brushing hair sitting in chair Teeth- sitting in chair min (A) Toileting- Commode, mod (A) toileting hygiene Bathing- Sitting in chair with max set up (A) (pts baseline) Upper Body: (I) face, (B) UE, abdomen, under arms, max (A) with back and under belly skin Lower Body: Max (A) (B) feet and lower legs. Feeding: (I) sitting in chair with food to mouth translation and opening packages BALANCE: Static sitting Normal Dynamic Sitting Normal SPECIAL TESTS: Daily Activity Limitations Standardized Measure [facility] AM -PAC ?6 clicks? Daily Activity Inpatient Short Form: Raw score: 20 Standardized score: 42.03 CMS score: 38.32% [facility] modifier: CJ INFORMED CONSENT/EDUCATION: Pt instructed in purpose of OT Consult and plan of care. ASSESSMENT: Patient is a 78-year-old female referred to occupational therapy services with diagnosis a fall at home, resulting in a hyperflexion injury of the right knee in setting of morbid obesity, osteoarthritis bilateral knees, chronic anemia, anxiety, depression, congestive heart failure, diabetes mellitus type II, restless leg syndrome, chronic pain, chronic kidney disease, erosive esophagitis, hyperlipidemia, hypothyroidism, hypertension, hyperkalemia, bilateral cataract extraction, hysterectomy, tubal ligation, gastroesophageal reflux disease, sleep apnea, B12 and magnesium deficiency. Pt was seen for 2 OT sessions she is able to perform her bathing and dressing routines at her baseline level of function. She still presents with decreased functional activity tolerance in the standing position. She is was educated on energy conservation techniques although denies need for education reporting that she has (A) at home to help with all her ADLs. Pt is being discharged to [facility] when medically cleared per MD for continued care. GOALS in hospital setting 1. Pt will be able to don UE dress (I) in sitting position. (MET) 2. Pt will be able to perform bathing routine sitting in chair (I) with max (A) for feet and back (MET) 3. Pt will be able to perform toileting routine on toilet with min (A) for hygiene (NOT MET) 4. Pt will be able to perform teeth brushing standing at sink with min (A) (NOT MET) PLAN OF CARE/TREATMENT PLAN: Discharge Pt from skilled OT services Pt being discharged to [facility] DISCHARGE RECOMMENDATIONS OT recommends that pt got to SNF when medically cleared per MD. Pt has all DME. TREATMENT TIME/MINUTES/CODES [id number], 23 minutes G Codes in the area of self- : washing oneself, toileting, dressing, eating and drinking, current status GO [id number] CK projected status GO [id number]. Discharge status GO [id number]. Based on AMPAC score 19, CMS score 42.80%. Latha Clay, OTR/L [facility]
--- NOTE | 2018-10-04 09:26 | OTDS_ITS ---
Date of service: 10/04/18 Time of Service: 08:15 Occupational Therapy Notes Occupational Therapy Inpatient Discharge Summary Date:10/04/18 Referring Doctor:Alley Naidu MD OT Orders: Eval and Treat Dates of Service: 10/02/18-10/04/18 PATIENT PROFILE/ADMITTING DIAGNOSIS: Pt is a 78 year old female who ED after a fall at home, resulting in a hyperflexion injury of the right knee. X-rays in the emergency room showed no acute changes. Past Medical History: morbid obesity, osteoarthritis bilateral knees, chronic anemia, anxiety, depression, congestive heart failure, diabetes mellitus type II, restless leg syndrome, chronic pain, chronic kidney disease, erosive esophagitis, hyperlipidemia, hypothyroidism, hypertension, hyperkalemia, bilateral cataract extraction, hysterectomy, tubal ligation, gastroesophageal reflux disease, sleep apnea, B12 and magnesium deficiency Social History/Home Situation: Pt report that she lives in a private home with her daughter. She reports that she has one step to enter with no railings. She states that her baseline ADLs are (I) with dressing UE, eating, toileting. Her daughter assists with cooking, grocery shopping, bathing routine, dressing LE. Pt does not drive. Equipment owned/DME: Hospital bed, wheelchair, grab bars around toilet and shower, home oxygen, bedside commode SUBJECTIVE: Pt was sitting in chair when OT arrived. She reports that she is agreeable to OT session. She states that she is going to [facility] today. OBJECTIVE: General Observation: Pt is sitting in chair, she is pleasant and responds appropriately when answering questions. IV (R) UE not connected Mental Status: A&Ox3 Pain: c/o pain in (R) shoulder, lidocain patch on bicep ROM: RUE AROM to 130* shoulder flexion L UE AROM to about 130* shoulder flexion STRENGTH: RUE Mohamud flexion 4/5, elbow 4/5, experimental aircraft mechanic 4/5 LUE mohamud flexion 4/5, elbow 4/5, experimental aircraft mechanic 4/5 Dressing: Upper Body: (I) able to don dress (street clothes) Lower Body: Max (A) (B) socks, pt denies wearing pants or underwear Hair- (I) brushing hair sitting in chair Teeth- sitting in chair min (A) Toileting- Commode, mod (A) toileting hygiene Bathing- Sitting in chair with max set up (A) (pts baseline) Upper Body: (I) face, (B) UE, abdomen, under arms, max (A) with back and under belly skin Lower Body: Max (A) (B) feet and lower legs. Feeding: (I) sitting in chair with food to mouth translation and opening packages BALANCE: Static sitting Normal Dynamic Sitting Normal SPECIAL TESTS: Daily Activity Limitations Standardized Measure [facility] AM -PAC ?6 clicks? Daily Activity Inpatient Short Form: Raw score: 20 Standardized score: 42.03 CMS score: 38.32% [facility] modifier: CJ INFORMED CONSENT/EDUCATION: Pt instructed in purpose of OT Consult and plan of care. ASSESSMENT: Patient is a 78-year-old female referred to occupational therapy services with diagnosis a fall at home, resulting in a hyperflexion injury of the right knee in setting of morbid obesity, osteoarthritis bilateral knees, chronic anemia, anxiety, depression, congestive heart failure, diabetes mellitus type II, restless leg syndrome, chronic pain, chronic kidney disease, erosive esophagitis, hyperlipidemia, hypothyroidism, hypertension, hyperkalemia, bilateral cataract extraction, hysterectomy, tubal ligation, gastroesophageal reflux disease, sleep apnea, B12 and magnesium deficiency. Pt was seen for 2 OT sessions she is able to perform her bathing and dressing routines at her baseline level of function. She still presents with decreased functional activity tolerance in the standing position. She is was educated on energy conservation techniques although denies need for education reporting that she has (A) at home to help with all her ADLs. Pt is being discharged to [facility] when medically cleared per MD for continued care. GOALS in hospital setting 1. Pt will be able to don UE dress (I) in sitting position. (MET) 2. Pt will be able to perform bathing routine sitting in chair (I) with max (A) for feet and back (MET) 3. Pt will be able to perform toileting routine on toilet with min (A) for hygiene (NOT MET) 4. Pt will be able to perform teeth brushing standing at sink with min (A) (NOT MET) PLAN OF CARE/TREATMENT PLAN: Discharge Pt from skilled OT services Pt being discharged to [facility] DISCHARGE RECOMMENDATIONS OT recommends that pt got to SNF when medically cleared per MD. Pt has all DME. TREATMENT TIME/MINUTES/CODES [id number], 23 minutes G Codes in the area of self- : washing oneself, toileting, dressing, eating and drinking, current status GO G8987 CK projected status GO [id number]. Discharge status GO [id number]. Based on AMPAC score 19, CMS score 42.80%. Latha Clay, OTR/L [facility]
--- NOTE | 2018-10-04 11:34 | DSE_ITS ---
Date of service: 10/04/18 Time of Service: 11:31 DS: Diagnosis Discharge Diagnosis (1) Right knee pain: Status: Acute (2) Right arm pain: Status: Acute (3) Insulin dependent diabetes mellitus: Status: Chronic (4) Ambulatory dysfunction: Status: Chronic (5) 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 diabetes mellitus: Status: Chronic (6) Obstructive sleep apnea: Status: Chronic Discharge Plan Disposition Patient Disposition: SNF (LEVEL 1) [facility] Condition: Improving Discharge Details Reason For Visit: RIGHT KNEE PAIN,MECHANICAL FALL,ACUTE ON CHRONIC K Admit Date/Time: 10/01/18 11:03 Admit Provider: Eb Diaz Attending Provider: Eb Diaz Primary Care Provider: Yvonne Staples Hospital Course Hospital Course: Mrs. Zapata is an 78-year-old woman residing at home with her daughter who presented to the emergency room by ambulance because of a mechanical fall at home resulting in hyperflexion of her right knee, pain in the knee and inability to get up by herself. She has a history of morbid obesity, poorly controlled type 2 diabetes, chronic kidney disease and neuropathy, restless leg syndrome, hypertension, osteoarthritis of the knees, chronic anemia, hypothyroidism, morbid obesity and suspected obstructive sleep apnea with no desire for treatment, diastolic dysfunction. She was hospitalized here in early August 2018 for increasing pain in her left leg attributed to worsening neuropathy and for which gabapentin dose was titrated. She went to [facility] and rehab where she improved sufficiently to be discharged back to home on September 08. In the emergency room she did not have any right knee pain at rest but did with passive or active extension of the right knee. X-ray did not show any fracture but does show advanced tricompartmental osteoarthritis of the knee. She was seen by Dr. Martinez, orthopedics, who provided steroid injections to bilateral knees. She reports improvement in her bilateral knee pain. Her blood glucose was elevated, likely due to steroids. Her Insulin Detemir was increased from 45 units at HS to 60 units at HS. She will need ongoing blood glucose monit oring and adjustment. She also reported right arm pain, possibly biceps tendonitis, she will continue to work with PT/OT, lidoderm patches have been helpful. She has been working with PT/OT, recommends rehab prior returning home. She has a history of chronic kidney disease, her BUN/Cr were elevated above baseline on admission. She received cautious IV hydration. Her BUN and Cr remain mildly elevated over baseline. She will need follow up labs to reassess her renal function. Encourage oral hydration. She has been accepted at [facility] and will transition there today. Home Meds and New Rx's Prescriptions: New polyethylene glycol 3350 17 gram Powder In Packet 17 g PO BID Qty: 0 RF: 0 pramipexole 0.5 mg Tablet 0.5 mg PO HS PRN PRNQty: 0 RF: 0 lidocaine [Lidoderm] 5 % Adhesive Patch,Medicated 1 patch topical Q24H Qty: 0 RF: 0 lidocaine [Lidoderm] 5 % Adhesive Patch,Medicated 1 patch topical Q24H Qty: 0 RF: 0 Continued paroxetine HCl 20 mg tablet 20 mg PO DAILY Qty: 90 RF: 3 aspirin [Aspir-81] 81 MG tablet,delayed release (DR/EC) 81 mg PO DAILY RF: 0 multivitamin [Daily Multi-Vitamin] 1 EACH tablet 1 ea PO DAILY Qty: 90 RF: 3 pen needle, diabetic [BD Ultra-Fine Skylar Pen Needle] 1 EACH needle 1 ea Miscellaneous HS 999 Days Qty: 1 RF: 6 levetiracetam [Keppra] 500 MG tablet 500 mg PO BID Qty: 60 RF: 11 sucralfate 1 GM tablet 1 g PO QID PRNQty: 120 RF: 11 amlodipine 2.5 MG tablet 2.5 mg PO DAILY Qty: 30 RF: 11 ranitidine HCl 150 MG tablet 150 mg PO BID Qty: 60 RF: 11 magnesium oxide 400 MG tablet 400 mg PO BID Qty: 60 RF: 11 pen needle, diabetic [Pen Needle] 1 EACH needle 1 ea Miscellaneous QID 50 Days Qty: 1 RF: 11 Hospital Bed EACH Miscellaneous ONCE Qty: 1 RF: 0 torsemide 20 MG tablet 20 mg PO DAILY Qty: 30 RF: 11 pravastatin 40 MG tablet 40 mg PO DAILY Qty: 90 RF: 3 cyanocobalamin (vitamin B-12) [Vitamin B-12] 500 MCG tablet 1,000 mcg PO DAILY Qty: 100 RF: 3 ferrous sulfate 325 MG tablet 325 mg PO BID Qty: 60 RF: 6 blood-glucose meter [Youxinpai Ultra2] 1 EACH kit 1 ea Miscellaneous ONCE Qty: 1 RF: 0 lancets [BD Ultra Fine Lancets] 1 EACH misc 1 ea Miscellaneous BID Qty: 60 RF: 11 ONETOUCH ULTRA TEST STRIPS 1 EACH strip 1 ea Miscellaneous TID Qty: 90 RF: 11 gabapentin 400 mg capsule 400 mg PO TID Qty: 270 RF: 3 levothyroxine 200 mcg tablet 200 mcg PO DAILY Qty: 90 RF: 3 pramipexole 0.5 mg tablet 0.5 mg PO BID 90 Days Qty: 180 RF: 3 tramadol 50 mg tablet 50 mg PO Q8H PRN (Reason: pain) Qty: 90 RF: 0 ketoconazole 2 % Cream Topical BID Qty: 0 RF: 0 polyethylene glycol 3350 17 gram Powder In Packet 17 g PO DAILY PRN PRN (Reason: Constipation) Qty: 0 RF: 0 Novolog Flexpen U-100 Insulin 300 UNITS/3 ML insulin pen 10 unit Sub-Q 0800,1200,1700 Qty: 0 RF: 0 Mouthwash [Biotene Mouthwash] 59 ML Btl 5 ml Mucous Membrane AC RF: 0 acetaminophen [Tylenol] 325 MG tablet 650 mg PO Q6H PRN PRNQty: 0 RF: 0 Changed Levemir FlexTouch U-100 Insuln 100 unit/mL (3 mL) insulin pen 60 unit SC QPM Qty: 15 RF: 3 Discharge Instructions Instructions: Fall Prevention for Older Adults (GEN) Stand Alone Forms: Nursing Discharge Form Activity:: Activity as Tolerated Equipment/Supplies:: No Equipment Needed Diet:: Carb Counting Discharge Orders Discharge Orders: Discharge Order (Routine); Ordered 10/04/18 Ordered By: Nelida Kumar Other Ambulatory Orders: Basic Metabolic Panel (Routine) Timeframe: 3 Days Location: Determined by Patient Ordered By: Nelida Kumar Exam Narrative Exam Narrative: General: awake and alert, sitting up in wheelchair. HEENT: normocephalic, atraumatic, mucous membranes moist, pupils equal and round. Neck: supple. Respiratory: respirations even and unlabored, lung sounds clear to auscultation throughout. Cardiovascular: Heart with regular rate and rhythm, no murmur appreciated. Abdomen: Soft, nontender on palpation, normoactive bowel sounds throughout all 4 quadrants. No masses appreciated. Extremities: Well perfused, no pitting edema, extremities are large, 2+ pedal pulses bilaterally. Bilateral knees without obvious effusion, difficult to assess due to body habitus. DS: Data Vitals/I&O Vitals and I&O: Vital Signs Temperature 36.6 C 10/04/18 07:45 Temperature Source Tympanic 10/04/18 07:45 Pulse 60 10/04/18 07:45 Pulse Rhythm Regular 10/04/18 09:08 Respiratory Rate 20 10/04/18 07:45 Respiratory Effort 10/04/18 09:08 Respiratory Depth Normal 10/04/18 09:08 Respiratory Pattern Normal 10/04/18 09:08 Blood Pressure 120/72 10/04/18 07:45 Blood Pressure Position Sitting 09/30/18 22:04 Pulse Oximetry 99 10/04/18 07:45 Oxygen Delivery Method Nasal Cannula 10/04/18 07:45 Oxygen Flow Rate 2 10/04/18 07:45 Pain Level 0 10/04/18 07:45 Intake & Output 10/03/18 10/03/18 10/04/18 11:59 23:59 11:59 Intake Total 890 / 1370 480 / 1370 370 / 370 Output Total 2200 / 3350 1150 / 3350 750 / 750 Balance -1310 / -1980 -670 / -1980 -380 / -380 Intake: Oral 890 / 1370 480 / 1370 370 / 370 Output: Urine 2200 / 3350 1150 / 3350 750 / 750 Other: Urine Color Yellow Yellow Yellow Urine Appearance Clear Clear Clear Urine Odor Normal Normal Voiding Methods Bedside Commode Bedside Commode Bedside Commode Completed studies during hospitalization [Text1]: 09/30/18: RIGHT KNEE: Four views. The study is limited due to patient body habitus. No acute fracture or dislocation is seen. Marked osteoarthritic changes are seen in the knee with marked joint space narrowing and brandi-articular spurring involving all three joint compartments. The soft tissues are grossly unremarkable. IMPRESSION: No acute abnormality. 10/02/18: X-ray RIGHT SHOULDER: Multiple views. No acute fracture or dislocation is seen. There are moderate degenerative changes seen at the acromioclavicular joint. There does appear to be superior subluxation of the humeral head with narrowing of the acromiohumeral interval. This may reflect chronic rotator cuff tear. The bones appear osteopenic. The soft tissues are unremarkable. IMPRESSION: 1. No acute fracture or dislocation. 2. Osteoarthritis of the right shoulder. Labs on day of discharge: Labs from last 24 hours 10/04/18 10/04/18 06:33 06:33 WBC 8.39 RBC 3.70 L Hgb 11.0 L Hct 34.3 L MCV 92.7 MCH 29.7 MCHC 32.1 RDW 13.3 Plt Count 233 MPV 10.2 Immature Gran % 1.1 Neutrophils % 74.3 Lymphocytes % 15.3 Monocytes % 8.0 Eosinophils % 1.1 Basophils % 0.2 Absolute Neutrophils 6.24 Absolute Lymphocytes 1.28 Absolute Monocytes 0.67 Absolute Eosinophils 0.09 Absolute Basophils 0.02 Sodium 139 Potassium 4.7 Chloride 105 Carbon Dioxide 26.7 Anion Gap 7.3 BUN 60 H D Creatinine 2.00 H Estimated GFR/1.73 m2 23.97 Glucose 145 H D Calcium 8.8 Magnesium 2.0 PFSH Medical History Acute kidney injury superimposed on chronic kidney disease (Acute) Left leg pain (Acute) Insulin dependent diabetes mellitus (Chronic) Ambulatory dysfunction (Chronic) Hypothyroidism (Chronic) Microalbuminuria (Chronic 07/11/15) Vitamin B12 deficiency (Chronic 04/09/16) Primary localized osteoarthrosis of left lower leg (Chronic 09/21/11) Palliative care patient (Chronic 10/26/17) Other hyperlipidemia (Chronic 09/21/11) Iron deficiency anemia due to chronic blood loss (Chronic 09/21/11) Herpes zoster without complication (Resolved 07/22/17) Generalized anxiety disorder (Chronic 09/21/11) 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) Diabetes mellitus type 2 in nonobese (Chronic 03/12/98) Chronic diastolic heart failure (Chronic 01/16/18) 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) Obstructive sleep apnea (Chronic) 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 (Chronic) Hypoxemia (Chronic) Poorly controlled type 2 diabetes mellitus (Chronic) Morbid obesity with BMI of 70 and over, adult (Chronic) Depression (Chronic) Osteoarthritis of knees, bilateral (Chronic) H/O: hysterectomy (Chronic) Surgical History Extraction of cataract (11/14/11) History of colonoscopy (Chronic) History of esophagogastroduodenoscopy (EGD) (Chronic) H/O oral surgery (Resolved) Social History adopted: No caregiver/support person: Yes foster care: No household members: children housing: house lives independently: No number of children: 4 mcc: No current occupational status: retired pets and animals: Yes leisure activities: other Hx Recent Travel: No diet: diabetic well-balanced diet: about half the time eating out: rarely or never reads food labels: sometimes Smoking/Tobacco Use Status: Never passive smoking exposure: Yes additional social history: Marital Status: (Hernan suddenly 03/06/2001) 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
--- NOTE | 2018-10-04 11:50 | W.PM.PROGNOT ---
Date of Service Date of service: 10/04/18 Time of Service: 11:50 Assessment and Plan (1) Osteoarthritis of knees, bilateral: Current visit: Yes Status: Chronic Osteoarthritis of both knees with some improvlement following cortico steroid injections. Subjective Interval history since last seen: Right knee generally feeling better. Was feeling better yesterday afternoon than this morning, but patient is much more functional and mobile. Going to [facility] today. Exam Psych Other: Both lower extremity examinations unchanged and non-diagnostic. Objective Objective Clinical Data: Abnormal lab results 10/04/18 10/04/18 Range/Units 06:33 06:33 RBC 3.70 L (4.00-5.20) m/cumm Hgb 11.0 L (12.0-15.5) g/dL Hct 34.3 L (36.0-46.0) % BUN 60 H D (7-18) mg/dL Creatinine 2.00 H (0.55-1.02) mg/dL Glucose 145 H D (70-100) mg/dL Vital Signs Temperature 97.9 F 10/04/18 07:45 Temperature Source Tympanic 10/04/18 07:45 Pulse 60 10/04/18 07:45 Pulse Rhythm Regular 10/04/18 09:08 Respiratory Rate 20 10/04/18 07:45 Respiratory Effort 10/04/18 09:08 Respiratory Depth Normal 10/04/18 09:08 Respiratory Pattern Normal 10/04/18 09:08 Blood Pressure 120/72 10/04/18 07:45 Blood Pressure Position Sitting 09/30/18 22:04 Pulse Oximetry 99 10/04/18 07:45 Oxygen Delivery Method Nasal Cannula 10/04/18 07:45 Oxygen Flow Rate 2 10/04/18 07:45 Pain Level 0 10/04/18 07:45 Intake & Output 10/03/18 10/03/18 10/04/18 11:59 23:59 11:59 Intake Total 890 / 1370 480 / 1370 370 / 370 Output Total 2200 / 3350 1150 / 3350 750 / 750 Balance -1310 / -1980 -670 / -1980 -380 / -380 Intake: Oral 890 / 1370 480 / 1370 370 / 370 Output: Urine 2200 / 3350 1150 / 3350 750 / 750 Other: Urine Color Yellow Yellow Yellow Urine Appearance Clear Clear Clear Urine Odor Normal Normal Voiding Methods Bedside Commode Bedside Commode Bedside Commode Laboratory Results WBC 8.39 k/cumm (4.4-10.8) 10/04/18 06:33 RBC 3.70 m/cumm (4.00-5.20) L 10/04/18 06:33 Hgb 11.0 g/dL (12.0-15.5) L 10/04/18 06:33 Hct 34.3 % (36.0-46.0) L 10/04/18 06:33 MCV 92.7 fL (80-95) 10/04/18 06:33 MCH 29.7 pg (27.0-33.0) 10/04/18 06:33 MCHC 32.1 g/dL (32.0-36.0) 10/04/18 06:33 RDW 13.3 % (11.7-14.6) 10/04/18 06:33 Plt Count 233 x1000/uL (130-400) 10/04/18 06:33 MPV 10.2 fL (8.0-11.0) 10/04/18 06:33 Immature Gran % 1.1 10/04/18 06:33 Neutrophils % 74.3 10/04/18 06:33 Lymphocytes % 15.3 10/04/18 06:33 Monocytes % 8.0 10/04/18 06:33 Eosinophils % 1.1 10/04/18 06:33 Basophils % 0.2 10/04/18 06:33 Absolute Neutrophils 6.24 k/cumm (1.2-6.7) 10/04/18 06:33 Absolute Lymphocytes 1.28 k/cumm (1.2-3.4) 10/04/18 06:33 Absolute Monocytes 0.67 k/cumm (0.11-0.7) 10/04/18 06:33 Absolute Eosinophils 0.09 k/cumm (0.0-0.7) 10/04/18 06:33 Absolute Basophils 0.02 k/cumm (0.0-0.2) 10/04/18 06:33 Sodium 139 mmol/L (136-145) 10/04/18 06:33 Potassium 4.7 mmol/L (3.5-5.1) 10/04/18 06:33 Chloride 105 mmol/L (98-107) 10/04/18 06:33 Carbon Dioxide 26.7 mmol/L (21.0-32.0) 10/04/18 06:33 Anion Gap 7.3 mmol/L (3-11) 10/04/18 06:33 BUN 60 mg/dL (7-18) H D 10/04/18 06:33 Creatinine 2.00 mg/dL (0.55-1.02) H 10/04/18 06:33 Estimated GFR/1.73 m2 23.97 (mL/min/1.73m2) 10/04/18 06:33 Glucose 145 mg/dL (70-100) H D 10/04/18 06:33 Hemoglobin A1c 8.9 % (4.5-6.2) H 10/01/18 07:20 Calcium 8.8 mg/dL (8.5-10.1) 10/04/18 06:33 Magnesium 2.0 mg/dL (1.8-2.4) 10/04/18 06:33 Iron 37 ug/dL (50-175) L 10/01/18 07:20 TIBC 197 ug/dL (250-450) L 10/01/18 07:20 Transferrin % Sat 19 % (15-50) 10/01/18 07:20 Total Bilirubin 0.1 mg/dL (0.2-1.0) L 09/30/18 22:50 AST 13 U/L (15-37) L 09/30/18 22:50 ALT 19 U/L (12-78) 09/30/18 22:50 Alkaline Phosphatase 104 U/L (46-116) 09/30/18 22:50 Total Protein 6.1 g/dL (6.4-8.2) L 09/30/18 22:50 Albumin 2.9 g/dL (3.4-5.0) L 09/30/18 22:50 TSH 2.02 uIU/mL (0.358-3.74) 10/01/18 07:20 Urine Color Yellow (Yellow) 10/01/18 01:05 Urine Clarity Sl cloudy 10/01/18 01:05 Urine pH 5.5 (5-8) 10/01/18 01:05 Ur Specific [place] 1.020 (1.005-1.025) 10/01/18 01:05 Urine Protein >=300 mg/dL (Negative) H 10/01/18 01:05 Urine Ketones Negative mg/dL (Negative) 10/01/18 01:05 Urine Blood Negative (Negative) 10/01/18 01:05 Urine Nitrite Negative (Negative) 10/01/18 01:05 Urine Bilirubin Negative (Negative) 10/01/18 01:05 Urine Urobilinogen 0.2 EU/dL (Up TO 0.2) 10/01/18 01:05 Ur Leukocyte Esterase Negative (Negative) 10/01/18 01:05 Urine RBC 0-2 (0-2) 10/01/18 01:05 Urine WBC 3-5 HPF (0-5) 10/01/18 01:05 Ur Epithelial Cells Many HPF (Negative) 10/01/18 01:05 Urine Crystals Negative HPF (Negative) 10/01/18 01:05 Urine Bacteria Moderate HPF (Negative) 10/01/18 01:05 Urine Casts Negative LPF (Negative) 10/01/18 01:05 Urine Mucus Negative (Negative) 10/01/18 01:05 Ur Culture Indicated? No/sq. contamination 10/01/18 01:05 Urine Glucose Negative mg/dL (Negative) 10/01/18 01:05
--- NOTE | 2018-10-04 17:19 | PDOC.CMDIS ---
LACE Index Scoring Tool - Questions: Length of Stay (in days): 3 Acuity (Admit via E.D.?): Yes Comorbidities: Diabetes w/o Complication, Liver or Renal Disease E.D. Visits: 4 - Answers: Total Score: 15 Risk of Readmission: High Risk Care Management Discharge Reason for Hospitalization: Right knee pain, mechanical fall, acute on chronic K Discharge Plan: Bijal will transition to [facility] for continued rehabilitation when ready per MD. Transport via [facility] W/C [facility]. Patient/Family Education Needs: Review discharge instructions, discuss Ask Me Three. Services Needed at Discharge: Longterm Facility ([facility] )
--- NOTE | 2018-10-04 17:22 | CMDISCH_ITS ---
LACE Index Scoring Tool - Questions: Length of Stay (in days): 3 Acuity (Admit via E.D.?): Yes Comorbidities: Diabetes w/o Complication, Liver or Renal Disease E.D. Visits: 4 - Answers: Total Score: 15 Risk of Readmission: High Risk Care Management Discharge Reason for Hospitalization: Right knee pain, mechanical fall, acute on chronic K Discharge Plan: Bijal will transition to [facility] for continued rehabilitation when ready per MD. Transport via [facility] W/C [facility]. Patient/Family Education Needs: Review discharge instructions, discuss Ask Me Three. Services Needed at Discharge: Prison Facility ([facility] )
== END 2018-10-04 11:28 | disposition skilled nursing facility (03) | DRG 556 ==
LOC: ER 23:34 → MS 10-01 01:30
PROVIDERS: Nurse Practitioner Family; Admitting Provider Internal Medicine; Emergency Provider Emergency Medicine; PCP Nurse Practitioner Adult Health; Visit Provider Internal Medicine
DX: M25.561 Pain in right knee (principal); N17.9 Acute kidney failure, unspecified; I13.0 Hypertensive heart and chronic kidney disease with heart failure and stage 1 through stage 4 chronic kidney disease, or unspecified chronic kidney disease; I50.32 Chronic diastolic (congestive) heart failure; N18.4 Chronic kidney disease, stage 4 (severe); Z68.43 Body mass index [BMI] 50.0-59.9, adult; M79.601 Pain in right arm; M17.0 Bilateral primary osteoarthritis of knee; E11.22 Type 2 diabetes mellitus with diabetic chronic kidney disease; E11.65 Type 2 diabetes mellitus with hyperglycemia; Z79.4 Long term (current) use of insulin; R29.6 Repeated falls; W19.XXXA Unspecified fall, initial encounter; X50.0XXA Overexertion from strenuous movement or load, initial encounter; G47.33 Obstructive sleep apnea (adult) (pediatric); G25.81 Restless legs syndrome; K21.9 Gastro-esophageal reflux disease without esophagitis; E03.9 Hypothyroidism, unspecified; E66.01 Morbid (severe) obesity due to excess calories; F32.9 Major depressive disorder, single episode, unspecified; R09.02 Hypoxemia
CPT/HCPCS: 20610; 36415; 73562; 80048; 80053; 85027; 87081; 97110; 97140; 97162; 97166; 97530; 97535; 99220; 99231; 99232; 99233; 99239; 99285; NC; 73030; 81003; 81015; 83036; 83540; 83550; 83735; 84443; 85025; 85049; 99284; G0378; J1040; J1650; J3490

== ENCOUNTER 2018-10-07 19:12 | Outpatient (REF) | payer MEDICARE, MEDICAID, SELFPAY ==
[2018-10-07 19:51] LABS: Anion Gap 9.8 mmol/L (3-11); BUN 59 mg/dL (7-18); CO2 28.2 mmol/L (21.0-32.0); CREATININE 1.82 mg/dL (0.55-1.02); Calcium 8.8 mg/dL (8.5-10.1); Chloride 103 mmol/L (98-107); Estimated GFR 26.73 (mL/min/1.73m2); Glucose 182 mg/dL (70-100); Potassium 4.7 mmol/L (3.5-5.1); Sodium 141 mmol/L (136-145)
== END 2018-10-07 19:32 ==
LOC: LBN 19:12
PROVIDERS: PCP Nurse Practitioner Adult Health; Visit Provider Family Medicine
DX: N18.4 Chronic kidney disease, stage 4 (severe) (principal); E11.9 Type 2 diabetes mellitus without complications; D50.9 Iron deficiency anemia, unspecified; E03.9 Hypothyroidism, unspecified
CPT/HCPCS: 80048

== ENCOUNTER 2019-03-16 15:37 | Outpatient (REF) | payer MEDICARE, MEDICAID, SELFPAY ==
[2019-03-16 16:02] LABS: Bilirubin Negative (Negative); Blood Trace-intact (Negative); Clarity Cloudy (Clear); Glucose 100 mg/dL (Negative); Ketones Negative (Negative); Leukocyte Esterase Negative (Negative); Nitrite Negative (Negative); Specific Gravity 1.015 (1.005-1.025); Urobilinogen 0.2 EU/dL (Up TO 0.2); pH 5.5 (5-8)
[2019-03-16 16:09] LABS: Epithelial Cells Moderate HPF (Negative)
[2019-03-16 16:10] LABS: Bacteria Many HPF (Negative); Crystals Many Amorphous HPF (Negative)
[2019-03-16 16:11] LABS: C & S Indicated? C&S Done As Ordered
== END 2019-03-16 15:57 ==
LOC: LBN 15:37
PROVIDERS: PCP Nurse Practitioner Adult Health; Visit Provider Student in an Organized Health Care Education/Training Program
DX: R39.9 Unspecified symptoms and signs involving the genitourinary system (principal)
CPT/HCPCS: 81003; 81015; 87086

== ENCOUNTER 2019-03-16 18:55 | Emergency (ER) | payer MEDICARE, MEDICAID, SELFPAY ==
[2019-03-16 19:00] VITALS: BP 168/109; PULSE 87; RESP 16; TEMP 36.5; O2SAT 96
--- NOTE | 2019-03-16 19:24 | DI.RAD_ITS ---
SYMPTOM/DIAGNOSIS: COUGH AP AND LATERAL CHEST: The heart is enlarged. No pleural effusion is seen. Diffuse bilateral intrapulmonary interstitial infiltrates noted, little if any interval change in comparison with previous examinations of 11/2017 and 07/2018. The findings as described may represent mild chronic CHF and/or pulmonary interstitial scarring. No gross new consolidation is seen. CONCLUSION: Stable appearance of the chest, question mild chronic CHF.
--- NOTE | 2019-03-16 19:25 | W.ED.GENAD ---
Discharge Plan Disposition Patient Disposition: HOME Condition: Improving Discharge Details Chief Complaint: SOB Clinical Impression: Acute dehydration Primary Care Provider: Yvonne Staples ED Provider: Miguel Weiss Home Meds and New Rx's Prescriptions: Continued paroxetine HCl 20 mg tablet 20 mg PO DAILY Qty: 90 RF: 3 lancets [BD Ultra Fine Lancets] 33 gauge misc 1 ea Miscellaneous BID Qty: 100 RF: 11 pen needle, diabetic [BD Ultra-Fine Skylar Pen Needle] 32 gauge x 5/32 needle 1 ea Miscellaneous HS 999 Days Qty: 100 RF: 11 aspirin [Aspir-81] 81 MG tablet,delayed release (DR/EC) 81 mg PO DAILY RF: 0 multivitamin [Daily Multi-Vitamin] 1 EACH tablet 1 ea PO DAILY Qty: 90 RF: 3 ranitidine HCl 150 MG tablet 150 mg PO BID Qty: 60 RF: 11 pen needle, diabetic [Pen Needle] 1 EACH needle 1 ea Miscellaneous QID 50 Days Qty: 1 RF: 11 Hospital Bed EACH Miscellaneous ONCE Qty: 1 RF: 0 blood-glucose meter [[employer]Touch Ultra2] 1 EACH kit 1 ea Miscellaneous ONCE Qty: 1 RF: 0 gabapentin 400 mg capsule 400 mg PO TID Qty: 270 RF: 3 levothyroxine 200 mcg tablet 200 mcg PO DAILY Qty: 90 RF: 3 Oxygen Tank .ROUTE .MEDSUPPLY Qty: 1 RF: 0 OneTouch Ultra Blue Test Strip strip .ROUTE .MEDSUPPLY Qty: 100 RF: 11 magnesium oxide 400 mg (241.3 mg magnesium) tablet 400 mg PO BID Qty: 60 RF: 11 levetiracetam [Keppra] 500 mg tablet 500 mg PO BID Qty: 60 RF: 11 sucralfate 1 gram tablet 1 g PO QID PRN (Reason: heartburn & cough) Qty: 120 RF: 11 torsemide 20 mg tablet 20 mg PO DAILY Qty: 30 RF: 11 pramipexole 0.5 mg tablet 0.5 mg PO TID Qty: 270 RF: 3 pravastatin 40 mg tablet 40 mg PO DAILY Qty: 90 RF: 3 ferrous sulfate 325 mg (65 mg iron) tablet 325 mg PO BID Qty: 180 RF: 3 cyanocobalamin (vitamin B-12) [Vitamin B-12] 500 mcg tablet 1,000 mcg PO DAILY Qty: 180 RF: 3 amlodipine 2.5 mg tablet 2.5 mg PO DAILY Qty: 90 RF: 3 tramadol 50 mg tablet 50 mg PO TID MDD 3 PRN (Reason: pain) Qty: 90 RF: 0 ketoconazole 2 % Cream Topical BID Qty: 0 RF: 0 polyethylene glycol 3350 17 gram Powder In Packet 17 g PO DAILY PRN PRN (Reason: Constipation) Qty: 0 RF: 0 Novolog Flexpen U-100 Insulin 300 UNITS/3 ML insulin pen 10 unit Sub-Q 0800,1200,1700 Qty: 0 RF: 0 Mouthwash [Biotene Mouthwash] 59 ML Btl 5 ml Mucous Membrane AC RF: 0 acetaminophen [Tylenol] 325 MG tablet 650 mg PO Q6H PRN PRNQty: 0 RF: 0 Levemir FlexTouch U-100 Insuln 100 unit/mL (3 mL) insulin pen 65 unit SC QPM RF: 0 Discharge Instructions Instructions: Dehydration (ED) Additional Instructions: Your urinalysis today did not show evidence of urinary tract infection. You were mildly dehydrated and given fluid. Your chest x-ray was unchanged and did not show evidence of pneumonia Please follow-up with Allen Mariano in clinic for recheck. Continue your regular medications Return for any acute concern. Medical Decision Making 78-year-old female with a number of medical comorbidities, presents from home with her daughter. Yesterday she had increased frequency of urination. Today she presented by ambulance due to transient dizziness which is now resolved. It was associated with nausea and shortness of breath. These have improved as well. She denies to me any progressive shortness of breath. She also states she had a chronic cough and congestion over days time. She is afebrile with a temp 36.5, pulse is 87, slightly hypertensive at 168/100. Oxygenation is 96% on her home 2 L of oxygen. Differential diagnosis includes urinary tract infection, pneumonia, dehydration, electrolyte abnormality. Screening laboratories, UA, EKG, chest x-ray obtained. Chest x-ray reveals moderate cardiomegaly are similar to previous. Stable vascular congestion. Linear opacities in the mid lung stable.. Remainder of diagnostics are reassuring. A straight catheterization does not show evidence of UTI. She does have evidence of dehydration with an elevated specific gravity. White blood cell count 8, hematocrit 37, platelets 269. Sodium 137, potassium 4.5, chloride 102, bicarb 23, BUN 48, creatinine 1.8. Glucose 245. LFTs unremarkable, troponin negative, BNP 543. Patient improved with small amount of fluid. Subjectively better, objectively with brighter affect and more engaging. She does appear to have mild dehydration and responding to administration of parenteral fluid. She is essentially bedbound at home. Will require ambulance transfer but is stable and improved Lab Data Lab results reviewed: Yes I reviewed the patient's lab results. Laboratory Results - last 24 hr 03/16/19 03/16/19 19:20 19:20 WBC 8.45 RBC 4.11 Hgb 12.3 Hct 37.7 MCV 91.7 MCH 29.9 MCHC 32.6 RDW 13.1 Plt Count 269 MPV 10.6 Immature Gran % 0.6 Neutrophils % 73.0 Lymphocytes % 15.1 Monocytes % 6.9 Eosinophils % 3.9 Basophils % 0.5 Absolute Neutrophils 6.17 Absolute Lymphocytes 1.28 Absolute Monocytes 0.58 Absolute Eosinophils 0.33 Absolute Basophils 0.04 Sodium 137 Potassium 4.5 Chloride 102 Carbon Dioxide 23.9 Anion Gap 11.1 H BUN 48 H Creatinine 1.80 H Estimated GFR/1.73 m2 27.07 Glucose 245 H Calcium 8.7 Magnesium 1.8 Total Bilirubin 0.2 AST 15 ALT 19 Alkaline Phosphatase 113 Troponin I < 0.05 NT-Pro-B Natriuret Pep 543 H Total Protein 7.2 Albumin 3.2 L ECG Data Attestation: I personally reviewed and interpreted this ECG (s) as follows: Interpretation: Normal sinus rhythm with a rate of 75, the QRS is narrow, there is nonspecific T wave abnormality in lead I and aVL. No ST segment elevation HPI General Mode of arrival: ambulatory. Date/Time Provider Initiated Documentation: 03/16/19 18:56. Limitations to Documentation: no limitations. Information obtained by: patient. History of Present Illness 78 year old F presents to the emergency department with the chief complaint of Transient dizziness, improved. Coughing, persist, described as moderate, Quality is described as constant, Patient reports no radiation. Patient started experiencing this hour(s) and it has been constant. No relieving factors improve symptom(s), No exacerbating factors reported . Patient notes cough, loss of appetite, shortness of breath and other (Shortness of breath is improved); denies fever/chills. Patient did receive the following treatments prior to arrival, none Related Data Home Medications Medication Instructions Recorded Confirmed aspirin [Aspir-81] 81 mg PO DAILY tab 12/19/12 09/30/18 multivitamin [Daily Multi-Vitamin] 1 ea PO DAILY #90 03/01/16 03/16/19 ranitidine HCl 150 mg PO BID #60 tab-cap 10/17/17 09/30/18 pen needle, diabetic [Pen Needle] #1 box 11/03/17 09/30/18 Mouthwash [Biotene Mouthwash] 5 ml MUCOUS MEMBRANE AC btl 11/29/17 03/16/19 acetaminophen [Tylenol] 650 mg PO Q6H PRN PRN #0 tab 11/29/17 03/16/19 blood-glucose meter [OneTouch #1 kit 01/23/18 09/30/18 Ultra2] gabapentin 400 mg capsule 400 mg PO TID #270 cap 05/19/18 03/16/19 levothyroxine 200 mcg tablet 200 mcg PO DAILY #90 tab 05/19/18 03/16/19 ketoconazole 0 g TOPICAL BID #0 g 08/10/18 03/16/19 Novolog Flexpen U-100 Insulin 10 unit SUB-Q 0800,1200,1700 #0 pen 08/16/18 03/16/19 polyethylene glycol 3350 17 g PO DAILY PRN PRN #0 ea 08/16/18 03/16/19 paroxetine 20 mg tablet 20 mg PO DAILY #90 tab 09/25/18 03/16/19 Oxygen #1 each 11/02/18 lancets 33 gauge #100 each 11/24/18 11/24/18 pen needle, diabetic 32 gauge x #100 each 11/24/18 11/24/18/ blood sugar diagnostic strips #100 each 11/30/18 magnesium oxide 400 mg (241.3 mg 400 mg PO BID #60 tab 12/29/18 03/16/19 magnesium) tablet levetiracetam 500 mg tablet 500 mg PO BID #60 tab-cap 01/05/19 03/16/19 sucralfate 1 gram tablet 1 g PO QID PRN #120 tab 01/26/19 torsemide 20 mg tablet 20 mg PO DAILY #30 tab 01/26/19 03/16/19 pramipexole 0.5 mg tablet 0.5 mg PO TID #270 tab-cap 02/12/19 03/16/19 amlodipine 2.5 mg tablet 2.5 mg PO DAILY #90 tab-cap 03/01/19 03/16/19 cyanocobalamin (vit B-12) 500 mcg 1,000 mcg PO DAILY #180 tab 03/01/19 03/16/19 tablet ferrous sulfate 325 mg (65 mg 325 mg PO BID #180 tab 03/01/19 03/16/19 iron) tablet pravastatin 40 mg tablet 40 mg PO DAILY #90 tab 03/01/19 03/16/19 tramadol 50 mg tablet 50 mg PO TID PRN #90 tab MDD 3 03/12/19 03/16/19 Levemir FlexTouch U-100 Insuln 65 unit SC QPM 03/16/19 03/16/19 Previous Rx's Medication Instructions Recorded ranitidine HCl 150 mg PO BID #60 tab-cap 10/17/17 pen needle, diabetic [Pen Needle] #1 box 11/03/17 Mouthwash [Biotene Mouthwash] 5 ml MUCOUS MEMBRANE AC btl 11/29/17 acetaminophen [Tylenol] 650 mg PO Q6H PRN PRN #0 tab 11/29/17 blood-glucose meter [OneTouch #1 kit 01/23/18 Ultra2] gabapentin 400 mg capsule 400 mg PO TID #270 cap 05/19/18 levothyroxine 200 mcg tablet 200 mcg PO DAILY #90 tab 05/19/18 ketoconazole 0 g TOPICAL BID #0 g 08/10/18 Novolog Flexpen U-100 Insulin 10 unit SUB-Q 0800,1200,1700 #0 pen 08/16/18 polyethylene glycol 3350 17 g PO DAILY PRN PRN #0 ea 08/16/18 paroxetine 20 mg tablet 20 mg PO DAILY #90 tab 09/25/18 lancets 33 gauge #100 each 11/24/18 pen needle, diabetic 32 gauge x #100 each 11/24/18 blood sugar diagnostic strips #100 each 11/30/18 magnesium oxide 400 mg (241.3 mg 400 mg PO BID #60 tab 12/29/18 magnesium) tablet levetiracetam 500 mg tablet 500 mg PO BID #60 tab-cap 01/05/19 sucralfate 1 gram tablet 1 g PO QID PRN #120 tab 01/26/19 torsemide 20 mg tablet 20 mg PO DAILY #30 tab 01/26/19 pramipexole 0.5 mg tablet 0.5 mg PO TID #270 tab-cap 02/12/19 amlodipine 2.5 mg tablet 2.5 mg PO DAILY #90 tab-cap 03/01/19 cyanocobalamin (vit B-12) 500 mcg 1,000 mcg PO DAILY #180 tab 03/01/19 tablet ferrous sulfate 325 mg (65 mg 325 mg PO BID #180 tab 03/01/19 iron) tablet pravastatin 40 mg tablet 40 mg PO DAILY #90 tab 03/01/19 tramadol 50 mg tablet 50 mg PO TID PRN #90 tab MDD 3 03/12/19 Allergies Allergy/AdvReac Type Severity Reaction Status Date / Time lisinopril AdvReac Hyperkalemi Unverified 03/16/19 20:06 a General Stated Complaint: SOB LANA: 3 Review of Systems Review of Systems Increased urination yesterday. No fever noted. Cough with congestion. Patient was dizzy and transiently short of breath for proxy 1 hour with nausea that is now improved. 8 systems reviewed and otherwise negative [facility] Medical History Acute kidney injury superimposed on chronic kidney disease (Acute) Left leg pain (Acute) Insulin dependent diabetes mellitus (Chronic) Ambulatory dysfunction (Chronic) Hypothyroidism (Chronic) Microalbuminuria (Chronic 07/11/15) Vitamin B12 deficiency (Chronic 04/09/16) Primary localized osteoarthrosis of left lower leg (Chronic 09/21/11) Palliative care patient (Chronic 10/26/17) Other hyperlipidemia (Chronic 09/21/11) Iron deficiency anemia due to chronic blood loss (Chronic 09/21/11) Herpes zoster without complication (Resolved 07/22/17) Generalized anxiety disorder (Chronic 09/21/11) 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) Diabetes mellitus type 2 in nonobese (Chronic 03/12/98) Chronic diastolic heart failure (Chronic 01/16/18) 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) Obstructive sleep apnea (Chronic) 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 (Chronic) Hypoxemia (Chronic) Poorly controlled type 2 diabetes mellitus (Chronic) Morbid obesity with BMI of 70 and over, adult (Chronic) Depression (Chronic) Osteoarthritis of knees, bilateral (Chronic) H/O: hysterectomy (Chronic) Surgical History Extraction of cataract (11/14/11) History of colonoscopy (Chronic) History of esophagogastroduodenoscopy (EGD) (Chronic) H/O oral surgery (Resolved) Social History Smoking/Tobacco Use Status: Never Alcohol Intake: never Drug use: Never Substance use type: does not use Adopted: No Caregiver/Support person: Yes Foster care: No Household members: children Housing: house Number of Children: 4 Pets and animals: Yes What type of physical activity do you participate in: none Do you feel safe at home: Yes Do you feel safe in your relationship?: Yes Additional Social history: Marital Status: (Hernan suddenly 03/06/2001) 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 Exam Narrative Exam Narrative: GEN: awake, alert, oriented 3. Pleasant, well groomed, interactive. HEAD: Normocephalic, atraumatic ENT: Mucous membranes moist, oropharynx unremarkable, External ear exam unremarkable EYES: PERRL, EOMI NECK: Full ROM, no JESUS, no menigismus CHEST/RESP: Nontender, clear to auscultation bilateral, no wheeze/rhonchi/rales, cough noted CARDIOVASCULAR: RRR, no murmur, rub lonny. 2+ Rad pulse bilateral ABDOMEN: Soft, nontender, no mass. +Bowel sounds EXT: Full ROM, 2+ symmetric bilateral pretibial edema, no rash Neuro: Grossly normal neurologic exam, conversant, interactive. Psych: Speech fluent, thoughts congruent, affect flat Course Vital Signs Temperature 36.5 C 03/16/19 19:00 Pulse 87 03/16/19 19:00 Respiratory Rate 16 03/16/19 19:00 Blood Pressure 168/109 H 07/05/19 19:00 Pulse Oximetry 96 03/16/19 19:00 Temperature 36.5 C 03/16/19 19:00 Temperature Source Temporal Artery Scan 03/16/19 19:00 Pulse 87 03/16/19 19:00 Respiratory Rate 16 03/16/19 19:00 Respiratory Effort 03/16/19 19:00 Blood Pressure 168/109 H 03/16/19 19:00 Blood Pressure Position Supine 03/16/19 19:00 Pulse Oximetry 96 03/16/19 19:00 Oxygen Delivery Method Nasal Cannula 03/16/19 19:00 Oxygen Flow Rate 3 03/16/19 19:00
--- NOTE | 2019-03-16 19:48 | DI.VRAD_ITS ---
EXAM: XR Chest, 2 Views EXAM DATE/TIME: 03/16/2019 19:25 CLINICAL HISTORY: 78 years old, female; Cough TECHNIQUE: Imaging protocol: XR of the chest, 2 views. COMPARISON: SC XR CHEST 2V PA LATERAL 08/06/2018 19:31 FINDINGS: Lungs: Linear opacities in the right midlung zone are stable and likely represent chronic mild scarring. Mild generalized interstitial thickening similar to the previous study. No airspace consolidation. Pleural space: No pleural effusion. No pneumothorax. Heart/Mediastinum: Moderate cardiomegaly similar to the previous study. Stable mild vascular congestion. Bones/joints: No acute fracture. IMPRESSION: 1. Moderate cardiomegaly similar to the previous study. Stable mild vascular congestion. 2. Mild generalized interstitial thickening similar to the previous study, probably mild interstitial edema. Dictated and Authenticated by: Kaela Martinez MD. Ordering:JUANI Rivera MD
[2019-03-16 20:03] VITALS: RESP 16
[2019-03-16 20:08] LABS: Abs Immature Grans 0.05 k/cumm (0.0-0.09); Absolute Basophil Count 0.04 k/cumm (0.0-0.2); Absolute Eosinophil Count 0.33 k/cumm (0.0-0.7); Absolute Lymphocyte Count 1.28 k/cumm (1.2-3.4); Absolute Monocyte Count 0.58 k/cumm (0.11-0.7); Absolute Neutrophil Count 6.17 k/cumm (1.2-6.7); Basophils % 0.5; Eosinophils % 3.9; HCT 37.7 % (36.0-46.0); HGB 12.3 g/dL (12.0-15.5); Immature Grans % 0.6; Lymphocytes % 15.1; Mean Corp. HGB Concentration 32.6 g/dL (32.0-36.0); Mean Corpuscular Hemoglobin 29.9 pg (27.0-33.0); Mean Corpuscular Volume 91.7 fL (80-95); Mean Platelet Volume 10.6 fL (8.0-11.0); Monocytes % 6.9; Platelet Count 269 x1000/uL (130-400); RBC 4.11 m/cumm (4.00-5.20); RBC Distribution Width 13.1 % (11.7-14.6); White Blood Cell Count 8.45 k/cumm (4.4-10.8)
[2019-03-16 20:55] LABS: ALT 19 U/L (12-78); AST 15 U/L (15-37); Albumin 3.2 g/dL (3.4-5.0); Alkaline Phosphatase 113 U/L (46-116); Anion Gap 11.1 mmol/L (3-11); BUN 48 mg/dL (7-18); Bilirubin, Total 0.2 mg/dL (0.2-1.0); CO2 23.9 mmol/L (21.0-32.0); Calcium 8.7 mg/dL (8.5-10.1); Chloride 102 mmol/L (98-107); Estimated GFR 27.07 (mL/min/1.73m2); Glucose 245 mg/dL (70-100); Magnesium 1.8 mg/dL (1.8-2.4); Potassium 4.5 mmol/L (3.5-5.1); Sodium 137 mmol/L (136-145); Total Protein 7.2 g/dL (6.4-8.2); Troponin I < 0.05 ng/mL (0.00-0.06)
[2019-03-16 21:22] LABS: NT-proBNP 543 pg/mL
[2019-03-16 21:49] LABS: Bilirubin Negative (Negative); Blood Negative (Negative); Clarity Clear (Clear); Glucose 100 mg/dL (Negative); Ketones Negative (Negative); Leukocyte Esterase Negative (Negative); Nitrite Negative (Negative); Specific Gravity >= 1.030 (1.005-1.025); Urobilinogen 0.2 EU/dL (Up TO 0.2); pH 5.5 (5-8)
[2019-03-16 22:11] LABS: Bacteria Negative HPF (Negative); Casts Negative LPF (Negative); Crystals Few Amorphous HPF (Negative); Epithelial Cells Few HPF (Negative); Mucus Negative (Negative); RBC Negative (0-2); WBC Negative HPF (0-5)
[2019-03-16 22:12] LABS: C & S Indicated? No
[2019-03-16] MEDS: Normal Saline 250 ML IV (22:15)
[2019-03-16 22:29] VITALS: O2SAT 96
[2019-03-17 02:21] VITALS: BP 150/88; PULSE 87; RESP 16; O2SAT 96
== END 2019-03-16 22:53 | disposition home or self-care (01) ==
PROVIDERS: Emergency Provider Emergency Medicine; PCP Nurse Practitioner Adult Health
DX: E86.0 Dehydration (principal); R42 Dizziness and giddiness; Z74.01 Bed confinement status; E11.22 Type 2 diabetes mellitus with diabetic chronic kidney disease; Z79.4 Long term (current) use of insulin; R26.2 Difficulty in walking, not elsewhere classified; N18.4 Chronic kidney disease, stage 4 (severe)
CPT/HCPCS: 36415; 80053; 93005; 96360; 99285; 71046; 81003; 81015; 83735; 83880; 84484; 85025; 93010; 99284

== ENCOUNTER 2019-06-14 09:18 | Outpatient (REF) | payer MEDICARE, MEDICAID, SELFPAY ==
[2019-06-14 11:05] LABS: HCT 36.5 % (36.0-46.0); HGB 11.8 g/dL (12.0-15.5); Mean Corp. HGB Concentration 32.3 g/dL (32.0-36.0); Mean Corpuscular Hemoglobin 29.6 pg (27.0-33.0); Mean Corpuscular Volume 91.7 fL (80-95); Mean Platelet Volume 10.2 fL (8.0-11.0); Platelet Count 286 x1000/uL (130-400); RBC 3.98 m/cumm (4.00-5.20); White Blood Cell Count 7.11 k/cumm (4.4-10.8)
[2019-06-14 11:20] LABS: Hemoglobin A1C 10.5 % (4.5-6.2)
[2019-06-14 11:41] LABS: ALT 22 U/L (14-59); AST 10 U/L (15-37); Alkaline Phosphatase 116 U/L (46-116); Anion Gap 8.3 mmol/L (3-11); BUN 50 mg/dL (7-18); Bilirubin, Total 0.2 mg/dL (0.2-1.0); CO2 27.7 mmol/L (21.0-32.0); CREATININE 1.73 mg/dL (0.55-1.02); Calcium 8.8 mg/dL (8.5-10.1); Calculated LDL 154 mg/dL; Chloride 102 mmol/L (98-107); Cholesterol 243 mg/dL (50-200); Estimated GFR 28.34 (mL/min/1.73m2); Glucose 216 mg/dL (70-100); HDL Cholesterol 43 mg/dL (40-60); Magnesium 1.9 mg/dL (1.8-2.4); Potassium 4.8 mmol/L (3.5-5.1); Sodium 138 mmol/L (136-145); TSH (W/Ref FT4) 8.32 uIU/mL (0.36-3.74); Total Protein 6.5 g/dL (6.4-8.2); Triglyceride 232 mg/dL (30-150); Vitamin B12 914 pg/mL (193-986)
[2019-06-14 12:00] LABS: FREE T4 0.85 ng/dL (0.76-1.46)
[2019-06-14 12:02] LABS: ESR 55 mm/hr (0-30)
== END 2019-06-14 09:38 ==
LOC: LBN 09:18
PROVIDERS: PCP Nurse Practitioner Adult Health; Visit Provider Family Medicine
DX: E53.8 Deficiency of other specified B group vitamins (principal); E83.40 Disorders of magnesium metabolism, unspecified; D63.1 Anemia in chronic kidney disease; E03.9 Hypothyroidism, unspecified; E11.22 Type 2 diabetes mellitus with diabetic chronic kidney disease; E11.9 Type 2 diabetes mellitus without complications; E66.01 Morbid (severe) obesity due to excess calories; E78.49 Other hyperlipidemia; I10 Essential (primary) hypertension; K21.9 Gastro-esophageal reflux disease without esophagitis; N18.4 Chronic kidney disease, stage 4 (severe); N18.9 Chronic kidney disease, unspecified; R53.1 Weakness; Z68.45 Body mass index [BMI] 70 or greater, adult; Z79.4 Long term (current) use of insulin; I50.43 Acute on chronic combined systolic (congestive) and diastolic (congestive) heart failure; D51.9 Vitamin B12 deficiency anemia, unspecified; E78.5 Hyperlipidemia, unspecified
CPT/HCPCS: 80053; 80061; 85027; 85652; 82607; 83036; 83735; 84439; 84443

== ENCOUNTER 2019-08-22 11:53 | Outpatient (REF) | payer MEDICARE, MEDICAID, SELFPAY ==
[2019-08-22 12:42] LABS: Calculated LDL 106 mg/dL; Cholesterol 191 mg/dL (<200); HDL Cholesterol 44 mg/dL (40-60); Triglyceride 207 mg/dL (<150)
== END 2019-08-22 12:13 ==
LOC: LBN 11:53
PROVIDERS: PCP Nurse Practitioner Adult Health; Visit Provider Family Medicine
DX: E78.5 Hyperlipidemia, unspecified (principal); E11.9 Type 2 diabetes mellitus without complications; E78.00 Pure hypercholesterolemia, unspecified; Z79.4 Long term (current) use of insulin
CPT/HCPCS: 80061

== ENCOUNTER 2019-12-14 11:23 | Outpatient (REF) | payer MEDICARE, MEDICAID, SELFPAY ==
[2019-12-14 12:35] LABS: Calculated LDL 91 mg/dL (<100); Cholesterol 180 mg/dL (<200); HDL Cholesterol 43 mg/dL (40-60); Triglyceride 231 mg/dL (<150)
[2019-12-14 12:45] LABS: Hemoglobin A1C 10.2 % (3.8-5.6)
== END 2019-12-14 11:43 ==
LOC: LBN 11:23
PROVIDERS: PCP Nurse Practitioner Adult Health; Visit Provider Nurse Practitioner Adult Health
DX: E11.40 Type 2 diabetes mellitus with diabetic neuropathy, unspecified (principal); E78.00 Pure hypercholesterolemia, unspecified; Z79.4 Long term (current) use of insulin
CPT/HCPCS: 80061; 83036

== ENCOUNTER 2020-07-18 21:04 | Emergency (ER) | payer MEDICARE, MEDICAID, SELFPAY ==
[2020-07-18] VITALS (7 sets, daily range): BP systolic 140; BP diastolic 44; PULSE 25–116; RESP 0–47; O2SAT 68–77
[2020-07-18] MEDS: Atropine 1 MG/10 ML SYRINGE IVP (21:30)
[2020-07-18] MEDS: EPINEPHrine 1 MG/10 ML SYR IVP ×3 (21:38→21:46)
--- NOTE | 2020-07-18 21:55 | ED.GENADUL_ITS ---
Discharge Plan Disposition Patient Disposition: Discharge Details Clinical Impression: Respiratory failure, Cardiac arrest Primary Care Provider: Yvonne Staples ED Provider: Vladimir Baltazar Discharge Data Date/Time: 07/18/20 21:45 Discharge Date/Time-TO BE ENTERED AT DEPARTURE: 07/18/20 23:05 Discharge Physician: Randall Bernabe Medical Decision Making <Randall Bernabe MD - Last Filed: 07/29/20 21:28> 79-year-old female arrives with EMS with acute respiratory distress in critical condition. Dr. Baltazar and I responded to the patient jointly, decision was made to intubate given respiratory failure, altered mental status and hypoxemia. Fingerstick normal per EMS. On arrival patient was difficult to bag and was hypoxic. Nasal trumpet was introduced and high flow nasal cannula oxygen was administered. Video laryngoscope was utilized to visualize the cords. Patient had significant purulent white heavy secretions in her posterior oropharynx and her airway. Attempts were made to optimize airway intervention and induction agent etomidate was administered through IO. View of the cords was again obtained with video laryngoscope. Paralytic was administered. Attempt was made to pass endotracheal tube and had difficulty threading over stylet. Attempted to bag the patient and she remained hypoxic with decreasing oxygenation. She did have significant heavy secretions from the endotracheal tube. Endotracheal tube was removed and patient was bagged. Second attempted RSI was performed successfully and confirmed with end-tidal CO2, bilateral breath sounds. Patient had heavy secretions and required inline suctioning by respiratory therapy. Despite optimizing ventilator management patient had persistent hypoxia and became bradycardic. She was given atropine 1 mg IV. She remained bradycardic and then developed cardiac arrest with ventricular fibrillation. Patient was defibrillated to a wide-complex rhythm after single attempt at 200 J. Patient did not have palpable pulses and CPR was continued following ACLS algorithm including administration of multiple doses of epinephrine. Despite aggressive invasive measures, patient did not regain spontaneous circulation. Bedside [id number] ultrasound was utilized to visualize her heart. Dilated ventricles were noted with no organized movement and PEA noted on the monitor. Patient was pronounced at 21:48. Family was at bedside and appreciative of our efforts. Patient's daughter at bedside declined autopsy. <Vladimir Baltazar DO - Last Filed: 07/18/20 22:57> Upon my evaluation, this patient had a high probability of imminent or life- threatening deterioration, which required my direct attention, intervention, and personal management. I have personally provided 45 minutes of critical care time exclusive of time spent on separately billable procedures. Time includes review of laboratory data, radiology results, discussion with consultants, and monitoring for potential decompensation. Interventions were performed as documented. 79-year-old female with a past medical history of type 2 diabetes, hypothyroidism, diastolic heart failure, chronic kidney disease, obstructive sleep apnea, high cholesterol, GERD, who presents today to respiratory arrest. Per family they state that today the patient stated that she had not been feeling well but was not overtly sick or ill. However this evening when the daughter went in to check back on her she noticed that the patient was unresponsive, with significant respiratory distress, and pink frothy Pepto- Bismol was coming out of her mouth and nose. EMS was called, upon their arrival the patient unresponsive, GCS of 3, appears to be in florid respiratory distress, she is [id number] and brought into the ER for immediate management. Upon arrival oxygenation was in the 70s to 80s, nasal trumpet was placed, continued bagging was performed. At this point review of initial records revealed that she was DNR/DNI, I personally spoke with her daughter, who informed me that those were times, and that she was full code at this time. Decision was then made to intubate. The patient was intubated successfully by my colleague Dr. Eric Bernabe. Unfortunately in spite of this massive amount of fluffy pulmonary edema exerted into the tube, she was suctioned, in spite of this it was notably challenging to maintain her airway status. Despite continued inline suctioning, and maintaining ventilation unfortunately the patient's saturations remained difficult to raise, and instead it seems best efforts the patient subsequently coded, epinephrine, atropine, a single 200 J shock, and multiple rounds of CPR was performed. In spite of this after repeated attempts and assessments the patient had no ROSC. Family was brought into the room for the final 10 to 15 minutes of the code, during the code, seen with scenario the daughter Oksana elected to stop resuscitative efforts. With the patient's daughter at bedside we finished the last round of CPR, repeat bedside cardiac echo was performed which showed no motion whatsoever, for a dilatation of the ventricles bilaterally, no cardiac movement organization at home. With the patient's family at bedside respecting their wishes the code was then halted, and no more resuscitative efforts were made. Case was discussed with pediatrician/medical doctor Buzz Hernández, with the patient's notable medical history, there is no indication for autopsy. Additionally family has declined autopsy. Patient will be transferred to the care of the home service. Of note we are sending out Covid testing for further analysis of cause of . HPI <Randall Bernabe MD - Last Filed: 07/29/20 21:28> General Mode of arrival: EMS . Date/Time Provider Initiated Documentation: 07/18/20 21:54 . Limitations to Documentation: altered mental status . Information obtained by: EMS . HPI Narrative: 79-year-old female patient arrives via EMS with respiratory failure receiving mechanical ventilation by bag valve mask. Patient apparently collapsed and found unresponsive by EMS. Related Data Home Medications Medication Instructions Recorded Confirmed aspirin [Aspir-81] 81 mg PO DAILY tab 12/19/12 07/04/20 multivitamin [Daily Multi-Vitamin] 1 ea PO DAILY #90 03/01/16 07/04/20 Mouthwash [Biotene Mouthwash] 5 ml MUCOUS MEMBRANE AC btl 11/29/17 07/04/20 acetaminophen [Tylenol] 650 mg PO Q6H PRN PRN #0 tab 11/29/17 07/04/20 blood-glucose meter [OneTouch #1 kit 01/23/18 07/04/20 Ultra2 Meter] polyethylene glycol 3350 17 g PO DAILY PRN PRN #0 ea 08/16/18 07/04/20 Oxygen #1 each 11/02/18 07/04/20 magnesium oxide 400 mg (241.3 mg 400 mg PO BID #60 tab 12/29/18 07/04/20 magnesium) tablet cyanocobalamin (vitamin B-12) 500 1,000 mcg PO DAILY #180 tab 03/01/19 07/04/20 mcg tablet lancets 33 gauge #100 each 05/25/19 07/04/20 loratadine 10 mg tablet 10 mg PO DAILY #30 tab 06/01/19 07/04/20 paroxetine HCl 20 mg tablet 20 mg PO DAILY #90 tab 06/07/19 07/04/20 atorvastatin 20 mg tablet 60 mg PO QHS #270 tab 11/16/19 07/04/20 levothyroxine 200 mcg tablet 200 mcg PO DAILY #90 tab 11/16/19 07/04/20 pen needle, diabetic 32 gauge x #300 each 12/13/19 07/04/20 insulin aspart U-100 100 unit/mL See Rx Instructions SUB-Q 12/28/19 07/04/20 (3 mL) subcutaneous pen 0800,1200,1700 #60 ml MDD 57 units insulin detemir U-100 100 unit/mL 24 unit SC QHS #15 ml 12/28/19 07/04/20 (3 mL) subcutaneous pen amlodipine 2.5 mg tablet 2.5 mg PO DAILY #90 tab-cap 02/08/20 07/04/20 ferrous sulfate 325 mg (65 mg 325 mg PO BID #180 tab 02/08/20 07/04/20 iron) tablet levetiracetam 500 mg tablet 500 mg PO BID #180 tab-cap 02/08/20 07/04/20 pramipexole 0.5 mg tablet 0.5 mg PO TID #360 tab-cap MDD 02/08/20 07/04/20 2.5mg sucralfate 1 gram tablet 1 g PO QID PRN #360 tab 02/08/20 07/04/20 torsemide 20 mg tablet 20 mg PO DAILY #90 tab 02/08/20 07/04/20 gabapentin 600 mg tablet 600 mg PO TID #270 tab 02/29/20 07/04/20 nystatin 100,000 unit/gram topical 1 applic TP BID PRN #60 gm 02/29/20 07/04/20 powder tramadol 50 mg tablet 50 mg PO TID PRN #84 tab MDD 3 06/27/20 06/27/20 blood sugar diagnostic #100 each 07/11/20 Previous Rx's Medication Instructions Recorded Mouthwash [Biotene Mouthwash] 5 ml MUCOUS MEMBRANE AC btl 11/29/17 acetaminophen [Tylenol] 650 mg PO Q6H PRN PRN #0 tab 11/29/17 blood-glucose meter [OneTouch #1 kit 01/23/18 Ultra2 Meter] polyethylene glycol 3350 17 g PO DAILY PRN PRN #0 ea 08/16/18 magnesium oxide 400 mg (241.3 mg 400 mg PO BID #60 tab 12/29/18 magnesium) tablet cyanocobalamin (vitamin B-12) 500 1,000 mcg PO DAILY #180 tab 03/01/19 mcg tablet lancets 33 gauge #100 each 05/25/19 loratadine 10 mg tablet 10 mg PO DAILY #30 tab 06/01/19 paroxetine HCl 20 mg tablet 20 mg PO DAILY #90 tab 06/07/19 atorvastatin 20 mg tablet 60 mg PO QHS #270 tab 11/16/19 levothyroxine 200 mcg tablet 200 mcg PO DAILY #90 tab 11/16/19 pen needle, diabetic 32 gauge x #300 each 12/13/19 insulin aspart U-100 100 unit/mL See Rx Instructions SUB-Q 12/28/19 (3 mL) subcutaneous pen 0800,1200,1700 #60 ml MDD 57 units insulin detemir U-100 100 unit/mL 24 unit SC QHS #15 ml 12/28/19 (3 mL) subcutaneous pen amlodipine 2.5 mg tablet 2.5 mg PO DAILY #90 tab-cap 02/08/20 ferrous sulfate 325 mg (65 mg 325 mg PO BID #180 tab 02/08/20 iron) tablet levetiracetam 500 mg tablet 500 mg PO BID #180 tab-cap 02/08/20 pramipexole 0.5 mg tablet 0.5 mg PO TID #360 tab-cap MDD 02/08/20 2.5mg sucralfate 1 gram tablet 1 g PO QID PRN #360 tab 02/08/20 torsemide 20 mg tablet 20 mg PO DAILY #90 tab 02/08/20 gabapentin 600 mg tablet 600 mg PO TID #270 tab 02/29/20 nystatin 100,000 unit/gram topical 1 applic TP BID PRN #60 gm 02/29/20 powder tramadol 50 mg tablet 50 mg PO TID PRN #84 tab MDD 3 06/27/20 blood sugar diagnostic #100 each 07/11/20 Allergies Allergy/AdvReac Type Severity Reaction Status Date / Time lisinopril AdvReac Hyperkalemi Unverified 07/18/20 22:03 a General Stated Complaint: SOB LANA: 1 Review of Systems <Randall Bernabe MD - Last Filed: 07/29/20 21:28> Unobtainable due to mental status PFSH <Randall Bernabe MD - Last Filed: 07/29/20 21:28> Medical History Ambulatory dysfunction Cane/walker; chronic pain & obesity impair ability to ambulate Chronic diastolic heart failure (01/16/18) Preserved EF LVH ECHO 2018 Chronic pain L-T Tramadol RX (homebound & palliative) 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 diabetes mellitus (04/09/16) Depression Diabetes type 2, uncontrolled Generalized anxiety disorder (09/21/11) Hypoxemia Discovered inpt; Refuses sleep study to get CPAP/BiPAP Wears supplemental O2 overnight Insulin dependent diabetes mellitus Intertrigo Chronic intermittent; RX Nystatin powder effective Kidney stone (09/21/11) Microalbuminuria (07/11/15) Morbid obesity with BMI of 70 and over, adult Obstructive sleep apnea Presumed; pt refuses sleep study; ID'ed inpt [facility] Osteoarthritis of knees, bilateral Chronic pain--palliative & L/T RX Tramadol for ongoing management effective without ADRs Palliative care patient (10/26/17) Dr. Quiroz Primary localized osteoarthrosis of left lower leg (09/21/11) [facility] adm 01/2016, L knee responded to injection, multiple subsequent hosp & rehab stays-->chronic pain b/l legs RX Tramadol Seasonal allergic rhinitis Fall--RX Loratadine effective Vitamin B12 deficiency (04/09/16) borderline B12; elevated Methylmalonic Acid (0.89, [facility] [place]) Surgical History Extraction of cataract (11/14/11) Bilateral, IOL, Dr Cornelius H/O oral surgery resection of a tongue lesion H/O: hysterectomy History of colonoscopy History of esophagogastroduodenoscopy (EGD) Social History Smoking/Tobacco Use Status: Never Smoking risk assessment performed?: Yes Alcohol Intake: never Drug use: Never Substance use type: does not use Adopted: No Caregiver/Support person: Yes Foster care: No Household members: children Housing: house Number of Children: 4 Pets and animals: Yes What type of physical activity do you participate in: none Do you feel safe at home: Yes Do you feel safe in your relationship?: Yes Additional Social history: Marital Status: (Hernan suddenly 03/06/2001) 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 Exam <Randall Bernabe MD - Last Filed: 07/29/20 21:28> Const Nutritional Appearance: obese morbidly obese Other: Unresponsive, cyanotic HENMT Other: Heavy thick white purulent secretions from nose and mouth Eyes Pupils: dilated bilaterally, fixed and not reactive Neck Other: Weak carotid pulse Resp Effort & Inspection: labored and tachypneic Auscultation: crackles bilaterally throughout Cardio Rate: regular rate Rhythm: regular rhythm Neuro General: other (Unresponsiv, GCS of 3) Cognition: abnormal cognition Extrem General: pedal edema bilaterally Course <Randall Bernabe MD - Last Filed: 07/29/20 21:28> Vital Signs Vital signs: Vital Signs Pulse Oximetry 77 L 07/18/20 21:04 Pulse Oximetry 77 L 07/18/20 21:04 Oxygen Delivery Method Room Air 07/18/20 21:04 Oxygen Flow Rate 0 07/18/20 21:04 Procedures <Randall Bernabe MD - Last Filed: 07/29/20 21:28> Intubation Time out performed: Yes sedative: Etomidate Mg Given: 20 paralytic: Rocuronium Laryngoscope: fiberoptic video scope Tube Placement Confirmation: visualized tube passing through cords, equal breath sounds bilaterally, no breath sounds over epigastrum and confirmation by capnometry Intubation Complications: difficult intubation
--- NOTE | 2020-07-18 22:03 | NUR.NOTE ---
Addendum entered by Mickie Moore 07/20/20 01:22: Added note - when HR dropped to 32 after second intubation attempt;1 mg atropine given via IO Addendum entered by Eileen Maldonado 07/18/20 22:37: 1 mg Atropine given at 2128 with HR of 32. Original Note: Nursing Note: Patient arrives at 2109. O2 sat 56% on 100% O2 via BVM. Intubation initiated per family request. 20 mg etomidate given via Left upper arm IO at 2117. Hr reading 104 and O2 89% via bvm at 2118. Intubation attempted by Dr. Bernabe at 2119 with 7 tube. vitals as follows: 101 Hr, 88% O2 followed by drop to 75%, 72%, then 64% O2 and HR reading 74. Tube removed at 2123. Continued bagging via BVM at 2124. 100 mg Rocuronium given via IO at 2125. Second intubation attempt by Dr. Bernabe with CMAC at 2126 with 5 tube, O2 sat reading 70% with BVM post tube insertion. O2 sat drop to 54% and HR of 32. ET tube suctioned, pulse checked with no pulse palpated at 2134. Zoll reads v-fib at 2134. CPR initiated. After two minute cycle, zoll charged to 200 J and shock administered. CPR continued. 1 mg epinephrine given at 2137 via IO to left upper arm. Next rhythm check at 2139 shows PEA. CPR continued. 1 mg epinephrine given at 2141 via IO. Rhythm check indicates asystole at 2141. CPR continued. PEA reads at 2142. No pulse, no cardiac movement found with dilated heart valves via ultrasound by Dr. Baltazar. 1 mg epinephrine given at 2145 and CPR continued. Daughter, Oksana Vargas, at bedside at this time. PEA narrow complex with no cardiac movement at 2146. Resuscitative efforts terminated at 2147.
--- NOTE | 2020-07-21 11:23 | NUR.NOTE ---
Nursing Note: Access pt record for EKG order status. Archana Inman
[2020-07-21 16:02] LABS: SARS-CoV-2 RNA Not Detected (NotDetected); SARS-CoV-2 RNA Source Nasopharynx
== END 2020-07-18 23:05 | disposition expired ==
PROVIDERS: Emergency Provider Student in an Organized Health Care Education/Training Program; PCP Nurse Practitioner Adult Health
DX: I46.9 Cardiac arrest, cause unspecified (principal); J96.01 Acute respiratory failure with hypoxia; I12.9 Hypertensive chronic kidney disease with stage 1 through stage 4 chronic kidney disease, or unspecified chronic kidney disease; E11.22 Type 2 diabetes mellitus with diabetic chronic kidney disease; N18.4 Chronic kidney disease, stage 4 (severe); Z79.4 Long term (current) use of insulin; Z11.59 Encounter for screening for other viral diseases
CPT/HCPCS: 31500; 92950; 96374; 96375; 99291; U0003